=== PATIENT | male | born 1950 | race African-American/Black ===

== ENCOUNTER 2016-04-25 10:27 | Inpatient (IN) | payer MEDICARE, OTHER ==
[2016-04-25 10:46] VITALS: BMI 34.8
--- NOTE | 2016-04-25 11:46 | PDOC ---
History of Present Illness - General Chief Complaint: Wound Infection Stated Complaint: LT HAND LACERATION Time Seen by Provider: 04/25/16 11:45 Past History - Past Medical History Allergies/Adverse Reactions: Allergies Allergy/AdvReac Type Severity Reaction Status Date / Time No Known Allergies Allergy Verified 04/25/16 10:41 Home Medications: Ambulatory Orders Abacavir/Dolutegravir/Lamivudi [Triumeq Tablet] 1 each PO DAILY 04/25/16 Albuterol Sulfate Inhaler - [Ventolin HFA Inhaler -] 1 - 2 inh PO Q4H 04/25/16 Albuterol Sulfate Inhaler - [Ventolin HFA Inhaler -] 1 - 2 inh PO QID 04/25/16 Aspirin [ASA -] 81 mg PO DAILY 04/25/16 Atorvastatin Ca [Lipitor] 10 mg PO HS 04/25/16 Dabigatran Etexilate Mesylate [Pradaxa -] 150 mg PO BID 04/25/16 Folic Acid 1 mg PO DAILY 04/25/16 Gabapentin 400 mg PO DAILY 04/25/16 Hydralazine HCl [Apresoline -] 25 mg PO DAILY 04/25/16 Lisinopril [Prinivil] 20 mg PO DAILY 04/25/16 Magnesium Oxide [Magox 400] 400 mg PO BID 04/25/16 Metformin HCl [Metformin HCl ER] 500 mg PO BID 04/25/16 Metoprolol Tartrate [Lopressor -] 50 mg PO BID 04/25/16 Mometasone Furoate [Asmanex 110Mcg -] 1 inh IH DAILY 04/25/16 Multivitamin [Poly-Vitamin] 1 each PO DAILY 04/25/16 Niacin [Niacin ER] 1,000 mg PO DAILY 04/25/16 Sennosides [Senna -] 2 tab PO DAILY 04/25/16 Sitagliptin Phosphate [Januvia] 25 mg PO DAILY 04/25/16 Tamsulosin HCl [Flomax] 0.4 mg PO HS 04/25/16 Tiotropium [place] [Spiriva] 1 inh PO DAILY 04/25/16 Cephalexin [Keflex] 500 mg PO BID #14 capsule 04/27/16 Anemia: No Asthma: Yes Cancer: Yes (prostate ca) Cardiac Disorders: Yes CVA: Yes (Generalized weakness) COPD: Yes CHF: No Dementia: Yes Diabetes: Yes (TYPE II) Disorders: Yes HTN: Yes Hypercholesterolemia: Yes HIV: Yes Seizures: No - Immunization History Immunization Up to Date: Yes - Psycho/Social/Smoking Cessation Hx Anxiety: No Suicidal Ideation: No Smoking History: Former smoker Have you smoked in the past 12 months: No Number of Cigarettes Smoked Daily: 2 Cigars Per Day: 0 Information on smoking cessation initiated: No 'Breaking Loose' booklet given: 08/29/15 Hx Alcohol Use: No Drug/Substance Use Hx: No (PAST) Substance Use Type: None Hx Substance Use Treatment: No *Physical Exam - Vital Signs Last Vital Signs Temp Pulse Resp BP Pulse Ox 98.2 F 92 H 20 124/76 98 04/25/16 10:41 04/25/16 10:41 04/25/16 10:41 04/25/16 10:41 04/25/16 10:41 ED Treatment Course - LABORATORY CBC & Chemistry Diagram: 04/26/16 05:35 04/26/16 05:35 *DC/Admit/Observation/Transfer Diagnosis at time of Disposition: HIV-1 (human immunodeficiency virus I), Abscess of left hand, Failure of outpatient treatment - Discharge Dispostion Disposition: HOME - Prescriptions - Attestations Physician Attestion: 04/25/16 11:45 I, Dr. Ismael Josue, attest that this document has been prepared under my direction and personally reviewed by me in its entirety. I further attest, that it accurately reflects all work, treatment, procedures and medical decision -making performed by me.
[2016-04-25] MEDS ORDERED: VANCOMYCIN 1,000 MG in DEXTROSE 5%-WATER - 250 ML IVPB ONE (12:44)
[2016-04-25] MEDS ORDERED: PIPERACILLIN/TAZOB 3.375 GM 3.375 GM in DEXTROSE 5%-WATER - 50 ML IVPB SCH (12:45)
[2016-04-25] MEDS ORDERED: PIPERACILLIN/TAZOB 3.375 GM 50 ML IVPB ONE (12:53)
[2016-04-25] MEDS ORDERED: VANCOMYCIN 1 GRAM (PRE-DOCKED) 250 ML IVPB ONE (12:53)
[2016-04-25 13:13] LABS: VENOUS BLOOD GAS HCO3 24.2 meq/L (22-29); VENOUS PH 7.39 (7.31-7.41)
[2016-04-25 13:20] LABS: BASOPHIL 1.3 % (0-2.0); EOSINOPHIL 1.5 % (0-4.5); MCH 27.2 pg (25.7-33.7); MCHC 32.4 g/dl (32.0-35.9); MEAN CELL VOLUME 83.8 fl (80-96); MEAN PLT VOLUME 8.5 fl (7.5-11.1); NEUTROPHILS 61.7 % (42.8-82.8); PLATELET COUNT 225 K/MM3 (134-434); RDW 15.4 % (11.9-15.9)
[2016-04-25 13:33] LABS: INR 1.21 (0.82-1.09); PROTHROMBIN TIME (PATIENT) 13.4 SEC (9.98-11.88)
[2016-04-25 13:35] LABS: ACTIVATED PTT 34.9 SECONDS (26.9-34.4)
[2016-04-25 13:43] LABS: ALBUMIN 2.3 g/dl (3.4-5.0); ANION GAP 11 (8-16); CALCIUM 8.6 mg/dL (8.5-10.1); CO2 25 mmol/L (21-32)
--- NOTE | 2016-04-25 13:45 | PN ---
Progress Note, Physician Chief Complaint: ID Cull note dictated My clinic patient HIV positive for years doing well though many comorbidities including DM and CKD. Several days ago cut palm of his right hand on a knife cutting an orange at home. Saw him in clinic 2 days ago whith some slight induration and tendernes but no fluctuance. I advise warm soaks and Keflex which he did. Now area draining pus with some surrounding palm swelling. No fever or chills - Current Medication List Current Medications: Active Medications Piperacillin Sod/Tazobactam (Sod 3.375 gm/ Dextrose) 50 mls @ 100 mls/hr IVPB ONCE GELACIO Last Admin: 04/25/16 13:13 Dose: 100 mls/hr Vancomycin HCl 1,000 mg/ (Dextrose) 250 mls @ 250 mls/hr IVPB ONCE ONE Stop: 04/25/16 13:43 Last Admin: 04/25/16 13:31 Dose: 250 mls/hr - Objective Vital Signs: Vital Signs Temperature 98.2 F 04/25/16 10:41 Pulse Rate 92 H 04/25/16 10:41 Respiratory Rate 20 04/25/16 10:41 Blood Pressure 124/76 04/25/16 10:41 O2 Sat by Pulse Oximetry (%) 98 04/25/16 10:41 Constitutional: Yes: Obese, Poor Hygeine Neck: Yes: Supple Cardiovascular: Yes: S1, S2 Respiratory: Yes: WNL, Regular, CTA Bilaterally Gastrointestinal: Yes: Soft Extremities: Yes: Other (open are palm of right hand with pus tender some swelling) Labs: CBC, BMP 04/25/16 13:10 Problem List - Problems (1) Abscess of left hand Code(s): L02.512 - CUTANEOUS ABSCESS OF LEFT HAND (2) Diabetes mellitus type 2, uncontrolled Code(s): E11.65 - TYPE 2 DIABETES MELLITUS WITH HYPERGLYCEMIA (3) HIV (human immunodeficiency virus infection) Code(s): Z21 - ASYMPTOMATIC HUMAN IMMUNODEFICIENCY VIRUS INFECTION STATUS (4) Acute kidney injury superimposed on CKD Code(s): S37.009A - UNSPECIFIED INJURY OF UNSPECIFIED KIDNEY, INITIAL ENCOUNTER N18.9 - CHRONIC KIDNEY DISEASE, UNSPECIFIED Assessment/Plan Microbiology Laboratory Tests 04/25/16 13:10 Hgb 13.7 D Plt Count 225 D Assessment Abscess left hand draining SSTI with underlying DM Plan Vanco and zosyn pending culture Anticipate short stay Reasonable to have hand surgeon see him Cultures IRMA Hawkins MD
[2016-04-25] MEDS ORDERED: VANCOMYCIN 1,500 MG in DEXTROSE 5%-WATER - 250 ML IVPB ONE (13:46)
[2016-04-25 13:47] LABS: BILIRUBIN,TOTAL 0.2 mg/dL (0.2-1.0); CREATININE 1.8 mg/dL (0.7-1.3); SGOT/AST 16 U/L (15-37); SGPT/ALT 23 U/L (12-78); TOT PROT 6.1 g/dl (6.4-8.2)
--- NOTE | 2016-04-25 13:53 | PDOC ---
History of Present Illness - General Chief Complaint: Wound Infection Stated Complaint: LT HAND LACERATION Time Seen by Provider: 04/25/16 11:45 History Source: Patient Exam Limitations: No Limitations - History of Present Illness Initial Comments: 04/25/16 13:04 65-year-old male with history of HIVand diabetes presents with worsening left hand wound which occurred 3 days ago while cutting an orange with a knife. Patient was seen by his infectious disease physician Dr. Hawkins who prescribed him Keflex which patient has been taking as prescribed but states symptoms have worsened. Pt was sent here by Dr. Simon for admission secondary to failed outpatient therapy and worsening abscess. Patient states has had no fever or chills or decreased range of motion of the left hand but pain has been constant and more severe since this morning. Timing/Duration: getting worse Severity: moderate Associated Symptoms: denies: denies symptoms, fever/chills, weakness Past History - Past Medical History Allergies/Adverse Reactions: Allergies Allergy/AdvReac Type Severity Reaction Status Date / Time No Known Allergies Allergy Verified 04/25/16 10:41 Home Medications: Ambulatory Orders Abacavir/Dolutegravir/Lamivudi [Triumeq Tablet] 1 each PO DAILY 04/25/16 Albuterol Sulfate Inhaler - [Ventolin HFA Inhaler -] 1 - 2 inh PO Q4H 04/25/16 Albuterol Sulfate Inhaler - [Ventolin HFA Inhaler -] 1 - 2 inh PO QID 04/25/16 Aspirin [ASA -] 81 mg PO DAILY 04/25/16 Atorvastatin Ca [Lipitor] 10 mg PO HS 04/25/16 Dabigatran Etexilate Mesylate [Pradaxa -] 150 mg PO BID 04/25/16 Folic Acid 1 mg PO DAILY 04/25/16 Gabapentin 400 mg PO DAILY 04/25/16 Hydralazine HCl [Apresoline -] 25 mg PO DAILY 04/25/16 Lisinopril [Prinivil] 20 mg PO DAILY 04/25/16 Magnesium Oxide [Magox 400] 400 mg PO BID 04/25/16 Metformin HCl [Metformin HCl ER] 500 mg PO BID 04/25/16 Metoprolol Tartrate [Lopressor -] 50 mg PO BID 04/25/16 Mometasone Furoate [Asmanex 110Mcg -] 1 inh IH DAILY 04/25/16 Multivitamin [Poly-Vitamin] 1 each PO DAILY 04/25/16 Niacin [Niacin ER] 1,000 mg PO DAILY 04/25/16 Sennosides [Senna -] 2 tab PO DAILY 04/25/16 Sitagliptin Phosphate [Januvia] 25 mg PO DAILY 04/25/16 Tamsulosin HCl [Flomax] 0.4 mg PO HS 04/25/16 Tiotropium [place] [Spiriva] 1 inh PO DAILY 04/25/16 Cephalexin [Keflex] 500 mg PO BID #14 capsule 04/27/16 Anemia: No Asthma: Yes Cancer: Yes (prostate ca) Cardiac Disorders: Yes CVA: Yes (Generalized weakness) COPD: Yes CHF: No Dementia: Yes Diabetes: Yes (TYPE II) Disorders: Yes HTN: Yes Hypercholesterolemia: Yes HIV: Yes Seizures: No - Immunization History Immunization Up to Date: Yes - Psycho/Social/Smoking Cessation Hx Anxiety: No Suicidal Ideation: No Smoking History: Former smoker Have you smoked in the past 12 months: No Number of Cigarettes Smoked Daily: 2 Cigars Per Day: 0 Information on smoking cessation initiated: No 'Breaking Loose' booklet given: 08/29/15 Hx Alcohol Use: No Drug/Substance Use Hx: No (PAST) Substance Use Type: None Hx Substance Use Treatment: No Patient Lives Alone: Yes Lives with/in: lives alone Review of Systems - Review of Systems Able to Perform ROS?: Yes Constitutional: No: Symptoms Reported HEENTM: No: Symptoms Reported Respiratory: No: Symptoms reported Cardiac (ROS): No: Symptoms Reported ABD/GI: No: Symptoms Reported : No: Symptoms Reported Musculoskeletal: No: Symptoms Reported Integumentary: Yes: Erythema, Lumps (left hand) Neurological: No: Symptoms reported, Numbness, Tingling, Dizziness Hematologic/Lymphatic: No: Symptoms Reported *Physical Exam - Vital Signs Last Vital Signs Temp Pulse Resp BP Pulse Ox 98.2 F 92 H 20 124/76 98 04/25/16 10:41 04/25/16 10:41 04/25/16 10:41 04/25/16 10:41 04/25/16 10:41 - Physical Exam General Appearance: Yes: Nourished, Appropriately Dressed. No: Apparent Distress HEENT: positive: EOMI, ALMITA. negative: Pale Conjunctivae Neck: positive: Supple Respiratory/Chest: positive: Lungs Clear, Normal Breath Sounds. negative: Respiratory Distress, Accessory Muscle Use Cardiovascular: positive: Regular Rhythm, Regular Rate. negative: Murmur Gastrointestinal/Abdominal: positive: Soft. negative: Tenderness Musculoskeletal: negative: CVA Tenderness Extremity: positive: Normal Capillary Refill, Normal Range of Motion, Tender ( left palm over 5th metacarpal). negative: Pedal Edema Integumentary: positive: Swelling (with erythema and purulent drainage from center of wound to left outer palm. Edema measuring 3 x 1 cm with erthema to center. No increased warmth. surrounding skin intact) Neurologic: positive: Motor Strength 5/5 (left fingers) ED Treatment Course - LABORATORY CBC & Chemistry Diagram: 04/26/16 05:35 04/26/16 05:35 - ADDITIONAL ORDERS Additional order review: Laboratory Results 04/25/16 13:10 VBG pH 7.39 POC VBG pCO2 40.8 L POC VBG pO2 45.4 H 04/25/16 13:10 RBC 5.03 D MCV 83.8 MCHC 32.4 RDW 15.4 MPV 8.5 Neutrophils % 61.7 Lymphocytes % 27.6 Monocytes % 7.9 Eosinophils % 1.5 Basophils % 1.3 - RADIOLOGY Radiology Studies Ordered: Category Date Time Status UPPER EXTREMITY CT W/O CONTR [CT] Stat CT Scan 04/25/16 12:23 Ordered CHEST X-RAY PORTABLE* [RAD] Stat Radiology 04/25/16 12:19 Ordered - Medications Given in the ED: ED Medications Discontinued Medications Generic Name Dose Route Start Last Admin Trade Name Freq PRN Reason Stop Dose Admin Vancomycin HCl 1,000 mg/ 250 mls @ 250 mls/hr 04/25/16 12:44 04/25/16 13:31 Dextrose IVPB 04/25/16 13:43 250 mls/hr ONCE ONE Administration Medical Decision Making - Medical Decision Making 04/25/16 12:06 Patient with nonhealing left hand wound which occurred 2 days ago and did not respond to Keflex by mouth as prescribed by his infectious disease physician Dr. Hawkins. Patient on exam had an open draining wound to the left palm. Septic workup was initiated including wound culture collection and a dose of Vanco/ Zosyn was ordered. Ct ordered to r/o osteomylitis. 04/25/16 14:07 Laboratory Tests 04/25/16 04/25/16 04/25/16 13:10 13:10 13:10 WBC 11.0 H Hgb 13.7 D Hct 42.1 D Plt Count 225 D Neutrophils % 61.7 VBG pH 7.39 POC VBG pCO2 40.8 L POC VBG pO2 45.4 H Blood Type Pending Antibody Screen Pending Pt pending CT. Patient was seen by Dr. Hawkins down the ER. Case discussed with hospitalist Dr. Walsh and accepted to service. Patient will be admitted to [facility] inpatient. *DC/Admit/Observation/Transfer Diagnosis at time of Disposition: HIV-1 (human immunodeficiency virus I), Abscess of left hand, Failure of outpatient treatment - Discharge Dispostion Disposition: HOME Admit: Yes - Prescriptions - Referrals - Patient Instructions - Post Discharge Activity
[2016-04-25 13:54] LABS: ALK PHOS 160 U/L (45-117)
[2016-04-25 13:55] LABS: TROPONIN I < 0.02 ng/ml (0.00-0.05)
[2016-04-25 13:56] LABS: GLUCOSE,RANDOM 321 mg/dL (74-106)
--- NOTE | 2016-04-25 16:02 | CONS ---
DATE OF CONSULTATION: HISTORY: This is a 65-year-old male with known HIV infection admitted with chief complaint of infection in the palm of the left hand. The patient is well known to me as I have followed him for many years in the HIV clinic. He has been doing well in this regard with most recent T cell count of 445 and a viral load of 20 copies. He has been on Triumeq for HIV. Additional problems have included coronary artery disease with coronary stents for which he sees Dr. Marquez. He is also a known diabetic with poor adherence to diet and obesity. He is hypertensive and has a history of prostate cancer treated with radiation therapy at [facility] and invasive pulmonary Aspergillosis with cavitary disease treated at [facility] with voriconazole for several months. He has, otherwise, been doing well. I saw him in the clinic 2 days ago, and he showed me his left hand having cut it with a knife slicing an orange. The palm of the left hand was tender and indurated but not fluctuant nor red. He had no fever or other systemic complaints. I recommended that he soak the hand and gave him a prescription for Keflex. He apparently went back to the clinic noting that he saw drainage coming from the area and is admitted for skin and soft tissue infection. Again, he has no fever. PAST MEDICAL HISTORY: As noted above. CURRENT MEDICATIONS: Include aspirin, Apresoline, Asmanex, gabapentin, Januvia, Keflex, Lopressor, metformin, niacin, lisinopril, Spiriva, and Triumeq. ALLERGIES: None known. SOCIAL HISTORY: Former smoker. No history of substance abuse. Lives in a residential facility across from the [facility]. No travel. FAMILY HISTORY: All reviewed and noncontributory. REVIEW OF SYSTEMS: All reviewed and noncontributory. PHYSICAL EXAMINATION: General: He is a disheveled-appearing, pleasant man. Vital Signs: Temperature 98.2, pulse 92, blood pressure 124/76, respirations 20. General: Obese. Neck: Supple. Lungs: Clear to P and A. Heart: S1, S2. Regular rhythm. No murmur. Abdomen: Soft and nontender without hepatosplenomegaly. No palpable mass, guarding, or rebound. Extremities: No clubbing, cyanosis, or edema. Examination of the left hand revealed a purulent abscess draining pus on the palmar surface of the left hand with some surrounding erythema and some tenderness. The white count is 11, hemoglobin 13.7, platelets 225. Most recent chemistries: Creatinine 1.8. ASSESSMENT: A 65-year-old male diabetic, human immunodeficiency virus positive with multiple coronary comorbidities presents with infection of the palm of the left hand having cut his hand with a knife several days ago. After soaking the area and giving Keflex, the area became fluctuant and has started to drain purulent material. This was sent for culture, and blood cultures were obtained. He will be empirically treated with vancomycin based on body weight and creatinine and Zosyn. For completeness, a hand surgery consult is requested. Anticipate a short length of stay. Blood and wound cultures have been sent. MARY JANE PRATT M.D. [id number]
[2016-04-25] MEDS ORDERED: ACETAMINOPHEN 325 MG TABLET (FP) PO PRN (16:45)
--- NOTE | 2016-04-25 16:50 | HP ---
CHIEF COMPLAINT: " i have an infected cut on my hand" PCP: Dr Hawkins HISTORY OF PRESENT ILLNESS: This is a 65 yo M with PMH of HIV (controlled, virus undetectable), NIDDM and CKD, who present due to 1 cm abscess of Left medial palm. he states that he cut his hand with a kitchen knife 1 w ago. when the cut turned red and painful, he visited PCP, who prescribed oral Keflex. The cut continued to hurt more and became purulent, encapsulated, oozong purulent fluid. Patient was urged to go to hospital to r/o osteomyelitis. He reports moderate pain in hand, mild restriction in ROM. He denies f/c, h/a, chest pain, myalgia, joint pain. ER course was notable for: (1)labs (2)cxr, ct hand (3)zosyn Recent Travel: denies PAST MEDICAL HISTORY: as above PAST SURGICAL HISTORY: PCI and 2 cardiac stents 4 yrs ago Social History: lives at home Smoking: denies Alcohol: denies Drugs: denies Family History: HLD, dm Allergies No Known Allergies Allergy (Verified 04/25/16 10:41) HOME MEDICATIONS: Home Medications Medication Instructions Recorded Abacavir/Dolutegravir/Lamivudi 1 each PO DAILY 04/25/16 [Triumeq Tablet] Albuterol Sulfate Inhaler - 1 - 2 inh PO Q4H 04/25/16 [Ventolin Hfa Inhaler -] Albuterol Sulfate Inhaler - 1 - 2 inh PO QID 04/25/16 [Ventolin Hfa Inhaler -] Aspirin [ASA -] 81 mg PO DAILY 04/25/16 Atorvastatin Ca [Lipitor] 10 mg PO HS 04/25/16 Cephalexin [Keflex] 500 mg PO BID 04/25/16 Dabigatran Etexilate Mesylate 150 mg PO BID 04/25/16 [Pradaxa -] Folic Acid 1 mg PO DAILY 04/25/16 Gabapentin 400 mg PO DAILY 04/25/16 Hydralazine HCl [Apresoline -] 25 mg PO DAILY 04/25/16 Lisinopril [Prinivil] 20 mg PO DAILY 04/25/16 Magnesium Oxide [Magox 400] 400 mg PO BID 04/25/16 Metformin HCl [Metformin HCl ER] 500 mg PO BID 04/25/16 Metoprolol Tartrate [Lopressor -] 50 mg PO BID 04/25/16 Mometasone Furoate [Asmanex 110Mcg 1 inh IH DAILY 04/25/16 -] Multivitamin [Poly-Vitamin] 1 each PO DAILY 04/25/16 Niacin [Niacin ER] 1,000 mg PO DAILY 04/25/16 Sennosides [Senna] 2 tab PO DAILY 04/25/16 Sitagliptin Phosphate [Januvia] 25 mg PO DAILY 04/25/16 Tamsulosin HCl [Flomax] 0.4 mg PO HS 04/25/16 Tiotropium [place] [Spiriva] 1 inh PO DAILY 04/25/16 REVIEW OF SYSTEMS CONSTITUTIONAL: Absent: fever, chills, diaphoresis, generalized weakness, malaise HEENT: Absent: rhinorrhea, nasal congestion, throat pain CARDIOVASCULAR: Absent: chest pain, syncope, palpitations, irregular heart rate, lightheadedness RESPIRATORY: Absent: cough, shortness of breath, dyspnea with exertion, orthopnea GASTROINTESTINAL: Absent: abdominal pain, abdominal distension, nausea, vomiting, diarrhea, constipation GENITOURINARY: Absent: dysuria MUSCULOSKELETAL: Absent: myalgia, arthralgia SKIN: Absent: rash, itching, pallor HEMATOLOGIC/IMMUNOLOGIC: Absent: frequent infections ENDOCRINE: Absent: unexplained weight gain, unexplained weight loss NEUROLOGIC: Absent: headache, focal weakness or paresthesias PSYCHIATRIC: Absent: anxiety, depressions. PHYSICAL EXAMINATION Vital Signs - 24 hr 04/25/16 15:30 Temperature 98.0 F Pulse Rate 90 Respiratory 18 Rate Blood Pressure 130/73 O2 Sat by Pulse 98 Oximetry (%) GENERAL: Awake, alert, and fully oriented, in no acute distress. HEAD: Normal with no signs of trauma. EYES: Pupils equal, round and reactive to light, extraocular movements intact, sclera anicteric, b/l cataracts. EARS, NOSE, THROAT: Moist mucous membranes. NECK: supple LUNGS: Breath sounds equal, clear to auscultation bilaterally. HEART: Regular rate and rhythm, normal S1 and S2 ABDOMEN: Soft, nontender, not distended, normoactive bowel sounds MUSCULOSKELETAL: mildly decreased flexion of 4th and 5th L metacarpophalangial joints due to pain. UPPER EXTREMITIES: 2+ pulses, warm, well-perfused. L lateral palm 1 cm purulent draining abscess. mild surrounding cellulitis. LOWER EXTREMITIES: 2+ pulses, warm, well-perfused. No calf tenderness. No peripheral edema. NEUROLOGICAL: Cranial nerves II-XII grossly intact. Normal speech. PSYCHIATRIC: Cooperative. Good eye contact. . SKIN: Warm, dry. lesion as above ASSESSMENT/PLAN: This is a 65 yo M with PMH of HIV (controlled, virus undetectable), NIDDM and CKD, who present due to 1 cm abscess of Left medial palm. Failed PO abx L ventral lateral hand abscess in immuno-compromised patient -failed po keflex -concern for osteomyelitis -mild leukocytosis 11 -zosyn -ID/PCP consult apprecited -hand surgery consult -CT hand no osteo -MRI hand CKD -creat at baseline 1.8 NIDDM -BGM TID AC -sliding scale FEN No ivf lytes stable DVT GI PPX: SCD, diet Diabetic diet Dispo: admit to med pato Problem List - Problem (1) Abscess of left hand Code(s): L02.512 - CUTANEOUS ABSCESS OF LEFT HAND (2) HIV-1 (human immunodeficiency virus I) Code(s): Z21 - ASYMPTOMATIC HUMAN IMMUNODEFICIENCY VIRUS INFECTION STATUS (3) Infection of left hand Code(s): L08.9 - LOCAL INFECTION OF THE SKIN AND SUBCUTANEOUS TISSUE, UNSP (4) HIV (human immunodeficiency virus infection) Code(s): Z21 - ASYMPTOMATIC HUMAN IMMUNODEFICIENCY VIRUS INFECTION STATUS (5) Chronic kidney disease Code(s): N18.9 - CHRONIC KIDNEY DISEASE, UNSPECIFIED (6) DVT prophylaxis Code(s): [id number] - (7) History of coronary artery stent placement Code(s): Z95.5 - PRESENCE OF CORONARY ANGIOPLASTY IMPLANT AND GRAFT (8) Diabetes Code(s): E11.9 - TYPE 2 DIABETES MELLITUS WITHOUT COMPLICATIONS Visit type - Emergency Visit Emergency Visit: Yes ED Registration Date: 04/25/16 Care time: The patient presented to the Emergency Department on the above date and was hospitalized for further evaluation of their emergent condition. - New Patient This patient is new to me today: Yes Date on this admission: 04/25/16 - Critical Care Critical Care patient: No
--- NOTE | 2016-04-25 17:06 | PN ---
Teaching Attending Note Name of Resident: Radha Maddox ATTENDING PHYSICIAN STATEMENT I saw and evaluated the patient. I reviewed the resident's note and discussed the case with the resident. I agree with the resident's findings and plan as documented. SUBJECTIVE: This is a 65-year-old man with a history of HIV, COPD, HTN, hyperlipidemia, type 2 DM, BPH, atrial flutter, CVA, prostate cancer and dementia who as sent to the ER by Dr. Simon because of an infected wound of his left hand. He says that while cutting an orange with a knife last week, he accidentally cut his left hand. A few days later he developed pain. He saw Dr. Hawkins who prescribed Keflex. Initially there was improvement but then he noted increasing pain and swelling, and pus started to drain. He returned today for follow-up and was sent to the ER for IV antibiotics. OBJECTIVE: Vital Signs Period Temp Pulse Resp BP Sys/Gaspar Pulse Ox Last 24 Hr 98.0 F-98.2 F 90-92 18-20 124-130/73-76 98-98 HEART: S1 S2, RRR LUNGS: Clear ABDOMEN: Obese, soft, non-tender, non-distended, normal BS EXTREMITIES: Trace edema of both legs. Laceration of medial palmar surface of left hand draining pus and with surrounding erythema and tenderness. Diffuse swelling of left hand. ASSESSMENT AND PLAN: This is a 65-year-old man with a history of HIV, COPD, HTN, hyperlipidemia, type 2 DM, BPH, atrial flutter, CVA, prostate cancer and dementia who comes to the ER with increasing pain and swelling of his left hand with drainage of pus after cutting his hand with a knife, 1. Infected laceration and abscess of left hand - Failed outpatient treatment with Keflex - Zosyn, Vancomycin - CT of left hand pending - ID consult - Hand surgery consult 2. Type 2 diabetes mellitus - Continue Januvia - Hold Metformin - Fingersticks with Novolog sliding scale 3. Hypertension - Continue Lisinopril, Lopressor, Hydralazine 4. Hyperlipidemia - Continue Lipitor 5. BPH, prostate cancer - Continue Flomax 6. Dementia 7. COPD - Stable - Continue Asmanex, Spiriva, Albuterol nebs as needed 8. HIV - Continue Triumeq 9. Atrial flutter - Continue Lopressor, Pradaxa
--- NOTE | 2016-04-25 17:22 | EKG ---
Test Reason : Blood Pressure : / mmHG Vent. Rate : 086 BPM Atrial Rate : 086 BPM P-R Int : 148 ms QRS Dur : 088 ms QT Int : 378 ms P-R-T Axes : 077 -08 068 degrees QTc Int : 452 ms SINUS RHYTHM WITH OCCASIONAL PREMATURE VENTRICULAR COMPLEXES LOW VOLTAGE QRS INFERIOR INFARCT , AGE UNDETERMINED CANNOT RULE OUT ANTEROSEPTAL INFARCT (CITED ON OR BEFORE 17-NOV-2003) ABNORMAL ECG WHEN COMPARED WITH ECG OF 29-AUG-2015 11:19, INFERIOR INFARCT IS NOW PRESENT QUESTIONABLE CHANGE IN INITIAL FORCES OF SEPTAL LEADS NONSPECIFIC T WAVE ABNORMALITY NO LONGER EVIDENT IN INFERIOR LEADS T WAVE INVERSION NO LONGER EVIDENT IN LATERAL LEADS Confirmed by JUNIOR RUANO MD ([id number]) on 04/25/2016 5:22:11 PM Referred By: Confirmed By:JUNIOR RUANO MD
[2016-04-25] MEDS: INSULIN SLIDING SCALE (NOVOLOG) 1 VIAL SQ SCH (18:34)
[2016-04-25] MEDS: PIPERACILLIN/TAZOB 2.25 GM 50 ML IVPB SCH (20:41)
[2016-04-26] MEDS: PIPERACILLIN/TAZOB 2.25 GM 50 ML IVPB SCH ×4 (02:23→20:47)
[2016-04-26] MEDS: INSULIN SLIDING SCALE (NOVOLOG) 1 VIAL SQ SCH ×3 (06:06→17:42)
[2016-04-26 07:14] LABS: MCH 27.4 pg (25.7-33.7); MCHC 32.9 g/dl (32.0-35.9); MEAN CELL VOLUME 83.1 fl (80-96); MEAN PLT VOLUME 8.5 fl (7.5-11.1); PLATELET COUNT 198 K/MM3 (134-434); WHITE BLOOD COUNT 7.6 K/mm3 (4.0-10.0)
[2016-04-26 07:34] LABS: CREATININE 1.7 mg/dL (0.7-1.3)
--- NOTE | 2016-04-26 07:42 | PN ---
<Radha Maddox - Last Filed: 04/26/16 10:47> Physical Exam: SUBJECTIVE: Patient seen and examined Patient resting in bed NAD. No acute events overnight, afebrile and hemodynamically stable. reports unchanged pain in L hand. Deneis chesta pain, sob, h/a, f/c, n/v, diarrhea or dysuria. tolerating PO. To be seen by hand surgeon for i and D. CT osteo negative, MRI done, awaiting report. OBJECTIVE: Vital Signs Period Temp Pulse Resp BP Sys/Gaspar Pulse Ox Last 24 Hr 98.0 F-98.9 F 86-97 18-20 130-160/62-77 98-98 GENERAL: Awake, alert, and fully oriented, in no acute distress. HEAD: Normal with no signs of trauma. EYES: Pupils equal, round and reactive to light, extraocular movements intact, sclera anicteric, b/l cataracts. EARS, NOSE, THROAT: Moist mucous membranes. NECK: supple LUNGS: Breath sounds equal, clear to auscultation bilaterally. HEART: Regular rate and rhythm, normal S1 and S2 ABDOMEN: Soft, nontender, not distended, normoactive bowel sounds MUSCULOSKELETAL: mildly decreased flexion of 4th and 5th L metacarpophalangial joints due to pain. UPPER EXTREMITIES: 2+ pulses, warm, well-perfused. L lateral palm 1 cm purulent draining abscess. mild surrounding cellulitis. LOWER EXTREMITIES: 2+ pulses, warm, well-perfused. No calf tenderness. No peripheral edema. NEUROLOGICAL: Cranial nerves II-XII grossly intact. Normal speech. PSYCHIATRIC: Cooperative. Good eye contact. . SKIN: Warm, dry. lesion as above Laboratory Results - last 24 hr 04/25/16 04/25/16 04/26/16 18:33 21:57 05:35 WBC 7.6 D RBC 4.83 Hgb 13.2 Hct 40.2 MCV 83.1 MCHC 32.9 RDW 15.0 Plt Count 198 MPV 8.5 POC Glucometer 348 241 04/26/16 05:49 WBC RBC Hgb Hct MCV MCHC RDW Plt Count MPV POC Glucometer 206 Active Medications Generic Name Dose Route Start Last Admin Trade Name Freq PRN Reason Stop Dose Admin Acetaminophen 650 mg 04/25/16 16:45 Tylenol - PO Q4H PRN FEVER OR PAIN Piperacillin Sod/Tazobactam Sod 50 mls @ 100 mls/hr 04/25/16 21:00 04/26/16 02: 23 Zosyn 2.25gm Ivpb (Pre-Docked) IVPB 100 mls/hr Q6H-IV GELACIO Administration Insulin Aspart 1 vial 04/25/16 16:45 04/26/16 06:06 Novolog Vial Sliding Scale - SQ 2 units TIDAC GELACIO Administration Protocol ASSESSMENT/PLAN: This is a 65 yo M with PMH of HIV (controlled, virus undetectable), NIDDM and CKD, who present due to 1 cm abscess of Left medial palm. Failed PO abx L ventral lateral hand abscess in immuno-compromised patient -failed po keflex -concern for osteomyelitis -mild leukocytosis 11 -zosyn, vanco -blood culture pd -wound culture pd -wound gram stain negative for organisms -ID/PCP consult apprecited -hand surgery consult p/d -CT hand no osteo -MRI hand done, awaiting report CKD -creat at baseline 1.8 NIDDM -BGM TID AC -sliding scale FEN No ivf lytes stable DVT GI PPX: SCD, diet Diabetic diet Dispo: admit to med pato Problem List - Problems (1) Abscess of left hand Code(s): L02.512 - CUTANEOUS ABSCESS OF LEFT HAND (2) HIV-1 (human immunodeficiency virus I) Code(s): Z21 - ASYMPTOMATIC HUMAN IMMUNODEFICIENCY VIRUS INFECTION STATUS (3) Infection of left hand Code(s): L08.9 - LOCAL INFECTION OF THE SKIN AND SUBCUTANEOUS TISSUE, UNSP (4) HIV (human immunodeficiency virus infection) Code(s): Z21 - ASYMPTOMATIC HUMAN IMMUNODEFICIENCY VIRUS INFECTION STATUS (5) Chronic kidney disease Code(s): N18.9 - CHRONIC KIDNEY DISEASE, UNSPECIFIED (6) DVT prophylaxis Code(s): DOE2024 - (7) History of coronary artery stent placement Code(s): Z95.5 - PRESENCE OF CORONARY ANGIOPLASTY IMPLANT AND GRAFT (8) Diabetes Code(s): E11.9 - TYPE 2 DIABETES MELLITUS WITHOUT COMPLICATIONS Visit type - Emergency Visit Emergency Visit: Yes ED Registration Date: 04/25/16 Care time: The patient presented to the Emergency Department on the above date and was hospitalized for further evaluation of their emergent condition. - New Patient This patient is new to me today: No - Critical Care Critical Care patient: No - Discharge Referral Referred to [facility] Med P.C.: No <Elroy Morelos - Last Filed: 04/26/16 11:32> Physical Exam: ATTENDING PHYSICIAN STATEMENT I saw and evaluated the patient. I reviewed the resident's note and discussed the case with the resident. I agree with the resident's findings and plan as documented. SUBJECTIVE: seen and evaluated at the bedside OBJECTIVE: area of recent abscess now flat on palm of left hand ASSESSMENT AND PLAN: 65 yo M with PMH of HIV (controlled, virus undetectable), NIDDM and CKD, admitted for abscess of Left medial palm -abscess now gone, some skin with minimal drainage -follow up MRI -cont zosyn as per ID attending recs -follow up cultures
--- NOTE | 2016-04-26 09:52 | CONSULT ---
Consult - text type - Consultation Consultation Note: FULL CONSULT DICTATED IMP: PUNCTURE WOUND RIGHT HAND PLAN: IV ABX, WILL FOLLOW. NO SURGERY NEEDED
--- NOTE | 2016-04-26 10:20 | CONS ---
DATE OF CONSULTATION: 04/26/2016 HISTORY: The patient is a 65-year-old male admitted to the hospital with pain and swelling in his right hand after stabbing himself in the right hand while cutting an orange. The patient's past medical history is significant for HIV, bit-kpvgfnb-nqsbqtmcx diabetes. The patient states that the hand feels much better today than yesterday. PHYSICAL EXAMINATION: He has a small puncture hole on the palmar surface of his right hand in the mid aspect of his 5th metacarpal. There is what appears to be an abscess that has drained already with no drainage currently. His subcutaneous is a little macerated. No surrounding erythema. No lymphangitis. He does have full, active motion of his PIP, DIP, MCP of all of his fingers including the 4th and 5th rays with no deep space palpable infection or fluid collection. He did get an upper extremity CT, which did not show any evidence of a foreign body abscess or osteomyelitis in the palm of his hand. Laboratory values yesterday show a white count of 11 but down today to 7.6 on IV antibiotics. IMPRESSION: Right hand puncture wound over the palmar aspect of his 5th metacarpal. Seems to be resolving well with intravenous antibiotics. PLAN: Continue IV antibiotics as per ID. No need for incision and drainage or any other orthopaedic intervention at this time. We will follow. Thank you for the consultation. NGOZI FAUST M.D. [id number]
[2016-04-26 11:16] LABS: URINE APPEARANCE CLEAR; URINE BILIRUBIN NEGATIVE (NEGATIVE); URINE BLOOD NEGATIVE (NEGATIVE); URINE COLOR STRAW; URINE GLUCOSE (UA) 3+ (NEGATIVE); URINE KETONE NEGATIVE (NEGATIVE); URINE LEUK ESTERASE NEGATIVE (NEGATIVE); URINE NITRITE NEGATIVE (NEGATIVE); URINE UROBILINOGEN NEGATIVE E.U./dl (0.2-1.0)
[2016-04-26 11:25] LABS: URINE PROTEIN 3+ (NEGATIVE)
[2016-04-26 11:26] LABS: URINE HYALINE CAST 2 /lpf; URINE RBC 1 /hpf (0-3); URINE WBC 2 /hpf (3-5)
--- NOTE | 2016-04-26 11:30 | PN ---
Progress Note (short form) - Note Progress Note: less had pain Vital Signs Period Temp Pulse Resp BP Sys/Gaspar Pulse Ox Last 24 Hr 98.0 F-98.9 F 86-100 18-20 130-160/62-80 96-98 cor-rrr llungs clear abd soft,nt ext less hand swelling, less purulend drainage, still some erythema CBC, BMP 04/26/16 05:35 04/26/16 05:35 Microbiology 04/25/16 12:20 Hand - Left Gram Stain - Final Laboratory Tests 01/26/16 01/26/16 11:30 11:30 Absolute CD4 [place] 445 HIV-1 RNA (PCR) 20 MRI of hannd no osteomyelitis a/p hand abscess resolving hiv- stable dm with CKD CAD overall improving f/u cultures hopefully transition to po in next 24 to 48 hours based on clinical course check vanco trough to redose continue zosyn
[2016-04-26] MEDS: METOPROLOL TARTRATE 50 MG TABLET (FP) PO SCH ×2 (11:57→22:21)
[2016-04-26] MEDS: LISINOPRIL 20 MG TABLET (FP) PO SCH (11:57)
[2016-04-26] MEDS: MAGNESIUM OXIDE 400 MG TABLET (FP) PO SCH ×2 (11:57→22:21)
[2016-04-26] MEDS: ASPIRIN 81 MG CHEWABLE TABLETS PO SCH (11:57)
[2016-04-26] MEDS: FOLIC ACID 1 MG TABLET (FP) PO SCH (11:57)
[2016-04-26] MEDS: GABAPENTIN 400 MG CAPSULE (FP) PO SCH (11:57)
[2016-04-26] MEDS: hydrALAZINE HCL 25 MG TABLET (FP) PO SCH (11:57)
[2016-04-26] MEDS: MOMETASONE FUROATE 110 MCG/IH INHALER IH SCH (14:30)
[2016-04-26] MEDS: DABIGATRAN ETEXILATE MESYLATE 150 MG CAPSULE PO SCH ×2 (14:30→22:21)
[2016-04-26] MEDS ORDERED: PT OWN MED DRAWER 7, Y5N ONE (14:46)
[2016-04-26] MEDS ORDERED: ATORVASTATIN CA 10 MG TABLET (FP) PO SCH (22:00)
[2016-04-27] MEDS: PIPERACILLIN/TAZOB 2.25 GM 50 ML IVPB SCH ×2 (02:03→09:16)
[2016-04-27] MEDS: INSULIN SLIDING SCALE (NOVOLOG) 1 VIAL SQ SCH ×2 (06:09→12:08)
[2016-04-27] MEDS: MAGNESIUM OXIDE 400 MG TABLET (FP) PO SCH (09:25)
[2016-04-27] MEDS: FOLIC ACID 1 MG TABLET (FP) PO SCH (09:25)
[2016-04-27] MEDS: METOPROLOL TARTRATE 50 MG TABLET (FP) PO SCH (09:25)
[2016-04-27] MEDS: LISINOPRIL 20 MG TABLET (FP) PO SCH (09:25)
[2016-04-27] MEDS: hydrALAZINE HCL 25 MG TABLET (FP) PO SCH (09:25)
[2016-04-27] MEDS: ASPIRIN 81 MG CHEWABLE TABLETS PO SCH (09:25)
[2016-04-27] MEDS: GABAPENTIN 400 MG CAPSULE (FP) PO SCH (09:25)
[2016-04-27] MEDS: DABIGATRAN ETEXILATE MESYLATE 150 MG CAPSULE PO SCH (09:26)
[2016-04-27] MEDS: MOMETASONE FUROATE 110 MCG/IH INHALER IH SCH (09:26)
--- NOTE | 2016-04-27 09:52 | PN ---
Progress Note, Physician Chief Complaint: ID Zosyn day 2 therapy OFfers no complaints - Current Medication List Current Medications: Active Medications Acetaminophen (Tylenol -) 650 mg PO Q4H PRN PRN Reason: FEVER OR PAIN Aspirin (Asa -) 81 mg PO DAILY [facility] Last Admin: 04/27/16 09:25 Dose: 81 mg Atorvastatin Calcium (Lipitor -) 10 mg PO HS [facility] Last Admin: 04/26/16 22:21 Dose: 10 mg Dabigatran (Pradaxa -) 150 mg PO BID [facility] Last Admin: 04/27/16 09:26 Dose: 150 mg Folic Acid (Folic Acid -) 1 mg PO DAILY [facility] Last Admin: 04/27/16 09:25 Dose: 1 mg Gabapentin (Neurontin -) 400 mg PO DAILY [facility] Last Admin: 04/27/16 09:25 Dose: 400 mg Hydralazine HCl (Apresoline -) 25 mg PO DAILY [facility] Last Admin: 04/27/16 09:25 Dose: 25 mg Piperacillin Sod/Tazobactam Sod (Zosyn 2.25gm Ivpb (Pre-Docked)) 50 mls @ 100 mls/hr IVPB Q6H-IV [facility] Last Admin: 04/27/16 09:16 Dose: 100 mls/hr Insulin Aspart (Novolog Vial Sliding Scale -) 1 vial SQ TIDAC [facility] PRN Reason: Protocol Last Admin: 04/27/16 06:09 Dose: 2 units Lisinopril (Prinivil) 20 mg PO DAILY [facility] Last Admin: 04/27/16 09:25 Dose: 20 mg Magnesium Oxide (Mag-Ox -) 400 mg PO BID [facility] Last Admin: 04/27/16 09:25 Dose: 400 mg Metoprolol Tartrate (Lopressor -) 50 mg PO BID [facility] Last Admin: 04/27/16 09:25 Dose: 50 mg Mometasone Furoate (Asmanex 110mcg -) 1 puff IH DAILY [facility] Last Admin: 04/27/16 09:26 Dose: 1 puff Senna (Senna -) 2 tab PO DAILY [facility] Last Admin: 04/27/16 09:25 Dose: 2 tab - Objective Vital Signs: Vital Signs Temperature 97.5 F L 04/27/16 07:00 Pulse Rate 67 04/27/16 07:00 Respiratory Rate 20 04/27/16 07:00 Blood Pressure 129/65 0204/17 07:00 O2 Sat by Pulse Oximetry (%) 96 04/26/16 21:00 Extremities: Yes: Other (hand wselling and drainage palm area improved) Labs: CBC, BMP 04/26/16 05:35 04/26/16 05:35 INR, PTT INR 1.21 (0.82-1.09) H 04/25/16 13:10 Problem List - Problems (1) Abscess of left hand Code(s): L02.512 - CUTANEOUS ABSCESS OF LEFT HAND (2) Diabetes mellitus type 2, uncontrolled Code(s): E11.65 - TYPE 2 DIABETES MELLITUS WITH HYPERGLYCEMIA (3) HIV (human immunodeficiency virus infection) Code(s): Z21 - ASYMPTOMATIC HUMAN IMMUNODEFICIENCY VIRUS INFECTION STATUS (4) Acute kidney injury superimposed on CKD Code(s): S37.009A - UNSPECIFIED INJURY OF UNSPECIFIED KIDNEY, INITIAL ENCOUNTER N18.9 - CHRONIC KIDNEY DISEASE, UNSPECIFIED Assessment/Plan Laboratory Tests 04/26/16 04/26/16 05:35 05:35 WBC 7.6 D Hgb 13.2 Plt Count 198 BUN 21 H Creatinine 1.7 H Assessment Hand abscess improved mixed brigid Continue Keflex at home ( he may have Rx from last week friday) Plan Discharge planning today
[2016-04-27] MEDS ORDERED: SENNOSIDES 8.6MG TABLET (FP) PO SCH (10:00)
--- NOTE | 2016-04-27 10:08 | DS ---
Physical Examination Vital Signs: Vital Signs Temperature 97.5 F L 04/27/16 07:00 Pulse Rate 67 04/27/16 07:00 Respiratory Rate 20 04/27/16 07:00 Blood Pressure 129/65 04/27/16 07:00 O2 Sat by Pulse Oximetry (%) 96 04/26/16 21:00 Labs: CBC, BMP 04/26/16 05:35 04/26/16 05:35 Discharge Summary Reason For Visit: ABSCESS OF LEFT HAND Current Active Problems Abscess of left hand (Acute) Failure of outpatient treatment (Acute) HIV-1 (human immunodeficiency virus I) (Acute) Infection of left hand (Acute) Diabetes mellitus type 2, uncontrolled (Chronic) HIV (human immunodeficiency virus infection) (Chronic) Hospital Course: This is a 65 yo M with PMH of HIV (controlled, virus undetectable), NIDDM and CKD, who present due to 1 cm abscess of Left medial palm. he states that he cut his hand with a kitchen knife 1 w ago. when the cut turned red and painful, he visited PCP, who prescribed oral Keflex. The cut continued to hurt more and became purulent, encapsulated, oozong purulent fluid. Patient was urged to go to hospital to r/o osteomyelitis. He reports moderate pain in hand, mild restriction in ROM. He denies f/c, h/a, chest pain, myalgia, joint pain. Pt was admitted to medicine service for cellulitis. Pt was seen by his private ID attending and was started on vanc/zosyn. Blood cultures were negative as was MRI for osteo. Pt was seen by hand surgeon and required no surgical intervention. Wound culture grew MSSA and gram negative rods and ID attending recommended discharging patient and for him to continue the keflex that he had prescribed the patient just prior to admission. I spent greater than 49 minutes preparing this discharge - Instructions Referrals: Orlando Hawkins MD [Primary Care Provider] - 1 Week Disposition: HOME - Home Medications Comprehensive Discharge Medication List: Ambulatory Orders Abacavir/Dolutegravir/Lamivudi [Triumeq Tablet] 1 each PO DAILY 04/25/16 Albuterol Sulfate Inhaler - [Ventolin HFA Inhaler -] 1 - 2 inh PO Q4H 04/25/16 Albuterol Sulfate Inhaler - [Ventolin HFA Inhaler -] 1 - 2 inh PO QID 04/25/16 Aspirin [ASA -] 81 mg PO DAILY 04/25/16 Atorvastatin Ca [Lipitor] 10 mg PO HS 04/25/16 Cephalexin [Keflex] 500 mg PO BID 04/25/16 Dabigatran Etexilate Mesylate [Pradaxa -] 150 mg PO BID 04/25/16 Folic Acid 1 mg PO DAILY 04/25/16 Gabapentin 400 mg PO DAILY 04/25/16 Hydralazine HCl [Apresoline -] 25 mg PO DAILY 04/25/16 Lisinopril [Prinivil] 20 mg PO DAILY 04/25/16 Magnesium Oxide [Magox 400] 400 mg PO BID 04/25/16 Metformin HCl [Metformin HCl ER] 500 mg PO BID 04/25/16 Metoprolol Tartrate [Lopressor -] 50 mg PO BID 04/25/16 Mometasone Furoate [Asmanex 110Mcg -] 1 inh IH DAILY 04/25/16 Multivitamin [Poly-Vitamin] 1 each PO DAILY 04/25/16 Niacin [Niacin ER] 1,000 mg PO DAILY 04/25/16 Sennosides [Senna -] 2 tab PO DAILY 04/25/16 Sitagliptin Phosphate [Januvia] 25 mg PO DAILY 04/25/16 Tamsulosin HCl [Flomax] 0.4 mg PO HS 04/25/16 Tiotropium [place] [Spiriva] 1 inh PO DAILY 04/25/16 This patient is new to me today: No Emergency Visit: Yes ED Registration Date: 04/25/16 Care time: The patient presented to the Emergency Department on the above date and was hospitalized for further evaluation of their emergent condition. Critical Care patient: No - Discharge Referral Referred to [facility] Med P.C.: No
[2016-04-27 11:43] VITALS: BP 134/72; PULSE 76; TEMP 98.6
== END 2016-04-27 15:18 | disposition home or self-care (01) | DRG 603 ==
LOC: JER 10:27 → JERBED 14:16 → J5S 15:40
PROVIDERS: ADMIT Internal Medicine; ATTEND Internal Medicine
DX: L02.512 Cutaneous abscess of left hand (principal); I48.92 Unspecified atrial flutter; Z21 Asymptomatic human immunodeficiency virus [HIV] infection status; E11.65 Type 2 diabetes mellitus with hyperglycemia; I12.9 Hypertensive chronic kidney disease with stage 1 through stage 4 chronic kidney disease, or unspecified chronic kidney disease; N18.9 Chronic kidney disease, unspecified; E78.5 Hyperlipidemia, unspecified; N40.0 Benign prostatic hyperplasia without lower urinary tract symptoms; Z86.73 Personal history of transient ischemic attack (TIA), and cerebral infarction without residual deficits; J44.9 Chronic obstructive pulmonary disease, unspecified; F03.90 Unspecified dementia, unspecified severity, without behavioral disturbance, psychotic disturbance, mood disturbance, and anxiety; Z85.46 Personal history of malignant neoplasm of prostate; Z87.891 Personal history of nicotine dependence; E66.9 Obesity, unspecified; Z68.34 Body mass index [BMI] 34.0-34.9, adult
CPT/HCPCS: 36415; 71010-TC; 73200-TC-RT; 73218-TC; 80048; 80053; 81003; 81015; 82550; 82553; 82803; 83605; 84484; 85025; 85027; 85610; 85730; 86850; 86900; 86901; 87040; 87070; 87086; 87186; 87205; 93005; 93010; 99284-25; G0480

== ENCOUNTER 2016-12-16 11:36 | Inpatient (IN) | payer MEDICARE, OTHER ==
--- NOTE | 2016-12-16 13:10 | PDOC ---
History of Present Illness - General History Source: Patient Exam Limitations: No Limitations - History of Present Illness Initial Comments: 12/16/16 14:43 Patient is a 66 year old male with a significant past medical history of Diabetes, HIV (controlled, virus undetectable), NIDDM and CKD who presents to the ED with complaints of left leg pain that began 2 days ago. Patient reports pain began this weekend suddenly and was constant until this morning. He reports the left leg pain is a localized pain that is felt behind his knee. Patient reports left upper thigh pain secondary to left leg pain. Patient states he has type 2 diabetes and intermittently takes insulin. Denies chest pain, SOB. Denies fever, chills. Denies contact with sick individuals, out of state travel. Allergies: None Social history: No smoking. No alcohol. No illicit Drugs. Surgical history: No known surgeries PMD: Dr. Hawkins <Mateo Rosales - Last Filed: 12/16/16 15:36> <Ismael Josue - Last Filed: 12/16/16 16:58> - General Chief Complaint: SIRS, Suspected/Possible Stated Complaint: DIZZINESS Time Seen by Provider: 12/16/16 13:04 Past History <Mateo Rosales - Last Filed: 12/16/16 15:36> - Past Medical History Anemia: No Asthma: Yes Cancer: Yes (prostate ca) Cardiac Disorders: Yes CVA: Yes (Generalized weakness) COPD: Yes CHF: No Dementia: Yes Diabetes: Yes Disorders: Yes HTN: Yes Hypercholesterolemia: Yes Seizures: No - Immunization History Immunization Up to Date: Yes - Suicide/Smoking/Psychosocial Hx Smoking History: Unknown if ever smoked Have you smoked in the past 12 months: No Number of Cigarettes Smoked Daily: 2 Cigars Per Day: 0 Information on smoking cessation initiated: No 'Breaking Loose' booklet given: 08/29/15 Hx Alcohol Use: No Drug/Substance Use Hx: No Substance Use Type: None Hx Substance Use Treatment: No <Ismael Josue - Last Filed: 12/16/16 16:58> - Past Medical History Allergies/Adverse Reactions: Allergies Allergy/AdvReac Type Severity Reaction Status Date / Time No Known Allergies Allergy Verified 12/16/16 12:08 Home Medications: Ambulatory Orders Albuterol Sulfate Inhaler - [Ventolin HFA Inhaler -] 1 - 2 inh PO Q4H 04/25/16 Gabapentin 400 mg PO DAILY 04/25/16 Lisinopril [Prinivil] 20 mg PO DAILY 04/25/16 Magnesium Oxide [Magox 400] 400 mg PO BID 04/25/16 Mometasone Furoate [Asmanex 110Mcg -] 1 inh IH DAILY 04/25/16 Tamsulosin HCl [Flomax] 0.4 mg PO HS 04/25/16 Tiotropium [place] [Spiriva] 1 inh PO DAILY 04/25/16 Abacavir/Dolutegravir/Lamivudi [Triumeq Tablet] 1 each PO DAILY #30 tablet 07/26 Apixaban [Eliquis] 5 mg PO DAILY #30 tablet 07/26/16 Aspirin [ASA -] 81 mg PO DAILY #30 tab.chew 07/26/16 Folic Acid 1 mg PO DAILY #30 tablet 07/26/16 Docusate Sodium [Colace -] 100 mg PO TID PRN #90 capsule 08/07/16 [place]-3S/Dha/Epa/Fish Oil [[place]-3 Fish Oil 1,000 mg Sfgl] 2 each PO BID #120 capsule 09/04/16 Metoprolol Tartrate [Lopressor -] 50 mg PO BID #60 tablet 09/19/16 Calcium Carbonate/Vitamin D3 [Calcium 600 + Vit D Tablet] 1 each PO DAILY #30 tablet 09/27/16 Metformin HCl [Metformin HCl ER] 500 mg PO BID #60 tab.er.24 10/04/16 Fenofibrate 150 mg PO DAILY #30 capsule 11/08/16 Sitagliptin Phosphate [Januvia] 25 mg PO DAILY #30 tab 11/08/16 Hydralazine HCl [Apresoline -] 25 mg PO DAILY 12/16/16 Miconazole Nitrate [Miconazole Nitrate -] 1 applic TP BID #1 tube 12/16/16 Review of Systems - Review of Systems Able to Perform ROS?: Yes Comments:: 12/16/16 14:43 GENERAL/CONSTITUTIONAL: No fever or chills. No weakness. HEAD, EYES, EARS, NOSE AND THROAT: No change in vision. No ear pain or discharge. No sore throat. CARDIOVASCULAR: No chest pain or shortness of breath. RESPIRATORY: No cough, wheezing, or hemoptysis. GASTROINTESTINAL: No nausea, vomiting, diarrhea or constipation. GENITOURINARY: No dysuria, frequency, or change in urination. MUSCULOSKELETAL: +Left leg pain. +Left upper thigh pain. No joint or muscle swelling.. No neck or back pain. SKIN: No rash NEUROLOGIC: No headache, vertigo, loss of consciousness, or change in strength/ sensation. ENDOCRINE: No increased thirst. No abnormal weight change. HEMATOLOGIC/LYMPHATIC: No anemia, easy bleeding, or history of blood clots. ALLERGIC/IMMUNOLOGIC: No hives or skin allergy. <Mateo Rosales - Last Filed: 12/16/16 15:36> *Physical Exam - Vital Signs Last Vital Signs Temp Pulse Resp BP Pulse Ox 101.7 F H 109 H 18 189/105 100 12/16/16 11:36 12/16/16 11:36 12/16/16 11:36 12/16/16 11:36 12/16/16 11:36 - Physical Exam Comments: 12/16/16 14:43 GENERAL: Awake, alert, and fully oriented, in no acute distress HEAD: No signs of trauma EYES: PERRLA, EOMI, sclera anicteric, conjunctiva clear ENT: Auricles normal inspection, hearing grossly normal, nares patent, oropharynx clear without exudates. Moist mucosa NECK: Normal ROM, supple, no lymphadenopathy, JVD, or masses LUNGS: Breath sounds equal, clear to auscultation bilaterally. No wheezes, and no crackles HEART: Regular rate and rhythm, normal S1 and S2, no murmurs, rubs or gallops ABDOMEN: Soft, nontender, normoactive bowel sounds. No guarding, no rebound. No masses GROIN: +Drained abscess that is healing, upper thigh medially on left leg. EXTREMITIES: Normal range of motion, no edema. No clubbing or cyanosis. No cords, erythema, or tenderness NEUROLOGICAL: Cranial nerves II through XII grossly intact. Normal speech, normal gait SKIN: Warm, Dry, normal turgor, no rashes or lesions noted. <Mateo Rosales - Last Filed: 12/16/16 15:36> - Vital Signs Last Vital Signs Temp Pulse Resp BP Pulse Ox 101.7 F H 109 H 18 189/105 100 12/16/16 11:36 12/16/16 11:36 12/16/16 11:36 12/16/16 11:36 12/16/16 11:36 <SorinIsmael walker - Last Filed: 12/16/16 16:58> ED Treatment Course - LABORATORY CBC & Chemistry Diagram: 12/16/16 13:20 12/16/16 13:43 - ADDITIONAL ORDERS Additional order review: Laboratory Results 12/16/16 12/16/16 12/16/16 14:00 13:43 13:43 PT with INR INR PTT (Actin FS) VBG pH 7.38 POC VBG pCO2 49.2 D POC VBG pO2 18.2 L* Mixed VBG HCO3 28.3 H Sodium 136 Potassium 4.3 Chloride 100 Carbon Dioxide 29 D Anion Gap 7 L BUN 23 H Creatinine 2.6 H Creat Clearance w eGFR 24.67 Random Glucose 141 H Lactic Acid Calcium 9.2 Total Bilirubin 0.7 D AST 29 ALT 29 Alkaline Phosphatase 106 Creatine Kinase 391 H Troponin I < 0.02 Total Protein 7.2 Albumin 2.9 L Urine Color Ltyellow Urine Appearance Clear Urine pH 7.0 Urine Protein 3+ H Urine Glucose (UA) 3+ H Urine Ketones Negative Urine Blood Negative Urine Nitrite Negative Urine Bilirubin Negative Urine Urobilinogen Negative Urine RBC 1 Urine WBC 2 Ur Epithelial Cells Rare Urine Bacteria Rare Urine Mucus Rare 12/16/16 12/16/16 12/16/16 13:43 13:20 13:20 PT with INR 12.50 H INR 1.13 PTT (Actin FS) 33.6 VBG pH POC VBG pCO2 POC VBG pO2 Mixed VBG HCO3 Sodium 134 L Potassium 4.9 Chloride 100 Carbon Dioxide 21 D Anion Gap 13 BUN 23 H Creatinine 2.5 H Creat Clearance w eGFR 25.81 Random Glucose 158 H D Lactic Acid 1.3 Calcium 9.5 Total Bilirubin 0.9 D AST 31 D ALT 29 Alkaline Phosphatase 108 D Creatine Kinase Troponin I Total Protein 7.4 D Albumin 3.0 L D Urine Color Urine Appearance Urine pH Urine Protein Urine Glucose (UA) Urine Ketones Urine Blood Urine Nitrite Urine Bilirubin Urine Urobilinogen Urine RBC Urine WBC Ur Epithelial Cells Urine Bacteria Urine Mucus 12/16/16 13:20 RBC 5.13 MCV 88.0 MCHC 32.2 RDW 15.0 MPV 8.9 D Neutrophils % 76.5 D Lymphocytes % 14.2 D Monocytes % 8.2 Eosinophils % 0.3 D Basophils % 0.8 - Medications Given in the ED: ED Medications Discontinued Medications Generic Name Dose Route Start Last Admin Trade Name Kassandra PRN Reason Stop Dose Admin Piperacillin Sod/Tazobactam Sod 3.375 gm 12/16/16 13:45 12/16/16 14:43 Zosyn 3.375gm Ivpb (Pre-Docked) IV 12/16/16 13:46 3.375 gm ONCE ONE Administration Protocol Sodium Chloride 1,724 ml 12/16/16 13:39 12/16/16 14:08 Normal Saline - IV 12/16/16 13:40 1,724 ml ONCE STA Administration <Mateo Rosales - Last Filed: 12/16/16 15:36> - LABORATORY CBC & Chemistry Diagram: 12/16/16 13:20 12/16/16 13:43 <Ismael Josue - Last Filed: 12/16/16 16:58> Medical Decision Making - Medical Decision Making 12/16/16 15:[address] Hawkins @14:46pm. Awaiting call back. Called Dr. Ramires @15:33pm. Awaiting call back. <Mateo Rosales - Last Filed: 12/16/16 15:36> *DC/Admit/Observation/Transfer - Attestations Scribe Attestion: 12/16/16 14:44 Documentation prepared by Mateo Rosales, acting as medical researcher for Ismael Josue MD/. <Mateo Rosales - Last Filed: 12/16/16 15:36> - Discharge Dispostion Admit: Yes - Attestations Physician Attestion: 12/16/16 13:12 I, Dr. Ismael Josue, attest that this document has been prepared under my direction and personally reviewed by me in its entirety. I further attest, that it accurately reflects all work, treatment, procedures and medical decision -making performed by me. <Ismael Josue - Last Filed: 12/16/16 16:58> Diagnosis at time of Disposition: Cellulitis of left lower extremity without foot, Abscess of right thigh - Discharge Dispostion Condition at time of disposition: Improved - Referrals Referrals: Orlando Hawkins MD [Primary Care Provider] -
[2016-12-16 13:26] LABS: BASOPHIL 0.8 % (0-2.0); EOSINOPHIL 0.3 % (0-4.5); MCH 28.4 pg (25.7-33.7); MCHC 32.2 g/dl (32.0-35.9); MEAN PLT VOLUME 8.9 fl (7.5-11.1); NEUTROPHILS 76.5 % (42.8-82.8); PLATELET COUNT 234 K/MM3 (134-434); WHITE BLOOD COUNT 18.4 K/mm3 (4.0-10.0)
[2016-12-16] MEDS ORDERED: SODIUM CHLORIDE 0.9% 1000 ML INFUS.BAG IV STA (13:39)
[2016-12-16] MEDS ORDERED: VANCOMYCIN 1,000 MG in DEXTROSE 5%-WATER - 250 ML IVPB ONE (13:44)
[2016-12-16] MEDS ORDERED: PIPERACILLIN/TAZOB 3.375 GM/50 ML PRE-DOCKED IV ONE (13:45)
[2016-12-16 14:02] LABS: ANION GAP 13 (8-16); CALCIUM 9.5 mg/dL (8.5-10.1); CO2 21 mmol/L (21-32); CREATININE 2.5 mg/dL (0.7-1.3); GLUCOSE,RANDOM 158 mg/dL (74-106); SGPT/ALT 29 U/L (12-78)
[2016-12-16 14:03] LABS: ALK PHOS 108 U/L (45-117); BILIRUBIN,TOTAL 0.9 mg/dL (0.2-1.0); TOT PROT 7.4 g/dl (6.4-8.2)
[2016-12-16 14:04] LABS: SGOT/AST 31 U/L (15-37)
[2016-12-16 14:15] LABS: URINE APPEARANCE CLEAR; URINE BILIRUBIN NEGATIVE (NEGATIVE); URINE BLOOD NEGATIVE (NEGATIVE); URINE COLOR LTYELLOW; URINE GLUCOSE (UA) 3+ (NEGATIVE); URINE KETONE NEGATIVE (NEGATIVE); URINE LEUK ESTERASE NEGATIVE (NEGATIVE); URINE NITRITE NEGATIVE (NEGATIVE); URINE UROBILINOGEN NEGATIVE mg/dL (0.2-1.0)
[2016-12-16 14:25] LABS: INR 1.13 (0.82-1.09); PROTHROMBIN TIME (PATIENT) 12.5 SEC (9.98-11.88)
[2016-12-16 14:27] LABS: ACTIVATED PTT 33.6 SECONDS (26.9-34.4)
[2016-12-16 14:29] LABS: URINE PROTEIN 3+ (NEGATIVE)
[2016-12-16 14:31] LABS: URINE BACTERIA RARE /hpf (NONE SEEN); URINE MUCUS RARE; URINE RBC 1 /hpf (0-3); URINE WBC 2 /hpf (3-5)
[2016-12-16 14:33] LABS: ALBUMIN 2.9 g/dl (3.4-5.0); ANION GAP 7 (8-16); BILIRUBIN,TOTAL 0.7 mg/dL (0.2-1.0); CALCIUM 9.2 mg/dL (8.5-10.1); CO2 29 mmol/L (21-32); CREATININE 2.6 mg/dL (0.7-1.3); GLUCOSE,RANDOM 141 mg/dL (74-106); SGPT/ALT 29 U/L (12-78); TOT PROT 7.2 g/dl (6.4-8.2)
[2016-12-16] MEDS ORDERED: PIPERACILLIN/TAZOB 3.375 GM 50 ML IVPB ONE (14:33)
[2016-12-16] MEDS ORDERED: VANCOMYCIN 1 GRAM (PRE-DOCKED) 250 ML IVPB ONE (14:33)
[2016-12-16 14:36] LABS: ALK PHOS 106 U/L (45-117); TROPONIN I < 0.02 ng/ml (0.00-0.05)
[2016-12-16 14:37] LABS: CPK 391 IU/L (39-308); SGOT/AST 29 U/L (15-37)
[2016-12-16 14:39] LABS: VENOUS PH 7.38 (7.32-7.42)
[2016-12-16 14:42] LABS: VENOUS BLOOD GAS HCO3 28.3 meq/L (19-25)
[2016-12-16] MEDS ORDERED: ACETAMINOPHEN 325 MG TABLET (FP) ONE (16:43)
[2016-12-16] MEDS ORDERED: ACETAMINOPHEN 325 MG TABLET (FP) PO ONE (16:46)
[2016-12-16] MEDS ORDERED: IBUPROFEN 600 MG TABLET (FP) PO ONE ×2 (20:56→20:58)
[2016-12-16] MEDS ORDERED: DOCUSATE SODIUM 100 MG CAPSULE (FP) PO PRN (21:23)
--- NOTE | 2016-12-16 21:23 | HP ---
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 No: O2 Dependent Renal/: Yes: Renal Inusuff Infectious Disease: Yes: AIDS - Smoking History Smoking history: Unknown if ever smoked Have you smoked in the past 12 months: No Aproximately how many cigarettes per day: 2 - Alcohol/Substance Use Hx Alcohol Use: No Home Medications - Allergies Allergies/Adverse Reactions: Allergies Allergy/AdvReac Type Severity Reaction Status Date / Time No Known Allergies Allergy Verified 12/16/16 12:08 - Home Medications Home Medications: Ambulatory Orders Albuterol Sulfate Inhaler - [Ventolin HFA Inhaler -] 1 - 2 inh PO Q4H 04/25/16 Gabapentin 400 mg PO DAILY 04/25/16 Lisinopril [Prinivil] 20 mg PO DAILY 04/25/16 Magnesium Oxide [Magox 400] 400 mg PO BID 04/25/16 Mometasone Furoate [Asmanex 110Mcg -] 1 inh IH DAILY 04/25/16 Tamsulosin HCl [Flomax] 0.4 mg PO HS 04/25/16 Tiotropium [place] [Spiriva] 1 inh PO DAILY 04/25/16 Abacavir/Dolutegravir/Lamivudi [Triumeq Tablet] 1 each PO DAILY #30 tablet 07/26 Apixaban [Eliquis] 5 mg PO DAILY #30 tablet 07/26/16 Aspirin [ASA -] 81 mg PO DAILY #30 tab.chew 07/26/16 Folic Acid 1 mg PO DAILY #30 tablet 07/26/16 Docusate Sodium [Colace -] 100 mg PO TID PRN #90 capsule 08/07/16 [place]-3S/Dha/Epa/Fish Oil [[place]-3 Fish Oil 1,000 mg Sfgl] 2 each PO BID #120 capsule 09/04/16 Metoprolol Tartrate [Lopressor -] 50 mg PO BID #60 tablet 09/19/16 Calcium Carbonate/Vitamin D3 [Calcium 600 + Vit D Tablet] 1 each PO DAILY #30 tablet 09/27/16 Metformin HCl [Metformin HCl ER] 500 mg PO BID #60 tab.er.24 10/04/16 Fenofibrate 150 mg PO DAILY #30 capsule 11/08/16 Sitagliptin Phosphate [Januvia] 25 mg PO DAILY #30 tab 11/08/16 Hydralazine HCl [Apresoline -] 25 mg PO DAILY 12/16/16 Miconazole Nitrate [Miconazole Nitrate -] 1 applic TP BID #1 tube 12/16/16 Family Disease History - Family Disease History Family Disease History: Diabetes: Brother (3 brothers, 1 with dm), Respiratory: Brother, Other: Grandparent (unk), Father ( cause and age unk), Mother (feb age 60's, cause unk), Brother, Sister (1 a&w) Physical Examination Vital Signs: Vital Signs Temperature 101.4 F H 12/16/16 20:53 Pulse Rate 90 12/16/16 20:53 Respiratory Rate 18 12/16/16 20:53 Blood Pressure 148/88 12/16/16 20:53 O2 Sat by Pulse Oximetry (%) 98 12/16/16 20:53 Constitutional: Yes: No Distress HENT: Yes: Atraumatic Neck: Yes: Supple Cardiovascular: Yes: Regular Rate and Rhythm Respiratory: Yes: CTA Bilaterally Gastrointestinal: Yes: Normal Bowel Sounds Extremities: Yes: Other (llex cellulitis) Neurological: Yes: Alert, Oriented Problem List - Problems (1) Confusion Code(s): R41.0 - DISORIENTATION, UNSPECIFIED (2) COPD (chronic obstructive pulmonary disease) Assessment/Plan: stable Code(s): J44.9 - CHRONIC OBSTRUCTIVE PULMONARY DISEASE, UNSPECIFIED (3) Diabetes mellitus type 2, uncontrolled Assessment/Plan: on po meds bgms Code(s): E11.65 - TYPE 2 DIABETES MELLITUS WITH HYPERGLYCEMIA (4) HIV (human immunodeficiency virus infection) Assessment/Plan: stable Code(s): Z21 - ASYMPTOMATIC HUMAN IMMUNODEFICIENCY VIRUS INFECTION STATUS (5) Abscess of left thigh Assessment/Plan: iv abx Code(s): L02.416 - CUTANEOUS ABSCESS OF LEFT LOWER LIMB Assessment/Plan Laboratory Tests 12/16/16 12/16/16 12/16/16 13:20 13:20 13:20 WBC 18.4 H D RBC 5.13 Hgb 14.6 Hct 45.2 MCV 88.0 MCH 28.4 MCHC 32.2 RDW 15.0 Plt Count 234 D MPV 8.9 D Neutrophils % 76.5 D Lymphocytes % 14.2 D Monocytes % 8.2 Eosinophils % 0.3 D Basophils % 0.8 PT with INR INR PTT (Actin FS) VBG pH POC VBG pCO2 POC VBG pO2 Mixed VBG HCO3 Sodium 134 L Potassium 4.9 Chloride 100 Carbon Dioxide 21 D Anion Gap 13 BUN 23 H Creatinine 2.5 H Creat Clearance w eGFR 25.81 Random Glucose 158 H D Lactic Acid 1.3 Calcium 9.5 Total Bilirubin 0.9 D AST 31 D ALT 29 Alkaline Phosphatase 108 D Creatine Kinase Creatine Kinase Index CK-MB (CK-2) Troponin I Total Protein 7.4 D Albumin 3.0 L D Urine Color Urine Appearance Urine pH Ur Specific [place] Urine Protein Urine Glucose (UA) Urine Ketones Urine Blood Urine Nitrite Urine Bilirubin Urine Urobilinogen Urine RBC Urine WBC Ur Epithelial Cells Urine Bacteria Urine Mucus Blood Type Antibody Screen 12/16/16 12/16/16 12/16/16 13:43 13:43 13:43 WBC RBC Hgb Hct MCV MCH MCHC RDW Plt Count MPV Neutrophils % Lymphocytes % Monocytes % Eosinophils % Basophils % PT with INR 12.50 H INR 1.13 PTT (Actin FS) 33.6 VBG pH POC VBG pCO2 POC VBG pO2 Mixed VBG HCO3 Sodium 136 Potassium 4.3 Chloride 100 Carbon Dioxide 29 D Anion Gap 7 L BUN 23 H Creatinine 2.6 H Creat Clearance w eGFR 24.67 Random Glucose 141 H Lactic Acid Calcium 9.2 Total Bilirubin 0.7 D AST 29 ALT 29 Alkaline Phosphatase 106 Creatine Kinase 391 H Creatine Kinase Index 0.2 CK-MB (CK-2) 1.056 Troponin I < 0.02 Total Protein 7.2 Albumin 2.9 L Urine Color Lty[place] Urine Appearance Clear Urine pH 7.0 Ur Specific [place] 1.020 Urine Protein 3+ H Urine Glucose (UA) 3+ H Urine Ketones Negative Urine Blood Negative Urine Nitrite Negative Urine Bilirubin Negative Urine Urobilinogen Negative Urine RBC 1 Urine WBC 2 Ur Epithelial Cells Rare Urine Bacteria Rare Urine Mucus Rare Blood Type Antibody Screen 12/16/16 12/16/16 13:43 14:00 WBC RBC Hgb Hct MCV MCH MCHC RDW Plt Count MPV Neutrophils % Lymphocytes % Monocytes % Eosinophils % Basophils % PT with INR INR PTT (Actin FS) VBG pH 7.38 POC VBG pCO2 49.2 D POC VBG pO2 18.2 L* Mixed VBG HCO3 28.3 H Sodium Potassium Chloride Carbon Dioxide Anion Gap BUN Creatinine Creat Clearance w eGFR Random Glucose Lactic Acid Calcium Total Bilirubin AST ALT Alkaline Phosphatase Creatine Kinase Creatine Kinase Index CK-MB (CK-2) Troponin I Total Protein Albumin Urine Color Urine Appearance Urine pH Ur Specific [place] Urine Protein Urine Glucose (UA) Urine Ketones Urine Blood Urine Nitrite Urine Bilirubin Urine Urobilinogen Urine RBC Urine WBC Ur Epithelial Cells Urine Bacteria Urine Mucus Blood Type AB POSITIVE Antibody Screen Negative Active Medications Generic Name Dose Route Start Last Admin Trade Name Freq PRN Reason Stop Dose Admin Aclidinium [place] 1 puff 12/16/16 22:00 12/17/16 11:22 Tudorza - IH 1 puff BID GELACIO Administration Apixaban 5 mg 12/17/16 10:00 Eliquis - PO DAILY GELACIO Aspirin 81 mg 12/17/16 10:00 12/17/16 11:10 Asa - PO 81 mg DAILY GELACIO Administration Calcium Carbonate/Cholecalciferol 1 tab 12/17/16 10:00 12/17/16 11:09 Os-Rony 500+D - PO 1 tab DAILY GELACIO Administration Docusate Sodium 100 mg 12/16/16 21:23 Colace - PO TID PRN CONSTIPATION Fenofibric Acid 135 mg 12/17/16 10:00 12/17/16 11:09 Trilipix - PO 135 mg DAILY GELACIO Administration Gabapentin 400 mg 12/17/16 10:00 12/17/16 11:10 Neurontin - PO 400 mg DAILY GELACIO Administration Hydralazine HCl 25 mg 12/17/16 10:00 12/17/16 13:55 Apresoline - PO 25 mg DAILY GELACIO Administration Piperacillin Sod/Tazobactam 50 mls @ 100 mls/hr 12/17/16 10:30 12/17/16 13:39 Sod 2.25 gm/ Dextrose IVPB 100 mls/hr Q6H-IV GELACIO Administration Protocol Sodium Chloride 1,000 mls @ 83 mls/hr 12/17/16 11:30 12/17/16 13:38 Normal Saline - IV 83 mls/hr ASDIR GELACIO Administration Lisinopril 20 mg 12/17/16 10:00 12/17/16 13:55 Prinivil PO 20 mg DAILY GELACIO Administration Magnesium Oxide 400 mg 12/16/16 22:00 12/17/16 11:10 Mag-Ox - PO 400 mg BID GELACIO Administration Metoprolol Tartrate 50 mg 12/16/16 22:00 12/17/16 13:54 Lopressor - PO 50 mg BID GELACIO Administration Miconazole Nitrate 1 applic 12/16/16 22:00 12/17/16 11:22 Miconazole Nitrate TP 1 applic BID GELACIO Administration Mometasone Furoate 1 puff 12/17/16 10:00 12/17/16 14:50 Asmanex 110mcg - IH 1 puff DAILY GELACIO Administration Non-Formulary Medication 1 each 12/17/16 10:00 Abacavir/Dolutegravir/Lamivudi [Triumeq Tablet] PO DAILY GELACIO Nystatin 1 applic 12/17/16 10:45 12/17/16 14:51 Mycostatin Cream - TP 1 applic BID GELACIO Administration [id number] Ethyl Esters 2 gm 12/17/16 10:00 12/17/16 14:00 Lovaza - PO Not Given BID GELACIO Sitagliptin Phosphate 25 mg 12/17/16 07:00 12/17/16 06:56 Januvia - PO 25 mg DAILY@0700 GELACIO Administration Tamsulosin HCl 0.4 mg 12/16/16 22:00 12/16/16 22:30 Flomax - PO 0.4 mg HS GELACIO Administration
[2016-12-16] MEDS ORDERED: PATIENT'S OWN MEDICATION (NON-FORMULARY) (Metformin Hcl [Metformin Hcl Er] 500 MG) PO SCH (22:00)
[2016-12-16] MEDS: METOPROLOL TARTRATE 50 MG TABLET (FP) PO SCH (22:30)
[2016-12-16] MEDS: ACLIDINIUM BROMIDE 400 MCG/INH AERO.POWD IH SCH (22:30)
[2016-12-16] MEDS: MICONAZOLE NITRATE 28 GM TUBE TP SCH (22:30)
[2016-12-16] MEDS: MAGNESIUM OXIDE 400 MG TABLET (FP) PO SCH (22:30)
[2016-12-16] MEDS: TAMSULOSIN HCL 0.4 MG CAP.ER.24H (FP) PO SCH (22:30)
[2016-12-17 01:35] VITALS: BMI 34.8
[2016-12-17] MEDS: sitaGLIPtin PHOSPHATE 25 MG TABLET (FP) PO SCH (06:56)
[2016-12-17 08:00] LABS: BASOPHIL 0.4 % (0-2.0); EOSINOPHIL 0.7 % (0-4.5); MCH 28.4 pg (25.7-33.7); MCHC 32.5 g/dl (32.0-35.9); MEAN CELL VOLUME 87.4 fl (80-96); MEAN PLT VOLUME 9.9 fl (7.5-11.1); NEUTROPHILS 79.8 % (42.8-82.8)
[2016-12-17 08:13] LABS: ALBUMIN 2.4 g/dl (3.4-5.0); ANION GAP 6 (8-16); CALCIUM 8.6 mg/dL (8.5-10.1); CO2 27 mmol/L (21-32); GLUCOSE,RANDOM 194 mg/dL (74-106)
[2016-12-17 08:16] LABS: ALK PHOS 88 U/L (45-117); BILIRUBIN,TOTAL 0.6 mg/dL (0.2-1.0); CREATININE 2.6 mg/dL (0.7-1.3); SGOT/AST 20 U/L (15-37); SGPT/ALT 23 U/L (12-78)
[2016-12-17 09:03] LABS: PLATELET COMMENT2 FEW LARGE PLTS; PLATELET ESTIMATE ADEQUATE (NORMAL)
--- NOTE | 2016-12-17 10:10 | CON.ID ---
Consult Consult Specialty:: Infectious Disease Reason for Consultation:: Soft tissue infection - History of Present Illness History of Present Illness: 59 yo -German M with a significant history of HIV (last known CD4 count 445; VL 20 in 04/2016) and multiple previous cellulitis hospitalizations who presented to the ED last night with pain, swelling, and erythema of his left medial thigh that started Friday after using a jacuzzi. He states he doesn' t note any trauma, minor lacerations, or abrasions to the area. Pt does receive insulin in his arm occassionally, but does not inject in his abdomen or thighs. Pt states that originally on Friday he noted purulent drainage from a central opening. Pt also confirms associated fever and chills. Denies any diarrhea, abdominal pain, urinary complaints including (dysuria, frequency, retention, urgency.) Pt has had previous cultures of cellulitis resulting in MSSA and Klebsiella. Current blood cultures still pending with no wound culture noted. One dose of vancomycin and zosyn were given in the ED. Pt previously had aspergillosis which was treated in December 2015. Pt currently has no SOB, CP, or hemoptysis. CXR performed in the ER noted to have increased interstitial markings at the right base. 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 No: O2 Dependent Renal/: Yes: Renal Inusuff Infectious Disease: Yes: AIDS - Alcohol/Substance Use Hx Alcohol Use: No History of Substance Use: reports: None - Smoking History Smoking history: Former smoker Have you smoked in the past 12 months: No Aproximately how many cigarettes per day: 2 - Social History ADL: Independent History of Recent Travel: No Home Medications - Allergies Allergies/Adverse Reactions: Allergies Allergy/AdvReac Type Severity Reaction Status Date / Time No Known Allergies Allergy Verified 12/16/16 12:08 - Home Medications Home Medications: Ambulatory Orders Albuterol Sulfate Inhaler - [Ventolin HFA Inhaler -] 1 - 2 inh PO Q4H 04/25/16 Gabapentin 400 mg PO DAILY 04/25/16 Lisinopril [Prinivil] 20 mg PO DAILY 04/25/16 Magnesium Oxide [Magox 400] 400 mg PO BID 04/25/16 Mometasone Furoate [Asmanex 110Mcg -] 1 inh IH DAILY 04/25/16 Tamsulosin HCl [Flomax] 0.4 mg PO HS 04/25/16 Tiotropium [place] [Spiriva] 1 inh PO DAILY 04/25/16 Abacavir/Dolutegravir/Lamivudi [Triumeq Tablet] 1 each PO DAILY #30 tablet 07/26 Apixaban [Eliquis] 5 mg PO DAILY #30 tablet 07/26/16 Aspirin [ASA -] 81 mg PO DAILY #30 tab.chew 07/26/16 Folic Acid 1 mg PO DAILY #30 tablet 07/26/16 Docusate Sodium [Colace -] 100 mg PO TID PRN #90 capsule 08/07/16 [place]-3S/Dha/Epa/Fish Oil [[place]-3 Fish Oil 1,000 mg Sfgl] 2 each PO BID #120 capsule 09/04/16 Metoprolol Tartrate [Lopressor -] 50 mg PO BID #60 tablet 09/19/16 Calcium Carbonate/Vitamin D3 [Calcium 600 + Vit D Tablet] 1 each PO DAILY #30 tablet 09/27/16 Metformin HCl [Metformin HCl ER] 500 mg PO BID #60 tab.er.24 10/04/16 Fenofibrate 150 mg PO DAILY #30 capsule 11/08/16 Sitagliptin Phosphate [Januvia] 25 mg PO DAILY #30 tab 11/08/16 Hydralazine HCl [Apresoline -] 25 mg PO DAILY 12/16/16 Miconazole Nitrate [Miconazole Nitrate -] 1 applic TP BID #1 tube 12/16/16 Family Disease History - Family Disease History Family Disease History: Diabetes: Brother (3 brothers, 1 with dm), Respiratory: Brother, Other: Grandparent (unk), Father (d cause and age unk), Mother (feb 'd age 60's, cause unk), Brother, Sister (1 a&w) Physical Exam Vital Signs: Vital Signs Temperature 99.0 F 12/17/16 06:00 Pulse Rate 88 12/17/16 06:00 Respiratory Rate 18 12/17/16 06:00 Blood Pressure 108/63 12/17/16 06:00 O2 Sat by Pulse Oximetry (%) 99 12/16/16 21:00 Constitutional: Yes: No Distress, Calm Eyes: Yes: EOM Intact, PERRL Cardiovascular: Yes: Regular Rate and Rhythm. No: Murmur Respiratory: Yes: Regular, CTA Bilaterally, Other (Coarse breath sounds noted at right lung base). No: On Nasal O2, Rales, SOB, Wheezes Gastrointestinal: Yes: Normal Bowel Sounds, Soft. No: Splenomegaly, Tenderness Edema: No Peripheral Pulses WNL: Yes Integumentary: Yes: Other (Left medial thigh ulceration warm to touch with fluid collection underneath appreciated. No overt erythema.) Neurological: Yes: Alert, Oriented Psychiatric: Yes: Alert, Oriented Labs: CBC, BMP 12/17/16 07:00 12/17/16 07:00 Imaging - Results Chest X-ray: Report Reviewed, Image Reviewed Assessment/Plan Assessement Cellulitis with possible resulting abscess HIV+ without AIDS currently Plan: Will obtain random Vancomycin level --If <15 will continue Vancomycin 1gm qDaily Continue Zosyn renall adjusted to 2.25gm q6h Consult Surgery for possible lancing of abscess Chest CT w/o contrast for evaluation if cavitary lesion had resolved from previous. Tacos Rodrigues, PGY-1
[2016-12-17] MEDS: PIPERACILLIN/TAZOB 2.25 GM 2.25 GM in DEXTROSE 5%-WATER - 50 ML IVPB SCH ×4 (10:30→21:41)
--- NOTE | 2016-12-17 10:59 | CON.NEP ---
Consult Consult Specialty:: Nephrology Referred by:: Dr. Hawkins Reason for Consultation:: YIFAN on CKD - History of Present Illness Chief Complaint: Fall and Lesion on thigh History of Present Illness: This is a 66 year old gentleman with PMhx of CKD Stage 3 (baseline Cr 1.7), HIV on HARRT, DM Type 2 (Dx 12 years ago) w/o retinopathy, who presents with complaints painful and enlarging lesion on left thigh and found to have YIFAN. Mr. 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 Denies any hx of kidney stones, nsaid use, or IV contrast exposure. + Nocturia (2-3x nightly). Denies any hematuria, flank pain. Denies any hx of BPH. Denies any N/V/D. Pt was on ACEi at home. Not currently on tenofovir. 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 No: O2 Dependent Renal/: Yes: Renal Inusuff Infectious Disease: Yes: AIDS - Alcohol/Substance Use Hx Alcohol Use: No History of Substance Use: reports: None - Smoking History Smoking history: Former smoker Have you smoked in the past 12 months: No Aproximately how many cigarettes per day: 2 - Social History ADL: Independent History of Recent Travel: No Home Medications - Allergies Allergies/Adverse Reactions: Allergies Allergy/AdvReac Type Severity Reaction Status Date / Time No Known Allergies Allergy Verified 12/16/16 12:08 - Home Medications Home Medications: Ambulatory Orders Albuterol Sulfate Inhaler - [Ventolin HFA Inhaler -] 1 - 2 inh PO Q4H 04/25/16 Gabapentin 400 mg PO DAILY 04/25/16 Lisinopril [Prinivil] 20 mg PO DAILY 04/25/16 Magnesium Oxide [Magox 400] 400 mg PO BID 04/25/16 Mometasone Furoate [Asmanex 110Mcg -] 1 inh IH DAILY 04/25/16 Tamsulosin HCl [Flomax] 0.4 mg PO HS 04/25/16 Tiotropium [place] [Spiriva] 1 inh PO DAILY 04/25/16 Abacavir/Dolutegravir/Lamivudi [Triumeq Tablet] 1 each PO DAILY #30 tablet 07/26 Apixaban [Eliquis] 5 mg PO DAILY #30 tablet 07/26/16 Aspirin [ASA -] 81 mg PO DAILY #30 tab.chew 07/26/16 Folic Acid 1 mg PO DAILY #30 tablet 07/26/16 Docusate Sodium [Colace -] 100 mg PO TID PRN #90 capsule 08/07/16 [place]-3S/Dha/Epa/Fish Oil [[place]-3 Fish Oil 1,000 mg Sfgl] 2 each PO BID #120 capsule 09/04/16 Metoprolol Tartrate [Lopressor -] 50 mg PO BID #60 tablet 09/19/16 Calcium Carbonate/Vitamin D3 [Calcium 600 + Vit D Tablet] 1 each PO DAILY #30 tablet 09/27/16 Metformin HCl [Metformin HCl ER] 500 mg PO BID #60 tab.er.24 10/04/16 Fenofibrate 150 mg PO DAILY #30 capsule 11/08/16 Sitagliptin Phosphate [Januvia] 25 mg PO DAILY #30 tab 11/08/16 Hydralazine HCl [Apresoline -] 25 mg PO DAILY 12/16/16 Miconazole Nitrate [Miconazole Nitrate -] 1 applic TP BID #1 tube 12/16/16 Family Disease History - Family Disease History Family Disease History: Diabetes: Brother (3 brothers, 1 with dm), Respiratory: Brother, Other: Grandparent (unk), Father (dec'd cause and age unk), Mother (feb 'd age 60's, cause unk), Brother, Sister (1 a&w) Review of Systems - Review of Systems Constitutional: denies: Fever, Lethargy, Loss of Appetite, Malaise, Unintentional Wgt. Loss Eyes: reports: No Symptoms. denies: Blind Spots HENT: reports: No Symptoms Neck: reports: No Symptoms Cardiovascular: denies: Chest Pain, Edema, Palpitations, Shortness of Breath Respiratory: denies: Cough, Hemoptysis, Orthopnea, SOB, SOB on Exertion Gastrointestinal: denies: Abdominal Pain, Constipation, Diarrhea, Melena, Nausea Genitourinary: denies: Burning, Discharge, Dysuria, Flank Pain Integumentary: reports: Blister, Change in Color, Erythema, Lesions, Lump Neurological: reports: No Symptoms Nephrology Consult - [facility] Height: 5 ft 9 in - Weight Weight: 236 lb 2 oz - BMI Body Mass Index (BMI): 34.8 - Lab Results CBC,BMP: CBC, BMP 12/17/16 07:00 12/17/16 07:00 Anion Gap: Anion Gap Anion Gap 6 (8-16) L 12/17/16 07:00 - Imaging Chest X-ray: Report Reviewed - Physical Examination Vital Signs: Vital Signs Temperature 98.9 F 12/17/16 10:41 Pulse Rate 91 H 12/17/16 10:41 Respiratory Rate 20 12/17/16 10:41 Blood Pressure 103/76 12/17/16 10:41 O2 Sat by Pulse Oximetry (%) 99 12/16/16 21:00 Constitutional: Yes: Well Nourished, No Distress HENT: Yes: Atraumatic Neck: Yes: Supple Cardiovascular: Yes: Regular Rate and Rhythm. No: JVD, Murmur, Rub Respiratory: Yes: Regular, CTA Bilaterally Gastrointestinal: Yes: Normal Bowel Sounds, Soft Renal/: No: Anuria, Bladder Distention, CVA Tenderness - Left, CVA Tenderness - Right Edema: No Neurological: Yes: Alert, Oriented Problem List - Problems (1) Abscess of right thigh Code(s): L02.415 - CUTANEOUS ABSCESS OF RIGHT LOWER LIMB (2) HIV (human immunodeficiency virus infection) Code(s): Z21 - ASYMPTOMATIC HUMAN IMMUNODEFICIENCY VIRUS INFECTION STATUS (3) Acute kidney injury superimposed on CKD Code(s): S37.009A - UNSPECIFIED INJURY OF UNSPECIFIED KIDNEY, INITIAL ENCOUNTER N18.9 - CHRONIC KIDNEY DISEASE, UNSPECIFIED (4) Chronic kidney disease Code(s): N18.9 - CHRONIC KIDNEY DISEASE, UNSPECIFIED Assessment/Plan 66 year old gentleman with PMhx of CKD Stage 3 (baseline Cr 1.7), HIV on HARRT, DM Type 2 (Dx 12 years ago) w/o retinopathy, who presents with complaints painful and enlarging lesion on left thigh and found to have YIFAN. 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 HIV associated Neprhropathy (HIVAN) vs. 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
[2016-12-17] MEDS ORDERED: PT OWN MED DRAWER 7, Y5N ONE ×3 (11:04→14:00)
[2016-12-17] MEDS ORDERED: PIPERACILLIN/TAZOBACTAM 2.25 GM VIAL IVPB ONE ×2 (11:05→21:25)
[2016-12-17] MEDS ORDERED: DEXTROSE 5%-WATER - 50 ML IVPB ONE ×2 (11:06→21:25)
[2016-12-17 11:07] LABS: PLATELET COUNT 225 K/MM3 (134-434)
[2016-12-17] MEDS: FENOFIBRIC ACID 135 MG CAP PO SCH (11:09)
[2016-12-17] MEDS: CALCIUM 500MG/VIT-D 200 UNITS COMBO TABLET (FP) PO SCH (11:09)
[2016-12-17] MEDS: METOPROLOL TARTRATE 50 MG TABLET (FP) PO SCH ×3 (11:10→21:30)
[2016-12-17] MEDS: ASPIRIN 81 MG CHEWABLE TABLETS PO SCH (11:10)
[2016-12-17] MEDS: MAGNESIUM OXIDE 400 MG TABLET (FP) PO SCH ×2 (11:10→21:30)
[2016-12-17] MEDS: hydrALAZINE HCL 25 MG TABLET (FP) PO SCH ×2 (11:10→13:55)
[2016-12-17] MEDS: GABAPENTIN 400 MG CAPSULE (FP) PO SCH (11:10)
[2016-12-17] MEDS: LISINOPRIL 20 MG TABLET (FP) PO SCH ×2 (11:11→13:55)
--- NOTE | 2016-12-17 11:17 | PN ---
Teaching Attending Note Name of Resident: Margarito Rodrigues ATTENDING PHYSICIAN STATEMENT I saw and evaluated the patient. I reviewed the resident's note and discussed the case with the resident. I agree with the resident's findings and plan as documented. SUBJECTIVE: OBJECTIVE: ASSESSMENT AND PLAN: Large soft tissue abscess L thigh Diabetes mellitus HIV/AIDS VL <20, CD4 483 ( 09/07 ) CKD Surgical evaluation for I&D Empiric zosyn/ vancomycin, adjusted for renal failure ART
[2016-12-17] MEDS: ACLIDINIUM BROMIDE 400 MCG/INH AERO.POWD IH SCH ×2 (11:22→21:31)
[2016-12-17] MEDS: MICONAZOLE NITRATE 28 GM TUBE TP SCH ×2 (11:22→21:30)
--- NOTE | 2016-12-17 11:32 | CONSULT ---
- Consultation REQUESTING PROVIDER: Gaston Salgado - General Surgery CONSULT REQUEST: We have been asked to surgically evaluate this patient for left thigh abscess PCP: Rosita Ramires HPI: Called to kurt 59 yo male with PMHx noted below. Comes to [facility] ED for evaluation of swelling and pain to his inner left thigh. Patient states it started over the weekend after using a jacuzzi. He is a poorly controlled diabetic who seldomly checks his blood glucose levels. States he uses insulin occasionally (denies using leg for injections). Patient first began to notice some purulent drainage wound Friday evening. Informs that he had a (subjective) fever as he never took his temperature and chills. Given pt's h/o MSSA & Klebs, he was given a dose of Vanco & Zosyn in the ED. Denies n/v/d/f/c, CP, SOB. PMHx: Obseity, DM2, CVA, Dementia, HTN, Asthma, Bronchitis, COPD, Pneumonia. HIV, Renal insuff. Cellulitis PSHx: Home Meds: Albuterol Sulfate Inhaler - [Ventolin HFA Inhaler -] 1 - 2 inh PO Q4H 04/25/16 Gabapentin 400 mg PO DAILY 04/25/16 Lisinopril [Prinivil] 20 mg PO DAILY 04/25/16 Magnesium Oxide [Magox 400] 400 mg PO BID 04/25/16 Mometasone Furoate [Asmanex 110Mcg -] 1 inh IH DAILY 04/25/16 Tamsulosin HCl [Flomax] 0.4 mg PO HS 04/25/16 Tiotropium [place] [Spiriva] 1 inh PO DAILY 04/25/16 Abacavir/Dolutegravir/Lamivudi [Triumeq Tablet] 1 each PO DAILY #30 tablet 07/26 Apixaban [Eliquis] 5 mg PO DAILY #30 tablet 07/26/16 Aspirin [ASA -] 81 mg PO DAILY #30 tab.chew 07/26/16 Folic Acid 1 mg PO DAILY #30 tablet 07/26/16 Docusate Sodium [Colace -] 100 mg PO TID PRN #90 capsule 08/07/16 [place]-3S/Dha/Epa/Fish Oil [[place]-3 Fish Oil 1,000 mg Sfgl] 2 each PO BID #120 capsule 09/04/16 Metoprolol Tartrate [Lopressor -] 50 mg PO BID #60 tablet 09/19/16 Calcium Carbonate/Vitamin D3 [Calcium 600 + Vit D Tablet] 1 each PO DAILY #30 tablet 09/27/16 Metformin HCl [Metformin HCl ER] 500 mg PO BID #60 tab.er.24 10/04/16 Fenofibrate 150 mg PO DAILY #30 capsule 11/08/16 Sitagliptin Phosphate [Januvia] 25 mg PO DAILY #30 tab 11/08/16 Hydralazine HCl [Apresoline -] 25 mg PO DAILY 12/16/16 Miconazole Nitrate [Miconazole Nitrate -] 1 applic TP BID #1 tube 12/16/16 Allergies: NKDA ROS: All systems reviewed and considered negative except for what's contained in HPI. PE: GENERAL: alert. nad. HEAD: NC. AT. LUNGS: CTA bilat anteriorly HEART: RRR ABDOMEN: Obese. Soft, NT. ND. BSx4 MUSCULOSKELETAL: Normal ROM at all joints. No bony deformities or tenderness. No CVA tenderness. UE: 2+ pulses, warm, well-perfused. No cyanosis. Cap refill <2 seconds. No peripheral edema. LE: Proximal thigh (medial aspect) with abscess, central portion with eschar. Indurated. TTP. Slight surrounding erythema. Not actively draining. 2+ pulses, warm, well-perfused. No calf tenderness. No peripheral edema. PSYCH: Cooperative. Good eye contact. Appropriate mood and affect. Last Vital Signs Temp Pulse Resp BP Pulse Ox 98.9 F 91 H 20 103/76 99 12/17/16 10:41 12/17/16 10:41 12/17/16 10:41 12/17/16 10:41 12/16/16 21:00 CBC, BMP 12/17/16 07:00 12/17/16 07:00 INR, PTT INR 1.13 (0.82-1.09) 12/16/16 13:43 Blood Type Blood Type AB POSITIVE 12/16/16 13:43 A/P Poorly controlled diabetic with LLE (proximal, inner thigh) abscess. Patient will not agree to bedside I&D however, will do it in OR. 1. pre-op for I&D left thigh abscess 12/19 2. NPO after midnight except PO meds 3. Tight glycemic control 4. Cont IV abx 5. Medical optimization / clearance 6. DVT ppx Visit type - Case Type Case Type: ED Admission - Emergency Emergency Visit: Yes ED Registration Date: 12/16/16 Care time: The patient presented to the Emergency Department on the above date and was hospitalized for further evaluation of their emergent condition. - New patient This patient is new to me today: Yes Date on this admission: 12/17/16
[2016-12-17] MEDS: SODIUM CHLORIDE 1,000 ML IV SCH (13:38)
[2016-12-17] MEDS: OMEGA-3 ACID ETHYL ESTERS (FATTY-ACIDS) 1 GM CAPSULE (FP) PO SCH ×2 (14:00→21:40)
--- NOTE | 2016-12-17 14:18 | EKG ---
Test Reason : Blood Pressure : / mmHG Vent. Rate : 102 BPM Atrial Rate : 102 BPM P-R Int : 144 ms QRS Dur : 088 ms QT Int : 336 ms P-R-T Axes : 060 033 086 degrees QTc Int : 437 ms SINUS TACHYCARDIA INFERIOR INFARCT , AGE UNDETERMINED ANTEROSEPTAL INFARCT (CITED ON OR BEFORE 17-NOV-2003) ABNORMAL ECG WHEN COMPARED WITH ECG OF 31-MAY-2016 10:29, PREMATURE VENTRICULAR COMPLEXES ARE NO LONGER PRESENT SERIAL CHANGES OF ANTEROSEPTAL INFARCT PRESENT FOLLOW UP EKG IS RECOMMENDED Confirmed by GERTRUDE TALBERT MD ([id number]) on 12/17/2016 2:17:50 PM Referred By: Confirmed By:GERTRUDE TALBERT MD
[2016-12-17] MEDS: MOMETASONE FUROATE 110 MCG/IH INHALER IH SCH (14:50)
[2016-12-17] MEDS: NYSTATIN 100,000 UNIT/GM TOPICAL CREAM 15 GM TUBE TP SCH ×2 (14:51→21:30)
[2016-12-17] MEDS: VANCOMYCIN 1,000 MG in DEXTROSE 5%-WATER - 250 ML IVPB ONE ×2 (15:00→17:29)
--- NOTE | 2016-12-17 18:15 | PN ---
Progress Note, Physician - Current Medication List Current Medications: Active Medications Aclidinium [place] (Tudorza -) 1 puff IH BID [facility] Last Admin: 12/17/16 11:22 Dose: 1 puff Apixaban (Eliquis -) 5 mg PO DAILY [facility] Aspirin (Asa -) 81 mg PO DAILY [facility] Last Admin: 12/17/16 11:10 Dose: 81 mg Calcium Carbonate/Cholecalciferol (Os-Rony 500+D -) 1 tab PO DAILY [facility] Last Admin: 12/17/16 11:09 Dose: 1 tab Docusate Sodium (Colace -) 100 mg PO TID PRN PRN Reason: CONSTIPATION Fenofibric Acid (Trilipix -) 135 mg PO DAILY [facility] Last Admin: 12/17/16 11:09 Dose: 135 mg Gabapentin (Neurontin -) 400 mg PO DAILY [facility] Last Admin: 12/17/16 11:10 Dose: 400 mg Hydralazine HCl (Apresoline -) 25 mg PO DAILY [facility] Last Admin: 12/17/16 13:55 Dose: 25 mg Piperacillin Sod/Tazobactam (Sod 2.25 gm/ Dextrose) 50 mls @ 100 mls/hr IVPB Q6H-IV GELACIO PRN Reason: Protocol Last Admin: 12/17/16 13:39 Dose: 100 mls/hr Sodium Chloride (Normal Saline -) 1,000 mls @ 83 mls/hr IV ASDIR [facility] Last Admin: 12/17/16 13:38 Dose: 83 mls/hr Lisinopril (Prinivil) 20 mg PO DAILY [facility] Last Admin: 12/17/16 13:55 Dose: 20 mg Magnesium Oxide (Mag-Ox -) 400 mg PO BID [facility] Last Admin: 12/17/16 11:10 Dose: 400 mg Metoprolol Tartrate (Lopressor -) 50 mg PO BID [facility] Last Admin: 12/17/16 13:54 Dose: 50 mg Miconazole Nitrate (Miconazole Nitrate) 1 applic TP BID [facility] Last Admin: 12/17/16 11:22 Dose: 1 applic Mometasone Furoate (Asmanex 110mcg -) 1 puff IH DAILY [facility] Last Admin: 12/17/16 14:50 Dose: 1 puff Non-Formulary Medication (Abacavir/Dolutegravir/Lamivudi [Triumeq Tablet]) 1 each PO DAILY [facility] Nystatin (Mycostatin Cream -) 1 applic TP BID [facility] Last Admin: 12/17/16 14:51 Dose: 1 applic Kcoie-7-Gejo Ethyl Esters (Lovaza -) 2 gm PO BID [facility] Last Admin: 12/17/16 14:00 Dose: Not Given Sitagliptin Phosphate (Januvia -) 25 mg PO DAILY@0700 [facility] Last Admin: 12/17/16 06:56 Dose: 25 mg Tamsulosin HCl (Flomax -) 0.4 mg PO HS [facility] Last Admin: 12/16/16 22:30 Dose: 0.4 mg - Objective Vital Signs: Vital Signs Temperature 102.1 F H 12/17/16 14:55 Pulse Rate 75 12/17/16 14:55 Respiratory Rate 22 12/17/16 14:55 Blood Pressure 142/87 12/17/16 14:55 O2 Sat by Pulse Oximetry (%) 98 12/17/16 11:00 Constitutional: Yes: No Distress HENT: Yes: Atraumatic Neck: Yes: Supple Cardiovascular: Yes: Regular Rate and Rhythm Respiratory: Yes: CTA Bilaterally Gastrointestinal: Yes: Normal Bowel Sounds Extremities: Yes: Other (left thigh abcess) Neurological: Yes: Alert, Oriented Labs: CBC, BMP 12/17/16 07:00 12/17/16 07:00 INR, PTT INR 1.13 (0.82-1.09) 12/16/16 13:43 Problem List - Problems (1) COPD (chronic obstructive pulmonary disease) Assessment/Plan: stable Code(s): J44.9 - CHRONIC OBSTRUCTIVE PULMONARY DISEASE, UNSPECIFIED (2) Diabetes mellitus type 2, uncontrolled Assessment/Plan: on po meds bgms Code(s): E11.65 - TYPE 2 DIABETES MELLITUS WITH HYPERGLYCEMIA (3) HIV (human immunodeficiency virus infection) Assessment/Plan: stable Code(s): Z21 - ASYMPTOMATIC HUMAN IMMUNODEFICIENCY VIRUS INFECTION STATUS (4) Abscess of left thigh Assessment/Plan: iv abx for I and D tomorrow Code(s): L02.416 - CUTANEOUS ABSCESS OF LEFT LOWER LIMB
[2016-12-17] MEDS: TAMSULOSIN HCL 0.4 MG CAP.ER.24H (FP) PO SCH (21:30)
[2016-12-18] MEDS ORDERED: PIPERACILLIN/TAZOBACTAM 2.25 GM VIAL IVPB ONE ×4 (01:33→22:00)
[2016-12-18] MEDS ORDERED: DEXTROSE 5%-WATER - 50 ML IVPB ONE ×4 (01:33→22:00)
[2016-12-18] MEDS: PIPERACILLIN/TAZOB 2.25 GM 2.25 GM in DEXTROSE 5%-WATER - 50 ML IVPB SCH ×3 (02:18→18:21)
[2016-12-18] MEDS: sitaGLIPtin PHOSPHATE 25 MG TABLET (FP) PO SCH (06:21)
[2016-12-18 08:09] LABS: BASOPHIL 0.3 % (0-2.0); EOSINOPHIL 3.4 % (0-4.5); MCH 28.1 pg (25.7-33.7); MCHC 32.6 g/dl (32.0-35.9); MEAN CELL VOLUME 86.2 fl (80-96); MEAN PLT VOLUME 8.7 fl (7.5-11.1); NEUTROPHILS 72.9 % (42.8-82.8); PLATELET COUNT 214 K/MM3 (134-434); RDW 15.1 % (11.9-15.9); WHITE BLOOD COUNT 12.9 K/mm3 (4.0-10.0)
[2016-12-18 08:42] LABS: ALBUMIN 2.1 g/dl (3.4-5.0); ANION GAP 8 (8-16); CALCIUM 8.1 mg/dL (8.5-10.1); CO2 25 mmol/L (21-32); GLUCOSE,RANDOM 203 mg/dL (74-106)
[2016-12-18 08:45] LABS: ALK PHOS 75 U/L (45-117); BILIRUBIN,TOTAL 0.6 mg/dL (0.2-1.0); CREATININE 2.8 mg/dL (0.7-1.3); MAGNESIUM 2.6 mg/dL (1.8-2.4); PHOSPHOROUS 2.8 mg/dL (2.5-4.9); SGOT/AST 22 U/L (15-37); SGPT/ALT 20 U/L (12-78); TOT PROT 5.4 g/dl (6.4-8.2)
--- NOTE | 2016-12-18 09:44 | PN ---
Physical Exam: Consulting Specialty: Infectious Disease SUBJECTIVE: No acute events overnight. Pt feeling slightly better and WBC trending down with being afebrile for 24hrs. Due to pt preference, I&D of abscess per surgery today in OR planned. OBJECTIVE: Vital Signs Period Temp Pulse Resp BP Sys/Gaspar Pulse Ox Last 24 Hr 98.3 F-102.1 F 75-98 18-22 103-142/43-87 98-98 GENERAL: The patient is awake, alert, and fully oriented, in no acute distress. EYES: PERRL, extraocular movements intact HENT: Moist mucosa LUNGS: CTA bilaterally, no wheezes, no crackles, no accessory muscle use. HEART: RRR, S1, S2 without murmur, rub or gallop. ABDOMEN: Soft, nontender, nondistended, normoactive bowel sounds EXTREMITIES: No edema NEUROLOGICAL: Alert and orientedx3; nonfocal SKIN: Left medial thigh abscess unchanged from previous exam; no drainage noted currently; fluid collection appreciated beneath dermis Laboratory Results - last 24 hr 12/17/16 12/17/16 12/17/16 07:00 12:15 12:24 WBC 18.0 H RBC 4.57 Hgb 13.0 D Hct 40.0 MCV 87.4 MCH 28.4 MCHC 32.5 RDW 15.0 Plt Count 225 MPV 9.9 D Neutrophils % 79.8 Lymphocytes % 11.0 D Monocytes % 8.1 Eosinophils % 0.7 D Basophils % 0.4 Platelet Estimate Adequate Platelet Comment Few large plts Sodium Potassium Chloride Carbon Dioxide Anion Gap BUN Creatinine Creat Clearance w eGFR POC Glucometer 205 Random Glucose Hemoglobin A1c % Calcium Phosphorus Magnesium Total Bilirubin AST ALT Alkaline Phosphatase Total Protein Albumin U Random Total Protein Ur Random Sodium Ur Random Urea Nitrogn Urine Creatinine Random Vancomycin 7.082 12/17/16 12/17/16 12/17/16 15:30 15:30 17:39 WBC RBC Hgb Hct MCV MCH MCHC RDW Plt Count MPV Neutrophils % Lymphocytes % Monocytes % Eosinophils % Basophils % Platelet Estimate Platelet Comment Sodium Potassium Chloride Carbon Dioxide Anion Gap BUN Creatinine Creat Clearance w eGFR POC Glucometer 199 Random Glucose Hemoglobin A1c % Calcium Phosphorus Magnesium Total Bilirubin AST ALT Alkaline Phosphatase Total Protein Albumin U Random Total Protein 528 H Ur Random Sodium 47 Ur Random Urea Nitrogn 371 Urine Creatinine 73.0 Random Vancomycin 12/17/16 12/18/16 12/18/16 21:29 06:15 07:35 WBC 12.9 H RBC 4.04 Hgb 11.3 L D Hct 34.8 L MCV 86.2 MCH 28.1 MCHC 32.6 RDW 15.1 Plt Count 214 MPV 8.7 D Neutrophils % 72.9 Lymphocytes % 16.1 D Monocytes % 7.3 Eosinophils % 3.4 D Basophils % 0.3 Platelet Estimate Platelet Comment Sodium Potassium Chloride Carbon Dioxide Anion Gap BUN Creatinine Creat Clearance w eGFR POC Glucometer 258 202 Random Glucose Hemoglobin A1c % Calcium Phosphorus Magnesium Total Bilirubin AST ALT Alkaline Phosphatase Total Protein Albumin U Random Total Protein Ur Random Sodium Ur Random Urea Nitrogn Urine Creatinine Random Vancomycin 12/18/16 12/18/16 07:35 07:35 WBC RBC Hgb Hct MCV MCH MCHC RDW Plt Count MPV Neutrophils % Lymphocytes % Monocytes % Eosinophils % Basophils % Platelet Estimate Platelet Comment Sodium 135 L Potassium 3.9 Chloride 102 Carbon Dioxide 25 Anion Gap 8 BUN 26 H Creatinine 2.8 H Creat Clearance w eGFR 22.65 POC Glucometer Random Glucose 203 H Hemoglobin A1c % 9.5 H D Calcium 8.1 L Phosphorus 2.8 Magnesium 2.6 H D Total Bilirubin 0.6 AST 22 ALT 20 Alkaline Phosphatase 75 Total Protein 5.4 L Albumin 2.1 L U Random Total Protein Ur Random Sodium Ur Random Urea Nitrogn Urine Creatinine Random Vancomycin Active Medications Generic Name Dose Route Start Last Admin Trade Name Freq PRN Reason Stop Dose Admin Aclidinium [place] 1 puff 12/16/16 22:00 12/17/16 21:31 Tudorza - IH 1 puff BID GELACIO Administration Apixaban 5 mg 12/17/16 10:00 Eliquis - PO DAILY GELACIO Aspirin 81 mg 12/17/16 10:00 12/17/16 11:10 Asa - PO 81 mg DAILY GELACIO Administration Calcium Carbonate/Cholecalciferol 1 tab 12/17/16 10:00 12/17/16 11:09 Os-Rony 500+D - PO 1 tab DAILY GELACIO Administration Docusate Sodium 100 mg 12/16/16 21:23 Colace - PO TID PRN CONSTIPATION Fenofibric Acid 135 mg 12/17/16 10:00 12/17/16 11:09 Trilipix - PO 135 mg DAILY GELACIO Administration Gabapentin 400 mg 12/17/16 10:00 12/17/16 11:10 Neurontin - PO 400 mg DAILY GELACIO Administration Hydralazine HCl 25 mg 12/17/16 10:00 12/17/16 13:55 Apresoline - PO 25 mg DAILY GELACIO Administration Piperacillin Sod/Tazobactam 50 mls @ 100 mls/hr 12/17/16 10:30 12/18/16 02:18 Sod 2.25 gm/ Dextrose IVPB 100 mls/hr Q6H-IV GELACIO Administration Protocol Sodium Chloride 1,000 mls @ 83 mls/hr 12/17/16 11:30 12/17/16 13:38 Normal Saline - IV 83 mls/hr ASDIR GELACIO Administration Lisinopril 20 mg 12/17/16 10:00 12/17/16 13:55 Prinivil PO 20 mg DAILY GELACIO Administration Magnesium Oxide 400 mg 12/16/16 22:00 12/17/16 21:30 Mag-Ox - PO 400 mg BID GELACIO Administration Metoprolol Tartrate 50 mg 12/16/16 22:00 12/17/16 21:30 Lopressor - PO 50 mg BID GELACIO Administration Miconazole Nitrate 1 applic 12/16/16 22:00 12/17/16 21:30 Miconazole Nitrate TP 1 applic BID GELACIO Administration Mometasone Furoate 1 puff 12/17/16 10:00 12/17/16 14:50 Asmanex 110mcg - IH 1 puff DAILY GELACIO Administration Non-Formulary Medication 1 each 12/17/16 10:00 Abacavir/Dolutegravir/Lamivudi [Triumeq Tablet] PO DAILY [facility]IO Nystatin 1 applic 12/17/16 10:45 12/17/16 21:30 Mycostatin Cream - TP 1 applic BID GELACIO Administration Kjcil-2-Tjwl Ethyl Esters 2 gm 12/17/16 10:00 12/17/16 21:40 Lovaza - PO 2 gm BID GELACIO Administration Sitagliptin Phosphate 25 mg 12/17/16 07:00 12/18/16 06:21 Januvia - PO Not Given DAILY@0700 GELACIO Tamsulosin HCl 0.4 mg 12/16/16 22:00 12/17/16 21:30 Flomax - PO 0.4 mg HS GELACIO Administration ASSESSMENT Left medial thigh abscess HIV+ status; well-controlled PLAN: Continue current management of Vancomycin and Zosyn Awaiting vancomycin level; will f/u Plan to OR for abscess drainage today Chest CT noted: Resolved previously seen pulmonary aspergillosis infection Visit type - Emergency Visit Emergency Visit: No - New Patient This patient is new to me today: No - Critical Care Critical Care patient: No
[2016-12-18] MEDS ORDERED: PT OWN MED DRAWER 7, Y5N ONE ×2 (10:21→11:27)
[2016-12-18] MEDS: METOPROLOL TARTRATE 50 MG TABLET (FP) PO SCH ×2 (11:11→22:05)
[2016-12-18] MEDS: CALCIUM 500MG/VIT-D 200 UNITS COMBO TABLET (FP) PO SCH (11:11)
[2016-12-18] MEDS: hydrALAZINE HCL 25 MG TABLET (FP) PO SCH (11:11)
[2016-12-18] MEDS: FENOFIBRIC ACID 135 MG CAP PO SCH (11:11)
[2016-12-18] MEDS: GABAPENTIN 400 MG CAPSULE (FP) PO SCH (11:12)
[2016-12-18] MEDS: MAGNESIUM OXIDE 400 MG TABLET (FP) PO SCH ×2 (11:12→22:05)
[2016-12-18] MEDS: ASPIRIN 81 MG CHEWABLE TABLETS PO SCH (11:13)
[2016-12-18] MEDS: NYSTATIN 100,000 UNIT/GM TOPICAL CREAM 15 GM TUBE TP SCH ×2 (11:51→22:06)
[2016-12-18] MEDS: MOMETASONE FUROATE 110 MCG/IH INHALER IH SCH (11:52)
[2016-12-18] MEDS: OMEGA-3 ACID ETHYL ESTERS (FATTY-ACIDS) 1 GM CAPSULE (FP) PO SCH ×2 (11:52→22:05)
[2016-12-18] MEDS: MICONAZOLE NITRATE 28 GM TUBE TP SCH ×2 (11:56→22:05)
[2016-12-18] MEDS: SODIUM CHLORIDE 1,000 ML IV SCH ×2 (11:56→17:58)
--- NOTE | 2016-12-18 12:19 | PN ---
Progress Note (short form) - Note Progress Note: Renal follow up for YIFAN on CKD Pt seen and examined at the bedside awake and alert no acute complaints NPO for OR later today making urine on IVF no fever, chills, N/V/D Vital Signs Temperature 99.6 F 12/18/16 06:00 Pulse Rate 80 12/18/16 06:00 Respiratory Rate 18 12/18/16 06:00 Blood Pressure 128/54 12/18/16 06:00 O2 Sat by Pulse Oximetry (%) 98 12/17/16 22:00 Intake & Output 12/15/16 12/16/16 12/17/16 12/18/16 23:59 23:59 23:59 23:59 Intake Total 2081 664 Output Total 400 Balance 1681 664 Weight 236 lb 2 oz 236 lb 2 oz NAD RRR, No M/R CTA, no rales soft NT/ND, obese + warm, boil on thigh, + tenderness, no LE edema CBC, BMP 12/18/16 07:35 12/18/16 07:35 Current Medications Aclidinium [place] (Tudorza -) 1 puff IH BID [facility] Last Admin: 12/17/16 21:31 Dose: 1 puff Apixaban (Eliquis -) 5 mg PO DAILY [facility] Aspirin (Asa -) 81 mg PO DAILY [facility] Last Admin: 12/18/16 11:13 Dose: Not Given Calcium Carbonate/Cholecalciferol (Os-Rony 500+D -) 1 tab PO DAILY [facility] Last Admin: 12/18/16 11:11 Dose: 1 tab Docusate Sodium (Colace -) 100 mg PO TID PRN PRN Reason: CONSTIPATION Fenofibric Acid (Trilipix -) 135 mg PO DAILY [facility] Last Admin: 12/18/16 11:11 Dose: 135 mg Gabapentin (Neurontin -) 400 mg PO DAILY [facility] Last Admin: 12/18/16 11:12 Dose: 400 mg Hydralazine HCl (Apresoline -) 25 mg PO DAILY [facility] Last Admin: 12/18/16 11:11 Dose: 25 mg Piperacillin Sod/Tazobactam (Sod 2.25 gm/ Dextrose) 50 mls @ 100 mls/hr IVPB Q6H-IV GELACIO PRN Reason: Protocol Last Admin: 12/18/16 11:12 Dose: 100 mls/hr Sodium Chloride (Normal Saline -) 1,000 mls @ 83 mls/hr IV ASDIR [facility] Last Admin: 12/18/16 11:56 Dose: 83 mls/hr Magnesium Oxide (Mag-Ox -) 400 mg PO BID [facility] Last Admin: 12/18/16 11:12 Dose: 400 mg Metoprolol Tartrate (Lopressor -) 50 mg PO BID [facility] Last Admin: 12/18/16 11:11 Dose: 50 mg Miconazole Nitrate (Miconazole Nitrate) 1 applic TP BID [facility] Last Admin: 12/18/16 11:56 Dose: 1 applic Mometasone Furoate (Asmanex 110mcg -) 1 puff IH DAILY [facility] Last Admin: 12/18/16 11:52 Dose: 1 puff Non-Formulary Medication (Abacavir/Dolutegravir/Lamivudi [Triumeq Tablet]) 1 each PO DAILY [facility] Nystatin (Mycostatin Cream -) 1 applic TP BID [facility] Last Admin: 12/18/16 11:51 Dose: 1 applic Zyjdw-2-Hxun Ethyl Esters (Lovaza -) 2 gm PO BID [facility] Last Admin: 12/18/16 11:52 Dose: Not Given Sitagliptin Phosphate (Januvia -) 25 mg PO DAILY@0700 [facility] Last Admin: 12/18/16 06:21 Dose: Not Given Tamsulosin HCl (Flomax -) 0.4 mg PO HS [facility] Last Admin: 12/17/16 21:30 Dose: 0.4 mg A/P 66 year old gentleman with PMhx of CKD Stage 3 (baseline Cr 1.7), HIV on HARRT, DM Type 2 (Dx 12 years ago) w/o retinopathy, who presents with complaints painful and enlarging lesion on left thigh and found to have YIFAN. 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 Etiology of YIFAN likely volume depletion in setting of acute infection FeNa was 1.2% which is indeterminate UPCR was 7.2, Hgb A1C is 7.2% given nephrotic range proteinuria differential includes diabetic nephropathy vs FSGS will need to repeat urine studies once renal function is improved and in a steady state may warrent a biopsy if proteinuria remains very high would continue IVF at this time Check Renal US and renal vein doppler D/c ACEi because of YIFAN Trend BUN/Cr Dose all meds for CrCl less then 20 no acute indication for [employer] at this time #Abcess/Skin infection ID and Surgery following Abx as needed Dose Vanco by levels #HIV Continue HIV meds as per ID #DM Type 2 Hgb A1c is 9.2% Ehsan Lobo DO Problem List - Problems (1) Abscess of right thigh Code(s): L02.415 - CUTANEOUS ABSCESS OF RIGHT LOWER LIMB (2) HIV (human immunodeficiency virus infection) Code(s): Z21 - ASYMPTOMATIC HUMAN IMMUNODEFICIENCY VIRUS INFECTION STATUS (3) Acute kidney injury superimposed on CKD Code(s): S37.009A - UNSPECIFIED INJURY OF UNSPECIFIED KIDNEY, INITIAL ENCOUNTER N18.9 - CHRONIC KIDNEY DISEASE, UNSPECIFIED (4) Chronic kidney disease Code(s): N18.9 - CHRONIC KIDNEY DISEASE, UNSPECIFIED
[2016-12-18] MEDS ORDERED: PROPOFOL 20 ML ONE (14:56)
[2016-12-18] MEDS ORDERED: LIDOCAINE HCL 1%, 10 MG/ML (20ML VIAL) ONE (15:13)
[2016-12-18] MEDS ORDERED: BUPIVACAINE HCL/PF 0.5% (5MG/ML) 10 ML VIAL ONE (15:14)
[2016-12-18] MEDS ORDERED: VANCOMYCIN 500 MG in DEXTROSE 5%-WATER - 100 ML IVPB ONE ×2 (15:15→18:15)
[2016-12-18] MEDS ORDERED: ONDANSETRON 4 MG/2 ML VIAL IVPUSH PRN ×2 (15:47→16:00)
[2016-12-18] MEDS ORDERED: ACETAMINOPHEN 325 MG TABLET (FP) PO PRN ×2 (15:47→16:00)
[2016-12-18] MEDS ORDERED: ACETAMINOPHEN WITH CODEINE 300MG/30MG TABLET PO PRN (15:59)
[2016-12-18] MEDS ORDERED: DOCUSATE SODIUM 100 MG CAPSULE (FP) PO PRN (16:00)
--- NOTE | 2016-12-18 17:01 | OP ---
Operative Note - Note: Operative Date: 12/18/16 Pre-Operative Diagnosis: soft tissue infection left thigh Operation: I and D left thigh abscess and excision infected sebaceous cyst Surgeon: Gaston Salgado Anesthesiologist/[employer]URITY [employer]ROL OFFICER: Regina Godwin Anesthesia: Local, MAC (and local) Specimens Removed: skin and ulcer and cyst Estimated Blood Loss (mls): 5 Drains & Tubes with Location: packing
--- NOTE | 2016-12-18 17:21 | PN ---
Progress Note, Physician History of Present Illness: doing well - Current Medication List Current Medications: Active Medications Acetaminophen (Tylenol -) 650 mg PO Q4H PRN PRN Reason: PAIN Stop: 12/18/16 19:48 Acetaminophen/Codeine Phosphate (Tylenol # 3 -) 1 tab PO Q6H PRN PRN Reason: FEVER OR PAIN Aclidinium [place] (Tudorza -) 1 puff IH BID [facility] Apixaban (Eliquis -) 5 mg PO DAILY [facility] Aspirin (Asa -) 81 mg PO DAILY [facility] Calcium Carbonate/Cholecalciferol (Os-Rony 500+D -) 1 tab PO DAILY [facility] Docusate Sodium (Colace -) 100 mg PO TID PRN PRN Reason: CONSTIPATION Fenofibric Acid (Trilipix -) 135 mg PO DAILY [facility] Fentanyl (Sublimaze Injection -) 25 mcg IVPUSH [id number] PRN PRN Reason: PAIN Stop: 12/21/16 15:48 Gabapentin (Neurontin -) 400 mg PO DAILY [facility] Hydralazine HCl (Apresoline -) 25 mg PO DAILY [facility] Sodium Chloride (Normal Saline -) 1,000 mls @ 83 mls/hr IV ASDIR [facility] Magnesium Oxide (Mag-Ox -) 400 mg PO BID [facility] Metoprolol Tartrate (Lopressor -) 50 mg PO BID [facility] Miconazole Nitrate (Miconazole Nitrate) 1 applic TP BID [facility] Mometasone Furoate (Asmanex 110mcg -) 1 puff IH DAILY [facility] Non-Formulary Medication (Abacavir/Dolutegravir/Lamivudi [Triumeq Tablet]) 1 each PO DAILY [facility] Nystatin (Mycostatin Cream -) 1 applic TP BID [facility] Tbwby-1-Eswj Ethyl Esters (Lovaza -) 2 gm PO BID [facility] Ondansetron HCl (Zofran Injection) 4 mg IVPUSH Q6H PRN PRN Reason: NAUSEA AND/OR VOMITING Stop: 12/18/16 21:48 Sitagliptin Phosphate (Januvia -) 25 mg PO DAILY@0700 [facility] Tamsulosin HCl (Flomax -) 0.4 mg PO HS GELACIO - Objective Vital Signs: Vital Signs Temperature 99.7 F H 12/18/16 16:25 Pulse Rate 80 12/18/16 16:25 Respiratory Rate 16 12/18/16 16:25 Blood Pressure 136/70 12/18/16 16:25 O2 Sat by Pulse Oximetry (%) 100 12/18/16 16:10 Constitutional: Yes: No Distress HENT: Yes: Atraumatic Neck: Yes: Supple Cardiovascular: Yes: Regular Rate and Rhythm Respiratory: Yes: CTA Bilaterally Extremities: Yes: WNL, Other (llex abcess s/p I and D) Neurological: Yes: Alert, Oriented Labs: CBC, BMP 12/18/16 07:35 12/18/16 07:35 INR, PTT INR 1.13 (0.82-1.09) 12/16/16 13:43 Problem List - Problems (1) COPD (chronic obstructive pulmonary disease) Assessment/Plan: stable Code(s): J44.9 - CHRONIC OBSTRUCTIVE PULMONARY DISEASE, UNSPECIFIED (2) Diabetes mellitus type 2, uncontrolled Assessment/Plan: on po meds bgms Code(s): E11.65 - TYPE 2 DIABETES MELLITUS WITH HYPERGLYCEMIA (3) HIV (human immunodeficiency virus infection) Assessment/Plan: stable Code(s): Z21 - ASYMPTOMATIC HUMAN IMMUNODEFICIENCY VIRUS INFECTION STATUS (4) Abscess of left thigh Assessment/Plan: iv abx s/p I and D Code(s): L02.416 - CUTANEOUS ABSCESS OF LEFT LOWER LIMB
--- NOTE | 2016-12-18 17:25 | PN ---
Teaching Attending Note Name of Resident: Margarito Rodrigues ATTENDING PHYSICIAN STATEMENT I saw and evaluated the patient. I reviewed the resident's note and discussed the case with the resident. I agree with the resident's findings and plan as documented. SUBJECTIVE: OBJECTIVE: ASSESSMENT AND PLAN: L thigh soft tissue abscess DM HIV CKD For I&D in OR Continue vanco/zosyn
[2016-12-18] MEDS: APIXABAN 2.5 MG TABLET PO SCH (22:05)
[2016-12-18] MEDS: TAMSULOSIN HCL 0.4 MG CAP.ER.24H (FP) PO SCH (22:05)
[2016-12-18] MEDS: ACLIDINIUM BROMIDE 400 MCG/INH AERO.POWD IH SCH (22:06)
[2016-12-19] MEDS ORDERED: DEXTROSE 5%-WATER - 50 ML IVPB ONE ×4 (02:05→21:25)
[2016-12-19] MEDS ORDERED: PIPERACILLIN/TAZOBACTAM 2.25 GM VIAL IVPB ONE ×4 (02:05→21:25)
[2016-12-19] MEDS: PIPERACILLIN/TAZOB 2.25 GM 2.25 GM in DEXTROSE 5%-WATER - 50 ML IVPB SCH ×5 (02:30→22:15)
[2016-12-19] MEDS: SODIUM CHLORIDE 1,000 ML IV SCH ×2 (02:30→16:45)
[2016-12-19] MEDS: sitaGLIPtin PHOSPHATE 25 MG TABLET (FP) PO SCH (06:10)
--- NOTE | 2016-12-19 07:40 | PN ---
Physical Exam: SUBJECTIVE: Patient is doing well. OR I&D yesterday at 15:00. No purulence noted from wound; residual blood from wound with bandage showing some let- through. Patient has no new complaints. Pt wound cultures positive for polymicrobial including MRSA sensitive to Vancomycin. OBJECTIVE: Vital Signs Period Temp Pulse Resp BP Sys/Gaspar Pulse Ox Last 24 Hr 98.5 F-99.7 F 72-84 16-20 107-136/50-83 98-100 GENERAL: The patient is awake, alert, and fully oriented, in no acute distress. HEENT: Moist mucosa; no structural abnormalities. LUNGS: CTA bilaterally, no wheezes, no crackles, no accessory muscle use. HEART: RRR S1, S2 without murmur, rub or gallop. ABDOMEN: Soft, nontender, nondistended, normoactive bowel sounds EXTREMITIES: No edema. Distal LE pulses strong and symmetrical. Bandage applied to L medial thigh wound with blood let-through. No purulence or other discharge noted. Wound left open with packing. NEUROLOGICAL: Alert and oriented Laboratory Results - last 24 hr 12/18/16 12/18/16 12/18/16 07:35 07:35 07:35 WBC 12.9 H RBC 4.04 Hgb 11.3 L D Hct 34.8 L MCV 86.2 MCH 28.1 MCHC 32.6 RDW 15.1 Plt Count 214 MPV 8.7 D Neutrophils % 72.9 Lymphocytes % 16.1 D Monocytes % 7.3 Eosinophils % 3.4 D Basophils % 0.3 Sodium 135 L Potassium 3.9 Chloride 102 Carbon Dioxide 25 Anion Gap 8 BUN 26 H Creatinine 2.8 H Creat Clearance w eGFR 22.65 POC Glucometer Random Glucose 203 H Hemoglobin A1c % Calcium 8.1 L Phosphorus 2.8 Magnesium 2.6 H D Total Bilirubin 0.6 AST 22 ALT 20 Alkaline Phosphatase 75 Total Protein 5.4 L Albumin 2.1 L Random Vancomycin 14.095 Hepatitis A IgM Ab Hep Bs Antigen Hep B Core IgM Ab Hepatitis C Ab (EIA) 12/18/16 12/18/16 12/18/16 07:35 07:35 23:11 WBC RBC Hgb Hct MCV MCH MCHC RDW Plt Count MPV Neutrophils % Lymphocytes % Monocytes % Eosinophils % Basophils % Sodium Potassium Chloride Carbon Dioxide Anion Gap BUN Creatinine Creat Clearance w eGFR POC Glucometer 244 Random Glucose Hemoglobin A1c % 9.5 H D Calcium Phosphorus Magnesium Total Bilirubin AST ALT Alkaline Phosphatase Total Protein Albumin Random Vancomycin Hepatitis A IgM Ab Negative Hep Bs Antigen Negative Hep B Core IgM Ab Negative Hepatitis C Ab (EIA) <0.1 12/19/16 06:09 WBC RBC Hgb Hct MCV MCH MCHC RDW Plt Count MPV Neutrophils % Lymphocytes % Monocytes % Eosinophils % Basophils % Sodium Potassium Chloride Carbon Dioxide Anion Gap BUN Creatinine Creat Clearance w eGFR POC Glucometer 198 Random Glucose Hemoglobin A1c % Calcium Phosphorus Magnesium Total Bilirubin AST ALT Alkaline Phosphatase Total Protein Albumin Random Vancomycin Hepatitis A IgM Ab Hep Bs Antigen Hep B Core IgM Ab Hepatitis C Ab (EIA) Active Medications Generic Name Dose Route Start Last Admin Trade Name Freq PRN Reason Stop Dose Admin Acetaminophen/Codeine Phosphate 1 tab 12/18/16 15:59 12/19/16 06:12 Tylenol # 3 - PO 1 tab Q6H PRN Administration FEVER OR PAIN Aclidinium [place] 1 puff 12/18/16 22:00 12/18/16 22:06 Tudorza - IH 1 puff BID GELACIO Administration Apixaban 2.5 mg 12/18/16 22:00 12/18/16 22:05 Eliquis - PO 2.5 mg BID GELACIO Administration Aspirin 81 mg 12/19/16 10:00 Asa - PO DAILY [facility] Calcium Carbonate/Cholecalciferol 1 tab 12/19/16 10:00 Os-Rony 500+D - PO DAILY [facility] Docusate Sodium 100 mg 12/18/16 16:00 12/18/16 17:56 Colace - PO 100 mg TID PRN Administration CONSTIPATION Fenofibric Acid 135 mg 12/19/16 10:00 Trilipix - PO DAILY [facility] Fentanyl 25 mcg 12/18/16 16:00 Sublimaze Injection - IVPUSH 12/21/16 15:48 [id number] PRN PAIN Gabapentin 400 mg 12/19/16 10:00 Neurontin - PO DAILY [facility] Hydralazine HCl 25 mg 12/19/16 10:00 Apresoline - PO DAILY [facility] Sodium Chloride 1,000 mls @ 83 mls/hr 12/18/16 16:00 12/19/16 02:30 Normal Saline - IV 83 mls/hr ASDIR GELACIO Administration Piperacillin Sod/Tazobactam 50 mls @ 100 mls/hr 12/18/16 18:15 09/28/17 02:30 Sod 2.25 gm/ Dextrose IVPB 100 mls/hr Q6H-IV GELACIO Administration Magnesium Oxide 400 mg 12/18/16 22:00 12/18/16 22:05 Mag-Ox - PO 400 mg BID GELACIO Administration Metoprolol Tartrate 50 mg 12/18/16 22:00 12/18/16 22:05 Lopressor - PO 50 mg BID GELACIO Administration Miconazole Nitrate 1 applic 12/18/16 22:00 12/18/16 22:05 Miconazole Nitrate TP 1 applic BID GELACIO Administration Mometasone Furoate 1 puff 12/19/16 10:00 Asmanex 110mcg - IH DAILY GELACIO Non-Formulary Medication 1 each 12/19/16 10:00 Abacavir/Dolutegravir/Lamivudi [Triumeq Tablet] PO DAILY GELACIO Nystatin 1 applic 12/18/16 22:00 12/18/16 22:06 Mycostatin Cream - TP 1 applic BID GELACIO Administration Lfelx-1-Gqgj Ethyl Esters 2 gm 12/18/16 22:00 12/18/16 22:05 Lovaza - PO 2 gm BID GELACIO Administration Sitagliptin Phosphate 25 mg 12/19/16 07:00 12/19/16 06:10 Januvia - PO 25 mg DAILY@0700 GELACIO Administration Tamsulosin HCl 0.4 mg 12/18/16 22:00 12/18/16 22:05 Flomax - PO 0.4 mg HS GELACIO Administration ASSESSMENT: Left medial thigh abscess HIV+ (with history of AIDS) PLAN: CD4 counts 485 from 2 months ago; VL <20 S/p I&D in OR for L medial thigh abscess --Open incision with packing --Residual bloody drainage --Bandage and wound care per surgery Continue Vancomycin 1500 mg IV qDaily and Zosyn --Trend Cr due to impairment MRSA precautions/isolation recommended in light of final wound cultures Visit type - Emergency Visit Emergency Visit: No - New Patient This patient is new to me today: No - Critical Care Critical Care patient: No - Discharge Referral Referred to [facility] No
--- NOTE | 2016-12-19 09:04 | PN ---
Progress Note (short form) - Note Progress Note: ANESTHESIOLOGY POST-OP CHECK 70F s/p incision and drainage of left thigh under MAC/sedation anesthesia, POD # 1. No acute complaints. Pain 5/10 and tolerable. Denies N/V, tolerating PO liquids . Voiding, ambulating. Vital Signs Temperature 99.8 F H 12/19/16 06:00 Pulse Rate 91 H 12/19/16 06:00 Respiratory Rate 18 12/19/16 06:00 Blood Pressure 134/53 12/19/16 06:00 O2 Sat by Pulse Oximetry (%) 100 12/18/16 22:00 Active Medications Acetaminophen/Codeine Phosphate (Tylenol # 3 -) 1 tab PO Q6H PRN PRN Reason: FEVER OR PAIN Last Admin: 12/19/16 06:12 Dose: 1 tab Aclidinium [place] (Tudorza -) 1 puff IH BID [facility] Last Admin: 12/18/16 22:06 Dose: 1 puff Apixaban (Eliquis -) 2.5 mg PO BID [facility] Last Admin: 12/18/16 22:05 Dose: 2.5 mg Aspirin (Asa -) 81 mg PO DAILY [facility] Calcium Carbonate/Cholecalciferol (Os-Rony 500+D -) 1 tab PO DAILY [facility] Docusate Sodium (Colace -) 100 mg PO TID PRN PRN Reason: CONSTIPATION Last Admin: 12/18/16 17:56 Dose: 100 mg Fenofibric Acid (Trilipix -) 135 mg PO DAILY [facility] Fentanyl (Sublimaze Injection -) 25 mcg IVPUSH [id number] PRN PRN Reason: PAIN Stop: 12/21/16 15:48 Gabapentin (Neurontin -) 400 mg PO DAILY [facility] Hydralazine HCl (Apresoline -) 25 mg PO DAILY [facility] Sodium Chloride (Normal Saline -) 1,000 mls @ 83 mls/hr IV ASDIR [facility] Last Admin: 12/19/16 02:30 Dose: 83 mls/hr Piperacillin Sod/Tazobactam (Sod 2.25 gm/ Dextrose) 50 mls @ 100 mls/hr IVPB Q6H-IV [facility] Last Admin: 12/19/16 02:30 Dose: 100 mls/hr Magnesium Oxide (Mag-Ox -) 400 mg PO BID [facility] Last Admin: 12/18/16 22:05 Dose: 400 mg Metoprolol Tartrate (Lopressor -) 50 mg PO BID [facility] Last Admin: 12/18/16 22:05 Dose: 50 mg Miconazole Nitrate (Miconazole Nitrate) 1 applic TP BID [facility] Last Admin: 12/18/16 22:05 Dose: 1 applic Mometasone Furoate (Asmanex 110mcg -) 1 puff IH DAILY [facility] Non-Formulary Medication (Abacavir/Dolutegravir/Lamivudi [Triumeq Tablet]) 1 each PO DAILY [facility] Nystatin (Mycostatin Cream -) 1 applic TP BID [facility] Last Admin: 12/18/16 22:06 Dose: 1 applic [id number] Ethyl Esters (Lovaza -) 2 gm PO BID [facility] Last Admin: 12/18/16 22:05 Dose: 2 gm Sitagliptin Phosphate (Januvia -) 25 mg PO DAILY@0700 [facility] Last Admin: 12/19/16 06:10 Dose: 25 mg Tamsulosin HCl (Flomax -) 0.4 mg PO HS [facility] Last Admin: 12/18/16 22:05 Dose: 0.4 mg Gen: Awake, alert No apparent anesthesia complications, pain controlled. Continue management as per primary team.
[2016-12-19] MEDS ORDERED: APIXABAN 5 MG TABLET PO SCH (10:00)
--- NOTE | 2016-12-19 10:50 | PN ---
Progress Note (short form) - Note Progress Note: Attending Surgeon POD #1 No c/o VSS AF wound-open; no drainage; good bleeding IMP:doing well PLAN: LWC; ? need for further IVAB's and or continued inpatient stay; may f/u w/ me 7-10 days post d/c; recommend VNS upon d/c. Gaston Salgado MD FACS
[2016-12-19] MEDS ORDERED: PT OWN MED DRAWER 7, Y5N ONE ×2 (11:04→12:51)
[2016-12-19] MEDS: ACLIDINIUM BROMIDE 400 MCG/INH AERO.POWD IH SCH ×2 (11:09→22:10)
[2016-12-19] MEDS: METOPROLOL TARTRATE 50 MG TABLET (FP) PO SCH ×2 (11:09→21:27)
[2016-12-19] MEDS: GABAPENTIN 400 MG CAPSULE (FP) PO SCH (11:10)
[2016-12-19] MEDS: MAGNESIUM OXIDE 400 MG TABLET (FP) PO SCH ×2 (11:10→21:28)
[2016-12-19] MEDS: hydrALAZINE HCL 25 MG TABLET (FP) PO SCH (11:10)
[2016-12-19] MEDS: FENOFIBRIC ACID 135 MG CAP PO SCH (11:10)
[2016-12-19] MEDS: ASPIRIN 81 MG CHEWABLE TABLETS PO SCH (11:10)
[2016-12-19] MEDS: CALCIUM 500MG/VIT-D 200 UNITS COMBO TABLET (FP) PO SCH (11:10)
[2016-12-19] MEDS: OMEGA-3 ACID ETHYL ESTERS (FATTY-ACIDS) 1 GM CAPSULE (FP) PO SCH ×2 (11:11→22:11)
[2016-12-19] MEDS: APIXABAN 2.5 MG TABLET PO SCH ×2 (11:11→21:27)
--- NOTE | 2016-12-19 11:14 | OP ---
DATE OF OPERATION: 12/18/2016 PREOPERATIVE DIAGNOSIS: Soft tissue infection, left thigh. POSTOPERATIVE DIAGNOSIS: Soft tissue infection, left thigh due to infected sebaceous cyst. PROCEDURE: Incision and drainage of left thigh abscess and excision of infected sebaceous cyst. SURGEON: Gaston Salgado MD ANESTHESIA: Local with IV sedation. OPERATIVE FINDINGS: There was ulcerated skin of the left anteromedial thigh. There was an infected sebaceous cyst. The rest of the findings were unremarkable. DESCRIPTION OF PROCEDURE: The patient was placed on the operating table in supine position, and the area over the lesion in question was prepped with ChloraPrep and draped in sterile fashion. An elliptical incision was mapped out on the skin to encompass the ulcerated area, and a time-out was taken, and then, the area was infiltrated with 1% Xylocaine and 0.5% Marcaine in equal concentration. Scalpel was used to incise the skin and excise the underlying cyst and subcutaneous tissue. Cultures were sent of purulent drainage, and then, the wound was copiously irrigated with sterile saline and peroxide in a 50/50 concentration. Hemostasis was secured with electrocautery, and the wound packed with 2-inch vaginal packing. Dry sterile dressings were placed, the procedure terminated at this point, and the patient was transferred to the post-anesthesia care unit in stable condition, awake and alert. ESTIMATED BLOOD LOSS: 5 mL. REPLACEMENTS: Crystalloid. DRAINS: None. SPECIMENS: Skin and overlying ulcer and sebaceous cyst to Pathology. I, Gaston Salgado MD, was physically present in the operating room from the time the patient was placed on the operating table until he was transferred to the post-anesthesia care unit in my accompaniment. MD ANJANA Zendejas/[id number] MTDD
[2016-12-19 11:29] LABS: ANION GAP 5 (8-16); CALCIUM 8.3 mg/dL (8.5-10.1); CO2 27 mmol/L (21-32); CREATININE 2.8 mg/dL (0.7-1.3); GLUCOSE,RANDOM 250 mg/dL (74-106)
[2016-12-19] MEDS: MOMETASONE FUROATE 110 MCG/IH INHALER IH SCH (11:47)
--- NOTE | 2016-12-19 12:27 | PN ---
Progress Note (short form) - Note Progress Note: Renal follow up for YIFAN on CKD Pt seen and examined at the bedside awake and alert no acute complaints drowsy with pain meds s/p I and D yesterday in OR making urine Vital Signs Temperature 99.5 F 12/19/16 11:44 Pulse Rate 87 12/19/16 11:05 Respiratory Rate 20 12/19/16 11:05 Blood Pressure 140/60 12/19/16 11:05 O2 Sat by Pulse Oximetry (%) 100 12/18/16 22:00 Intake & Output 12/16/16 12/17/16 12/18/16 12/19/16 23:59 23:59 23:59 23:59 Intake Total 2081 3249 781 Output Total 400 2 Balance 1681 3247 781 Weight 236 lb 2 oz 236 lb 2 oz NAD RRR, No M/R CTA, no rales soft NT/ND, obese + warm, boil on thigh, + tenderness, no LE edema CBC, BMP 12/18/16 07:35 12/19/16 10:20 Current Medications Acetaminophen/Codeine Phosphate (Tylenol # 3 -) 1 tab PO Q6H PRN PRN Reason: FEVER OR PAIN Last Admin: 12/19/16 06:12 Dose: 1 tab Aclidinium [place] (Tudorza -) 1 puff IH BID [facility] Last Admin: 12/19/16 11:09 Dose: 1 puff Apixaban (Eliquis -) 2.5 mg PO BID [facility] Last Admin: 12/19/16 11:11 Dose: 2.5 mg Aspirin (Asa -) 81 mg PO DAILY [facility] Last Admin: 12/19/16 11:10 Dose: 81 mg Calcium Carbonate/Cholecalciferol (Os-Rony 500+D -) 1 tab PO DAILY [facility] Last Admin: 12/19/16 11:10 Dose: 1 tab Docusate Sodium (Colace -) 100 mg PO TID PRN PRN Reason: CONSTIPATION Last Admin: 12/18/16 17:56 Dose: 100 mg Fenofibric Acid (Trilipix -) 135 mg PO DAILY [facility] Last Admin: 12/19/16 11:10 Dose: 135 mg Fentanyl (Sublimaze Injection -) 25 mcg IVPUSH [id number] PRN PRN Reason: PAIN Stop: 12/21/16 15:48 Gabapentin (Neurontin -) 400 mg PO DAILY [facility] Last Admin: 12/19/16 11:10 Dose: 400 mg Hydralazine HCl (Apresoline -) 25 mg PO DAILY [facility] Last Admin: 12/19/16 11:10 Dose: 25 mg Sodium Chloride (Normal Saline -) 1,000 mls @ 83 mls/hr IV ASDIR [facility] Last Admin: 12/19/16 02:30 Dose: 83 mls/hr Piperacillin Sod/Tazobactam (Sod 2.25 gm/ Dextrose) 50 mls @ 100 mls/hr IVPB Q6H-IV [facility] Last Admin: 12/19/16 11:09 Dose: 100 mls/hr Magnesium Oxide (Mag-Ox -) 400 mg PO BID [facility] Last Admin: 12/19/16 11:10 Dose: 400 mg Metoprolol Tartrate (Lopressor -) 50 mg PO BID [facility] Last Admin: 12/19/16 11:09 Dose: 50 mg Miconazole Nitrate (Miconazole Nitrate) 1 applic TP BID [facility] Last Admin: 12/18/16 22:05 Dose: 1 applic Mometasone Furoate (Asmanex 110mcg -) 1 puff IH DAILY [facility] Last Admin: 12/19/16 11:47 Dose: 1 puff Non-Formulary Medication (Abacavir/Dolutegravir/Lamivudi [Triumeq Tablet]) 1 each PO DAILY [facility] Nystatin (Mycostatin Cream -) 1 applic TP BID [facility] Last Admin: 12/18/16 22:06 Dose: 1 applic Hgknl-0-Gapf Ethyl Esters (Lovaza -) 2 gm PO BID [facility] Last Admin: 12/19/16 11:11 Dose: 2 gm Sitagliptin Phosphate (Januvia -) 25 mg PO DAILY@0700 [facility] Last Admin: 12/19/16 06:10 Dose: 25 mg Tamsulosin HCl (Flomax -) 0.4 mg PO HS [facility] Last Admin: 12/18/16 22:05 Dose: 0.4 mg A/P 66 year old gentleman with PMhx of CKD Stage 3 (baseline Cr 1.7), HIV on HARRT, DM Type 2 (Dx 12 years ago) w/o retinopathy, who presents with complaints painful and enlarging lesion on left thigh and found to have YIFAN. 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 Etiology of YIFAN likely volume depletion in setting of acute infection Renal function w/o signifincat improvement to date with IVF continue fluids for additional 24 hours oral intake as tolerated BUN/Cr relitivery stable and w/o change Imaging of kidney including renal vein doppler is pending will repeat urine studies after improvement in renal function no acute indication for FORENSIC TOXICOLOGIST at this time #Abcess/Skin infection ID and Surgery following s/p I and D #HIV Continue HIV meds as per ID #DM Type 2 Hgb A1c is 9.2% Ehsan Lobo DO Problem List - Problems (1) Abscess of right thigh Code(s): L02.415 - CUTANEOUS ABSCESS OF RIGHT LOWER LIMB (2) HIV (human immunodeficiency virus infection) Code(s): Z21 - ASYMPTOMATIC HUMAN IMMUNODEFICIENCY VIRUS INFECTION STATUS (3) Acute kidney injury superimposed on CKD Code(s): S37.009A - UNSPECIFIED INJURY OF UNSPECIFIED KIDNEY, INITIAL ENCOUNTER N18.9 - CHRONIC KIDNEY DISEASE, UNSPECIFIED (4) Chronic kidney disease Code(s): N18.9 - CHRONIC KIDNEY DISEASE, UNSPECIFIED
[2016-12-19] MEDS ORDERED: ACETAMINOPHEN WITH CODEINE 300MG/30MG TABLET PO PRN (12:28)
[2016-12-19] MEDS: NYSTATIN 100,000 UNIT/GM TOPICAL CREAM 15 GM TUBE TP SCH ×2 (12:57→22:14)
[2016-12-19] MEDS: MICONAZOLE NITRATE 28 GM TUBE TP SCH ×2 (12:57→22:15)
--- NOTE | 2016-12-19 17:14 | PN ---
Progress Note, Physician History of Present Illness: doing well - Current Medication List Current Medications: Active Medications Acetaminophen/Codeine Phosphate (Tylenol # 3 -) 1 tab PO Q4H PRN PRN Reason: FEVER OR PAIN Last Admin: 12/19/16 12:56 Dose: 1 tab Aclidinium [place] (Tudorza -) 1 puff IH BID [facility] Last Admin: 12/19/16 11:09 Dose: 1 puff Apixaban (Eliquis -) 2.5 mg PO BID [facility] Last Admin: 12/19/16 11:11 Dose: 2.5 mg Aspirin (Asa -) 81 mg PO DAILY [facility] Last Admin: 12/19/16 11:10 Dose: 81 mg Calcium Carbonate/Cholecalciferol (Os-Rony 500+D -) 1 tab PO DAILY [facility] Last Admin: 12/19/16 11:10 Dose: 1 tab Docusate Sodium (Colace -) 100 mg PO TID PRN PRN Reason: CONSTIPATION Last Admin: 12/18/16 17:56 Dose: 100 mg Fenofibric Acid (Trilipix -) 135 mg PO DAILY [facility] Last Admin: 12/19/16 11:10 Dose: 135 mg Fentanyl (Sublimaze Injection -) 25 mcg IVPUSH [id number] PRN PRN Reason: PAIN Stop: 12/21/16 15:48 Gabapentin (Neurontin -) 400 mg PO DAILY [facility] Last Admin: 12/19/16 11:10 Dose: 400 mg Hydralazine HCl (Apresoline -) 25 mg PO DAILY [facility] Last Admin: 12/19/16 11:10 Dose: 25 mg Sodium Chloride (Normal Saline -) 1,000 mls @ 83 mls/hr IV ASDIR [facility] Last Admin: 12/19/16 02:30 Dose: 83 mls/hr Piperacillin Sod/Tazobactam (Sod 2.25 gm/ Dextrose) 50 mls @ 100 mls/hr IVPB Q6H-IV [facility] Last Admin: 12/19/16 16:36 Dose: 100 mls/hr Magnesium Oxide (Mag-Ox -) 400 mg PO BID [facility] Last Admin: 12/19/16 11:10 Dose: 400 mg Metoprolol Tartrate (Lopressor -) 50 mg PO BID [facility] Last Admin: 12/19/16 11:09 Dose: 50 mg Miconazole Nitrate (Miconazole Nitrate) 1 applic TP BID [facility] Last Admin: 12/19/16 12:57 Dose: 1 applic Mometasone Furoate (Asmanex 110mcg -) 1 puff IH DAILY [facility] Last Admin: 12/19/16 11:47 Dose: 1 puff Non-Formulary Medication (Abacavir/Dolutegravir/Lamivudi [Triumeq Tablet]) 1 each PO DAILY [facility] Nystatin (Mycostatin Cream -) 1 applic TP BID [facility] Last Admin: 12/19/16 12:57 Dose: 1 applic [id number]-6-[id number] Ethyl Esters (Lovaza -) 2 gm PO BID [facility] Last Admin: 12/19/16 11:11 Dose: 2 gm Sitagliptin Phosphate (Januvia -) 25 mg PO DAILY@0700 [facility] Last Admin: 12/19/16 06:10 Dose: 25 mg Tamsulosin HCl (Flomax -) 0.4 mg PO HS [facility] Last Admin: 12/18/16 22:05 Dose: 0.4 mg - Objective Vital Signs: Vital Signs Temperature 99.7 F H 12/19/16 16:00 Pulse Rate 79 12/19/16 16:00 Respiratory Rate 20 12/19/16 16:00 Blood Pressure 124/66 12/19/16 16:00 O2 Sat by Pulse Oximetry (%) 100 12/18/16 22:00 Constitutional: Yes: No Distress HENT: Yes: Atraumatic Neck: Yes: Supple Cardiovascular: Yes: Regular Rate and Rhythm Respiratory: Yes: CTA Bilaterally Gastrointestinal: Yes: Normal Bowel Sounds Extremities: Yes: WNL, Other (s/p I and left thigh abcess...healing well) Edema: No Neurological: Yes: Alert, Oriented Labs: CBC, BMP 12/18/16 07:35 12/19/16 10:20 INR, PTT INR 1.13 (0.82-1.09) 12/16/16 13:43 Problem List - Problems (1) COPD (chronic obstructive pulmonary disease) Assessment/Plan: stable Code(s): J44.9 - CHRONIC OBSTRUCTIVE PULMONARY DISEASE, UNSPECIFIED (2) Diabetes mellitus type 2, uncontrolled Assessment/Plan: on po meds bgms Code(s): E11.65 - TYPE 2 DIABETES MELLITUS WITH HYPERGLYCEMIA (3) HIV (human immunodeficiency virus infection) Assessment/Plan: stable on meds Code(s): Z21 - ASYMPTOMATIC HUMAN IMMUNODEFICIENCY VIRUS INFECTION STATUS (4) Abscess of left thigh Assessment/Plan: iv abx s/p I and D Code(s): L02.416 - CUTANEOUS ABSCESS OF LEFT LOWER LIMB
[2016-12-19] MEDS: TAMSULOSIN HCL 0.4 MG CAP.ER.24H (FP) PO SCH (21:27)
[2016-12-19] MEDS ORDERED: VANCOMYCIN 1,500 MG in DEXTROSE 5%-WATER - 500 ML IVPB ONE (23:45)
[2016-12-20] MEDS ORDERED: DEXTROSE 5%-WATER - 50 ML IVPB ONE ×2 (02:22→09:45)
[2016-12-20] MEDS ORDERED: PIPERACILLIN/TAZOBACTAM 2.25 GM VIAL IVPB ONE ×2 (02:22→09:44)
[2016-12-20] MEDS: PIPERACILLIN/TAZOB 2.25 GM 2.25 GM in DEXTROSE 5%-WATER - 50 ML IVPB SCH ×2 (04:05→09:54)
[2016-12-20] MEDS: sitaGLIPtin PHOSPHATE 25 MG TABLET (FP) PO SCH (06:56)
[2016-12-20] MEDS: SODIUM CHLORIDE 1,000 ML IV SCH (09:51)
[2016-12-20] MEDS: hydrALAZINE HCL 25 MG TABLET (FP) PO SCH (09:55)
[2016-12-20] MEDS: ASPIRIN 81 MG CHEWABLE TABLETS PO SCH (09:55)
[2016-12-20] MEDS: MOMETASONE FUROATE 110 MCG/IH INHALER IH SCH (09:55)
[2016-12-20] MEDS: APIXABAN 2.5 MG TABLET PO SCH ×2 (09:56→21:36)
[2016-12-20] MEDS: METOPROLOL TARTRATE 50 MG TABLET (FP) PO SCH ×2 (09:56→21:36)
[2016-12-20] MEDS: MAGNESIUM OXIDE 400 MG TABLET (FP) PO SCH ×2 (09:56→21:36)
[2016-12-20] MEDS: OMEGA-3 ACID ETHYL ESTERS (FATTY-ACIDS) 1 GM CAPSULE (FP) PO SCH ×2 (09:56→21:37)
[2016-12-20] MEDS: FENOFIBRIC ACID 135 MG CAP PO SCH (09:58)
[2016-12-20] MEDS: GABAPENTIN 400 MG CAPSULE (FP) PO SCH (09:58)
[2016-12-20] MEDS: CALCIUM 500MG/VIT-D 200 UNITS COMBO TABLET (FP) PO SCH (09:58)
[2016-12-20] MEDS: MICONAZOLE NITRATE 28 GM TUBE TP SCH ×2 (09:59→21:37)
[2016-12-20] MEDS: ACLIDINIUM BROMIDE 400 MCG/INH AERO.POWD IH SCH ×2 (09:59→21:35)
[2016-12-20] MEDS: NYSTATIN 100,000 UNIT/GM TOPICAL CREAM 15 GM TUBE TP SCH ×2 (09:59→21:37)
--- NOTE | 2016-12-20 11:09 | PN ---
Progress Note, Physician History of Present Illness: No c/o thigh pain No fever/ chills Wound c/s polymicrobial including MRSA Temps, WBC improved - Current Medication List Current Medications: Active Medications Acetaminophen/Codeine Phosphate (Tylenol # 3 -) 1 tab PO Q4H PRN PRN Reason: FEVER OR PAIN Last Admin: 12/19/16 12:56 Dose: 1 tab Aclidinium [place] (Tudorza -) 1 puff IH BID [facility] Last Admin: 12/20/16 09:59 Dose: 1 puff Apixaban (Eliquis -) 2.5 mg PO BID [facility] Last Admin: 12/20/16 09:56 Dose: 2.5 mg Aspirin (Asa -) 81 mg PO DAILY [facility] Last Admin: 12/20/16 09:55 Dose: 81 mg Calcium Carbonate/Cholecalciferol (Os-Rony 500+D -) 1 tab PO DAILY [facility] Last Admin: 12/20/16 09:58 Dose: 1 tab Docusate Sodium (Colace -) 100 mg PO TID PRN PRN Reason: CONSTIPATION Last Admin: 12/18/16 17:56 Dose: 100 mg Fenofibric Acid (Trilipix -) 135 mg PO DAILY [facility] Last Admin: 12/20/16 09:58 Dose: 135 mg Fentanyl (Sublimaze Injection -) 25 mcg IVPUSH [id number] PRN PRN Reason: PAIN Stop: 12/21/16 15:48 Gabapentin (Neurontin -) 400 mg PO DAILY [facility] Last Admin: 12/20/16 09:58 Dose: 400 mg Hydralazine HCl (Apresoline -) 25 mg PO DAILY [facility] Last Admin: 12/20/16 09:55 Dose: 25 mg Sodium Chloride (Normal Saline -) 1,000 mls @ 83 mls/hr IV ASDIR [facility] Last Admin: 12/20/16 09:51 Dose: 83 mls/hr Piperacillin Sod/Tazobactam (Sod 2.25 gm/ Dextrose) 50 mls @ 100 mls/hr IVPB Q6H-IV [facility] Last Admin: 12/20/16 09:54 Dose: 100 mls/hr Vancomycin HCl 1,500 mg/ (Dextrose) 500 mls @ 250 mls/hr IVPB Q24H GELACIO PRN Reason: Protocol Magnesium Oxide (Mag-Ox -) 400 mg PO BID [facility] Last Admin: 12/20/16 09:56 Dose: 400 mg Metoprolol Tartrate (Lopressor -) 50 mg PO BID [facility] Last Admin: 12/20/16 09:56 Dose: 50 mg Miconazole Nitrate (Miconazole Nitrate) 1 applic TP BID [facility] Last Admin: 12/20/16 09:59 Dose: 1 applic Mometasone Furoate (Asmanex 110mcg -) 1 puff IH DAILY [facility] Last Admin: 12/20/16 09:55 Dose: 1 puff Non-Formulary Medication (Abacavir/Dolutegravir/Lamivudi [Triumeq Tablet]) 1 each PO DAILY [facility] Nystatin (Mycostatin Cream -) 1 applic TP BID [facility] Last Admin: 12/20/16 09:59 Dose: 1 applic Ysslr-7-Sglx Ethyl Esters (Lovaza -) 2 gm PO BID [facility] Last Admin: 12/20/16 09:56 Dose: 2 gm Sitagliptin Phosphate (Januvia -) 25 mg PO DAILY@0700 [facility] Last Admin: 12/20/16 06:56 Dose: 25 mg Tamsulosin HCl (Flomax -) 0.4 mg PO HS [facility] Last Admin: 12/19/16 21:27 Dose: 0.4 mg - Objective Vital Signs: Vital Signs Temperature 97.9 F 12/20/16 08:23 Pulse Rate 82 12/20/16 08:23 Respiratory Rate 18 12/20/16 08:23 Blood Pressure 138/80 12/20/16 08:23 O2 Sat by Pulse Oximetry (%) 98 12/19/16 21:00 Cardiovascular: Yes: Regular Rate and Rhythm, S1, S2 Respiratory: Yes: CTA Bilaterally Gastrointestinal: Yes: Normal Bowel Sounds, Soft. No: Tenderness Extremities: Yes: Other (L thigh incisional wound with packing in place no erythema. decreased induration) Labs: CBC, BMP 12/18/16 07:35 12/19/16 10:20 INR, PTT INR 1.13 (0.82-1.09) 12/16/16 13:43 Assessment/Plan S/P I&D L thigh soft tissue abscess DM HIV/AIDS CKD D/C IV antibiotics Clindamycin 300mg po tid x 7d Probiotic Local wound care Outpatient surgical foolw up
[2016-12-20 12:11] LABS: BASOPHIL 0.7 % (0-2.0); EOSINOPHIL 4.6 % (0-4.5); MCH 28.5 pg (25.7-33.7); MCHC 32.9 g/dl (32.0-35.9); MEAN CELL VOLUME 86.7 fl (80-96); MEAN PLT VOLUME 8.7 fl (7.5-11.1); NEUTROPHILS 65.2 % (42.8-82.8); PLATELET COUNT 258 K/MM3 (134-434); RDW 15.1 % (11.9-15.9); WHITE BLOOD COUNT 9.6 K/mm3 (4.0-10.0)
[2016-12-20 12:46] LABS: ANION GAP 8 (8-16); CALCIUM 8.3 mg/dL (8.5-10.1); CO2 26 mmol/L (21-32); CREATININE 2.5 mg/dL (0.7-1.3); GLUCOSE,RANDOM 218 mg/dL (74-106); MAGNESIUM 2.7 mg/dL (1.8-2.4); PHOSPHOROUS 2.4 mg/dL (2.5-4.9)
[2016-12-20] MEDS: LACTOBACILLUS ACIDOPHILUS 1 EACH TAB (FP) PO SCH (12:48)
[2016-12-20] MEDS: CLINDAMYCIN HCL 150 MG CAPSULE (FP) PO SCH ×2 (13:15→21:36)
--- NOTE | 2016-12-20 13:16 | PN ---
Progress Note (short form) - Note Progress Note: Renal follow up for YIFAN on CKD Pt seen and examined at the bedside awake and alert no acute complaints denies any pain on sob on IVF pain in thigh is improved no fever or chills Vital Signs Temperature 97.9 F 12/20/16 08:23 Pulse Rate 82 12/20/16 08:23 Respiratory Rate 18 12/20/16 08:23 Blood Pressure 138/80 12/20/16 08:23 O2 Sat by Pulse Oximetry (%) 98 12/19/16 21:00 Intake & Output 12/17/16 12/18/16 12/19/16 12/20/16 23:59 23:59 23:59 23:59 Intake Total 2081 3249 2762 400 Output Total 400 2 400 Balance 1681 3247 2762 0 Weight 236 lb 2 oz NAD RRR, No M/R CTA, no rales soft NT/ND, obese + warm, boil on thigh, + tenderness, no LE edema CBC, BMP 12/20/16 11:52 12/20/16 11:52 Laboratory Tests 12/19/16 12/20/16 10:20 11:52 Calcium 8.3 L Phosphorus 2.4 L Magnesium 2.7 H Current Medications Acetaminophen/Codeine Phosphate (Tylenol # 3 -) 1 tab PO Q4H PRN PRN Reason: FEVER OR PAIN Last Admin: 12/19/16 12:56 Dose: 1 tab Aclidinium [place] (Tudorza -) 1 puff IH BID [facility] Last Admin: 12/20/16 09:59 Dose: 1 puff Apixaban (Eliquis -) 2.5 mg PO BID [facility] Last Admin: 12/20/16 09:56 Dose: 2.5 mg Aspirin (Asa -) 81 mg PO DAILY [facility] Last Admin: 12/20/16 09:55 Dose: 81 mg Calcium Carbonate/Cholecalciferol (Os-Rony 500+D -) 1 tab PO DAILY [facility] Last Admin: 12/20/16 09:58 Dose: 1 tab Clindamycin HCl (Cleocin -) 300 mg PO TID [facility] Docusate Sodium (Colace -) 100 mg PO TID PRN PRN Reason: CONSTIPATION Last Admin: 12/18/16 17:56 Dose: 100 mg Fenofibric Acid (Trilipix -) 135 mg PO DAILY [facility] Last Admin: 12/20/16 09:58 Dose: 135 mg Fentanyl (Sublimaze Injection -) 25 mcg IVPUSH [id number] PRN PRN Reason: PAIN Stop: 12/21/16 15:48 Gabapentin (Neurontin -) 400 mg PO DAILY [facility] Last Admin: 12/20/16 09:58 Dose: 400 mg Hydralazine HCl (Apresoline -) 25 mg PO DAILY [facility] Last Admin: 12/20/16 09:55 Dose: 25 mg Lactobacillus Acidophilus (Bacid -) 1 tab PO DAILY [facility] Last Admin: 12/20/16 12:48 Dose: 1 tab Magnesium Oxide (Mag-Ox -) 400 mg PO BID [facility] Last Admin: 12/20/16 09:56 Dose: 400 mg Metoprolol Tartrate (Lopressor -) 50 mg PO BID [facility] Last Admin: 12/20/16 09:56 Dose: 50 mg Miconazole Nitrate (Miconazole Nitrate) 1 applic TP BID [facility] Last Admin: 12/20/16 09:59 Dose: 1 applic Mometasone Furoate (Asmanex 110mcg -) 1 puff IH DAILY [facility] Last Admin: 12/20/16 09:55 Dose: 1 puff Non-Formulary Medication (Abacavir/Dolutegravir/Lamivudi [Triumeq Tablet]) 1 each PO DAILY [facility] Nystatin (Mycostatin Cream -) 1 applic TP BID [facility] Last Admin: 12/20/16 09:59 Dose: 1 applic [id number] Ethyl Esters (Lovaza -) 2 gm PO BID [facility] Last Admin: 12/20/16 09:56 Dose: 2 gm Potassium Phos/Sodium Phos (Phos-Nak Packet -) 1 packet PO TID [facility] Stop: 12/20/16 22:01 Sitagliptin Phosphate (Januvia -) 25 mg PO DAILY@0700 [facility] Last Admin: 12/20/16 06:56 Dose: 25 mg Tamsulosin HCl (Flomax -) 0.4 mg PO HS [facility] Last Admin: 12/19/16 21:27 Dose: 0.4 mg A/P 66 year old gentleman with PMhx of CKD Stage 3 (baseline Cr 1.7), HIV on HARRT, DM Type 2 (Dx 12 years ago) w/o retinopathy, who presents with complaints painful and enlarging lesion on left thigh and found to have YIFAN. 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 Renal function w/o significant improvement to date, remains stable can d/c IVF at this time Imaging of kidneys showed no obstruction or renal vein thrombosis Bladder showed large PVR but pt reports that he is voiding, will check bladder scan continue Flomax, increase to 0.8mg QHS Trend BUN/Cr will need close monitoring of renal function as a outpatient #Abcess/Skin infection ID and Surgery following s/p I and D #HIV Continue HIV meds as per ID #DM Type 2 Hgb A1c is 9.2% #Hypophosphatemia given Neutraphos x 3 Renal function is stable despite not improving and it would be ok to discharge pt and have him follow up in our office as a outpatient he should avoid nsaids for pain control Ehsan Lobo DO Problem List - Problems (1) Abscess of right thigh Code(s): L02.415 - CUTANEOUS ABSCESS OF RIGHT LOWER LIMB (2) HIV (human immunodeficiency virus infection) Code(s): Z21 - ASYMPTOMATIC HUMAN IMMUNODEFICIENCY VIRUS INFECTION STATUS (3) Acute kidney injury superimposed on CKD Code(s): S37.009A - UNSPECIFIED INJURY OF UNSPECIFIED KIDNEY, INITIAL ENCOUNTER N18.9 - CHRONIC KIDNEY DISEASE, UNSPECIFIED (4) Chronic kidney disease Code(s): N18.9 - CHRONIC KIDNEY DISEASE, UNSPECIFIED
--- NOTE | 2016-12-20 13:24 | PATH ---
Surgical Pathology Report Patient Name: QUANG COLE Med. Rec. #: [id number] /Age/Gender: 1950 (Age: 66) / M Account: [id number] Location: [facility] MED/SURG Taken: 12/18/2016 Received: 12/19/2016 Reported: 12/20/2016 Physicians: Gaston Salgado MD Specimen(s) Received SKIN AND SUBCUTANEOUS TISSUE, LEFT THIGH Clinical History Left thigh abscess Final Diagnosis SKIN AND UNDERLYING SOFT TISSUE, LEFT THIGH, INCISION AND DRAINAGE: SKIN AND UNDERLYING SOFT TISSUE WITH MARKED ACUTE NECROTIZING INFLAMMATION AND GANGRENOUS NECROSIS, CONSISTENT WITH ABSCESS. Electronically Signed Chris Maria M.D. Gross Description Received in formalin labelled "skin and subcutaneous tissue, left thigh" is a 4.4 x 1.7 cm length of skin cut depth of up to 1.6 cm. There is a centrally located 1.0 cm in greatest dimension area of apparent ulceration. Cut surface reveals a mottled york and hammer interior. A physician relations representative section is submitted one cassette. [facility]/12/19/2016 [facility]/12/19/2016
[2016-12-20] MEDS: NAPH,MB-DB/K PH,MBDB POWDER PACKET PO SCH ×3 (13:49→21:37)
[2016-12-20] MEDS ORDERED: VANCOMYCIN 1,500 MG in DEXTROSE 5%-WATER - 500 ML IVPB SCH (22:00)
--- NOTE | 2016-12-20 22:02 | PN ---
Progress Note, Physician - Current Medication List Current Medications: Active Medications Acetaminophen/Codeine Phosphate (Tylenol # 3 -) 1 tab PO Q4H PRN PRN Reason: FEVER OR PAIN Last Admin: 12/19/16 12:56 Dose: 1 tab Aclidinium [place] (Tudorza -) 1 puff IH BID [facility] Last Admin: 12/20/16 21:35 Dose: 1 puff Apixaban (Eliquis -) 2.5 mg PO BID [facility] Last Admin: 12/20/16 21:36 Dose: 2.5 mg Aspirin (Asa -) 81 mg PO DAILY [facility] Last Admin: 12/20/16 09:55 Dose: 81 mg Calcium Carbonate/Cholecalciferol (Os-Rony 500+D -) 1 tab PO DAILY [facility] Last Admin: 12/20/16 09:58 Dose: 1 tab Clindamycin HCl (Cleocin -) 300 mg PO TID [facility] Last Admin: 12/20/16 21:36 Dose: 300 mg Docusate Sodium (Colace -) 100 mg PO TID PRN PRN Reason: CONSTIPATION Last Admin: 12/18/16 17:56 Dose: 100 mg Fenofibric Acid (Trilipix -) 135 mg PO DAILY [facility] Last Admin: 12/20/16 09:58 Dose: 135 mg Fentanyl (Sublimaze Injection -) 25 mcg IVPUSH [id number] PRN PRN Reason: PAIN Stop: 12/21/16 15:48 Gabapentin (Neurontin -) 400 mg PO DAILY [facility] Last Admin: 12/20/16 09:58 Dose: 400 mg Hydralazine HCl (Apresoline -) 25 mg PO DAILY [facility] Last Admin: 12/20/16 09:55 Dose: 25 mg Lactobacillus Acidophilus (Bacid -) 1 tab PO DAILY [facility] Last Admin: 12/20/16 12:48 Dose: 1 tab Magnesium Oxide (Mag-Ox -) 400 mg PO BID [facility] Last Admin: 12/20/16 21:36 Dose: 400 mg Metoprolol Tartrate (Lopressor -) 50 mg PO BID [facility] Last Admin: 12/20/16 21:36 Dose: 50 mg Miconazole Nitrate (Miconazole Nitrate) 1 applic TP BID [facility] Last Admin: 12/20/16 21:37 Dose: 1 applic Mometasone Furoate (Asmanex 110mcg -) 1 puff IH DAILY [facility] Last Admin: 12/20/16 09:55 Dose: 1 puff Non-Formulary Medication (Abacavir/Dolutegravir/Lamivudi [Triumeq Tablet]) 1 each PO DAILY [facility] Nystatin (Mycostatin Cream -) 1 applic TP BID [facility] Last Admin: 12/20/16 21:37 Dose: 1 applic Aytto-1-Eite Ethyl Esters (Lovaza -) 2 gm PO BID [facility] Last Admin: 12/20/16 21:37 Dose: 2 gm Potassium Phos/Sodium Phos (Phos-Nak Packet -) 1 packet PO TID [facility] Stop: 12/21/16 08:00 Last Admin: 12/20/16 21:37 Dose: Not Given Sitagliptin Phosphate (Januvia -) 25 mg PO DAILY@0700 [facility] Last Admin: 12/20/16 06:56 Dose: 25 mg Tamsulosin HCl (Flomax -) 0.8 mg PO HS [facility] - Objective Vital Signs: Vital Signs Temperature 99.3 F 12/20/16 18:00 Pulse Rate 74 12/20/16 18:00 Respiratory Rate 20 12/20/16 18:00 Blood Pressure 138/82 12/20/16 18:00 O2 Sat by Pulse Oximetry (%) 98 12/20/16 09:00 Labs: CBC, BMP 12/20/16 11:52 12/20/16 11:52 INR, PTT INR 1.13 (0.82-1.09) 12/16/16 13:43
[2016-12-21] MEDS: sitaGLIPtin PHOSPHATE 25 MG TABLET (FP) PO SCH (06:14)
[2016-12-21] MEDS: NAPH,MB-DB/K PH,MBDB POWDER PACKET PO SCH (06:14)
[2016-12-21] MEDS: CLINDAMYCIN HCL 150 MG CAPSULE (FP) PO SCH ×2 (06:14→15:39)
--- NOTE | 2016-12-21 07:20 | PN ---
Progress Note (short form) - Note Progress Note: Renal follow up for YIFAN on CKD Pt seen and examined at the bedside no overnight events feels well making urine Vital Signs Temperature 97.9 F 12/21/16 06:00 Pulse Rate 78 12/21/16 06:00 Respiratory Rate 20 12/21/16 06:00 Blood Pressure 141/80 12/21/16 06:00 O2 Sat by Pulse Oximetry (%) 97 12/20/16 21:00 Intake & Output 12/18/16 12/19/16 12/20/16 12/21/16 23:59 23:59 23:59 23:59 Intake Total 3249 2762 1050 400 Output Total 2 1375 600 Balance 3247 2762 -325 -200 NAD RRR, No M/R CTA, no rales soft NT/ND, obese + warm, boil on thigh, + tenderness, no LE edema CBC, BMP 12/20/16 11:52 12/20/16 11:52 Current Medications Acetaminophen/Codeine Phosphate (Tylenol # 3 -) 1 tab PO Q4H PRN PRN Reason: FEVER OR PAIN Last Admin: 12/19/16 12:56 Dose: 1 tab Aclidinium [place] (Tudorza -) 1 puff IH BID [facility] Last Admin: 12/20/16 21:35 Dose: 1 puff Apixaban (Eliquis -) 2.5 mg PO BID [facility] Last Admin: 12/20/16 21:36 Dose: 2.5 mg Aspirin (Asa -) 81 mg PO DAILY [facility] Last Admin: 12/20/16 09:55 Dose: 81 mg Calcium Carbonate/Cholecalciferol (Os-Rony 500+D -) 1 tab PO DAILY [facility] Last Admin: 12/20/16 09:58 Dose: 1 tab Clindamycin HCl (Cleocin -) 300 mg PO TID [facility] Last Admin: 12/21/16 06:14 Dose: 300 mg Docusate Sodium (Colace -) 100 mg PO TID PRN PRN Reason: CONSTIPATION Last Admin: 12/18/16 17:56 Dose: 100 mg Fenofibric Acid (Trilipix -) 135 mg PO DAILY [facility] Last Admin: 12/20/16 09:58 Dose: 135 mg Fentanyl (Sublimaze Injection -) 25 mcg IVPUSH [id number] PRN PRN Reason: PAIN Stop: 12/21/16 15:48 Gabapentin (Neurontin -) 400 mg PO DAILY [facility] Last Admin: 12/20/16 09:58 Dose: 400 mg Hydralazine HCl (Apresoline -) 25 mg PO DAILY [facility] Last Admin: 12/20/16 09:55 Dose: 25 mg Lactobacillus Acidophilus (Bacid -) 1 tab PO DAILY [facility] Last Admin: 12/20/16 12:48 Dose: 1 tab Magnesium Oxide (Mag-Ox -) 400 mg PO BID [facility] Last Admin: 12/20/16 21:36 Dose: 400 mg Metoprolol Tartrate (Lopressor -) 50 mg PO BID [facility] Last Admin: 12/20/16 21:36 Dose: 50 mg Miconazole Nitrate (Miconazole Nitrate) 1 applic TP BID [facility] Last Admin: 12/20/16 21:37 Dose: 1 applic Mometasone Furoate (Asmanex 110mcg -) 1 puff IH DAILY [facility] Last Admin: 12/20/16 09:55 Dose: 1 puff Non-Formulary Medication (Abacavir/Dolutegravir/Lamivudi [Triumeq Tablet]) 1 each PO DAILY [facility] Nystatin (Mycostatin Cream -) 1 applic TP BID [facility] Last Admin: 12/20/16 21:37 Dose: 1 applic [id number] Ethyl Esters (Lovaza -) 2 gm PO BID [facility] Last Admin: 12/20/16 21:37 Dose: 2 gm Potassium Phos/Sodium Phos (Phos-Nak Packet -) 1 packet PO TID [facility] Stop: 12/21/16 08:00 Last Admin: 12/21/16 06:14 Dose: 1 packet Sitagliptin Phosphate (Januvia -) 25 mg PO DAILY@0700 [facility] Last Admin: 12/21/16 06:14 Dose: 25 mg Tamsulosin HCl (Flomax -) 0.8 mg PO HS [facility] A/P 66 year old gentleman with PMhx of CKD Stage 3 (baseline Cr 1.7), HIV on HARRT, DM Type 2 (Dx 12 years ago) w/o retinopathy, who presents with complaints painful and enlarging lesion on left thigh and found to have YIFAN. 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 Renal function with mild improvement todays labs pending off IVF BP stable no nephrotoic meds continue flomax at higher dose will follow up in the office for CKD management #Abcess/Skin infection ID and Surgery following s/p I and D Renal function is stable despite not improving and it would be ok to discharge pt and have him follow up in our office as a outpatient he should avoid nsaids for pain control Ehsan Lobo DO Problem List - Problems (1) Abscess of right thigh Code(s): L02.415 - CUTANEOUS ABSCESS OF RIGHT LOWER LIMB (2) HIV (human immunodeficiency virus infection) Code(s): Z21 - ASYMPTOMATIC HUMAN IMMUNODEFICIENCY VIRUS INFECTION STATUS (3) Acute kidney injury superimposed on CKD Code(s): S37.009A - UNSPECIFIED INJURY OF UNSPECIFIED KIDNEY, INITIAL ENCOUNTER N18.9 - CHRONIC KIDNEY DISEASE, UNSPECIFIED (4) Chronic kidney disease Code(s): N18.9 - CHRONIC KIDNEY DISEASE, UNSPECIFIED
[2016-12-21] MEDS: APIXABAN 5 MG TABLET PO SCH ×2 (07:24→07:25)
[2016-12-21] MEDS: ACLIDINIUM BROMIDE 400 MCG/INH AERO.POWD IH SCH ×2 (07:25→09:56)
[2016-12-21] MEDS: LISINOPRIL 20 MG TABLET (FP) PO SCH (07:25)
[2016-12-21] MEDS: PIPERACILLIN/TAZOB 2.25 GM 2.25 GM in DEXTROSE 5%-WATER - 50 ML IVPB SCH (07:26)
[2016-12-21 09:09] LABS: ANION GAP 7 (8-16); CALCIUM 9.3 mg/dL (8.5-10.1); CO2 28 mmol/L (21-32); CREATININE 2.4 mg/dL (0.7-1.3); GLUCOSE,RANDOM 196 mg/dL (74-106); MAGNESIUM 2.8 mg/dL (1.8-2.4); PHOSPHOROUS 2.9 mg/dL (2.5-4.9)
[2016-12-21] MEDS ORDERED: PT OWN MED DRAWER 7, Y5N ONE (09:53)
[2016-12-21] MEDS: LACTOBACILLUS ACIDOPHILUS 1 EACH TAB (FP) PO SCH (09:56)
[2016-12-21] MEDS: MOMETASONE FUROATE 110 MCG/IH INHALER IH SCH (09:56)
[2016-12-21] MEDS: METOPROLOL TARTRATE 50 MG TABLET (FP) PO SCH (09:56)
[2016-12-21] MEDS: ASPIRIN 81 MG CHEWABLE TABLETS PO SCH (09:56)
[2016-12-21] MEDS: CALCIUM 500MG/VIT-D 200 UNITS COMBO TABLET (FP) PO SCH (09:56)
[2016-12-21] MEDS: APIXABAN 2.5 MG TABLET PO SCH (09:56)
[2016-12-21] MEDS: hydrALAZINE HCL 25 MG TABLET (FP) PO SCH (09:56)
[2016-12-21] MEDS: GABAPENTIN 400 MG CAPSULE (FP) PO SCH (09:56)
[2016-12-21] MEDS: MAGNESIUM OXIDE 400 MG TABLET (FP) PO SCH (09:56)
[2016-12-21] MEDS: NYSTATIN 100,000 UNIT/GM TOPICAL CREAM 15 GM TUBE TP SCH ×2 (09:57→10:02)
[2016-12-21] MEDS: OMEGA-3 ACID ETHYL ESTERS (FATTY-ACIDS) 1 GM CAPSULE (FP) PO SCH (09:57)
[2016-12-21] MEDS: FENOFIBRIC ACID 135 MG CAP PO SCH (09:57)
[2016-12-21] MEDS: MICONAZOLE NITRATE 28 GM TUBE TP SCH ×2 (09:57→10:03)
--- NOTE | 2016-12-21 12:12 | DS ---
Physical Examination Vital Signs: Vital Signs Temperature 97.9 F 12/21/16 10:00 Pulse Rate 69 12/21/16 10:00 Respiratory Rate 20 12/21/16 10:00 Blood Pressure 147/84 12/21/16 10:00 O2 Sat by Pulse Oximetry (%) 98 12/21/16 09:00 Constitutional: Yes: No Distress HENT: Yes: Atraumatic Neck: Yes: Supple Cardiovascular: Yes: Regular Rate and Rhythm Respiratory: Yes: CTA Bilaterally Gastrointestinal: Yes: Normal Bowel Sounds Extremities: Yes: WNL, Other (left thigh wound healing well) Neurological: Yes: Alert, Oriented Labs: CBC, BMP 12/20/16 11:52 12/21/16 07:00 Discharge Summary Reason For Visit: CELLULITIS OF LEFT LOWER EXTREMITY WITHOUT FOOT Current Active Problems Abscess of left thigh (Acute) Condition: Improved - Instructions Diet, Activity, Other Instructions: see dr hussein 1 week Referrals: Orlando Hussein MD [Primary Care Provider] - - Home Medications Comprehensive Discharge Medication List: Ambulatory Orders Albuterol Sulfate Inhaler - [Ventolin HFA Inhaler -] 1 - 2 inh PO Q4H 04/25/16 Gabapentin 400 mg PO DAILY 04/25/16 Lisinopril [Prinivil] 20 mg PO DAILY 04/25/16 Magnesium Oxide [Magox 400] 400 mg PO BID 04/25/16 Mometasone Furoate [Asmanex 110Mcg -] 1 inh IH DAILY 04/25/16 Tamsulosin HCl [Flomax] 0.4 mg PO HS 04/25/16 Tiotropium [place] [Spiriva] 1 inh PO DAILY 04/25/16 Abacavir/Dolutegravir/Lamivudi [Triumeq Tablet] 1 each PO DAILY #30 tablet 07/26 Apixaban [Eliquis] 5 mg PO DAILY #30 tablet 07/26/16 Aspirin [ASA -] 81 mg PO DAILY #30 tab.chew 07/26/16 Folic Acid 1 mg PO DAILY #30 tablet 07/26/16 Docusate Sodium [Colace -] 100 mg PO TID PRN #90 capsule 08/07/16 [place]-3S/Dha/Epa/Fish Oil [[place]-3 Fish Oil 1,000 mg Sfgl] 2 each PO BID #120 capsule 09/04/16 Metoprolol Tartrate [Lopressor -] 50 mg PO BID #60 tablet 09/19/16 Calcium Carbonate/Vitamin D3 [Calcium 600 + Vit D Tablet] 1 each PO DAILY #30 tablet 09/27/16 Metformin HCl [Metformin HCl ER] 500 mg PO BID #60 tab.er.24 10/04/16 Fenofibrate 150 mg PO DAILY #30 capsule 11/08/16 Sitagliptin Phosphate [Januvia] 25 mg PO DAILY #30 tab 11/08/16 Hydralazine HCl [Apresoline -] 25 mg PO DAILY 12/16/16 Miconazole Nitrate [Miconazole Nitrate -] 1 applic TP BID #1 tube 12/16/16 Clindamycin [Cleocin -] 300 mg PO Q6HPO #21 capsule 12/21/[address] [facility] [address] hussein 1 week
[2016-12-21 15:27] VITALS: BP 141/57; PULSE 62; TEMP 98.3
[2016-12-21] MEDS ORDERED: TAMSULOSIN HCL 0.4 MG CAP.ER.24H (FP) PO SCH (22:00)
--- NOTE | 2016-12-24 11:43 | PN ---
Progress Note (short form) - Note Progress Note: ID Here for wound care left thigh abscess. Recently admitted for dressing change Selected Entries 12/21/16 12/21/16 10:00 15:23 Temperature 98.3 F Pulse Rate 62 Respiratory 20 Rate Blood Pressure 141/57 Left inner thigh incision clean open no pus no cellulitis Microbiology 12/18/16 16:00 Abscess Gram Stain - Final 12/18/16 16:00 Abscess Wound Culture - Final Mr S Aureus Assessment Inner left thigh open wound clean Plan Try to arrange VNS services for daily dressing change or wound care clinic evaluation Shruthi ANDERSON
--- NOTE | 2016-12-24 11:47 | PN ---
Problem List - Problems (1) Abscess of left thigh Code(s): L02.416 - CUTANEOUS ABSCESS OF LEFT LOWER LIMB
== END 2016-12-21 17:00 | disposition home health service (06) | DRG 573 ==
LOC: JER 11:36 → JERBED 16:58 → J5S 21:22 → J8W 12-19 20:32
PROVIDERS: ADMIT Internal Medicine; ATTEND Internal Medicine
PROC: 0J9M0ZX Drainage of Left Upper Leg Subcutaneous Tissue and Fascia, Open Approach, Diagnostic (ICD-10-PCS; 2016-12-18)
PROC: 0YBD0ZZ Excision of Left Upper Leg, Open Approach (ICD-10-PCS; principal; 2016-12-18 15:00)
DX: L02.416 Cutaneous abscess of left lower limb (principal); B20 Human immunodeficiency virus [HIV] disease; N17.9 Acute kidney failure, unspecified; L03.116 Cellulitis of left lower limb; L72.3 Sebaceous cyst; Z79.84 Long term (current) use of oral hypoglycemic drugs; E11.9 Type 2 diabetes mellitus without complications; J44.9 Chronic obstructive pulmonary disease, unspecified; E11.65 Type 2 diabetes mellitus with hyperglycemia; Z87.891 Personal history of nicotine dependence; N18.3 Chronic kidney disease, stage 3 (moderate); E86.9 Volume depletion, unspecified; E66.9 Obesity, unspecified; F03.90 Unspecified dementia, unspecified severity, without behavioral disturbance, psychotic disturbance, mood disturbance, and anxiety; Z86.73 Personal history of transient ischemic attack (TIA), and cerebral infarction without residual deficits; Z68.34 Body mass index [BMI] 34.0-34.9, adult
CPT/HCPCS: 36415; 71010-TC; 71250-TC; 76775-TC; 76856-TC; 80048; 80053; 80074; 81003; 81015; 82553; 82570; 82803; 83036; 83605; 83735; 84100; 84156; 84300; 84484; 84540; 85025; 85610; 85730; 86850; 86900; 86901; 87040; 87070; 87086; 87186; 87205; 88304-TC; 93005; 93010; 93975; 94760; 99283-25; G0480

== ENCOUNTER 2016-12-27 13:52 | Inpatient (IN) | payer MEDICARE, OTHER ==
--- NOTE | 2016-12-27 13:58 | PDOC ---
History of Present Illness - General Stated Complaint: BLOOD SUGAR Time Seen by Provider: 12/27/16 13:56 History Source: Patient - History of Present Illness Initial Comments: 12/27/16 14:35 CC: Low Blood Sugar Patient is a 66 y.o. male with a PMH of HIV, HTN, NIDDM, CAD, DLD who [place] [facility] [place] of 55. Patient states his last meal was last night, chicken and beans, and he has been taking his oral hypoglycemics as indicated. Patient states he did not eat breakfast this morning. Patient lives in a HIV fci and has access to food. Past History - Past Medical History Allergies/Adverse Reactions: Allergies Allergy/AdvReac Type Severity Reaction Status Date / Time No Known Allergies Allergy Verified 12/27/16 14:34 Home Medications: Ambulatory Orders Albuterol Sulfate Inhaler - [Ventolin HFA Inhaler -] 1 - 2 inh PO Q4H 04/25/16 Gabapentin 400 mg PO DAILY 04/25/16 Lisinopril [Prinivil] 20 mg PO DAILY 04/25/16 Magnesium Oxide [Magox 400] 400 mg PO BID 04/25/16 Mometasone Furoate [Asmanex 110Mcg -] 1 inh IH DAILY 04/25/16 Tamsulosin HCl [Flomax] 0.4 mg PO HS 04/25/16 Tiotropium [place] [Spiriva] 1 inh PO DAILY 04/25/16 Abacavir/Dolutegravir/Lamivudi [Triumeq Tablet] 1 each PO DAILY #30 tablet 07/26 Apixaban [Eliquis] 5 mg PO DAILY #30 tablet 07/26/16 Aspirin [ASA -] 81 mg PO DAILY #30 tab.chew 07/26/16 Folic Acid 1 mg PO DAILY #30 tablet 07/26/16 Docusate Sodium [Colace -] 100 mg PO TID PRN #90 capsule 08/07/16 [place]-3S/Dha/Epa/Fish Oil [[place]-3 Fish Oil 1,000 mg Sfgl] 2 each PO BID #120 capsule 09/04/16 Metoprolol Tartrate [Lopressor -] 50 mg PO BID #60 tablet 09/19/16 Calcium Carbonate/Vitamin D3 [Calcium 600 + Vit D Tablet] 1 each PO DAILY #30 tablet 07/07/17 Metformin HCl [Metformin HCl ER] 500 mg PO BID #60 tab.er.24 10/04/16 Fenofibrate 150 mg PO DAILY #30 capsule 11/08/16 Sitagliptin Phosphate [Januvia] 25 mg PO DAILY #30 tab 11/08/16 Hydralazine HCl [Apresoline -] 25 mg PO DAILY 12/16/16 Miconazole Nitrate [Miconazole Nitrate -] 1 applic TP BID #1 tube 12/16/16 Miscellaneous Medical Supply [Outpatient Order] 1 each ASDIR #1 misc Mupirocin Ointment [Bactroban 2% Ointment -] 1 applic TP BID #1 tube 12/27/16 Anemia: Yes Asthma: Yes Cancer: No Cardiac Disorders: Yes CVA: No COPD: No CHF: Yes Dementia: No Diabetes: No Disorders: Yes HTN: Yes Hypercholesterolemia: No Seizures: No Thyroid Disease: No - Immunization History Immunization Up to Date: Yes - Suicide/Smoking/Psychosocial Hx Smoking History: Unknown if ever smoked Have you smoked in the past 12 months: No Number of Cigarettes Smoked Daily: 2 Cigars Per Day: 0 'Breaking Loose' booklet given: 08/29/15 Hx Alcohol Use: No Drug/Substance Use Hx: No Substance Use Type: None Hx Substance Use Treatment: No Review of Systems - Review of Systems Constitutional: No: Chills, Fever HEENTM: Yes: Blurred Vision Respiratory: No: Shortness of Breath, Wheezing Cardiac (ROS): No: Chest Pain, Irregular Heart Rate, Lightheadedness, Palpitations ABD/GI: No: Constipated, Diarrhea, Nausea, Vomiting : No: Burning, Dysuria All Other Systems: Reviewed and Negative *Physical Exam - Physical Exam General Appearance: Yes: Nourished, Obese HEENT: positive: EOMI, ALMITA Neck: positive: Trachea midline, Supple Respiratory/Chest: positive: Lungs Clear, Normal Breath Sounds Cardiovascular: positive: Regular Rhythm, Regular Rate Gastrointestinal/Abdominal: positive: Increased Bowel Sounds, Protuberent Integumentary: positive: Normal Color, Dry, Warm, Other (L thigh Stage 3 abscess ) Neurologic: positive: Fully Oriented, Alert ED Treatment Course - LABORATORY CBC & Chemistry Diagram: 12/27/16 14:45 12/27/16 14:45 Medical Decision Making - Medical Decision Making 12/27/16 14:37 Patient is a 66 y.o. male who presents with BS of 55 [facility] [place]. On presentation to our facility BS 34, patient hemodynamically stable, A&O x4, c/o of headache but otherwise asymptomatic. PLAN: 1. CBC, CMP 2. Encourage PO intake 3. Reassess Following PO intake, patient's BS 91, however Dr. Lopez (Infectious Disease) in ED @ time of patient's presentation. Requests admission under Dr. Otoniel Tariq. Patient admitted to observation under Dr. Tariq. *DC/Admit/Observation/Transfer Diagnosis at time of Disposition: Hypoglycemia associated with type 2 diabetes mellitus - Discharge Dispostion Condition at time of disposition: Good Admit: Yes
--- NOTE | 2016-12-27 14:32 | PN ---
Progress Note (short form) - Note Progress Note: ID 66 year old male DM CAD HIV positive Atrial fibrillation on Eliquis presented to the HIV clinic today dizzy with hypoglycemia BL in 30s! Was getting wound cared for thigh abscess wound when he got shaking and confused. Not febrile and sent to ER where he is alert oriented but notes he did take his Januvia and Metformin this am but did not eat breakfast. Just treated for MRSA thigh abscess with I&D and oral Clindamycin with improvement. Getting dressing changes in wound care this week and wound looks good. Microbiology 12/18/16 16:00 Abscess Gram Stain - Final 12/18/16 16:00 Abscess Wound Culture - Final S Aureus 12/16/16 11:30 Thigh - Left Gram Stain - Final 12/16/16 11:30 Thigh - Left Wound Culture - Final S Aureus Beta Hem Streptococcus Group G Enterococcus Faecalis Staphylococcus Coagulase Neg Assessment Hypoglycemia secondary to not eating and taking his meds Recent thigh abscess drained and wound care doing well HIV stable Type 2 DM Obesity Generally poorly controlled DM CKD Hyperlipidemia HTPN Plan Admit for observation and IVF glucose Must isolate MRSA recently No antibiotics Superficial dressing change daily Nothing special needed now Discussed with Dr Chandni Hawkins MD Problem List - Problems (1) Hypoglycemia associated with diabetes Code(s): E11.649 - TYPE 2 DIABETES MELLITUS WITH HYPOGLYCEMIA WITHOUT COMA (2) HIV (human immunodeficiency virus infection) Code(s): Z21 - ASYMPTOMATIC HUMAN IMMUNODEFICIENCY VIRUS INFECTION STATUS (3) Diabetes mellitus type 2, uncontrolled Code(s): E11.65 - TYPE 2 DIABETES MELLITUS WITH HYPERGLYCEMIA (4) Atrial fibrillation and flutter Code(s): I48.91 - UNSPECIFIED ATRIAL FIBRILLATION I48.92 - UNSPECIFIED ATRIAL FLUTTER
[2016-12-27 14:59] LABS: MCH 27.6 pg (25.7-33.7); MCHC 31.6 g/dl (32.0-35.9); MEAN CELL VOLUME 87.4 fl (80-96); MEAN PLT VOLUME 8.7 fl (7.5-11.1); PLATELET COUNT 369 K/MM3 (134-434); RDW 15.3 % (11.9-15.9); WHITE BLOOD COUNT 11.3 K/mm3 (4.0-10.0)
--- NOTE | 2016-12-27 15:07 | CONS ---
DATE OF CONSULTATION: DATE OF DICTATION: 12/27/2016 HISTORY OF PRESENT ILLNESS: This is a 66-year-old male well known to me as I have followed him for HIV for many years. He is on Triumeq and his T-cells have been at 445 with an undetectable viral load most recently. I was notified earlier this afternoon that the patient was in the [facility] getting a left thigh dressing changed following a recent admission for a drainage of a thigh abscess which proved to be MRSA. He has been doing well and, in fact, I had seen him earlier in the week and changed the dressing and the wound appears to be healing well. He is a known diabetic, takes Januvia and metformin, and the nurse practitioner noted when he came to the clinic today that he was feeling dizzy, appeared confused, and his blood sugar was in the 30s. They treated him there and elected to send him to the emergency room for further evaluation and treatment. Currently, he is sitting on a stretcher, alert and oriented x3. He does, however, to complain of continuing to feel dizzy and on repeat blood sugar it was found to be once again in the 30s. He is admitted for observation, intravenous glucose, and further management of his diabetes. He has no fevers, chills, night sweats suggesting an active infection at the current time. PAST MEDICAL HISTORY: Includes asthma, chronic kidney disease, diabetes mellitus, hypertension, atrial fibrillation, coronary artery disease, prostate cancer, status post radiation therapy. MEDICATIONS: Albuterol, lisinopril, Asmanex, tamsulosin, Triumeq, Eliquis, aspirin, metoprolol, calcium, metformin, and fenofibrate. FAMILY HISTORY: Reviewed and noncontributory. REVIEW OF SYSTEMS: All systems reviewed and negative. SOCIAL HISTORY: Nonsmoker. No history of alcohol or substance abuse. Lives in a residential care facility for HIV-positive individuals. PHYSICAL EXAMINATION: General: He is an alert male in no acute distress. Vital Signs: Afebrile, pulse 77, blood pressure 140/80, respirations 18. Neck: Supple. Lungs: Clear to percussion and auscultation. Heart: S1, S2. Regular rhythm without audible murmur. Abdomen: Soft, nontender, without hepatosplenomegaly. Extremities: Reveal a soft tissue wound of the left thigh which was clean with no erythema, abscess, or drainage. LABORATORY DATA: Currently, labs from this admission are pending. ASSESSMENT: 1. Hypoglycemic episode, most likely secondary to not eating breakfast this morning along with taking his usual Januvia and metformin. 2. Recent methicillin-resistant Staphylococcus aureus thigh abscess. Wound appears to be healing well. 3. Human immunodeficiency virus positive, stable. 4. Diabetes mellitus. 5. Obesity. 6. Poorly controlled diabetes. 7. Chronic kidney disease. 8. Hyperlipidemia. 9. Hypertension. 10. Atrial fibrillation. PLAN: Admit for observation and intravenous glucose. Contact isolation for MRSA. No antibiotics necessary at the current time. Superficial leg thigh dressing with no other special instructions. Discussed with Dr. Tariq who will admit the patient from primary care. MARY JANE PRATT M.D. [id number]
[2016-12-27 15:27] LABS: ANION GAP 8 (8-16); BILIRUBIN,TOTAL 0.5 mg/dL (0.2-1.0); CALCIUM 10.4 mg/dL (8.5-10.1); CO2 27 mmol/L (21-32); CREATININE 3.4 mg/dL (0.7-1.3); GLUCOSE,RANDOM 53 mg/dL (74-106); SGPT/ALT 34 U/L (12-78); TOT PROT 7.7 g/dl (6.4-8.2)
[2016-12-27 15:28] LABS: ALK PHOS 98 U/L (45-117)
[2016-12-27 15:29] LABS: SGOT/AST 62 U/L (15-37)
--- NOTE | 2016-12-27 15:33 | PDOC ---
Attending Attestation - HPI HPI: 12/27/16 15:36 66 yr old male, with significant pmhx of DMII, stage 3 CKD, HIV on HARRT, COPD, CVA, dementia, who presents to the emergency department today from [address] [place] [address] with blood glucose in the 30s. The patient was getting a wound dressed and felt shaky. He had a glass of juice and a banana then was brought to the ED. He explains that he did not eat breakfast this morning when he took metformin. No other complaints at this time. Dr. Orlando Hawkins was in the ED at this time and performed a consult. Denies fever, chills, nausea, vomiting. Denies abdominal pain. PCP: Dr. Ramires - Physicial Exam PE: 12/27/16 15:36 Constitutional: Awake, alert, oriented. No acute distress. Head: Normocephalic. Atraumatic Eyes: PERRL. EOMI. Conjunctivae are not pale. ENT: Mucous membranes are moist and intact. Posterior pharynx without exudates or erythema. Uvula midline. Neck: Supple. Full ROM. No lymphadenopathy. Cardiovascular: Regular rate. Regular rhythm. S1, S2 regular. Distal pulses are 2+ and symmetric. Pulmonary/Chest: No evidence of respiratory distress. Clear to auscultation bilaterally No wheezing, rales or rhonchi. Abdominal: Soft and non-distended. There is no tenderness. No rebound, guarding or rigidity. No organomegaly. No palpable masses. Good bowel sounds. Back: No CVA tenderness. Musculoskeletal: No edema. No cyanosis. No clubbing. Full range of motion in all extremities. Nocalf tenderness. Radial/pedal pulses are intact and 2+ bilaterally Skin: +left medial thigh dressing without drainage. Skin is warm and dry. No petechiae. No purpura. Neurological: Alert and oriented to person, place, and time. Cranial nerves II -XII are grossly intact. Normal speech. Strength is grossly symmetric. No sensory deficits. Psychiatric: Good eye contact. Normal interaction, affect and behavior. <Henrietta Goff - Last Filed: 12/27/16 15:35> - Resident Resident Name: Tyra Saeed - ED Attending Attestation I have performed the following: I have examined & evaluated the patient, The case was reviewed & discussed with the resident, I agree w/resident's findings & plan, Exceptions are as noted - Medical Decision Making 12/27/16 15:32 66yo male with hypoglycemia at the wound care center -admit for glucose monitoring. Dr. Slater has seen the patient, will need wound care here. will be admitted to Dr. Tariq -frequent glucose checks -labs -pt has tolerated PO intake in the ED. 12/27/16 15:33 <Maura Zhong - Last Filed: 12/27/16 16:48>
[2016-12-27 17:12] LABS: PLATELET ESTIMATE ADEQUATE (NORMAL); TOTAL CELLS COUNTED 100
--- NOTE | 2016-12-27 18:08 | HP ---
Admitting History and Physical - Primary Care Physician PCP: Otoniel Tariq - Admission Chief Complaint: Low Glucose History of Present Illness: Pt with known DM, on oral medication, seen today in the [facility] and found to have BGM in 30's; pt was transferred to ER for evaluation. Pt with Hx/o left thigh abscess, s/p drainage and now going to [facility] for daily dressing. Pt now in ER, finished his dinner. 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 No: O2 Dependent Renal/: Yes: Renal Inusuff, Cancer (of prostate, s/p RT) Infectious Disease: Yes: HIV - Smoking History Smoking history: Unknown if ever smoked Have you smoked in the past 12 months: No Aproximately how many cigarettes per day: 2 - Alcohol/Substance Use Hx Alcohol Use: No History of Substance Use: reports: None - Social History ADL: Independent History of Recent Travel: No Home Medications - Allergies Allergies/Adverse Reactions: Allergies Allergy/AdvReac Type Severity Reaction Status Date / Time No Known Allergies Allergy Verified 12/27/16 14:34 - Home Medications Home Medications: Ambulatory Orders Albuterol Sulfate Inhaler - [Ventolin HFA Inhaler -] 1 - 2 inh PO Q4H 04/25/16 Gabapentin 400 mg PO DAILY 04/25/16 Lisinopril [Prinivil] 20 mg PO DAILY 04/25/16 Magnesium Oxide [Magox 400] 400 mg PO BID 04/25/16 Mometasone Furoate [Asmanex 110Mcg -] 1 inh IH DAILY 04/25/16 Tamsulosin HCl [Flomax] 0.4 mg PO HS 04/25/16 Tiotropium [place] [Spiriva] 1 inh PO DAILY 04/25/16 Abacavir/Dolutegravir/Lamivudi [Triumeq Tablet] 1 each PO DAILY #30 tablet 07/26 Apixaban [Eliquis] 5 mg PO DAILY #30 tablet 07/26/16 Aspirin [ASA -] 81 mg PO DAILY #30 tab.chew 07/26/16 Folic Acid 1 mg PO DAILY #30 tablet 07/26/16 Docusate Sodium [Colace -] 100 mg PO TID PRN #90 capsule 08/07/16 [place]-3S/Dha/Epa/Fish Oil [[place]-3 Fish Oil 1,000 mg Sfgl] 2 each PO BID #120 capsule 09/04/16 Metoprolol Tartrate [Lopressor -] 50 mg PO BID #60 tablet 09/19/16 Calcium Carbonate/Vitamin D3 [Calcium 600 + Vit D Tablet] 1 each PO DAILY #30 tablet 09/27/16 Metformin HCl [Metformin HCl ER] 500 mg PO BID #60 tab.er.24 10/04/16 Fenofibrate 150 mg PO DAILY #30 capsule 11/08/16 Sitagliptin Phosphate [Januvia] 25 mg PO DAILY #30 tab 11/08/16 Hydralazine HCl [Apresoline -] 25 mg PO DAILY 12/16/16 Miconazole Nitrate [Miconazole Nitrate -] 1 applic TP BID #1 tube 12/16/16 Miscellaneous Medical Supply [Outpatient Order] 1 each ASDIR #1 misc Mupirocin Ointment [Bactroban 2% Ointment -] 1 applic TP BID #1 tube 12/27/16 Family Disease History - Family Disease History Family Disease History: Diabetes: Brother (3 brothers, 1 with dm), Respiratory: Brother, Other: Grandparent (unk), Father (decd cause and age unk), Mother (feb 'd age 60's, cause unk), Brother, Sister (1 a&w) Review of Systems - Review of Systems Constitutional: denies: Chills, Fever Eyes: denies: Blurred Vision, Recent Change in Vision HENT: denies: Difficult Swallowing, Ear Discharge, Ear Pain, Epistaxis, Nasal Congestion, Throat Pain Neck: denies: Lumps, Stiffness, Swollen Glands Cardiovascular: denies: Chest Pain, Edema, Palpitations Respiratory: denies: Cough, SOB Gastrointestinal: denies: Abdominal Pain, Nausea, Vomiting Genitourinary: denies: Burning, Discharge, Dysuria Musculoskeletal: denies: Back Pain, Extremity Pain, Joint Swelling, Muscle Pain Integumentary: denies: Blister, Bruising Neurological: denies: Change in LOC, Change in Speech, Confusion, Incoordination , Syncope Endocrine: reports: Excessive Sweating. denies: Intolerance to Cold Hematology/Lymphatic: denies: Easily Bruised, Excessive Bleeding Physical Examination Vital Signs: Vital Signs Temperature 97.7 F 12/27/16 14:35 Pulse Rate 77 12/27/16 14:35 Respiratory Rate 18 12/27/16 14:35 Blood Pressure 139/80 12/27/16 14:35 O2 Sat by Pulse Oximetry (%) 100 12/27/16 14:35 Constitutional: Yes: No Distress, Calm Eyes: Yes: Conjunctiva Clear, EOM Intact, PERRL HENT: Yes: Normocephalic, Hoarseness. No: Epistaxis, Rhinnorhea, Thrush Neck: Yes: Supple, Trachea Midline, Other Cardiovascular: Yes: Regular Rate and Rhythm, S1, S2 Respiratory: Yes: CTA Bilaterally. No: Rales Gastrointestinal: Yes: Normal Bowel Sounds, Soft, Abdomen, Obese. No: Tenderness ...Rectal Exam: Yes: Deferred Musculoskeletal: No: Back Pain, Joint Swelling, Muscle Weakness Extremities: No: Calf Tenderness Edema: No Integumentary: No: Bruising, Rash Neurological: Yes: Alert, Oriented Labs: reviewed Problem List - Problems (1) Hypoglycemia associated with type 2 diabetes mellitus Code(s): E11.649 - TYPE 2 DIABETES MELLITUS WITH HYPOGLYCEMIA WITHOUT COMA (2) Acute kidney injury superimposed on CKD Code(s): S37.009A - UNSPECIFIED INJURY OF UNSPECIFIED KIDNEY, INITIAL ENCOUNTER N18.9 - CHRONIC KIDNEY DISEASE, UNSPECIFIED (3) Hyperkalemia Code(s): E87.5 - HYPERKALEMIA (4) HIV (human immunodeficiency virus infection) Code(s): Z21 - ASYMPTOMATIC HUMAN IMMUNODEFICIENCY VIRUS INFECTION STATUS (5) COPD (chronic obstructive pulmonary disease) Code(s): J44.9 - CHRONIC OBSTRUCTIVE PULMONARY DISEASE, UNSPECIFIED (6) Diabetes Code(s): E11.9 - TYPE 2 DIABETES MELLITUS WITHOUT COMPLICATIONS Assessment/Plan IVF Lisinopril on hold Monitor BGM; on hold anti DM PO meds ID and Renal consult AM labs
[2016-12-27] MEDS ORDERED: DOCUSATE SODIUM 100 MG CAPSULE (FP) PO PRN (21:56)
[2016-12-27] MEDS ORDERED: ALBUTEROL SO4 18 GM HFA INHALER IH PRN (21:56)
[2016-12-27] MEDS ORDERED: SODIUM CHLORIDE 1,000 ML IV SCH (22:15)
[2016-12-27] MEDS ORDERED: SIMETHICONE 80 MG TAB.CHEW (FP) PO PRN (22:31)
[2016-12-27] MEDS ORDERED: PT OWN MED DRAWER 7, Y5N ONE (22:40)
[2016-12-27] MEDS: MAGNESIUM OXIDE 400 MG TABLET (FP) PO SCH (22:58)
[2016-12-27] MEDS: TAMSULOSIN HCL 0.4 MG CAP.ER.24H (FP) PO SCH (22:59)
[2016-12-27] MEDS: METOPROLOL TARTRATE 50 MG TABLET (FP) PO SCH (22:59)
[2016-12-27] MEDS: MUPIROCIN 2% TOPICAL OINTMENT 22 GM TUBE TP SCH (23:00)
[2016-12-28] MEDS: MICONAZOLE NITRATE 28 GM TUBE TP SCH ×2 (00:24→15:00)
[2016-12-28 04:14] VITALS: BMI 35.4
[2016-12-28] MEDS ORDERED: INSULIN (NOVOLOG) ASPART 100 UNITS/ML 10ML VIAL SQ SCH (07:00)
[2016-12-28 07:13] LABS: MCH 28.1 pg (25.7-33.7); MCHC 32.6 g/dl (32.0-35.9); MEAN CELL VOLUME 86.4 fl (80-96); MEAN PLT VOLUME 9.1 fl (7.5-11.1); PLATELET COUNT 327 K/MM3 (134-434); WHITE BLOOD COUNT 9.2 K/mm3 (4.0-10.0)
[2016-12-28] MEDS: INSULIN SLIDING SCALE (NOVOLOG) 1 VIAL SQ SCH ×4 (07:22→22:18)
[2016-12-28 07:33] LABS: ALBUMIN 2.5 g/dl (3.4-5.0); ALK PHOS 84 U/L (45-117); ANION GAP 10 (8-16); BILIRUBIN,TOTAL 0.3 mg/dL (0.2-1.0); CALCIUM 9.3 mg/dL (8.5-10.1); CO2 25 mmol/L (21-32); CREATININE 3.2 mg/dL (0.7-1.3); GLUCOSE,RANDOM 156 mg/dL (74-106); SGOT/AST 33 U/L (15-37); SGPT/ALT 28 U/L (12-78); TOT PROT 6.4 g/dl (6.4-8.2)
[2016-12-28] MEDS ORDERED: PT OWN MED DRAWER 7, Y5N ONE ×2 (09:41→20:22)
[2016-12-28] MEDS: ASPIRIN 81 MG CHEWABLE TABLETS PO SCH (09:55)
[2016-12-28] MEDS: FOLIC ACID 1 MG TABLET (FP) PO SCH (09:55)
[2016-12-28] MEDS: MAGNESIUM OXIDE 400 MG TABLET (FP) PO SCH (09:55)
[2016-12-28] MEDS: METOPROLOL TARTRATE 50 MG TABLET (FP) PO SCH ×2 (09:55→22:12)
[2016-12-28] MEDS: FENOFIBRIC ACID 135 MG CAP PO SCH (09:55)
[2016-12-28] MEDS: APIXABAN 5 MG TABLET PO SCH (09:55)
[2016-12-28] MEDS: GABAPENTIN 400 MG CAPSULE (FP) PO SCH (09:55)
[2016-12-28] MEDS ORDERED: FLU VACCINE QUAD 60 MCG/0.5 ML (MDV 17-18) IM ONE (10:00)
[2016-12-28] MEDS ORDERED: FENOFIBRATE 150 MG PO SCH (10:00)
[2016-12-28] MEDS ORDERED: hydrALAZINE HCL 25 MG TABLET (FP) PO SCH (10:00)
--- NOTE | 2016-12-28 10:04 | PN ---
Progress Note, Physician Chief Complaint: in bed NAD afebrile no new c/o; BGM 100s chart meds events noted s/p recent I&D - Current Medication List Current Medications: Active Medications Albuterol Sulfate (Ventolin Hfa Inhaler -) 2 puff IH Q6H PRN PRN Reason: SHORTNESS OF BREATH Apixaban (Eliquis -) 5 mg PO DAILY [facility] Last Admin: 12/28/16 09:55 Dose: 5 mg Aspirin (Asa -) 81 mg PO DAILY [facility] Last Admin: 12/28/16 09:55 Dose: 81 mg Docusate Sodium (Colace -) 100 mg PO Q8H PRN PRN Reason: CONSTIPATION Last Admin: 12/27/16 22:59 Dose: 100 mg Fenofibric Acid (Trilipix -) 135 mg PO DAILY [facility] Last Admin: 12/28/16 09:55 Dose: 135 mg Folic Acid (Folic Acid -) 1 mg PO DAILY [facility] Last Admin: 12/28/16 09:55 Dose: 1 mg Gabapentin (Neurontin -) 400 mg PO DAILY [facility] Last Admin: 12/28/16 09:55 Dose: 400 mg Hydralazine HCl (Apresoline -) 25 mg PO DAILY [facility] Last Admin: 12/28/16 09:55 Dose: 25 mg Sodium Chloride (Normal Saline -) 1,000 mls @ 50 mls/hr IV ASDIR [facility] Last Admin: 12/27/16 23:00 Dose: 50 mls/hr Insulin Aspart (Novolog Vial Sliding Scale -) 1 vial SQ ACHS [facility] PRN Reason: Protocol Last Admin: 12/28/16 07:22 Dose: Not Given Magnesium Oxide (Mag-Ox -) 400 mg PO BID [facility] Last Admin: 12/28/16 09:55 Dose: 400 mg Metoprolol Tartrate (Lopressor -) 50 mg PO BID [facility] Last Admin: 12/28/16 09:55 Dose: 50 mg Miconazole Nitrate (Miconazole Nitrate) 1 applic TP BID [facility] Last Admin: 12/28/16 00:24 Dose: Not Given Mometasone Furoate (Asmanex 110mcg -) 1 puff IH DAILY [facility] Mupirocin (Bactroban 2% Ointment -) 1 applic TP BID [facility] Last Admin: 12/27/16 23:00 Dose: 1 applic Non-Formulary Medication (Abacavir/Dolutegravir/Lamivudi [Triumeq Tablet]) 1 each PO DAILY [facility] Simethicone (Mylicon -) 80 mg PO QID PRN PRN Reason: GAS Last Admin: 12/27/16 22:59 Dose: 80 mg Tamsulosin HCl (Flomax -) 0.4 mg PO HS [facility] Last Admin: 12/27/16 22:59 Dose: 0.4 mg Tiotropium [place] (Spiriva -) 1 puff IH DAILY [facility] - Objective Vital Signs: Vital Signs Temperature 98 F 12/28/16 10:01 Pulse Rate 98 H 12/28/16 10:01 Respiratory Rate 18 12/28/16 10:01 Blood Pressure 128/76 12/28/16 10:01 O2 Sat by Pulse Oximetry (%) 98 12/27/16 21:30 Constitutional: Yes: No Distress, Calm Eyes: Yes: Conjunctiva Clear HENT: Yes: Atraumatic Neck: Yes: Supple Cardiovascular: Yes: Regular Rate and Rhythm Respiratory: Yes: CTA Bilaterally Gastrointestinal: Yes: Soft. No: Distention, Tenderness Genitourinary: No: CVA Tenderness - Left, CVA Tenderness - Right Musculoskeletal: No: Joint Stiffness, Joint Swelling Extremities: No: Cold, Cool, Cyanosis Edema: No Integumentary: No: Rash, Venous Stasis Changes Neurological: Yes: WNL, Alert, Oriented ...Motor Strength: WNL Psychiatric: Yes: WNL, Alert, Oriented. No: Agitated, Suicidal Ideation Labs: CBC, BMP 12/28/16 06:00 12/28/16 06:00 - ....Imaging Other: Report Reviewed Assessment/Plan a/p hypoglycemia- adjust diabetes meds per endocrine dr Buckner sabrina/ckd- improving with IVF; d/w renal dr Lobo mrsa abscess- s/p incision and drainage- clean HIV- triumeq is nonformulary- further treatment per ID falls decubs DVT PFX d/w pt and staff;
--- NOTE | 2016-12-28 11:00 | PN ---
Progress Note (short form) - Note Progress Note: Nephrology Follow up for YIFAN on CKD Pt was seen by our service on the last admmission for YIFAN/CKD This is a 66 year old gentleman with PMhx of CKD Stage 3, HIV on HARRT, DM Type 2 (Dx 12 years ago) w/o retinopathy who was [facility] and found to have BUN/Cr of 32/3.4 (discharged with Cr of 2.4 last admission). Pt reports poor oral intake at times and also reports Using Excedrin for his pain control. Denies any change in urine output. NO hematuria. NO urinary retention. No N/V/D Home Medications Medication Instructions Recorded Albuterol Sulfate Inhaler - 1 - 2 inh PO Q4H 04/25/16 [Ventolin HFA Inhaler -] Gabapentin 400 mg PO DAILY 04/25/16 Lisinopril [Prinivil] 20 mg PO DAILY 04/25/16 Magnesium Oxide [Magox 400] 400 mg PO BID 04/25/16 Mometasone Furoate [Asmanex 110Mcg 1 inh IH DAILY 04/25/16 -] Tamsulosin HCl [Flomax] 0.4 mg PO HS 04/25/16 Tiotropium [place] [Spiriva] 1 inh PO DAILY 04/25/16 Abacavir/Dolutegravir/Lamivudi 1 each PO DAILY #30 tablet 07/26/16 [Triumeq Tablet] Apixaban [Eliquis] 5 mg PO DAILY #30 tablet 07/26/16 Aspirin [ASA -] 81 mg PO DAILY #30 tab.chew 07/26/16 Folic Acid 1 mg PO DAILY #30 tablet 07/26/16 Docusate Sodium [Colace -] 100 mg PO TID PRN #90 capsule 08/07/16 [place]-3S/Dha/Epa/Fish Oil [[place]-3 2 each PO BID #120 capsule 09/04/16 Fish Oil 1,000 mg Sfgl] Metoprolol Tartrate [Lopressor -] 50 mg PO BID #60 tablet 09/19/16 Calcium Carbonate/Vitamin D3 1 each PO DAILY #30 tablet 09/27/16 [Calcium 600 + Vit D Tablet] Metformin HCl [Metformin HCl ER] 500 mg PO BID #60 tab.er.24 10/04/16 Fenofibrate 150 mg PO DAILY #30 capsule 11/08/16 Sitagliptin Phosphate [Januvia] 25 mg PO DAILY #30 tab 11/08/16 Hydralazine HCl [Apresoline -] 25 mg PO DAILY 12/16/16 Miconazole Nitrate [Miconazole 1 applic TP BID #1 tube 12/16/16 Nitrate -] Miscellaneous Medical Supply 1 each ASDIR #1 misc 12/21/16 [Outpatient Order] Mupirocin Ointment [Bactroban 2% 1 applic TP BID #1 tube 12/27/16 Ointment -] Vital Signs Temperature 98 F 12/28/16 10:01 Pulse Rate 98 H 12/28/16 10:01 Respiratory Rate 18 12/28/16 10:01 Blood Pressure 128/76 12/28/16 10:01 O2 Sat by Pulse Oximetry (%) 98 12/27/16 21:30 Intake & Output 12/25/16 12/26/16 12/27/16 12/28/16 23:59 23:59 23:59 23:59 Intake Total 350 Output Total 600 Balance -250 Weight 240 lb 3.2 oz 237 lb 4 oz NAD, awake and alert MMM, No JVD RRR, No M/R CTA, no rales Obese Abd, soft NT/ND, no bladder distension No LE edema, has a dressing over his left thigh CBC, BMP 12/28/16 06:00 12/28/16 06:00 Laboratory Tests 12/28/16 06:00 Calcium 9.3 Albumin 2.5 L Current Medications Albuterol Sulfate (Ventolin Hfa Inhaler -) 2 puff IH Q6H PRN PRN Reason: SHORTNESS OF BREATH Apixaban (Eliquis -) 5 mg PO DAILY [facility] Last Admin: 12/28/16 09:55 Dose: 5 mg Aspirin (Asa -) 81 mg PO DAILY [facility] Last Admin: 12/28/16 09:55 Dose: 81 mg Docusate Sodium (Colace -) 100 mg PO Q8H PRN PRN Reason: CONSTIPATION Last Admin: 12/27/16 22:59 Dose: 100 mg Fenofibric Acid (Trilipix -) 135 mg PO DAILY [facility] Last Admin: 12/28/16 09:55 Dose: 135 mg Folic Acid (Folic Acid -) 1 mg PO DAILY [facility] Last Admin: 12/28/16 09:55 Dose: 1 mg Gabapentin (Neurontin -) 400 mg PO DAILY [facility] Last Admin: 12/28/16 09:55 Dose: 400 mg Hydralazine HCl (Apresoline -) 25 mg PO DAILY [facility] Last Admin: 12/28/16 09:55 Dose: 25 mg Sodium Chloride (Normal Saline -) 1,000 mls @ 50 mls/hr IV ASDIR [facility] Last Admin: 12/27/16 23:00 Dose: 50 mls/hr Insulin Aspart (Novolog Vial Sliding Scale -) 1 vial SQ ACHS [facility] PRN Reason: Protocol Last Admin: 12/28/16 07:22 Dose: Not Given Magnesium Oxide (Mag-Ox -) 400 mg PO BID [facility] Last Admin: 12/28/16 09:55 Dose: 400 mg Metoprolol Tartrate (Lopressor -) 50 mg PO BID [facility] Last Admin: 12/28/16 09:55 Dose: 50 mg Miconazole Nitrate (Miconazole Nitrate) 1 applic TP BID [facility] Last Admin: 12/28/16 00:24 Dose: Not Given Mometasone Furoate (Asmanex 110mcg -) 1 puff IH DAILY [facility] Mupirocin (Bactroban 2% Ointment -) 1 applic TP BID [facility] Last Admin: 12/27/16 23:00 Dose: 1 applic Non-Formulary Medication (Abacavir/Dolutegravir/Lamivudi [Triumeq Tablet]) 1 each PO DAILY [facility] Simethicone (Mylicon -) 80 mg PO QID PRN PRN Reason: GAS Last Admin: 12/27/16 22:59 Dose: 80 mg Tamsulosin HCl (Flomax -) 0.4 mg PO HS [facility] Last Admin: 12/27/16 22:59 Dose: 0.4 mg Tiotropium [place] (Spiriva -) 1 puff IH DAILY [facility] A/P 66 year old gentleman with PMhx of CKD Stage 3, HIV on HARRT, DM Type 2 (Dx 12 years ago) w/o retinopathy who was [facility] with hypoglycemia from [facility] jail and found to have BUN/Cr of 32/3.4 (discharged with Cr of 2.4 last admission). #YIFAN on CKD likely due to renal hypoprofusion in setting of NSAID use Check Urine studies for FeNa, UPCR avoid further NSAID use Trial of IVF: NS at 83cc per hour x 24 hours trend urine output Dose all meds for CrCl less then 20 Renal diet for now as K is high #Mild Hyperkalemia likely due to nsaids and YIFAN no need for kayexalate at this time trend K level with IVF Thank you Will follow Ehsan Lobo DO
--- NOTE | 2016-12-28 11:21 | PN ---
Progress Note (short form) - Note Progress Note: hypoglycemia receiving IVF Vital Signs Period Temp Pulse Resp BP Sys/Gaspar Pulse Ox Last 24 Hr 97.7 F-98.2 F 69-98 17-18 126-140/68-85 98-100 cor-rrr lungs clear abd soft,nt ext thigh abscess is clean, no erythema or erythema CBC, BMP 12/28/16 06:00 12/28/16 06:00 Current Medications Albuterol Sulfate (Ventolin Hfa Inhaler -) 2 puff IH Q6H PRN PRN Reason: SHORTNESS OF BREATH Apixaban (Eliquis -) 5 mg PO DAILY [facility] Last Admin: 12/28/16 09:55 Dose: 5 mg Aspirin (Asa -) 81 mg PO DAILY [facility] Last Admin: 12/28/16 09:55 Dose: 81 mg Docusate Sodium (Colace -) 100 mg PO Q8H PRN PRN Reason: CONSTIPATION Last Admin: 12/27/16 22:59 Dose: 100 mg Fenofibric Acid (Trilipix -) 135 mg PO DAILY [facility] Last Admin: 12/28/16 09:55 Dose: 135 mg Folic Acid (Folic Acid -) 1 mg PO DAILY [facility] Last Admin: 12/28/16 09:55 Dose: 1 mg Gabapentin (Neurontin -) 400 mg PO DAILY [facility] Last Admin: 12/28/16 09:55 Dose: 400 mg Hydralazine HCl (Apresoline -) 25 mg PO DAILY [facility] Last Admin: 12/28/16 09:55 Dose: 25 mg Sodium Chloride (Normal Saline -) 1,000 mls @ 83 mls/hr IV ASDIR [facility] Insulin Aspart (Novolog Vial Sliding Scale -) 1 vial SQ ACHS [facility] PRN Reason: Protocol Last Admin: 12/28/16 07:22 Dose: Not Given Magnesium Oxide (Mag-Ox -) 400 mg PO BID [facility] Last Admin: 12/28/16 09:55 Dose: 400 mg Metoprolol Tartrate (Lopressor -) 50 mg PO BID [facility] Last Admin: 12/28/16 09:55 Dose: 50 mg Miconazole Nitrate (Miconazole Nitrate) 1 applic TP BID [facility] Last Admin: 12/28/16 00:24 Dose: Not Given Mometasone Furoate (Asmanex 110mcg -) 1 puff IH DAILY [facility] Mupirocin (Bactroban 2% Ointment -) 1 applic TP BID [facility] Last Admin: 12/27/16 23:00 Dose: 1 applic Non-Formulary Medication (Abacavir/Dolutegravir/Lamivudi [Triumeq Tablet]) 1 each PO DAILY [facility] Simethicone (Mylicon -) 80 mg PO QID PRN PRN Reason: GAS Last Admin: 12/27/16 22:59 Dose: 80 mg Tamsulosin HCl (Flomax -) 0.4 mg PO HS [facility] Last Admin: 12/27/16 22:59 Dose: 0.4 mg Tiotropium [place] (Spiriva -) 1 puff IH DAILY [facility] a/p hypoglycemia- resolved sabrina/ckd- improving with IVF mrsa abscess- s/p incision and drainage- clean HIV- triumeq is nonformulary- he does not have anyone to bring him meds- substitute isentress/abacavir/epivir-adjust for CKD d/w renal will d/c magnesium
[2016-12-28] MEDS ORDERED: INSULIN (NOVOLOG) ASPART 100 UNITS/ML 10ML VIAL ONE ×2 (11:27→20:22)
[2016-12-28] MEDS: SODIUM CHLORIDE 1,000 ML IV SCH (12:00)
[2016-12-28] MEDS: TIOTROPIUM BROMIDE 18 MCG/INH (DEVICE W/ 5 CAPSULES) IH SCH (12:01)
[2016-12-28] MEDS: MOMETASONE FUROATE 110 MCG/IH INHALER IH SCH (12:05)
[2016-12-28] MEDS: MUPIROCIN 2% TOPICAL OINTMENT 22 GM TUBE TP SCH ×2 (14:00→15:00)
--- NOTE | 2016-12-28 18:14 | CONSULT ---
Consult Consult Specialty:: Endocrinology Referred by:: Dr Yasmine Tariq Reason for Consultation:: Hypoglycemia - History of Present Illness Chief Complaint: Hypoglycemia History of Present Illness: This is a 66 year old male T2DM since 2004, CAD, HIV positive, CKD, Atrial fibrillation on Eliquis who presented to the HIV clinic with dizziness and found to have FS of 34. Was getting wound cared for thigh abscess wound when he got shaky and confused. In the ER he was alert oriented but noted he did take his Januvia, Glipizide and Metformin in the morning but did not eat breakfast. Just treated for MRSA thigh abscess with I&D and oral Clindamycin with improvement. Pt referred for management of hypoglycemia. FS at [facility] in the morning usually 140 to 160 as per pt. Has polyuria and nocturia, + Blurred vision. 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 No: O2 Dependent Renal/: Yes: Renal Inusuff, Cancer (of prostate, s/p RT) Infectious Disease: Yes: HIV Endocrine: Yes: Diabetes Mellitus - Alcohol/Substance Use Hx Alcohol Use: No History of Substance Use: reports: None - Smoking History Smoking history: Unknown if ever smoked Have you smoked in the past 12 months: No Aproximately how many cigarettes per day: 2 If you are a former smoker, when did you quit?: "years ago" - Social History ADL: Independent History of Recent Travel: No Home Medications - Allergies Allergies/Adverse Reactions: Allergies Allergy/AdvReac Type Severity Reaction Status Date / Time No Known Allergies Allergy Verified 12/27/16 14:34 - Home Medications Home Medications: Ambulatory Orders Albuterol Sulfate Inhaler - [Ventolin HFA Inhaler -] 1 - 2 inh PO Q4H 04/25/16 Gabapentin 400 mg PO DAILY 04/25/16 Lisinopril [Prinivil] 20 mg PO DAILY 04/25/16 Magnesium Oxide [Magox 400] 400 mg PO BID 04/25/16 Mometasone Furoate [Asmanex 110Mcg -] 1 inh IH DAILY 04/25/16 Tamsulosin HCl [Flomax] 0.4 mg PO HS 04/25/16 Tiotropium [place] [Spiriva] 1 inh PO DAILY 04/25/16 Abacavir/Dolutegravir/Lamivudi [Triumeq Tablet] 1 each PO DAILY #30 tablet 07/26 Apixaban [Eliquis] 5 mg PO DAILY #30 tablet 07/26/16 Aspirin [ASA -] 81 mg PO DAILY #30 tab.chew 07/26/16 Folic Acid 1 mg PO DAILY #30 tablet 07/26/16 Docusate Sodium [Colace -] 100 mg PO TID PRN #90 capsule 08/07/16 Corona-3S/Dha/Epa/Fish Oil [Corona-3 Fish Oil 1,000 mg Sfgl] 2 each PO BID #120 capsule 09/04/16 Metoprolol Tartrate [Lopressor -] 50 mg PO BID #60 tablet 09/19/16 Calcium Carbonate/Vitamin D3 [Calcium 600 + Vit D Tablet] 1 each PO DAILY #30 tablet 09/27/16 Metformin HCl [Metformin HCl ER] 500 mg PO BID #60 tab.er.24 10/04/16 Fenofibrate 150 mg PO DAILY #30 capsule 11/08/16 Sitagliptin Phosphate [Januvia] 25 mg PO DAILY #30 tab 11/08/16 Hydralazine HCl [Apresoline -] 25 mg PO DAILY 12/16/16 Miconazole Nitrate [Miconazole Nitrate -] 1 applic TP BID #1 tube 12/16/16 Miscellaneous Medical Supply [Outpatient Order] 1 each ASDIR #1 misc Mupirocin Ointment [Bactroban 2% Ointment -] 1 applic TP BID #1 tube 12/27/16 Family Disease History - Family Disease History Family Disease History: Diabetes: Brother (3 brothers, 1 with dm), Respiratory: Brother, Other: Grandparent (unk), Father (d cause and age unk), Mother (febd age 60's, cause unk), Brother, Sister (1 a&w) Review of Systems - Review of Systems Constitutional: reports: No Symptoms Eyes: reports: Blurred Vision HENT: reports: No Symptoms Neck: reports: No Symptoms Cardiovascular: reports: No Symptoms Respiratory: reports: No Symptoms Gastrointestinal: reports: No Symptoms Genitourinary: reports: Other (Polyuria, nocturia) Musculoskeletal: reports: No Symptoms Integumentary: reports: No Symptoms Neurological: reports: No Symptoms Endocrine: reports: No Symptoms Physical Exam Vital Signs: Vital Signs Temperature 98.8 F 12/28/16 15:58 Pulse Rate 73 12/28/16 15:58 Respiratory Rate 18 12/28/16 15:58 Blood Pressure 137/66 12/28/16 15:58 O2 Sat by Pulse Oximetry (%) 98 12/28/16 09:00 Constitutional: Yes: No Distress, Calm Eyes: Yes: Conjunctiva Clear, EOM Intact HENT: Yes: Atraumatic, Normocephalic Neck: Yes: Supple, Trachea Midline Cardiovascular: Yes: Regular Rate and Rhythm Respiratory: Yes: CTA Bilaterally Gastrointestinal: Yes: Normal Bowel Sounds, Soft Breast(s): Yes: WNL Musculoskeletal: Yes: WNL Extremities: Yes: Other (Left thigh dressing) Edema: No Neurological: Yes: Alert, Oriented Labs: CBC, BMP 12/28/16 06:00 12/28/16 06:00 Problem List - Problems (1) Abscess of left thigh Code(s): L02.416 - CUTANEOUS ABSCESS OF LEFT LOWER LIMB (2) Hypoglycemia associated with type 2 diabetes mellitus Code(s): E11.649 - TYPE 2 DIABETES MELLITUS WITH HYPOGLYCEMIA WITHOUT COMA (3) HIV (human immunodeficiency virus infection) Code(s): Z21 - ASYMPTOMATIC HUMAN IMMUNODEFICIENCY VIRUS INFECTION STATUS Assessment/Plan AP: HYpoglycemia T2DM HIV Left Thigh Abscess CKD Pt's eGFR in the office in september was 33 and was on Metformin 500mg BID, Januvia 25 and Glipizide 5 TID Hypoglycemia probably occured secondary to pt not eating on time after taking Glipizide. Discussed with pt need to eat as soon as he takes Glipizide. Pt verbalizes understanding. Current eGFR is 19, so pt is not a candidate for Metformin May continue Januvia 25 mg Qd Risk of hypoglycemia is higher with Glipizide now that the renal function if deteriorating. Ideally he should be in Insulin with Januvia. However he says he can't take any injectables and there are no nurses to administer it at the place he lives. He doesn't do BGM at home himself. Monitor BGM Januvia 25mg QD If blood sugar rises, will add Repaglinide which is a shorter acting medication with possibly less potential for hypoglycemia than Glipizide. Will F/u
[2016-12-28 19:58] LABS: URINE APPEARANCE CLEAR; URINE BILIRUBIN NEGATIVE (NEGATIVE); URINE BLOOD 1+ (NEGATIVE); URINE COLOR STRAW; URINE GLUCOSE (UA) 3+ (NEGATIVE); URINE KETONE NEGATIVE (NEGATIVE); URINE NITRITE NEGATIVE (NEGATIVE); URINE UROBILINOGEN NEGATIVE mg/dL (0.2-1.0)
[2016-12-28 20:04] LABS: URINE PROTEIN 3+ (NEGATIVE)
[2016-12-28 20:05] LABS: URINE BACTERIA RARE /hpf (NONE SEEN); URINE HYALINE CAST 3 /lpf; URINE MUCUS RARE; URINE RBC 1 /hpf (0-3); URINE WBC 1 /hpf (3-5)
[2016-12-28] MEDS ORDERED: MICONAZOLE NITRATE 14 GM/TUBE TUBE TP SCH (22:00)
[2016-12-28 22:07] LABS: URINE LEUK ESTERASE Negative (NEGATIVE)
[2016-12-28] MEDS: lamiVUDine 150 MG TABLET PO SCH (22:11)
[2016-12-28] MEDS: TAMSULOSIN HCL 0.4 MG CAP.ER.24H (FP) PO SCH (22:12)
[2016-12-28] MEDS: RALTEGRAVIR POTASSIUM 400 MG TAB PO SCH (22:12)
[2016-12-28] MEDS: ABACAVIR SULFATE 300 MG TABLET PO SCH (22:18)
[2016-12-29] MEDS: sitaGLIPtin PHOSPHATE 25 MG TABLET (FP) PO SCH (06:08)
[2016-12-29] MEDS: INSULIN SLIDING SCALE (NOVOLOG) 1 VIAL SQ SCH ×4 (06:13→21:50)
[2016-12-29] MEDS ORDERED: PT OWN MED DRAWER 7, Y5N ONE ×2 (06:51→19:35)
[2016-12-29 07:04] LABS: ALBUMIN 2.4 g/dl (3.4-5.0); ANION GAP 10 (8-16); CALCIUM 8.6 mg/dL (8.5-10.1); CO2 24 mmol/L (21-32); GLUCOSE,RANDOM 186 mg/dL (74-106); MAGNESIUM 2.4 mg/dL (1.8-2.4)
[2016-12-29 07:08] LABS: ALK PHOS 81 U/L (45-117); BILIRUBIN,TOTAL 0.3 mg/dL (0.2-1.0); CREATININE 2.9 mg/dL (0.7-1.3); PHOSPHOROUS 2.9 mg/dL (2.5-4.9); SGOT/AST 26 U/L (15-37); SGPT/ALT 25 U/L (12-78)
[2016-12-29 07:15] LABS: BASOPHIL 1.3 % (0-2.0); EOSINOPHIL 2.4 % (0-4.5); MCH 28.1 pg (25.7-33.7); MCHC 32.5 g/dl (32.0-35.9); MEAN CELL VOLUME 86.5 fl (80-96); MEAN PLT VOLUME 8.9 fl (7.5-11.1); NEUTROPHILS 63.7 % (42.8-82.8); PLATELET COUNT 301 K/MM3 (134-434); RDW 14.9 % (11.9-15.9); WHITE BLOOD COUNT 9.4 K/mm3 (4.0-10.0)
--- NOTE | 2016-12-29 08:22 | PN ---
Progress Note (short form) - Note Progress Note: Nephrology Follow up for YIFAN on CKD Pt seen and examined at the bedside awake and alert no acute complaints making urine, on IVF denies any sob, chest pain, N/V/D Vital Signs Temperature 98 F 12/29/16 06:23 Pulse Rate 78 12/29/16 06:23 Respiratory Rate 18 12/29/16 06:23 Blood Pressure 141/85 12/29/16 06:23 O2 Sat by Pulse Oximetry (%) 98 12/28/16 21:00 Intake & Output 12/26/16 12/27/16 12/28/16 12/29/16 23:59 23:59 23:59 23:59 Intake Total 2620 1116 Output Total 1200 Balance 1420 1116 Weight 240 lb 3.2 oz 237 lb 4 oz 238 lb 7 oz NAD, awake and alert MMM, No JVD RRR, No M/R CTA, no rales Obese Abd, soft NT/ND, no bladder distension No LE edema, has a dressing over his left thigh CBC, BMP 12/29/16 06:00 Current Medications Abacavir Sulfate (Ziagen -) 300 mg PO BID [facility] Last Admin: 12/28/16 22:18 Dose: 300 mg Albuterol Sulfate (Ventolin Hfa Inhaler -) 2 puff IH Q6H PRN PRN Reason: SHORTNESS OF BREATH Apixaban (Eliquis -) 5 mg PO DAILY [facility] Last Admin: 12/28/16 09:55 Dose: 5 mg Aspirin (Asa -) 81 mg PO DAILY [facility] Last Admin: 12/28/16 09:55 Dose: 81 mg Docusate Sodium (Colace -) 100 mg PO Q8H PRN PRN Reason: CONSTIPATION Last Admin: 12/27/16 22:59 Dose: 100 mg Fenofibric Acid (Trilipix -) 135 mg PO DAILY [facility] Last Admin: 12/28/16 09:55 Dose: 135 mg Folic Acid (Folic Acid -) 1 mg PO DAILY [facility] Last Admin: 12/28/16 09:55 Dose: 1 mg Gabapentin (Neurontin -) 400 mg PO DAILY [facility] Last Admin: 12/28/16 09:55 Dose: 400 mg Sodium Chloride (Normal Saline -) 1,000 mls @ 83 mls/hr IV ASDIR [facility] Last Admin: 12/28/16 12:00 Dose: 83 mls/hr Insulin Aspart (Novolog Vial Sliding Scale -) 1 vial SQ ACHS [facility] PRN Reason: Protocol Last Admin: 12/29/16 06:13 Dose: 2 units Lamivudine (Epivir -) 150 mg PO DAILY [facility] Last Admin: 12/28/16 22:11 Dose: 150 mg Metoprolol Tartrate (Lopressor -) 50 mg PO BID [facility] Last Admin: 12/28/16 22:12 Dose: 50 mg Mometasone Furoate (Asmanex 110mcg -) 1 puff IH DAILY [facility] Last Admin: 12/28/16 12:05 Dose: 1 puff Mupirocin (Bactroban 2% Ointment -) 1 applic TP DAILY [facility] Last Admin: 12/28/16 14:00 Dose: 1 applic Raltegravir (Isentress -) 400 mg PO BID [facility] Last Admin: 12/28/16 22:12 Dose: 400 mg Simethicone (Mylicon -) 80 mg PO QID PRN PRN Reason: GAS Last Admin: 12/27/16 22:59 Dose: 80 mg Sitagliptin Phosphate (Januvia -) 25 mg PO DAILY@0700 [facility] Last Admin: 12/29/16 06:08 Dose: 25 mg Tamsulosin HCl (Flomax -) 0.4 mg PO HS [facility] Last Admin: 12/28/16 22:12 Dose: 0.4 mg Tiotropium [place] (Spiriva -) 1 puff IH DAILY [facility] Last Admin: 12/28/16 12:01 Dose: 1 puff A/P 66 year old gentleman with PMhx of CKD Stage 3, HIV on HARRT, DM Type 2 (Dx 12 years ago) w/o retinopathy who was admitted with hypoglycemia from his correction and found to have BUN/Cr of 32/3.4 (discharged with Cr of 2.4 last admission). #YIFAN on CKD Renal function with mild improvement on IVF pt is non-oliguric FeNa was 1.19% - indeterminate pt overall renal function trend shows worsening of renal function over the past year pt has nephrotic range proteinuria, will r/o secondary causes of nephrotic syndrome Pt with HIV but viral load is low, negative RPR (08/2016), negative hepatitis profile (last admission) on hydralazine for hypertension, known to cause drug induced lupus nephritis, will check DARIUSZ and ANCA levels and d/c med for now will check SPEP to r/o myoloma given proteinuria Renal Us showed smaller kidneys consistent with CKD (usually would see normal size kidneys in HIVAN, Amyloid, Diabetic Nephropathy) Trend BUN/Cr if any of the serologic work up becomes positive may require biopsy Dose all meds for Cr Cl less then 35 Ehsan Lobo DO
--- NOTE | 2016-12-29 10:32 | PN ---
Progress Note (short form) - Note Progress Note: renal workup in progress hypoglycemia resolved tolerating meds Vital Signs Period Temp Pulse Resp BP Sys/Gaspar Pulse Ox Last 24 Hr 98 F-100.1 F 73-88 18-20 116-151/64-85 98 CBC, BMP 12/29/16 06:00 12/29/16 06:00 a/p hypoglycemia- resolved sabrina/ckd- improving with IVF, renal w/u in progress mrsa abscess- s/p incision and drainage- clean HIV- triumeq is nonformulary- he does not have anyone to bring him meds- substitute isentress/abacavir/epivir-adjust for CKD he is tolerating his meds
[2016-12-29] MEDS ORDERED: INSULIN (NOVOLOG) ASPART 100 UNITS/ML 10ML VIAL ONE ×2 (11:29→19:34)
[2016-12-29] MEDS: FENOFIBRIC ACID 135 MG CAP PO SCH (12:20)
[2016-12-29] MEDS: ASPIRIN 81 MG CHEWABLE TABLETS PO SCH (12:20)
[2016-12-29] MEDS: FOLIC ACID 1 MG TABLET (FP) PO SCH (12:20)
[2016-12-29] MEDS: METOPROLOL TARTRATE 50 MG TABLET (FP) PO SCH ×2 (12:20→21:50)
[2016-12-29] MEDS: GABAPENTIN 400 MG CAPSULE (FP) PO SCH (12:20)
[2016-12-29] MEDS: MOMETASONE FUROATE 110 MCG/IH INHALER IH SCH (12:21)
[2016-12-29] MEDS: lamiVUDine 150 MG TABLET PO SCH (12:21)
[2016-12-29] MEDS: APIXABAN 5 MG TABLET PO SCH (12:21)
[2016-12-29] MEDS: RALTEGRAVIR POTASSIUM 400 MG TAB PO SCH ×2 (12:22→21:50)
[2016-12-29] MEDS: TIOTROPIUM BROMIDE 18 MCG/INH (DEVICE W/ 5 CAPSULES) IH SCH (12:22)
[2016-12-29] MEDS: SODIUM CHLORIDE 1,000 ML IV SCH (12:23)
[2016-12-29] MEDS: ABACAVIR SULFATE 300 MG TABLET PO SCH ×2 (12:23→21:51)
--- NOTE | 2016-12-29 12:47 | PN ---
Progress Note, Physician History of Present Illness: Pt w/o fever, cough, abd pain, N, V. Pt is tolerating PO intake well - Current Medication List Current Medications: Active Medications Abacavir Sulfate (Ziagen -) 300 mg PO BID [facility] Last Admin: 12/29/16 12:23 Dose: 300 mg Albuterol Sulfate (Ventolin Hfa Inhaler -) 2 puff IH Q6H PRN PRN Reason: SHORTNESS OF BREATH Apixaban (Eliquis -) 5 mg PO DAILY [facility] Last Admin: 12/29/16 12:21 Dose: 5 mg Aspirin (Asa -) 81 mg PO DAILY [facility] Last Admin: 12/29/16 12:20 Dose: 81 mg Docusate Sodium (Colace -) 100 mg PO Q8H PRN PRN Reason: CONSTIPATION Last Admin: 12/27/16 22:59 Dose: 100 mg Fenofibric Acid (Trilipix -) 135 mg PO DAILY [facility] Last Admin: 12/29/16 12:20 Dose: 135 mg Folic Acid (Folic Acid -) 1 mg PO DAILY [facility] Last Admin: 12/29/16 12:20 Dose: 1 mg Gabapentin (Neurontin -) 400 mg PO DAILY [facility] Last Admin: 12/29/16 12:20 Dose: 400 mg Sodium Chloride (Normal Saline -) 1,000 mls @ 83 mls/hr IV ASDIR [facility] Last Admin: 12/29/16 12:23 Dose: Not Given Insulin Aspart (Novolog Vial Sliding Scale -) 1 vial SQ ACHS [facility] PRN Reason: Protocol Last Admin: 12/29/16 11:31 Dose: 2 units Lamivudine (Epivir -) 150 mg PO DAILY [facility] Last Admin: 12/29/16 12:21 Dose: 150 mg Metoprolol Tartrate (Lopressor -) 50 mg PO BID [facility] Last Admin: 12/29/16 12:20 Dose: 50 mg Mometasone Furoate (Asmanex 110mcg -) 1 puff IH DAILY [facility] Last Admin: 12/29/16 12:21 Dose: 1 puff Mupirocin (Bactroban 2% Ointment -) 1 applic TP DAILY [facility] Last Admin: 12/28/16 14:00 Dose: 1 applic Raltegravir (Isentress -) 400 mg PO BID [facility] Last Admin: 12/29/16 12:22 Dose: 400 mg Simethicone (Mylicon -) 80 mg PO QID PRN PRN Reason: GAS Last Admin: 12/27/16 22:59 Dose: 80 mg Sitagliptin Phosphate (Januvia -) 25 mg PO DAILY@0700 [facility] Last Admin: 12/29/16 06:08 Dose: 25 mg Tamsulosin HCl (Flomax -) 0.4 mg PO HS [facility] Last Admin: 12/28/16 22:12 Dose: 0.4 mg Tiotropium [place] (Spiriva -) 1 puff IH DAILY [facility] Last Admin: 12/29/16 12:22 Dose: 1 puff - Objective Vital Signs: Vital Signs Temperature 98.6 F 12/29/16 10:06 Pulse Rate 84 12/29/16 10:06 Respiratory Rate 18 12/29/16 10:06 Blood Pressure 116/71 12/29/16 10:06 O2 Sat by Pulse Oximetry (%) 98 12/28/16 21:00 Constitutional: Yes: No Distress, Calm Cardiovascular: Yes: Regular Rate and Rhythm, S1, S2 Respiratory: Yes: Regular, CTA Bilaterally. No: Rales Gastrointestinal: Yes: Normal Bowel Sounds, Soft, Abdomen, Obese Edema: No Neurological: Yes: Alert, Oriented Labs: CBC, BMP 12/29/16 06:00 12/29/16 06:00 Problem List - Problems (1) Hypoglycemia associated with type 2 diabetes mellitus Code(s): E11.649 - TYPE 2 DIABETES MELLITUS WITH HYPOGLYCEMIA WITHOUT COMA (2) Acute kidney injury superimposed on CKD Code(s): S37.009A - UNSPECIFIED INJURY OF UNSPECIFIED KIDNEY, INITIAL ENCOUNTER N18.9 - CHRONIC KIDNEY DISEASE, UNSPECIFIED (3) Hyperkalemia Code(s): E87.5 - HYPERKALEMIA (4) HIV (human immunodeficiency virus infection) Code(s): Z21 - ASYMPTOMATIC HUMAN IMMUNODEFICIENCY VIRUS INFECTION STATUS (5) COPD (chronic obstructive pulmonary disease) Code(s): J44.9 - CHRONIC OBSTRUCTIVE PULMONARY DISEASE, UNSPECIFIED (6) Diabetes Code(s): E11.9 - TYPE 2 DIABETES MELLITUS WITHOUT COMPLICATIONS Assessment/Plan IVF Lisinopril on hold Monitor BGM; ID, Renal, Endo consults appreciated. Renal function improving, pt still on IVF and off Lisinopril/ Metformin/ Glipizide. AM labs
[2016-12-29] MEDS: MUPIROCIN 2% TOPICAL OINTMENT 22 GM TUBE TP SCH (13:14)
--- NOTE | 2016-12-29 17:18 | PN ---
Progress Note (short form) - Note Progress Note: Denies any complaints BGM 200s Vital Signs Period Temp Pulse Resp BP Sys/Gaspar Pulse Ox Last 24 Hr 98 F-100.1 F 74-88 18-20 116-151/64-85 98-98 PE: AOx3 Neck: Supple HEENT: EOMI Lungs: CTA CVS: S1S2 Abd: Benign EXt: No edema, Left thigh dressing Neuro: No focal deficit CMP Sodium 139 mmol/L (136-145) 12/29/16 06:00 Potassium 4.9 mmol/L (3.5-5.1) 12/29/16 06:00 Chloride 105 mmol/L (98-107) 12/29/16 06:00 Carbon Dioxide 24 mmol/L (21-32) 12/29/16 06:00 Anion Gap 10 (8-16) 12/29/16 06:00 BUN 26 mg/dL (7-18) H 12/29/16 06:00 Creatinine 2.9 mg/dL (0.7-1.3) H 12/29/16 06:00 Creat Clearance w eGFR 21.75 (>60) 12/29/16 06:00 POC Glucometer 220 UNITS (()) 12/29/16 16:07 Random Glucose 186 mg/dL (74-106) H 12/29/16 06:00 Hemoglobin A1c % 9.0 % (4.8-6.0) H D 12/29/16 06:00 Calcium 8.6 mg/dL (8.5-10.1) 12/29/16 06:00 Phosphorus 2.9 mg/dL (2.5-4.9) 12/29/16 06:00 Magnesium 2.4 mg/dL (1.8-2.4) 12/29/16 06:00 Total Bilirubin 0.3 mg/dL (0.2-1.0) 12/29/16 06:00 AST 26 U/L (15-37) D 12/29/16 06:00 ALT 25 U/L (12-78) 12/29/16 06:00 Alkaline Phosphatase 81 U/L (45-117) 12/29/16 06:00 Total Protein 6.0 g/dl (6.4-8.2) L 12/29/16 06:00 Albumin 2.4 g/dl (3.4-5.0) L 12/29/16 06:00 Current Medications Generic Name Dose Route Start Last Admin Trade Name Kassandra PRN Reason Stop Dose Admin Abacavir Sulfate 300 mg 12/28/16 22:00 12/29/16 12:23 Ziagen - PO 300 mg BID GELACIO Administration Albuterol Sulfate 2 puff 12/27/16 21:56 Ventolin Hfa Inhaler - IH Q6H PRN SHORTNESS OF BREATH Apixaban 5 mg 12/28/16 10:00 12/29/16 12:21 Eliquis - PO 5 mg DAILY GELACIO Administration Aspirin 81 mg 12/28/16 10:00 12/29/16 12:20 Asa - PO 81 mg DAILY GELACIO Administration Docusate Sodium 100 mg 12/27/16 21:56 12/27/16 22:59 Colace - PO 100 mg Q8H PRN Administration CONSTIPATION Fenofibric Acid 135 mg 12/28/16 10:00 12/29/16 12:20 Trilipix - PO 135 mg DAILY GELACIO Administration Folic Acid 1 mg 12/28/16 10:00 12/29/16 12:20 Folic Acid - PO 1 mg DAILY GELACIO Administration Gabapentin 400 mg 12/28/16 10:00 12/29/16 12:20 Neurontin - PO 400 mg DAILY GELACIO Administration Sodium Chloride 1,000 mls @ 83 mls/hr 12/28/16 11:01 12/29/16 12:23 Normal Saline - IV Not Given ASDIR GELACIO Insulin Aspart 1 vial 12/28/16 07:00 12/29/16 16:24 Novolog Vial Sliding Scale - SQ 2 units ACHS GELACIO Administration Protocol Lamivudine 150 mg 12/28/16 22:00 12/29/16 12:21 Epivir - PO 150 mg DAILY GELACIO Administration Metoprolol Tartrate 50 mg 12/27/16 22:00 12/29/16 12:20 Lopressor - PO 50 mg BID GELACIO Administration Mometasone Furoate 1 puff 12/28/16 10:00 12/29/16 12:21 Asmanex 110mcg - IH 1 puff DAILY GELACIO Administration Mupirocin 1 applic 12/29/16 10:00 12/29/16 13:14 Bactroban 2% Ointment - TP 1 applic DAILY GELACIO Administration Raltegravir 400 mg 12/28/16 22:00 12/29/16 12:22 Isentress - PO 400 mg BID GELACIO Administration Simethicone 80 mg 12/27/16 22:31 12/27/16 22:59 Mylicon - PO 80 mg QID PRN Administration GAS Sitagliptin Phosphate 25 mg 12/29/16 07:00 12/29/16 06:08 Januvia - PO 25 mg DAILY@0700 GELACIO Administration Tamsulosin HCl 0.4 mg 12/27/16 22:00 12/28/16 22:12 Flomax - PO 0.4 mg HS GELACIO Administration Tiotropium [place] 1 puff 12/28/16 10:00 12/29/16 12:22 Spiriva - IH 1 puff DAILY GELACIO Administration AP Hpoglycemia: resolved T2DM HIV Left Thigh Abscess CKD Pt's eGFR in the office in september was 33 and was on Metformin 500mg BID, Januvia 25 and Glipizide 5 TID Hypoglycemia probably occured secondary to pt not eating on time after taking Glipizide. Discussed with pt need to eat as soon as he takes Glipizide. Pt verbalizes understanding. Current eGFR is 21, so pt is not a candidate for Metformin Januvia 25 mg Qd Risk of hypoglycemia is higher with Glipizide now that the renal function if deteriorating. Ideally he should be in Insulin with Januvia. However he says he can't take any injectables and there are no nurses to administer it at the place he lives. He doesn't do BGM at home himself. Monitor BGM Add Repaglinide 1mg BID premeals Will F/u Problem List - Problems (1) Abscess of left thigh Code(s): L02.416 - CUTANEOUS ABSCESS OF LEFT LOWER LIMB (2) Hypoglycemia associated with type 2 diabetes mellitus Code(s): E11.649 - TYPE 2 DIABETES MELLITUS WITH HYPOGLYCEMIA WITHOUT COMA (3) HIV (human immunodeficiency virus infection) Code(s): Z21 - ASYMPTOMATIC HUMAN IMMUNODEFICIENCY VIRUS INFECTION STATUS
[2016-12-29] MEDS: TAMSULOSIN HCL 0.4 MG CAP.ER.24H (FP) PO SCH (21:49)
[2016-12-30] MEDS: sitaGLIPtin PHOSPHATE 25 MG TABLET (FP) PO SCH (06:09)
[2016-12-30] MEDS: REPAGLINIDE 1 MG TABLET PO SCH ×2 (06:09→17:15)
[2016-12-30] MEDS: INSULIN SLIDING SCALE (NOVOLOG) 1 VIAL SQ SCH ×4 (06:10→22:20)
[2016-12-30 08:06] LABS: BASOPHIL 0.9 % (0-2.0); EOSINOPHIL 4.9 % (0-4.5); MCH 27.6 pg (25.7-33.7); MCHC 31.7 g/dl (32.0-35.9); MEAN PLT VOLUME 8.9 fl (7.5-11.1); NEUTROPHILS 60.5 % (42.8-82.8); PLATELET COUNT 291 K/MM3 (134-434); RDW 15.2 % (11.9-15.9); WHITE BLOOD COUNT 9.5 K/mm3 (4.0-10.0)
[2016-12-30 08:56] LABS: ANION GAP 8 (8-16); CALCIUM 8.8 mg/dL (8.5-10.1); CO2 26 mmol/L (21-32); CREATININE 2.6 mg/dL (0.7-1.3); GLUCOSE,RANDOM 173 mg/dL (74-106); MAGNESIUM 2.6 mg/dL (1.8-2.4); PHOSPHOROUS 3.3 mg/dL (2.5-4.9)
[2016-12-30] MEDS ORDERED: PT OWN MED DRAWER 7, Y5N ONE ×3 (09:21→17:12)
[2016-12-30] MEDS: FENOFIBRIC ACID 135 MG CAP PO SCH (09:23)
[2016-12-30] MEDS: ASPIRIN 81 MG CHEWABLE TABLETS PO SCH (09:23)
[2016-12-30] MEDS: FOLIC ACID 1 MG TABLET (FP) PO SCH (09:23)
[2016-12-30] MEDS: GABAPENTIN 400 MG CAPSULE (FP) PO SCH (09:23)
[2016-12-30] MEDS: METOPROLOL TARTRATE 50 MG TABLET (FP) PO SCH ×2 (09:23→22:19)
[2016-12-30] MEDS: APIXABAN 5 MG TABLET PO SCH (09:24)
[2016-12-30] MEDS: RALTEGRAVIR POTASSIUM 400 MG TAB PO SCH ×2 (09:24→22:18)
[2016-12-30] MEDS: lamiVUDine 150 MG TABLET PO SCH (09:24)
[2016-12-30] MEDS: TIOTROPIUM BROMIDE 18 MCG/INH (DEVICE W/ 5 CAPSULES) IH SCH (09:25)
[2016-12-30] MEDS: MOMETASONE FUROATE 110 MCG/IH INHALER IH SCH (09:25)
[2016-12-30] MEDS: ABACAVIR SULFATE 300 MG TABLET PO SCH ×2 (09:25→22:19)
[2016-12-30] MEDS: SODIUM CHLORIDE 1,000 ML IV SCH ×2 (11:55→17:17)
[2016-12-30] MEDS: MUPIROCIN 2% TOPICAL OINTMENT 22 GM TUBE TP SCH (12:29)
--- NOTE | 2016-12-30 12:41 | PN ---
Progress Note, Physician History of Present Illness: Pt w/o fever, cough, SOB, CP, abd pain, N, V. Pt is tolerating PO intake well - Current Medication List Current Medications: Active Medications Abacavir Sulfate (Ziagen -) 300 mg PO BID [facility] Last Admin: 12/30/16 09:25 Dose: 300 mg Albuterol Sulfate (Ventolin Hfa Inhaler -) 2 puff IH Q6H PRN PRN Reason: SHORTNESS OF BREATH Apixaban (Eliquis -) 5 mg PO DAILY [facility] Last Admin: 12/30/16 09:24 Dose: 5 mg Aspirin (Asa -) 81 mg PO DAILY [facility] Last Admin: 12/30/16 09:23 Dose: 81 mg Docusate Sodium (Colace -) 100 mg PO Q8H PRN PRN Reason: CONSTIPATION Last Admin: 12/27/16 22:59 Dose: 100 mg Fenofibric Acid (Trilipix -) 135 mg PO DAILY [facility] Last Admin: 12/30/16 09:23 Dose: 135 mg Folic Acid (Folic Acid -) 1 mg PO DAILY [facility] Last Admin: 12/30/16 09:23 Dose: 1 mg Gabapentin (Neurontin -) 400 mg PO DAILY [facility] Last Admin: 12/30/16 09:23 Dose: 400 mg Sodium Chloride (Normal Saline -) 1,000 mls @ 83 mls/hr IV ASDIR [facility] Last Admin: 12/30/16 11:55 Dose: Not Given Insulin Aspart (Novolog Vial Sliding Scale -) 1 vial SQ ACHS [facility] PRN Reason: Protocol Last Admin: 12/30/16 12:27 Dose: 2 units Lamivudine (Epivir -) 150 mg PO DAILY [facility] Last Admin: 12/30/16 09:24 Dose: 150 mg Metoprolol Tartrate (Lopressor -) 50 mg PO BID [facility] Last Admin: 12/30/16 09:23 Dose: 50 mg Mometasone Furoate (Asmanex 110mcg -) 1 puff IH DAILY [facility] Last Admin: 12/30/16 09:25 Dose: 1 puff Mupirocin (Bactroban 2% Ointment -) 1 applic TP DAILY [facility] Last Admin: 12/30/16 12:29 Dose: 1 applic Raltegravir (Isentress -) 400 mg PO BID [facility] Last Admin: 12/30/16 09:24 Dose: 400 mg Repaglinide (Prandin -) 1 mg PO BID@0700,1700 [facility] Last Admin: 12/30/16 06:09 Dose: 1 mg Simethicone (Mylicon -) 80 mg PO QID PRN PRN Reason: GAS Last Admin: 12/27/16 22:59 Dose: 80 mg Sitagliptin Phosphate (Januvia -) 25 mg PO DAILY@0700 [facility] Last Admin: 12/30/16 06:09 Dose: 25 mg Tamsulosin HCl (Flomax -) 0.4 mg PO HS [facility] Last Admin: 12/29/16 21:49 Dose: 0.4 mg Tiotropium [place] (Spiriva -) 1 puff IH DAILY [facility] Last Admin: 12/30/16 09:25 Dose: 1 puff - Objective Vital Signs: Vital Signs Temperature 98.5 F 12/30/16 07:13 Pulse Rate 78 12/30/16 08:38 Respiratory Rate 18 12/30/16 08:38 Blood Pressure 172/74 12/30/16 08:38 O2 Sat by Pulse Oximetry (%) 98 12/29/16 20:38 Constitutional: Yes: No Distress, Calm Cardiovascular: Yes: Regular Rate and Rhythm, S1, S2 Respiratory: Yes: Regular, CTA Bilaterally. No: Rales Gastrointestinal: Yes: Normal Bowel Sounds, Soft, Abdomen, Obese. No: Tenderness Edema: No Neurological: Yes: Alert, Oriented Labs: CBC, BMP 12/30/16 06:50 12/30/16 06:50 Problem List - Problems (1) Hypoglycemia associated with type 2 diabetes mellitus Code(s): E11.649 - TYPE 2 DIABETES MELLITUS WITH HYPOGLYCEMIA WITHOUT COMA (2) Acute kidney injury superimposed on CKD Code(s): S37.009A - UNSPECIFIED INJURY OF UNSPECIFIED KIDNEY, INITIAL ENCOUNTER N18.9 - CHRONIC KIDNEY DISEASE, UNSPECIFIED (3) Hyperkalemia Code(s): E87.5 - HYPERKALEMIA (4) HIV (human immunodeficiency virus infection) Code(s): Z21 - ASYMPTOMATIC HUMAN IMMUNODEFICIENCY VIRUS INFECTION STATUS (5) COPD (chronic obstructive pulmonary disease) Code(s): J44.9 - CHRONIC OBSTRUCTIVE PULMONARY DISEASE, UNSPECIFIED (6) Diabetes Code(s): E11.9 - TYPE 2 DIABETES MELLITUS WITHOUT COMPLICATIONS (7) Hypertension Code(s): I10 - ESSENTIAL (PRIMARY) HYPERTENSION Assessment/Plan IVF Lisinopril on hold Add Norvasc for BP control Monitor BGM; ID, Endo, Renal consults appreciated. DC IVF. AM labs
[2016-12-30] MEDS: amLODIPine BESYLATE 2.5 MG TABLET (FP) PO SCH (14:19)
--- NOTE | 2016-12-30 14:51 | PN ---
Progress Note (short form) - Note Progress Note: Denies any complaints BGM 200s Vital Signs Period Temp Pulse Resp BP Sys/Gaspar Pulse Ox Last 24 Hr 98.5 F-99.6 F 70-78 18-20 137-173/58-80 98 PE: AOx3 Neck: Supple HEENT: EOMI Lungs: CTA CVS: S1S2 Abd: Benign EXt: No edema, Left thigh dressing Neuro: No focal deficit CMP Sodium 139 mmol/L (136-145) 12/30/16 06:50 Potassium 4.9 mmol/L (3.5-5.1) 12/30/16 06:50 Chloride 105 mmol/L (98-107) 12/30/16 06:50 Carbon Dioxide 26 mmol/L (21-32) 12/30/16 06:50 Anion Gap 8 (8-16) 12/30/16 06:50 BUN 25 mg/dL (7-18) H 12/30/16 06:50 Creatinine 2.6 mg/dL (0.7-1.3) H 12/30/16 06:50 Creat Clearance w eGFR 21.75 (>60) 12/29/16 06:00 POC Glucometer 214 UNITS (()) 12/30/16 11:52 Random Glucose 173 mg/dL (74-106) H 12/30/16 06:50 Hemoglobin A1c % 9.0 % (4.8-6.0) H D 12/29/16 06:00 Calcium 8.8 mg/dL (8.5-10.1) 12/30/16 06:50 Phosphorus 3.3 mg/dL (2.5-4.9) 12/30/16 06:50 Magnesium 2.6 mg/dL (1.8-2.4) H 12/30/16 06:50 Total Bilirubin 0.3 mg/dL (0.2-1.0) 12/29/16 06:00 AST 26 U/L (15-37) D 12/29/16 06:00 ALT 25 U/L (12-78) 12/29/16 06:00 Alkaline Phosphatase 81 U/L (45-117) 12/29/16 06:00 Total Protein 6.0 g/dl (6.4-8.2) L 12/29/16 06:00 Albumin 2.4 g/dl (3.4-5.0) L 12/29/16 06:00 Current Medications Generic Name Dose Route Start Last Admin Trade Name Kassandra PRN Reason Stop Dose Admin Abacavir Sulfate 300 mg 12/28/16 22:00 12/30/16 09:25 Ziagen - PO 300 mg BID GELACIO Administration Albuterol Sulfate 2 puff 12/27/16 21:56 Ventolin Hfa Inhaler - IH Q6H PRN SHORTNESS OF BREATH Amlodipine Besylate 2.5 mg 12/30/16 12:45 12/30/16 14:19 Norvasc - PO 2.5 mg DAILY GELACIO Administration Apixaban 5 mg 12/28/16 10:00 12/30/16 09:24 Eliquis - PO 5 mg DAILY GELACIO Administration Aspirin 81 mg 12/28/16 10:00 12/30/16 09:23 Asa - PO 81 mg DAILY GELACIO Administration Docusate Sodium 100 mg 12/27/16 21:56 12/27/16 22:59 Colace - PO 100 mg Q8H PRN Administration CONSTIPATION Fenofibric Acid 135 mg 12/28/16 10:00 12/30/16 09:23 Trilipix - PO 135 mg DAILY GELACIO Administration Folic Acid 1 mg 12/28/16 10:00 12/30/16 09:23 Folic Acid - PO 1 mg DAILY GELACIO Administration Gabapentin 400 mg 12/28/16 10:00 12/30/16 09:23 Neurontin - PO 400 mg DAILY GELACIO Administration Sodium Chloride 1,000 mls @ 42 mls/hr 12/30/16 12:43 Normal Saline - IV ASDIR GELACIO Insulin Aspart 1 vial 12/28/16 07:00 12/30/16 12:27 Novolog Vial Sliding Scale - SQ 2 units ACHS GELACIO Administration Protocol Lamivudine 150 mg 12/28/16 22:00 12/30/16 09:24 Epivir - PO 150 mg DAILY GELACIO Administration Metoprolol Tartrate 50 mg 12/27/16 22:00 12/30/16 09:23 Lopressor - PO 50 mg BID GELACIO Administration Mometasone Furoate 1 puff 12/28/16 10:00 12/30/16 09:25 Asmanex 110mcg - IH 1 puff DAILY GELACIO Administration Mupirocin 1 applic 12/29/16 10:00 12/30/16 12:29 Bactroban 2% Ointment - TP 1 applic DAILY GELACIO Administration Raltegravir 400 mg 12/28/16 22:00 12/30/16 09:24 Isentress - PO 400 mg BID GELACIO Administration Repaglinide 1 mg 12/30/16 07:00 12/30/16 06:09 Prandin - PO 1 mg BID@0700,1700 GELACIO Administration Simethicone 80 mg 12/27/16 22:31 12/27/16 22:59 Mylicon - PO 80 mg QID PRN Administration GAS Sitagliptin Phosphate 25 mg 12/29/16 07:00 12/30/16 06:09 Januvia - PO 25 mg DAILY@0700 GELACIO Administration Tamsulosin HCl 0.4 mg 12/27/16 22:00 12/29/16 21:49 Flomax - PO 0.4 mg HS GELACIO Administration Tiotropium [place] 1 puff 12/28/16 10:00 12/30/16 09:25 Spiriva - IH 1 puff DAILY GELACIO Administration AP Hpoglycemia: resolved T2DM HIV Left Thigh Abscess CKD Pt's eGFR in the office in september was 33 and was on Metformin 500mg BID, Januvia 25 and Glipizide 5 TID Hypoglycemia probably occured secondary to pt not eating on time after taking Glipizide. Discussed with pt need to eat as soon as he takes Glipizide. Pt verbalizes understanding. Current eGFR is 21, so pt is not a candidate for Metformin Januvia 25 mg Qd Risk of hypoglycemia is higher with Glipizide now that the renal function if deteriorating. Ideally he should be in Insulin with Januvia. However he says he can't take any injectables and there are no nurses to administer it at the place he lives. He doesn't do BGM at home himself. Monitor BGM Continue Repaglinide 1mg BID premeals. Will increase dose as necessary Will F/u Problem List - Problems (1) Abscess of left thigh Code(s): L02.416 - CUTANEOUS ABSCESS OF LEFT LOWER LIMB (2) Hypoglycemia associated with type 2 diabetes mellitus Code(s): E11.649 - TYPE 2 DIABETES MELLITUS WITH HYPOGLYCEMIA WITHOUT COMA (3) HIV (human immunodeficiency virus infection) Code(s): Z21 - ASYMPTOMATIC HUMAN IMMUNODEFICIENCY VIRUS INFECTION STATUS
--- NOTE | 2016-12-30 15:45 | PN ---
Progress Note, Physician History of Present Illness: Awake, alert No complaints Afebrile - Current Medication List Current Medications: Active Medications Abacavir Sulfate (Ziagen -) 300 mg PO BID [facility] Last Admin: 12/30/16 09:25 Dose: 300 mg Albuterol Sulfate (Ventolin Hfa Inhaler -) 2 puff IH Q6H PRN PRN Reason: SHORTNESS OF BREATH Amlodipine Besylate (Norvasc -) 2.5 mg PO DAILY [facility] Last Admin: 12/30/16 14:19 Dose: 2.5 mg Apixaban (Eliquis -) 5 mg PO DAILY [facility] Last Admin: 12/30/16 09:24 Dose: 5 mg Aspirin (Asa -) 81 mg PO DAILY [facility] Last Admin: 12/30/16 09:23 Dose: 81 mg Docusate Sodium (Colace -) 100 mg PO Q8H PRN PRN Reason: CONSTIPATION Last Admin: 12/27/16 22:59 Dose: 100 mg Fenofibric Acid (Trilipix -) 135 mg PO DAILY [facility] Last Admin: 12/30/16 09:23 Dose: 135 mg Folic Acid (Folic Acid -) 1 mg PO DAILY [facility] Last Admin: 12/30/16 09:23 Dose: 1 mg Gabapentin (Neurontin -) 400 mg PO DAILY [facility] Last Admin: 12/30/16 09:23 Dose: 400 mg Sodium Chloride (Normal Saline -) 1,000 mls @ 42 mls/hr IV ASDIR [facility] Insulin Aspart (Novolog Vial Sliding Scale -) 1 vial SQ ACHS [facility] PRN Reason: Protocol Last Admin: 12/30/16 12:27 Dose: 2 units Lamivudine (Epivir -) 150 mg PO DAILY [facility] Last Admin: 12/30/16 09:24 Dose: 150 mg Metoprolol Tartrate (Lopressor -) 50 mg PO BID [facility] Last Admin: 12/30/16 09:23 Dose: 50 mg Mometasone Furoate (Asmanex 110mcg -) 1 puff IH DAILY [facility] Last Admin: 12/30/16 09:25 Dose: 1 puff Mupirocin (Bactroban 2% Ointment -) 1 applic TP DAILY [facility] Last Admin: 12/30/16 12:29 Dose: 1 applic Raltegravir (Isentress -) 400 mg PO BID [facility] Last Admin: 12/30/16 09:24 Dose: 400 mg Repaglinide (Prandin -) 1 mg PO BID@0700,1700 [facility] Last Admin: 12/30/16 06:09 Dose: 1 mg Simethicone (Mylicon -) 80 mg PO QID PRN PRN Reason: GAS Last Admin: 12/27/16 22:59 Dose: 80 mg Sitagliptin Phosphate (Januvia -) 25 mg PO DAILY@0700 [facility] Last Admin: 12/30/16 06:09 Dose: 25 mg Tamsulosin HCl (Flomax -) 0.4 mg PO HS [facility] Last Admin: 12/29/16 21:49 Dose: 0.4 mg Tiotropium [place] (Spiriva -) 1 puff IH DAILY [facility] Last Admin: 12/30/16 09:25 Dose: 1 puff - Objective Vital Signs: Vital Signs Temperature 98.9 F 12/30/16 14:33 Pulse Rate 73 12/30/16 14:33 Respiratory Rate 20 12/30/16 14:33 Blood Pressure 137/58 12/30/16 14:33 O2 Sat by Pulse Oximetry (%) 98 12/29/16 20:38 Constitutional: Yes: No Distress Eyes: Yes: Conjunctiva Clear Cardiovascular: Yes: Regular Rate and Rhythm, S1, S2 Respiratory: Yes: CTA Bilaterally Gastrointestinal: Yes: Normal Bowel Sounds, Soft. No: Tenderness Extremities: Yes: Other (L thigh incisional wound no drainage/ erythema Minimal residual induration) Labs: CBC, BMP 12/30/16 06:50 12/30/16 06:50 Assessment/Plan S/P hypoglycemia S/P I&D soft tossue abscess MRSA HIV/ AIDS Continue local wound care
--- NOTE | 2016-12-30 16:13 | PN ---
Progress Note (short form) - Note Progress Note: Nephrology Follow up for YIFAN on CKD Pt seen and examined at the bedside no acute complaints Vital Signs Temperature 98.9 F 12/30/16 14:33 Pulse Rate 73 12/30/16 14:33 Respiratory Rate 20 12/30/16 14:33 Blood Pressure 137/58 12/30/16 14:33 O2 Sat by Pulse Oximetry (%) 98 12/29/16 20:38 Intake & Output 12/27/16 12/28/16 12/29/16 12/30/16 23:59 23:59 23:59 23:59 Intake Total 2620 3536 1796 Output Total 1200 600 Balance 1420 2936 1796 Weight 240 lb 3.2 oz 237 lb 4 oz 238 lb 7 oz NAD, awake and alert MMM, No JVD RRR, No M/R CTA, no rales Obese Abd, soft NT/ND, no bladder distension No LE edema, has a dressing over his left thigh CBC, BMP 12/30/16 06:50 12/30/16 06:50 Current Medications Abacavir Sulfate (Ziagen -) 300 mg PO BID [facility] Last Admin: 12/30/16 09:25 Dose: 300 mg Albuterol Sulfate (Ventolin Hfa Inhaler -) 2 puff IH Q6H PRN PRN Reason: SHORTNESS OF BREATH Amlodipine Besylate (Norvasc -) 2.5 mg PO DAILY [facility] Last Admin: 12/30/16 14:19 Dose: 2.5 mg Apixaban (Eliquis -) 5 mg PO DAILY [facility] Last Admin: 12/30/16 09:24 Dose: 5 mg Aspirin (Asa -) 81 mg PO DAILY [facility] Last Admin: 12/30/16 09:23 Dose: 81 mg Docusate Sodium (Colace -) 100 mg PO Q8H PRN PRN Reason: CONSTIPATION Last Admin: 12/27/16 22:59 Dose: 100 mg Fenofibric Acid (Trilipix -) 135 mg PO DAILY [facility] Last Admin: 12/30/16 09:23 Dose: 135 mg Folic Acid (Folic Acid -) 1 mg PO DAILY [facility] Last Admin: 12/30/16 09:23 Dose: 1 mg Gabapentin (Neurontin -) 400 mg PO DAILY [facility] Last Admin: 12/30/16 09:23 Dose: 400 mg Sodium Chloride (Normal Saline -) 1,000 mls @ 42 mls/hr IV ASDIR [facility] Insulin Aspart (Novolog Vial Sliding Scale -) 1 vial SQ ACHS GELACIO PRN Reason: Protocol Last Admin: 12/30/16 12:27 Dose: 2 units Lamivudine (Epivir -) 150 mg PO DAILY [facility] Last Admin: 12/30/16 09:24 Dose: 150 mg Metoprolol Tartrate (Lopressor -) 50 mg PO BID [facility] Last Admin: 12/30/16 09:23 Dose: 50 mg Mometasone Furoate (Asmanex 110mcg -) 1 puff IH DAILY [facility] Last Admin: 12/30/16 09:25 Dose: 1 puff Mupirocin (Bactroban 2% Ointment -) 1 applic TP DAILY [facility] Last Admin: 12/30/16 12:29 Dose: 1 applic Raltegravir (Isentress -) 400 mg PO BID [facility] Last Admin: 12/30/16 09:24 Dose: 400 mg Repaglinide (Prandin -) 1 mg PO BID@0700,1700 [facility] Last Admin: 12/30/16 06:09 Dose: 1 mg Simethicone (Mylicon -) 80 mg PO QID PRN PRN Reason: GAS Last Admin: 12/27/16 22:59 Dose: 80 mg Sitagliptin Phosphate (Januvia -) 25 mg PO DAILY@0700 [facility] Last Admin: 12/30/16 06:09 Dose: 25 mg Tamsulosin HCl (Flomax -) 0.4 mg PO HS [facility] Last Admin: 12/29/16 21:49 Dose: 0.4 mg Tiotropium [place] (Spiriva -) 1 puff IH DAILY [facility] Last Admin: 12/30/16 09:25 Dose: 1 puff A/P 66 year old gentleman with PMhx of CKD Stage 3, HIV on HARRT, DM Type 2 (Dx 12 years ago) w/o retinopathy who [facility] and found to have BUN/Cr of 32/3.4 (discharged with Cr of 2.4 last admission). #YIFAN on CKD Renal function improved to the levels of the last admission can d/c IVF serologic work up is pending if warranted biopsy can be done as a outpatient dose all med for Cr Cl less then 30 no acute indication for [employer] Ehsan Lobo DO
[2016-12-30] MEDS: TAMSULOSIN HCL 0.4 MG CAP.ER.24H (FP) PO SCH (22:19)
[2016-12-31] MEDS: REPAGLINIDE 1 MG TABLET PO SCH ×2 (06:27→17:40)
[2016-12-31] MEDS: sitaGLIPtin PHOSPHATE 25 MG TABLET (FP) PO SCH (06:29)
[2016-12-31] MEDS: SODIUM CHLORIDE 1,000 ML IV SCH (06:29)
[2016-12-31] MEDS: INSULIN SLIDING SCALE (NOVOLOG) 1 VIAL SQ SCH ×4 (06:29→22:49)
[2016-12-31 08:15] LABS: BASOPHIL 0.9 % (0-2.0); EOSINOPHIL 6.4 % (0-4.5); MCHC 32.5 g/dl (32.0-35.9); MEAN CELL VOLUME 86.3 fl (80-96); MEAN PLT VOLUME 8.8 fl (7.5-11.1); NEUTROPHILS 59.3 % (42.8-82.8); PLATELET COUNT 297 K/MM3 (134-434); RDW 15.3 % (11.9-15.9); WHITE BLOOD COUNT 9.2 K/mm3 (4.0-10.0)
[2016-12-31 08:35] LABS: ANION GAP 8 (8-16); CALCIUM 8.8 mg/dL (8.5-10.1); CO2 25 mmol/L (21-32); GLUCOSE,RANDOM 171 mg/dL (74-106); MAGNESIUM 2.4 mg/dL (1.8-2.4)
[2016-12-31 08:36] LABS: CREATININE 2.4 mg/dL (0.7-1.3)
--- NOTE | 2016-12-31 09:20 | PN ---
Progress Note (short form) - Note Progress Note: C/o dry cough BGM improving No hypos Vital Signs Period Temp Pulse Resp BP Sys/Gaspar Pulse Ox Last 24 Hr 98.2 F-99.9 F 73-91 18-20 131-158/57-76 97 PE: AOx3 Neck: Supple HEENT: EOMI Lungs: CTA CVS: S1S2 Abd: Benign EXt: No edema, Left thigh dressing Neuro: No focal deficit CMP Sodium 140 mmol/L (136-145) 12/31/16 07:00 Potassium 4.3 mmol/L (3.5-5.1) 12/31/16 07:00 Chloride 107 mmol/L (98-107) 12/31/16 07:00 Carbon Dioxide 25 mmol/L (21-32) 12/31/16 07:00 Anion Gap 8 (8-16) 12/31/16 07:00 BUN 21 mg/dL (7-18) H 12/31/16 07:00 Creatinine 2.4 mg/dL (0.7-1.3) H 12/31/16 07:00 Creat Clearance w eGFR 21.75 (>60) 12/29/16 06:00 POC Glucometer 168 UNITS (()) 12/31/16 05:25 Random Glucose 171 mg/dL (74-106) H 12/31/16 07:00 Hemoglobin A1c % 9.0 % (4.8-6.0) H D 12/29/16 06:00 Calcium 8.8 mg/dL (8.5-10.1) 12/31/16 07:00 Phosphorus 3.0 mg/dL (2.5-4.9) 12/31/16 07:00 Magnesium 2.4 mg/dL (1.8-2.4) 12/31/16 07:00 Total Bilirubin 0.3 mg/dL (0.2-1.0) 12/29/16 06:00 AST 26 U/L (15-37) D 12/29/16 06:00 ALT 25 U/L (12-78) 12/29/16 06:00 Alkaline Phosphatase 81 U/L (45-117) 12/29/16 06:00 Total Protein 6.0 g/dl (6.4-8.2) L 12/29/16 06:00 Albumin 2.4 g/dl (3.4-5.0) L 12/29/16 06:00 Current Medications Generic Name Dose Route Start Last Admin Trade Name Frejorge PRN Reason Stop Dose Admin Abacavir Sulfate 300 mg 12/28/16 22:00 12/30/16 22:19 Ziagen - PO 300 mg BID GELACIO Administration Albuterol Sulfate 2 puff 12/27/16 21:56 Ventolin Hfa Inhaler - IH Q6H PRN SHORTNESS OF BREATH Amlodipine Besylate 2.5 mg 12/30/16 12:45 12/30/16 14:19 Norvasc - PO 2.5 mg DAILY GELACIO Administration Apixaban 5 mg 12/28/16 10:00 12/30/16 09:24 Eliquis - PO 5 mg DAILY GELACIO Administration Aspirin 81 mg 12/28/16 10:00 12/30/16 09:23 Asa - PO 81 mg DAILY GELACIO Administration Docusate Sodium 100 mg 12/27/16 21:56 12/27/16 22:59 Colace - PO 100 mg Q8H PRN Administration CONSTIPATION Fenofibric Acid 135 mg 12/28/16 10:00 12/30/16 09:23 Trilipix - PO 135 mg DAILY GELACIO Administration Folic Acid 1 mg 12/28/16 10:00 12/30/16 09:23 Folic Acid - PO 1 mg DAILY GELACIO Administration Gabapentin 400 mg 12/28/16 10:00 12/30/16 09:23 Neurontin - PO 400 mg DAILY GELACIO Administration Sodium Chloride 1,000 mls @ 42 mls/hr 12/30/16 12:43 12/31/16 06:29 Normal Saline - IV 42 mls/hr ASDIR GELACIO Administration Insulin Aspart 1 vial 12/28/16 07:00 12/31/16 06:29 Novolog Vial Sliding Scale - SQ Not Given ACHS GELACIO Protocol Lamivudine 150 mg 12/28/16 22:00 12/30/16 09:24 Epivir - PO 150 mg DAILY GELACIO Administration Metoprolol Tartrate 50 mg 12/27/16 22:00 12/30/16 22:19 Lopressor - PO 50 mg BID GELACIO Administration Mometasone Furoate 1 puff 12/28/16 10:00 12/30/16 09:25 Asmanex 110mcg - IH 1 puff DAILY GELACIO Administration Mupirocin 1 applic 12/29/16 10:00 12/30/16 12:29 Bactroban 2% Ointment - TP 1 applic DAILY GELACIO Administration Raltegravir 400 mg 12/28/16 22:00 12/30/16 22:18 Isentress - PO 400 mg BID GELACIO Administration Repaglinide 1 mg 12/30/16 07:00 12/31/16 06:27 Prandin - PO 1 mg BID@0700,1700 GELACIO Administration Simethicone 80 mg 12/27/16 22:31 12/27/16 22:59 Mylicon - PO 80 mg QID PRN Administration GAS Sitagliptin Phosphate 25 mg 12/29/16 07:00 12/31/16 06:29 Januvia - PO 25 mg DAILY@0700 GELACIO Administration Tamsulosin HCl 0.4 mg 12/27/16 22:00 12/30/16 22:19 Flomax - PO 0.4 mg HS GELACIO Administration Tiotropium [place] 1 puff 12/28/16 10:00 12/30/16 09:25 Spiriva - IH 1 puff DAILY GELACIO Administration AP Hpoglycemia: resolved T2DM HIV Left Thigh Abscess CKD Pt's eGFR in the office in september was 33 and was on Metformin 500mg BID, Januvia 25 and Glipizide 5 TID Hypoglycemia probably occured secondary to pt not eating on time after taking Glipizide. Discussed with pt need to eat as soon as he takes Glipizide. Pt verbalizes understanding. Current eGFR is 21, so pt is not a candidate for Metformin Januvia 25 mg Qd Risk of hypoglycemia is higher with Glipizide now that the renal function if deteriorating. Ideally he should be in Insulin with Januvia. However he says he can't take any injectables and there are no nurses to administer it at the place he lives. He doesn't do BGM at home himself. Monitor BGM Continue Repaglinide 1mg BID premeals. Explained to pt not to take Metformin or Glipizide once he is discharged and to take only Januvia and Repaglinide. Will F/u Problem List - Problems (1) Abscess of left thigh Code(s): L02.416 - CUTANEOUS ABSCESS OF LEFT LOWER LIMB (2) Hypoglycemia associated with type 2 diabetes mellitus Code(s): E11.649 - TYPE 2 DIABETES MELLITUS WITH HYPOGLYCEMIA WITHOUT COMA (3) HIV (human immunodeficiency virus infection) Code(s): Z21 - ASYMPTOMATIC HUMAN IMMUNODEFICIENCY VIRUS INFECTION STATUS
[2016-12-31] MEDS ORDERED: PT OWN MED DRAWER 7, Y5N ONE ×3 (09:49→22:11)
[2016-12-31] MEDS: APIXABAN 5 MG TABLET PO SCH (09:52)
[2016-12-31] MEDS: MOMETASONE FUROATE 110 MCG/IH INHALER IH SCH (09:52)
[2016-12-31] MEDS: ASPIRIN 81 MG CHEWABLE TABLETS PO SCH (09:52)
[2016-12-31] MEDS: FOLIC ACID 1 MG TABLET (FP) PO SCH (09:53)
[2016-12-31] MEDS: amLODIPine BESYLATE 2.5 MG TABLET (FP) PO SCH (09:53)
[2016-12-31] MEDS: METOPROLOL TARTRATE 50 MG TABLET (FP) PO SCH ×2 (09:53→22:48)
[2016-12-31] MEDS: FENOFIBRIC ACID 135 MG CAP PO SCH (09:53)
[2016-12-31] MEDS: RALTEGRAVIR POTASSIUM 400 MG TAB PO SCH ×2 (09:53→22:48)
[2016-12-31] MEDS: GABAPENTIN 400 MG CAPSULE (FP) PO SCH (09:53)
[2016-12-31] MEDS: ABACAVIR SULFATE 300 MG TABLET PO SCH ×2 (09:54→22:48)
[2016-12-31] MEDS: lamiVUDine 150 MG TABLET PO SCH (09:55)
[2016-12-31] MEDS: TIOTROPIUM BROMIDE 18 MCG/INH (DEVICE W/ 5 CAPSULES) IH SCH (09:57)
[2016-12-31] MEDS: MUPIROCIN 2% TOPICAL OINTMENT 22 GM TUBE TP SCH (09:59)
--- NOTE | 2016-12-31 16:53 | PN ---
Progress Note (short form) - Note Progress Note: Nephrology Follow up for YIFAN on CKD Pt seen and examined at the bedside no complaints Vital Signs Temperature 98.7 F 12/31/16 14:47 Pulse Rate 73 12/31/16 14:47 Respiratory Rate 18 12/31/16 14:47 Blood Pressure 153/87 12/31/16 14:47 O2 Sat by Pulse Oximetry (%) 98 12/31/16 09:00 Intake & Output 12/28/16 12/29/16 12/30/16 12/31/16 23:59 23:59 23:59 23:59 Intake Total 2620 3536 2251 1512 Output Total 1200 600 Balance 1420 2936 2251 1512 Weight 237 lb 4 oz 238 lb 7 oz 235 lb 7 oz NAD, awake and alert MMM, No JVD RRR, No M/R CTA, no rales Obese Abd, soft NT/ND, no bladder distension No LE edema, has a dressing over his left thigh CBC, BMP 12/31/16 07:00 12/31/16 07:00 Current Medications Abacavir Sulfate (Ziagen -) 300 mg PO BID [facility] Last Admin: 12/31/16 09:54 Dose: 300 mg Albuterol Sulfate (Ventolin Hfa Inhaler -) 2 puff IH Q6H PRN PRN Reason: SHORTNESS OF BREATH Amlodipine Besylate (Norvasc -) 2.5 mg PO DAILY [facility] Last Admin: 12/31/16 09:53 Dose: 2.5 mg Apixaban (Eliquis -) 5 mg PO DAILY [facility] Last Admin: 12/31/16 09:52 Dose: 5 mg Aspirin (Asa -) 81 mg PO DAILY [facility] Last Admin: 12/31/16 09:52 Dose: 81 mg Docusate Sodium (Colace -) 100 mg PO Q8H PRN PRN Reason: CONSTIPATION Last Admin: 12/27/16 22:59 Dose: 100 mg Fenofibric Acid (Trilipix -) 135 mg PO DAILY [facility] Last Admin: 12/31/16 09:53 Dose: 135 mg Folic Acid (Folic Acid -) 1 mg PO DAILY [facility] Last Admin: 12/31/16 09:53 Dose: 1 mg Gabapentin (Neurontin -) 400 mg PO DAILY [facility] Last Admin: 12/31/16 09:53 Dose: 400 mg Insulin Aspart (Novolog Vial Sliding Scale -) 1 vial SQ ACHS [facility] PRN Reason: Protocol Last Admin: 12/31/16 16:35 Dose: Not Given Lamivudine (Epivir -) 150 mg PO DAILY [facility] Last Admin: 12/31/16 09:55 Dose: 150 mg Metoprolol Tartrate (Lopressor -) 50 mg PO BID [facility] Last Admin: 12/31/16 09:53 Dose: 50 mg Mometasone Furoate (Asmanex 110mcg -) 1 puff IH DAILY [facility] Last Admin: 12/31/16 09:52 Dose: 1 puff Mupirocin (Bactroban 2% Ointment -) 1 applic TP DAILY [facility] Last Admin: 12/31/16 09:59 Dose: 1 applic Raltegravir (Isentress -) 400 mg PO BID [facility] Last Admin: 12/31/16 09:53 Dose: 400 mg Repaglinide (Prandin -) 1 mg PO BID@0700,1700 [facility] Last Admin: 12/31/16 06:27 Dose: 1 mg Simethicone (Mylicon -) 80 mg PO QID PRN PRN Reason: GAS Last Admin: 12/27/16 22:59 Dose: 80 mg Sitagliptin Phosphate (Januvia -) 25 mg PO DAILY@0700 [facility] Last Admin: 12/31/16 06:29 Dose: 25 mg Tamsulosin HCl (Flomax -) 0.4 mg PO HS [facility] Last Admin: 12/30/16 22:19 Dose: 0.4 mg Tiotropium [place] (Spiriva -) 1 puff IH DAILY [facility] Last Admin: 12/31/16 09:57 Dose: 1 puff A/P 66 year old gentleman with PMhx of CKD Stage 3, HIV on HARRT, DM Type 2 (Dx 12 years ago) w/o retinopathy who was admitted with hypoglycemia from his shelter and found to have BUN/Cr of 32/3.4 (discharged with Cr of 2.4 last admission). #YIFAN on CKD Renal function improved and stable at this time pt appears evolemic DARIUSZ is negative, less likely SLE/Lupus Nephritis ANCAs are pending Trend BUN/Cr for now Ehsan Lobo DO
--- NOTE | 2016-12-31 22:46 | PN ---
Progress Note, Physician History of Present Illness: Pt w/o fever, cough, SOB, CP, abd pain, N, V. Pt is tolerating PO intake normal. - Current Medication List Current Medications: Active Medications Abacavir Sulfate (Ziagen -) 300 mg PO BID [facility] Last Admin: 12/31/16 09:54 Dose: 300 mg Albuterol Sulfate (Ventolin Hfa Inhaler -) 2 puff IH Q6H PRN PRN Reason: SHORTNESS OF BREATH Amlodipine Besylate (Norvasc -) 2.5 mg PO DAILY [facility] Last Admin: 12/31/16 09:53 Dose: 2.5 mg Apixaban (Eliquis -) 5 mg PO DAILY [facility] Last Admin: 12/31/16 09:52 Dose: 5 mg Aspirin (Asa -) 81 mg PO DAILY [facility] Last Admin: 12/31/16 09:52 Dose: 81 mg Docusate Sodium (Colace -) 100 mg PO Q8H PRN PRN Reason: CONSTIPATION Last Admin: 12/27/16 22:59 Dose: 100 mg Fenofibric Acid (Trilipix -) 135 mg PO DAILY [facility] Last Admin: 12/31/16 09:53 Dose: 135 mg Folic Acid (Folic Acid -) 1 mg PO DAILY [facility] Last Admin: 12/31/16 09:53 Dose: 1 mg Gabapentin (Neurontin -) 400 mg PO DAILY [facility] Last Admin: 12/31/16 09:53 Dose: 400 mg Insulin Aspart (Novolog Vial Sliding Scale -) 1 vial SQ ACHS [facility] PRN Reason: Protocol Last Admin: 12/31/16 16:35 Dose: Not Given Lamivudine (Epivir -) 150 mg PO DAILY [facility] Last Admin: 12/31/16 09:55 Dose: 150 mg Metoprolol Tartrate (Lopressor -) 50 mg PO BID [facility] Last Admin: 12/31/16 09:53 Dose: 50 mg Mometasone Furoate (Asmanex 110mcg -) 1 puff IH DAILY [facility] Last Admin: 12/31/16 09:52 Dose: 1 puff Mupirocin (Bactroban 2% Ointment -) 1 applic TP DAILY [facility] Last Admin: 12/31/16 09:59 Dose: 1 applic Raltegravir (Isentress -) 400 mg PO BID [facility] Last Admin: 12/31/16 09:53 Dose: 400 mg Repaglinide (Prandin -) 1 mg PO BID@0700,1700 [facility] Last Admin: 12/31/16 17:40 Dose: 1 mg Simethicone (Mylicon -) 80 mg PO QID PRN PRN Reason: GAS Last Admin: 12/27/16 22:59 Dose: 80 mg Sitagliptin Phosphate (Januvia -) 25 mg PO DAILY@0700 [facility] Last Admin: 12/31/16 06:29 Dose: 25 mg Tamsulosin HCl (Flomax -) 0.4 mg PO HS [facility] Last Admin: 12/30/16 22:19 Dose: 0.4 mg Tiotropium [place] (Spiriva -) 1 puff IH DAILY [facility] Last Admin: 12/31/16 09:57 Dose: 1 puff - Objective Vital Signs: Vital Signs Temperature 99.0 F 12/31/16 18:00 Pulse Rate 70 12/31/16 18:00 Respiratory Rate 20 12/31/16 18:00 Blood Pressure 157/76 12/31/16 18:00 O2 Sat by Pulse Oximetry (%) 98 12/31/16 09:00 Constitutional: Yes: No Distress, Calm Cardiovascular: Yes: Regular Rate and Rhythm, S1, S2 Respiratory: Yes: Regular, CTA Bilaterally. No: Rales Gastrointestinal: Yes: Normal Bowel Sounds, Soft, Abdomen, Obese. No: Tenderness Edema: No Neurological: Yes: Alert, Oriented Labs: CBC, BMP 12/31/16 07:00 12/31/16 07:00 Problem List - Problems (1) Hypoglycemia associated with type 2 diabetes mellitus Code(s): E11.649 - TYPE 2 DIABETES MELLITUS WITH HYPOGLYCEMIA WITHOUT COMA (2) Acute kidney injury superimposed on CKD Code(s): S37.009A - UNSPECIFIED INJURY OF UNSPECIFIED KIDNEY, INITIAL ENCOUNTER N18.9 - CHRONIC KIDNEY DISEASE, UNSPECIFIED (3) Hyperkalemia Code(s): E87.5 - HYPERKALEMIA (4) HIV (human immunodeficiency virus infection) Code(s): Z21 - ASYMPTOMATIC HUMAN IMMUNODEFICIENCY VIRUS INFECTION STATUS (5) COPD (chronic obstructive pulmonary disease) Code(s): J44.9 - CHRONIC OBSTRUCTIVE PULMONARY DISEASE, UNSPECIFIED (6) Diabetes Code(s): E11.9 - TYPE 2 DIABETES MELLITUS WITHOUT COMPLICATIONS (7) Hypertension Code(s): I10 - ESSENTIAL (PRIMARY) HYPERTENSION Assessment/Plan IVF Lisinopril on hold Add Norvasc for BP control Monitor BGM; ID, Endo, Renal consults appreciated. DC IVF, monitor creatinine. Pt on Januvia and Repaglinide, tolerating well AM labs. DC planing
[2016-12-31] MEDS: TAMSULOSIN HCL 0.4 MG CAP.ER.24H (FP) PO SCH (22:48)
[2017-01-01 00:06] LABS: C-ANCA <1:20 titer (Neg:<1:20); MYELOPEROXIDASE ANTIBODY <9.0 U/mL (0.0-9.0); P-ANCA <1:20 titer (Neg:<1:20); PROTEINASE-3 ANTIBODY <3.5 U/mL (0.0-3.5)
[2017-01-01 00:06] LABS: A/G RATIO 0.9 (0.7-1.7); ALBUMIN 2.7 g/dL (2.9-4.4); GLOBULIN, TOTAL 3.1 g/dL (2.2-3.9); M-SPIKE Not Observed g/dL (Not Observed); TOTAL PROTEIN 5.8 g/dL (6.0-8.5)
[2017-01-01] MEDS ORDERED: PT OWN MED DRAWER 7, Y5N ONE ×2 (06:22→10:26)
[2017-01-01] MEDS: REPAGLINIDE 1 MG TABLET PO SCH (06:39)
[2017-01-01] MEDS: sitaGLIPtin PHOSPHATE 25 MG TABLET (FP) PO SCH (06:39)
[2017-01-01] MEDS: INSULIN SLIDING SCALE (NOVOLOG) 1 VIAL SQ SCH ×2 (06:40→11:41)
[2017-01-01 08:33] LABS: ANION GAP 9 (8-16); CALCIUM 8.8 mg/dL (8.5-10.1); CO2 26 mmol/L (21-32); CREATININE 2.3 mg/dL (0.7-1.3); GLUCOSE,RANDOM 185 mg/dL (74-106)
--- NOTE | 2017-01-01 10:59 | DS ---
Physical Examination Vital Signs: Vital Signs Temperature 97.1 F L 01/01/17 06:00 Pulse Rate 74 01/01/17 06:00 Respiratory Rate 18 01/01/17 06:00 Blood Pressure 135/54 01/01/17 06:00 O2 Sat by Pulse Oximetry (%) 98 12/31/16 21:00 Findings/Remarks: Pt w/o F, C, cough, CP, palp, abd pain. Pt is tolerating PO well. I had a long discussion with patient about his Renal disease and importance of follow up with a kidney specialist (in 1-2 weeks) to maintain renal function from further getting worse; all questions were answered. I had a long discussion with patient about his Diabetes Mellitus, change in medications, importance of compliance with diabetic diet and not skipping meals , follow-up with a specialist ( within one week) so further avoid complications ; all questions were answered. Time spent in managing patient care: over 50 minutes. Constitutional: Yes: No Distress, Calm Cardiovascular: Yes: Regular Rate and Rhythm, S1, S2 Respiratory: Yes: Regular, CTA Bilaterally. No: Rales Gastrointestinal: Yes: Normal Bowel Sounds, Soft, Abdomen, Obese. No: Tenderness Edema: No Neurological: Yes: Alert, Oriented Labs: CBC, BMP 12/31/16 07:00 01/01/17 06:58 Discharge Summary Reason For Visit: HYPOGLYCEMIA Current Active Problems Atrial fibrillation and flutter (Acute) Hyperkalemia (Acute) Hypertension (Acute) Hypoglycemia associated with diabetes (Acute) Hypoglycemia associated with type 2 diabetes mellitus (Acute) Hospital Course: Pt was referred to our ER after was found hypoglicemic at regular visit. In ER pt was also found IN ARF; pt was admitted for further managemnet. Pt's Lisinopril, Metformin, Januvia, Glipizide was held; pt was started on IVF, Insulin coverage; pt in consult by Renal (Dr. Lobo), Endo (DR. Salas), ID ( Dr. Hawkins). Pt improved, was started on Januvia, Repaglinide for glucose control; pt also was started on Norvasc for BP control. Pt to be DC'ed home today with [facility] f/u and Renal and Endo f/u; Pt is off Metformin, Glipizide, Lisinopril Condition: Improved - Instructions Diet, Activity, Other Instructions: Diet: ADA, Low salt, Low Cholesterol. BMP this week. Follow up with Dr. Salas (Endo), Dr. Lobo (Renal) within one week. Referrals: Karla Buckner MD [Staff Physician] - (within one week) Ehsan Lobo MD [Staff Physician] - (in 1-2 weeks) Disposition: HOME - Home Medications Comprehensive Discharge Medication List: Ambulatory Orders this list might NOT be accurate Albuterol Sulfate Inhaler - [Ventolin HFA Inhaler -] 1 - 2 inh PO Q4H 04/25/16 Gabapentin 400 mg PO DAILY 04/25/16 Lisinopril [Prinivil] 20 mg PO DAILY 04/25/16 Magnesium Oxide [Magox 400] 400 mg PO BID 04/25/16 Mometasone Furoate [Asmanex 110Mcg -] 1 inh IH DAILY 04/25/16 Tamsulosin HCl [Flomax] 0.4 mg PO HS 04/25/16 Tiotropium [place] [Spiriva] 1 inh PO DAILY 04/25/16 Abacavir/Dolutegravir/Lamivudi [Triumeq Tablet] 1 each PO DAILY #30 tablet 07/26 Apixaban [Eliquis] 5 mg PO DAILY #30 tablet 07/26/16 Aspirin [ASA -] 81 mg PO DAILY #30 tab.chew 07/26/16 Folic Acid 1 mg PO DAILY #30 tablet 07/26/16 Docusate Sodium [Colace -] 100 mg PO TID PRN #90 capsule 08/07/16 [place]-3S/Dha/Epa/Fish Oil [[place]-3 Fish Oil 1,000 mg Sfgl] 2 each PO BID #120 capsule 09/04/16 Metoprolol Tartrate [Lopressor -] 50 mg PO BID #60 tablet 09/19/16 Calcium Carbonate/Vitamin D3 [Calcium 600 + Vit D Tablet] 1 each PO DAILY #30 tablet 09/27/16 Metformin HCl [Metformin HCl ER] 500 mg PO BID #60 tab.er.24 10/04/16 Fenofibrate 150 mg PO DAILY #30 capsule 11/08/16 Sitagliptin Phosphate [Januvia] 25 mg PO DAILY #30 tab 11/08/16 Hydralazine HCl [Apresoline -] 25 mg PO DAILY 12/16/16 Miconazole Nitrate [Miconazole Nitrate -] 1 applic TP BID #1 tube 12/16/16 Miscellaneous Medical Supply [Outpatient Order] 1 each ASDIR #1 misc Mupirocin Ointment [Bactroban 2% Ointment -] 1 applic TP BID #1 tube 12/27/16
[2017-01-01] MEDS: RALTEGRAVIR POTASSIUM 400 MG TAB PO SCH (11:16)
[2017-01-01] MEDS: MOMETASONE FUROATE 110 MCG/IH INHALER IH SCH (11:16)
[2017-01-01] MEDS: amLODIPine BESYLATE 2.5 MG TABLET (FP) PO SCH (11:17)
[2017-01-01] MEDS: FOLIC ACID 1 MG TABLET (FP) PO SCH (11:17)
[2017-01-01] MEDS: GABAPENTIN 400 MG CAPSULE (FP) PO SCH (11:17)
[2017-01-01] MEDS: ASPIRIN 81 MG CHEWABLE TABLETS PO SCH (11:17)
[2017-01-01] MEDS: lamiVUDine 150 MG TABLET PO SCH (11:17)
[2017-01-01] MEDS: APIXABAN 5 MG TABLET PO SCH (11:17)
[2017-01-01] MEDS: FENOFIBRIC ACID 135 MG CAP PO SCH (11:18)
[2017-01-01] MEDS: METOPROLOL TARTRATE 50 MG TABLET (FP) PO SCH (11:18)
[2017-01-01] MEDS: ABACAVIR SULFATE 300 MG TABLET PO SCH (11:18)
[2017-01-01] MEDS: MUPIROCIN 2% TOPICAL OINTMENT 22 GM TUBE TP SCH (11:41)
[2017-01-01] MEDS: TIOTROPIUM BROMIDE 18 MCG/INH (DEVICE W/ 5 CAPSULES) IH SCH (11:42)
--- NOTE | 2017-01-01 12:39 | PN ---
Progress Note (short form) - Note Progress Note: Nephrology Follow up for YIFAN on CKD Pt seen and examined at the bedside no complaints Vital Signs Temperature 97.1 F L 01/01/17 06:00 Pulse Rate 74 01/01/17 06:00 Respiratory Rate 18 01/01/17 09:00 Blood Pressure 135/54 01/01/17 06:00 O2 Sat by Pulse Oximetry (%) 97 01/01/17 09:00 Intake & Output 12/29/16 12/30/16 12/31/16 01/01/17 23:59 23:59 23:59 23:59 Intake Total 3536 2251 2192 680 Output Total 600 Balance 2936 2251 2192 680 Weight 238 lb 7 oz 235 lb 7 oz 234 lb 4 oz NAD, awake and alert MMM, No JVD RRR, No M/R CTA, no rales Obese Abd, soft NT/ND, no bladder distension No LE edema, has a dressing over his left thigh CBC, BMP 12/31/16 07:00 01/01/17 06:58 Current Medications Abacavir Sulfate (Ziagen -) 300 mg PO BID [facility] Last Admin: 01/01/17 11:18 Dose: 300 mg Albuterol Sulfate (Ventolin Hfa Inhaler -) 2 puff IH Q6H PRN PRN Reason: SHORTNESS OF BREATH Amlodipine Besylate (Norvasc -) 2.5 mg PO DAILY [facility] Last Admin: 01/01/17 11:17 Dose: 2.5 mg Apixaban (Eliquis -) 5 mg PO DAILY [facility] Last Admin: 01/01/17 11:17 Dose: 5 mg Aspirin (Asa -) 81 mg PO DAILY [facility] Last Admin: 01/01/17 11:17 Dose: 81 mg Docusate Sodium (Colace -) 100 mg PO Q8H PRN PRN Reason: CONSTIPATION Last Admin: 12/27/16 22:59 Dose: 100 mg Fenofibric Acid (Trilipix -) 135 mg PO DAILY [facility] Last Admin: 01/01/17 11:18 Dose: 135 mg Folic Acid (Folic Acid -) 1 mg PO DAILY [facility] Last Admin: 01/01/17 11:17 Dose: 1 mg Gabapentin (Neurontin -) 400 mg PO DAILY [facility] Last Admin: 01/01/17 11:17 Dose: 400 mg Insulin Aspart (Novolog Vial Sliding Scale -) 1 vial SQ ACHS [facility] PRN Reason: Protocol Last Admin: 01/01/17 11:41 Dose: 2 units Lamivudine (Epivir -) 150 mg PO DAILY [facility] Last Admin: 01/01/17 11:17 Dose: 150 mg Metoprolol Tartrate (Lopressor -) 50 mg PO BID [facility] Last Admin: 01/01/17 11:18 Dose: 50 mg Mometasone Furoate (Asmanex 110mcg -) 1 puff IH DAILY [facility] Last Admin: 01/01/17 11:16 Dose: 1 puff Mupirocin (Bactroban 2% Ointment -) 1 applic TP DAILY [facility] Last Admin: 01/01/17 11:41 Dose: 1 applic Raltegravir (Isentress -) 400 mg PO BID [facility] Last Admin: 01/01/17 11:16 Dose: 400 mg Repaglinide (Prandin -) 1 mg PO BID@0700,1700 [facility] Last Admin: 01/01/17 06:39 Dose: 1 mg Simethicone (Mylicon -) 80 mg PO QID PRN PRN Reason: GAS Last Admin: 12/27/16 22:59 Dose: 80 mg Sitagliptin Phosphate (Januvia -) 25 mg PO DAILY@0700 [facility] Last Admin: 01/01/17 06:39 Dose: 25 mg Tamsulosin HCl (Flomax -) 0.4 mg PO HS [facility] Last Admin: 12/31/16 22:48 Dose: 0.4 mg Tiotropium [place] (Spiriva -) 1 puff IH DAILY [facility] Last Admin: 01/01/17 11:42 Dose: 1 puff A/P 66 year old gentleman with PMhx of CKD Stage 3, HIV on HARRT, DM Type 2 (Dx 12 years ago) w/o retinopathy who was admitted with hypoglycemia from his custodial and found to have BUN/Cr of 32/3.4 (discharged with Cr of 2.4 last admission). #YIFAN on CKD Renal function improved to presumed baseline DARIUSZ, ANCA, SPEP negative pt niecy with CKD and nephrotic range proteinuria from diabetic nephropathy would benifit from VIVIENNE/ARB but will start as a outpatient advised pt to avoid NSAIDs, Travis to follow up in our office in 2-4 weeks Ehsan Lobo DO
[2017-01-01 16:38] VITALS: BP 145/78; PULSE 96; TEMP 98.3
--- NOTE | 2017-01-03 09:22 | EKG ---
Test Reason : Blood Pressure : / mmHG Vent. Rate : 088 BPM Atrial Rate : 088 BPM P-R Int : 166 ms QRS Dur : 094 ms QT Int : 366 ms P-R-T Axes : 069 037 096 degrees QTc Int : 442 ms SINUS RHYTHM WITH FREQUENT PREMATURE VENTRICULAR COMPLEXES ANTEROSEPTAL INFARCT (CITED ON OR BEFORE 17-NOV-2003) ABNORMAL ECG WHEN COMPARED WITH ECG OF 16-DEC-2016 12:02, PREMATURE VENTRICULAR COMPLEXES ARE NOW PRESENT Confirmed by COURTNEY REYNOLDS MD ([id number]) on 01/03/2017 9:22:17 AM Referred By: Confirmed By:COURTNEY REYNOLDS MD
== END 2017-01-01 13:43 | disposition home or self-care (01) | DRG 638 ==
LOC: JER 13:52 → JERBED 15:06 → J5S 21:25 → OBSVTOIN 21:53
PROVIDERS: ADMIT Specialist; ATTEND Specialist
DX: E11.649 Type 2 diabetes mellitus with hypoglycemia without coma (principal); I48.92 Unspecified atrial flutter; L02.416 Cutaneous abscess of left lower limb; I25.10 Atherosclerotic heart disease of native coronary artery without angina pectoris; Z21 Asymptomatic human immunodeficiency virus [HIV] infection status; I48.91 Unspecified atrial fibrillation; Z79.01 Long term (current) use of anticoagulants; E66.9 Obesity, unspecified; N18.9 Chronic kidney disease, unspecified; E11.22 Type 2 diabetes mellitus with diabetic chronic kidney disease; I12.9 Hypertensive chronic kidney disease with stage 1 through stage 4 chronic kidney disease, or unspecified chronic kidney disease; E78.5 Hyperlipidemia, unspecified; N18.3 Chronic kidney disease, stage 3 (moderate); J44.9 Chronic obstructive pulmonary disease, unspecified; Z86.73 Personal history of transient ischemic attack (TIA), and cerebral infarction without residual deficits; F03.90 Unspecified dementia, unspecified severity, without behavioral disturbance, psychotic disturbance, mood disturbance, and anxiety; Z79.84 Long term (current) use of oral hypoglycemic drugs; N17.9 Acute kidney failure, unspecified; E87.5 Hyperkalemia; Z68.34 Body mass index [BMI] 34.0-34.9, adult; E11.21 Type 2 diabetes mellitus with diabetic nephropathy
CPT/HCPCS: 36415; 80048; 80053; 81003; 81015; 82570; 83036; 83520; 83735; 84100; 84155; 84156; 84165; 84300; 85025; 85027; 86038; 86256; 90688; 93005; 93010; 99284-25; G0008; G0378

== ENCOUNTER 2017-12-26 12:55 | Inpatient (IN) | payer MEDICARE, OTHER ==
--- NOTE | 2017-12-26 13:16 | PDOC ---
History of Present Illness - General Chief Complaint: Lightheaded Stated Complaint: DIZZINESS Time Seen by Provider: 12/26/17 13:15 History Source: Patient Exam Limitations: No Limitations - History of Present Illness Initial Comments: 12/26/17 13:30 67-year-old male with history of HIV (CD4 502), atrial fibrillation on Eliquis, hypertension, diabetes presents to ED for productive (white) cough x2 days. He admits to pain with inspiration, sneezing, rhinorrhea, sore throat. He denies chest pain, shortness of breath, dizziness, lightheadedness, fever, chills, body aches, nausea, vomiting. He admits to diarrhea, he states That yesterday he took a laxative for constipation. Allergies - NKDA Past History - Past Medical History Allergies/Adverse Reactions: Allergies Allergy/AdvReac Type Severity Reaction Status Date / Time No Known Allergies Allergy Verified 12/27/16 14:34 Home Medications: Ambulatory Orders Tiotropium [place] [Spiriva] 1 inh PO DAILY 04/25/16 Sitagliptin Phosphate [Januvia] 25 mg PO DAILY #30 tab 05/02/17 Abacavir/Dolutegravir/Lamivudi [Triumeq Tablet] 1 each PO DAILY #30 tablet 07/18 Multivitamin [Daily Multiple Vitamin] 1 each PO DAILY #30 tablet 08/29/17 B Complex 1 tab PO HS 09/15/17 Vitamin E 1,000 mg PO DAILY 09/15/17 Apixaban [Eliquis -] 5 mg PO BID 11/21/17 Repaglinide [Prandin -] 2 mg PO TID 11/21/17 Amlodipine Besylate 5 mg PO DAILY 11/25/17 Aspirin [Aspirin EC] 81 mg PO DAILY #30 tablet. 11/28/17 Calcium Carbonate/Vitamin D3 [Calcium 600 + Vit D Tablet] 1 each PO DAILY #30 tablet 11/28/17 Folic Acid 1 mg PO DAILY #30 tablet 11/28/17 Metoprolol Tartrate [Lopressor -] 50 mg PO BID #60 tablet 11/28/17 Tamsulosin HCl [Flomax] 0.4 mg PO HS #30 cap 11/28/17 Atorvastatin [place] [Lipitor] 80 mg PO HS 12/05/17 Albuterol Sulfate Inhaler - [Ventolin HFA Inhaler -] 1 - 2 inh PO Q4H PRN #1 inhaler 12/26/17 Docusate Sodium [Colace -] 100 mg PO TID PRN #90 capsule 12/26/17 Fluticasone Prop 0.05% Nasal [Flonase -] 1 - 2 spray NS DAILY #1 spray.pump 08/08 Fluticasone Propionate [Flovent Diskus] 100 mcg IH BID #1 blst.w.dev 12/26/17 Gabapentin 400 mg PO BID 12/26/17 Guaifenesin/D-Methorphan Hb [Diabetic Tussin Dm Liquid] 10 ml PO Q4H PRN #240 ml 12/26/17 Loratadine [Claritin -] 10 mg PO Q2D PRN #15 tablet 12/26/17 Mometasone Furoate [Asmanex 110Mcg -] 1 inh IH DAILY #1 inhaler 12/26/17 Anemia: Yes Asthma: Yes Cancer: No Cardiac Disorders: Yes CVA: No COPD: No CHF: Yes Dementia: No Diabetes: No Disorders: Yes HTN: Yes Hypercholesterolemia: No Seizures: No Thyroid Disease: No - Immunization History Immunization Up to Date: Yes - Suicide/Smoking/Psychosocial Hx Smoking History: Current every day smoker Have you smoked in the past 12 months: No Number of Cigarettes Smoked Daily: 2 If you are a former smoker, when did you quit?: "years ago" Cigars Per Day: 0 'Breaking Loose' booklet given: 08/29/15 Hx Alcohol Use: No Drug/Substance Use Hx: No Substance Use Type: None Hx Substance Use Treatment: No Review of Systems - Review of Systems Able to Perform ROS?: Yes Comments:: 12/26/17 13:53 General: denies fever, chills, night sweats, generalized weakness. HEENT: admits to sore throat, rhinorrhea, sneezing. denies ear pain. Heart: denies chest pain, palpitations, syncope, lower extremity swelling, diaphoresis. Respiratory: admits to pleurisy, cough, sputum production. denies shortness of breath, hemoptysis. Abdomen: denies abdominal pain, nausea, vomiting, diarrhea, constipation, blood in stool. : denies dysuria, increased urinary frequency, hematuria, urinary incontinence , flank pain. Back: denies back pain. Musculoskeletal: denies joint pain, muscle pain, joint swelling. Neurological: denies headache, dizziness, numbness, tingling, weakness. Skin: denies rash, laceration, abrasion. *Physical Exam - Physical Exam Comments: 12/26/17 13:56 Constitutional: Well-nourished, Well-developed, appearing stated age. morbidly obese. HEENT: head is normocephalic, atraumatic. EOMI. PERRLA. Neck: supple. Full ROM. Heart: regular rhythm. no murmurs, rubs or gallops. Lungs: wheezing bilaterally. crackles to left posterior lung field. rhonchi to left posterior lung field. Abdomen: soft, nontender. normal bowel sounds. no rebound, guarding, masses. Extremities: Peripheral pulses intact and equal. bilateral 1+ pitting edema. Neurological: CN 2-12 grossly intact. Moves all four extremities. Psych: awake, alert, oriented x3. Follows commands. Answers questions appropriately. ED Treatment Course - LABORATORY CBC & Chemistry Diagram: 12/27/17 06:40 12/27/17 06:40 Medical Decision Making - Medical Decision Making 12/26/17 13:50 67 year old male with PMH HIV (CD4 520), atrial fibrillation on eliquis, HTN presented to ED for cough x2 days. Initial Vital Signs Temp Pulse Resp BP Pulse Ox 99.5 F 80 24 H 144/82 97 12/26/17 12:55 12/26/17 12:55 12/26/17 12:55 12/26/17 12:55 12/26/17 12:55 Febrile. - Tylenol ordered - NS 1L bolus ordered Tachypnea. - Duonebs ordered No tachycardia, rate controlled with beta brooklynn. No hypotension. No hypoxia on room air. EKG performed at 1329 - rate 72, regular rhythm, normal axis, normal intervals, no specific ST changes. Concern for pneumonia - Pending CXR, CBC, lactate Concern for sepsis - Pending BC, UA/UC, CMP, coags 12/26/17 14:45 Pt reassessed, states he is feeling slightly better. Wheezing still present, but improved. -Will reassess. RN reports inability to establish IV line. Phlebotomy called by RN. 12/26/17 16:52 Phebotomy was called again by RN, stated they were very busy. They have not drawn the blood yet. CXR report - new infiltrate at the left base with congestive changes. 12/26/17 17:25 Ceftriaxone and Azithromycin ordered for CAP. 12/26/17 18:41 Pt reassessed, states he is feeling better. Wheezing improved but still auscultated on exam. Rapid flu swab ordered. Blood work drawn using US guided technique. 12/26/17 19:[address] Jones, resident for admitting team, about the patient. Pt will be admitted to Dr. Mercedes's service. No blood work resulted at this time. Pt will be admitted. *DC/Admit/Observation/Transfer Diagnosis at time of Disposition: HIV (human immunodeficiency virus infection), CAP (community acquired pneumonia ), Congestive heart failure - Discharge Dispostion Condition at time of disposition: Stable Decision to Admit order: Yes - Referrals - Patient Instructions - Post Discharge Activity
[2017-12-26 13:30] VITALS: BMI 35.4
[2017-12-26] MEDS ORDERED: SODIUM CHLORIDE 1,000 ML IV STA (13:31)
[2017-12-26] MEDS ORDERED: ALBUTEROL SO4 2.5/IPRATROPIUM 0.5 INH SOL 3 ML VIAL.NEB. NEB ONE ×2 (13:31→13:38)
[2017-12-26] MEDS ORDERED: ACETAMINOPHEN 1000 MG/100 ML VIAL (NON FORMULARY) IVPB ONE (13:32)
[2017-12-26] MEDS ORDERED: ACETAMINOPHEN INJECTION 100 ML IVPB ONE (13:38)
[2017-12-26] MEDS ORDERED: CEFTRIAXONE 2 GM in DEXTROSE 5%-WATER 100 ML IVPB ONE (18:15)
[2017-12-26 18:47] LABS: ARTERIAL BLD GAS O2 SATURATION 95.3 % (90-98.9); ARTERIAL BLOOD GAS PCO2 37.6 mmHg (35-45)
[2017-12-26 18:50] LABS: BASO % 0.9 % (0-2.0); EOS % 4.6 % (0-4.5); HEMATOCRIT 44.8 % (35.4-49); HEMOGLOBIN 14.4 GM/dL (11.7-16.9); LYMPH % 29.1 % (8-40); MCH 27.5 pg (25.7-33.7); MCHC 32.1 g/dl (32.0-35.9); MEAN CELL VOLUME 85.8 fl (80-96); MEAN PLT VOLUME 9.5 fl (7.5-11.1); MONO % 9.9 % (3.8-10.2); NEUT % 55.5 % (42.8-82.8); RBC 5.22 M/mm3 (4.00-5.60); RDW 16.1 % (11.9-15.9)
--- NOTE | 2017-12-26 18:52 | PDOC ---
Attending Attestation - HPI HPI: 12/26/17 19:03 The patient is a 67-year-old male with past medical history significant for HIV (CD 502), AFib on Eliquis, HTN, and DM presents to the emergency department with a cough for 2 days. The patient presents with a cough for the past 2 days, with clear phlegm production. The patient reports associated concern of rhinorrhea, pleuritic pain, and bilateral leg swelling. Denies hx of asthma. Denies abdominal pain. Allergies: NKA Social history: Current everyday smoker. No alcohol or recreational drug use reported. Surgical history: None reported PCP: Dr. Sanchez - Medical Decision Making 12/26/17 19:04 Documentation prepared by Angela Schaeffer, acting as medical claims assistant for Olinda Perdomo MD. <Angela Schaeffer - Last Filed: 12/26/17 19:03> - Resident Resident Name: Batsheva Lord - ED Attending Attestation I have performed the following: I have examined & evaluated the patient, The case was reviewed & discussed with the resident, I agree w/resident's findings & plan, Exceptions are as noted - Physicial Exam PE: 12/26/17 18:47 awake alert . lungs with bilateral wheezing, right greater than left. heart rrr no mrg. abd soft nt nd. obese. ext wwp. bilat nonpitting edema. 2 + symmetric pulses. - Medical Decision Making 12/26/17 18:48 differential diagnosis, chf, pneumonia, cardiac acs. effusion, pericardial effusion. and fever. wheezing on exam. plan cxr , bedside tte r/o pericardial effusion, ekg trop . focused ED TTE, mild decreased contractility. no pericardial effusion. no rv dilation or strain. impression: mild decr contractility, no pericardial effusion. cxr with left basilar infiltrate, mild congestive changes. give abx, will admit. <Olinda Perdomo - Last Filed: 12/26/17 19:45> Heart Score/ECG Review #1 General ECG Interpretation: Sinus Rhythm, Normal Rate (72), Normal Intervals, No acute ischemic changes Compared to previous ECG there are: Other (TWI I, AVL, V1 - V2.) <Olinda Perdomo - Last Filed: 12/26/17 19:45>
[2017-12-26] MEDS ORDERED: CEFTRIAXONE 2 GM/100 ML BAG IVPB ONE (19:01)
[2017-12-26] MEDS ORDERED: AZITHROMYCIN IVPB 500 MG/250 ML BAG IVPB ONE (19:01)
[2017-12-26 19:04] LABS: INR 1.18 (0.83-1.09)
[2017-12-26 19:07] LABS: ACTIVATED PTT 34.5 SECONDS (25.2-36.5)
[2017-12-26] MEDS: AZITHROMYCIN IVPB 500 MG in DEXTROSE 5%-WATER - 250 ML IVPB ONE (19:15)
[2017-12-26 19:20] LABS: ALBUMIN 1.6 g/dl (3.4-5.0); ALK PHOS 151 U/L (45-117); ANION GAP 2 MMOL/L (8-16); BILIRUBIN,TOTAL 0.4 mg/dL (0.2-1); BLOOD UREA NITROGEN 31 mg/dL (7-18); CALCIUM 8.2 mg/dL (8.5-10.1); CHLORIDE 106 mmol/L (98-107); CO2 29 mmol/L (21-32); CREATININE 3.9 mg/dL (0.55-1.3); GLUCOSE,RANDOM 75 mg/dL (74-106); POTASSIUM 4.5 mmol/L (3.5-5.1); SGOT/AST 53 U/L (15-37); SGPT/ALT 23 U/L (13-61); SODIUM 137 mmol/L (136-145); TOT PROT 5.6 g/dl (6.4-8.2)
--- NOTE | 2017-12-26 19:50 | PN ---
Teaching Attending Note Name of Resident: Fay Kurtz ATTENDING PHYSICIAN STATEMENT I saw and evaluated the patient. I reviewed the resident's note and discussed the case with the resident. I agree with the resident's findings and plan as documented. SUBJECTIVE: Patient is a 67 year old man with PMH of HIV disease (CD 502), AFib on Eliquis, HTN, MRSA infection, COPD, Major depression, Ca Prostate, Tobacco use and NIDDM who presents to the ER with a cough for 2 days. The patient presents with a cough for the past 2 days, with clear sputum production. He has associated rhinorrhea, pleuritic pain, and bilateral leg swelling. Denies abdominal pain. OBJECTIVE: Alert Vital Signs Period Temp Pulse Resp BP Sys/Gaspar Pulse Ox Last 24 Hr 98.0 F-99.5 F 71-80 13-24 144-151/77-82 96-98 HEENT: No Jaundice, eye redness or discharge, PERRLA, EOMI. Missing a lot of teeth; Normocephalic, atraumatic. External ears are normal and hearing is grossly intact. No nasal discharge. Neck: Supple, nontender. No palpable adenopathy or thyromegaly. No JVD Chest: Good effort. Clear to auscultation and percussion. Heart: Regular. No S3, rub or murmur Abdomen: Not distended, soft, nontender and no HSM. No rebound or guarding. Normoactive bowel sounds. Ext: Peripheral pulses intact. Pedal edema, dystrophic toe nails. Skin: Warm and dry. No petechiae, rash or ecchymosis. Neuro: Alert. Oriented x3. CN 2-12 grossly intact. Sensation grossly intact in all four extremities and DTR are symmetric. Home Medications Medication Instructions Recorded Tiotropium [place] [Spiriva] 1 inh PO DAILY 04/25/16 Sitagliptin Phosphate [Januvia] 25 mg PO DAILY #30 tab 05/02/17 Abacavir/Dolutegravir/Lamivudi 1 each PO DAILY #30 tablet 07/18/17 [Triumeq Tablet] Multivitamin [Daily Multiple 1 each PO DAILY #30 tablet 08/29/17 Vitamin] B Complex 1 tab PO HS 09/15/17 Vitamin E 1,000 mg PO DAILY 09/15/17 Apixaban [Eliquis -] 5 mg PO BID 11/21/17 Repaglinide [Prandin -] 2 mg PO TID 11/21/17 Amlodipine Besylate 5 mg PO DAILY 11/25/17 Aspirin [Aspirin EC] 81 mg PO DAILY #30 tablet. 11/28/17 Calcium Carbonate/Vitamin D3 1 each PO DAILY #30 tablet 11/28/17 [Calcium 600 + Vit D Tablet] Folic Acid 1 mg PO DAILY #30 tablet 11/28/17 Metoprolol Tartrate [Lopressor -] 50 mg PO BID #60 tablet 11/28/17 Tamsulosin HCl [Flomax] 0.4 mg PO HS #30 cap 11/28/17 Atorvastatin [place] [Lipitor] 80 mg PO HS 12/05/17 Albuterol Sulfate Inhaler - 1 - 2 inh PO Q4H PRN #1 inhaler 12/26/17 [Ventolin HFA Inhaler -] Docusate Sodium [Colace -] 100 mg PO TID PRN #90 capsule 12/26/17 Fluticasone Prop 0.05% Nasal 1 - 2 spray NS DAILY #1 spray.pump 12/26/17 [Flonase -] Fluticasone Propionate [Flovent 100 mcg IH BID #1 blst.w.dev 12/26/17 Diskus] Gabapentin 400 mg PO DAILY #30 capsule 12/26/17 Guaifenesin/D-Methorphan Hb 10 ml PO Q4H PRN #240 ml 12/26/17 [Diabetic Tussin Dm Liquid] Loratadine [Claritin -] 10 mg PO Q2D PRN #15 tablet 12/26/17 Mometasone Furoate [Asmanex 110Mcg 1 inh IH DAILY #1 inhaler 12/26/17 -] Abnormal Lab Results 12/26/17 12/26/17 12/26/17 18:20 18:20 18:30 WBC 16.0 H RDW 16.1 H Absolute Neuts (auto) 8.9 H Eosinophils % 4.6 H PT with INR 14.00 H INR 1.18 H ABG pO2 at Pt Temp Anion Gap 2 L BUN 31 H Creatinine 3.9 H Calcium 8.2 L AST 53 H Alkaline Phosphatase 151 H Total Protein 5.6 L Albumin 1.6 L 12/26/17 18:36 WBC RDW Absolute Neuts (auto) Eosinophils % PT with INR INR ABG pO2 at Pt Temp 77.0 L Anion Gap BUN Creatinine Calcium AST Alkaline Phosphatase Total Protein Albumin ASSESSMENT AND PLAN: 1. Pneumonia - CXR shows cardiomegaly, congestive changes with obscured left CP angle. Will get chest CT to confirm pneumonia. Continue IV rocephin and azithromycin and get urine legionella antigen. ECHO from 07/21/15 showed reduced LV function. Got 1 liter bolus IV NS in the ER, but will withhold aggressive IV fluids for now pending ECHO - he may have CHF and/or nephrotic syndrome. Get UA stat. Isolate for MRSA, consult ID and continue HAART. Will decide on diuresis once UA and ECHO reports are available. 2. Severe Hypoalbuminemia - Possibly due to combined effects of malnutrition and inflammation associated with comorbid chronic conditions. Will ensure adequate dietary protein intake and also consult call center agent. Get UA to rule out proteinuria. 3. DM - For now, we will hold the home diabetes drugs and implement sliding scale insulin regimen. Provide comprehensive diabetes care with patient teaching and counseling about the importance of euglycemia, eye care and foot care. 4. Tobacco Use We will provide patient all the necessary assistance to facilitate smoking cessation and prescribe Nicotine patch. 5. CKD - Has multiple risk factors for CKD. Unclear if he has had nephrologic work up. Will consult nephrology and avoid nephrotoxic agents such as NSAIDS, aminoglycosides, contrast dyes and certain Alternative medicine products. 6. Obesity - Will provide patient all the necessary assistance, counseling and positive reinforcement to facilitate weight loss. Consult call center agent. 7. DVT prophylaxis - Heparin 5000u sq tid. 8. Advance directives - Full code
[2017-12-26] MEDS ORDERED: CEFTRIAXONE 1,000 MG in DEXTROSE 5%-WATER - 50 ML IVPB ONE (20:44)
[2017-12-26 21:03] LABS: PLATELET ESTIMATE ADEQUATE
--- NOTE | 2017-12-26 23:41 | HP ---
CHIEF COMPLAINT:productive cough PCP: HISTORY OF PRESENT ILLNESS: Patient is a 67 year old male with past medical history of HIV (on HAART), Atrial fibrillation (on eliquis), Hypertension, DM, COPD, CKD, Anemia, CHF and BPH, presented with productive cough and rhinorrhea since 2 days ago. Patient reported that for the past 2 days, he has been having productive cough with whitish sputum, accompanied by rhinorrhea and sneezing. Patient denies chest pain, shortness of breath, dizziness, headache, fever, chills, malaise, nausea or vomiting. He denies abdominal pain, diarrhea, or urinary symptoms. ER course was notable for: (1)WBC 16 with left shift (2)Azithromycin and Ceftriaxone given (3)IV Ns bolus (4)Duonebs (5)CXR - some new congestive changes with questionable infiltrate at L base Recent Travel:denies any recent travel PAST MEDICAL HISTORY: -HIV (on HAART) -Atrial fibrillation (on eliquis) -Hypertension -DM -COPD -CKD -Anemia -CHF -BPH PAST SURGICAL HISTORY: noncontributory Social History: Smoking:previous smoker, used to smoke 5 sticks per day since he was 14 y/o. stopped 2-3 years ago. Alcohol:occasional EtOH drinker Drugs: denies illicit drug use Sexual Hx: pt is homosexual and is sexually active lives in the care home since 2004 He is seen at the [facility] for HAART treatment Family History:noncontributory Allergies No Known Allergies Allergy (Verified 12/27/16 14:34) HOME MEDICATIONS: Home Medications Medication Instructions Recorded Tiotropium [place] [Spiriva] 1 inh PO DAILY 04/25/16 Sitagliptin Phosphate [Januvia] 25 mg PO DAILY #30 tab 05/02/17 Abacavir/Dolutegravir/Lamivudi 1 each PO DAILY #30 tablet 07/18/17 [Triumeq Tablet] Multivitamin [Daily Multiple 1 each PO DAILY #30 tablet 08/29/17 Vitamin] B Complex 1 tab PO HS 09/15/17 Vitamin E 1,000 mg PO DAILY 09/15/17 Apixaban [Eliquis -] 5 mg PO BID 11/21/17 Repaglinide [Prandin -] 2 mg PO TID 11/21/17 Amlodipine Besylate 5 mg PO DAILY 11/25/17 Aspirin [Aspirin EC] 81 mg PO DAILY #30 tablet. 11/28/17 Calcium Carbonate/Vitamin D3 1 each PO DAILY #30 tablet 11/28/17 [Calcium 600 + Vit D Tablet] Folic Acid 1 mg PO DAILY #30 tablet 11/28/17 Metoprolol Tartrate [Lopressor -] 50 mg PO BID #60 tablet 11/28/17 Tamsulosin HCl [Flomax] 0.4 mg PO HS #30 cap 11/28/17 Atorvastatin Ca [Lipitor] 80 mg PO HS 12/05/17 Albuterol Sulfate Inhaler - 1 - 2 inh PO Q4H PRN #1 inhaler 12/26/17 [Ventolin HFA Inhaler -] Docusate Sodium [Colace -] 100 mg PO TID PRN #90 capsule 12/26/17 Fluticasone Prop 0.05% Nasal 1 - 2 spray NS DAILY #1 spray.pump 12/26/17 [Flonase -] Fluticasone Propionate [Flovent 100 mcg IH BID #1 blst.w.dev 12/26/17 Diskus] Gabapentin 400 mg PO DAILY #30 capsule 12/26/17 Guaifenesin/D-Methorphan Hb 10 ml PO Q4H PRN #240 ml 12/26/17 [Diabetic Tussin Dm Liquid] Loratadine [Claritin -] 10 mg PO Q2D PRN #15 tablet 12/26/17 Mometasone Furoate [Asmanex 110Mcg 1 inh IH DAILY #1 inhaler 12/26/17 -] REVIEW OF SYSTEMS CONSTITUTIONAL: Absent: fever, chills, diaphoresis, generalized weakness, malaise, loss of appetite, weight change HEENT: rhinorrhea Absent: nasal congestion, throat pain, throat swelling, difficulty swallowing, mouth swelling, ear pain, eye pain, visual changes CARDIOVASCULAR: Absent: chest pain, syncope, palpitations, irregular heart rate, lightheadedness , peripheral edema RESPIRATORY: cough Absent: shortness of breath, dyspnea with exertion, orthopnea, wheezing, stridor , hemoptysis GASTROINTESTINAL: Absent: abdominal pain, abdominal distension, nausea, vomiting, diarrhea, constipation, melena, hematochezia GENITOURINARY: Absent: dysuria, frequency, urgency, hesitancy, hematuria, flank pain, genital pain MUSCULOSKELETAL: Absent: myalgia, arthralgia, joint swelling, back pain, neck pain SKIN: Absent: rash, itching, pallor HEMATOLOGIC/IMMUNOLOGIC: Absent: easy bleeding, easy bruising, lymphadenopathy, frequent infections ENDOCRINE: Absent: unexplained weight gain, unexplained weight loss, heat intolerance, cold intolerance NEUROLOGIC: Absent: headache, focal weakness or paresthesias, dizziness, unsteady gait, seizure, mental status changes, bladder or bowel incontinence PSYCHIATRIC: Absent: anxiety, depression, suicidal or homicidal ideation, hallucinations. PHYSICAL EXAMINATION Vital Signs - 24 hr 12/26/17 12/26/17 12/26/17 12:55 14:40 16:45 Temperature 99.5 F 98.0 F Pulse Rate 80 Pulse Rate [ Right Radial] Respiratory 24 H Rate Blood Pressure 144/82 Blood Pressure [Right Arm] O2 Sat by Pulse 97 96 Oximetry (%) 12/26/17 12/26/17 12/26/17 17:36 21:59 23:08 Temperature 98 F Pulse Rate 83 Pulse Rate [ 71 81 Right Radial] Respiratory 13 20 19 Rate Blood Pressure 152/95 Blood Pressure 151/77 157/101 H [Right Arm] O2 Sat by Pulse 98 97 Oximetry (%) GENERAL: Awake, alert, and fully oriented, in no acute distress. HEAD: Normal with no signs of trauma. EYES: PERRLA, EOMI, sclera anicteric, conjunctiva clear. EARS, NOSE, THROAT: Ears normal, nares patent, +clear nasal discharge, has few teeth, no dentures. Moist mucous membranes. NECK: Normal range of motion, supple without lymphadenopathy, JVD, or masses. LUNGS: +expiratory wheezing bilaterally HEART: Regular rate and rhythm, normal S1 and S2 without murmur, rub or gallop. ABDOMEN: Soft, nontender, not distended, normoactive bowel sounds. MUSCULOSKELETAL: Normal range of motion at all joints. No bony deformities or tenderness. No CVA tenderness. UPPER EXTREMITIES: 2+ pulses, warm, well-perfused. No cyanosis. No clubbing. No peripheral edema. LOWER EXTREMITIES: 2+ pulses, warm, well-perfused. +1 bilateral pedal edema NEUROLOGICAL: Cranial nerves II-XII intact. Normal speech. Normal gait. sensation intact, motor 5/5 in all extremities. PSYCHIATRIC: Cooperative. Good eye contact. Appropriate mood and affect. SKIN: Warm, dry, normal turgor, no rashes or lesions noted, normal capillary refill. Laboratory Results - last 24 hr 12/26/17 12/26/17 12/26/17 18:20 18:20 18:24 WBC 16.0 H RBC 5.22 Hgb 14.4 Hct 44.8 MCV 85.8 MCH 27.5 MCHC 32.1 RDW 16.1 H Plt Count No Result Required. MPV 9.5 Absolute Neuts (auto) 8.9 H Neutrophils % 55.5 Lymphocytes % 29.1 Monocytes % 9.9 Eosinophils % 4.6 H Basophils % 0.9 Nucleated RBC % 0 Platelet Estimate Adequate Platelet Comment Slt plt clumping PT with INR INR PTT (Actin FS) Anticoagulation Therapy Puncture Site ABG pH ABG pCO2 at Pt Temp ABG pO2 at Pt Temp ABG HCO3 ABG O2 Sat (Measured) ABG O2 Content ABG Base Excess Abiodun Test O2 Delivery Device Oxygen Flow Rate Vent Mode Vent Rate Mechanical Rate Pressure Support Vent Sodium 137 Potassium 4.5 Chloride 106 Carbon Dioxide 29 Anion Gap 2 L BUN 31 H Creatinine 3.9 H Creat Clearance w eGFR 15.41 Random Glucose 75 Lactic Acid Calcium 8.2 L Total Bilirubin 0.4 AST 53 H ALT 23 Alkaline Phosphatase 151 H Troponin I < 0.02 Total Protein 5.6 L Albumin 1.6 L 12/26/17 12/26/17 12/26/17 18:30 18:30 18:36 WBC RBC Hgb Hct MCV MCH MCHC RDW Plt Count MPV Absolute Neuts (auto) Neutrophils % Lymphocytes % Monocytes % Eosinophils % Basophils % Nucleated RBC % Platelet Estimate Platelet Comment PT with INR 14.00 H INR 1.18 H PTT (Actin FS) 34.5 Anticoagulation Therapy No Result Required. Puncture Site No Result Required. ABG pH 7.40 ABG pCO2 at Pt Temp 37.6 ABG pO2 at Pt Temp 77.0 L ABG HCO3 22.9 ABG O2 Sat (Measured) 95.3 ABG O2 Content 19.3 ABG Base Excess -1.0 Abiodun Test No Result Required. O2 Delivery Device No Result Required. Oxygen Flow Rate No Result Required. Vent Mode No Result Required. Vent Rate No Result Required. Mechanical Rate No Result Required. Pressure Support Vent No Result Required. Sodium Potassium Chloride Carbon Dioxide Anion Gap BUN Creatinine Creat Clearance w eGFR Random Glucose Lactic Acid 0.5 Calcium Total Bilirubin AST ALT Alkaline Phosphatase Troponin I Total Protein Albumin ASSESSMENT/PLAN: Patient is a 67 year old male with past medical history of HIV (on HAART), Atrial fibrillation (on eliquis), Hypertension, DM, COPD, CKD, Anemia, CHF and BPH, presented with productive cough and rhinorrhea since 2 days ago. #Community acquired pneumonia -Leukocytosis of 16 with left shift -UA pending, need to rule out UTI -CXR showed questionable infiltrate at the left base -Chest CT scan ordered. -IV Ceftriaxone and Azithromycin started at the ED. Will continue for now. -ID consulted. -Blood cultures done. -Flu vaccine and pneumococcal vaccine given. #Systolic CHF -CXR showed some new congestive changes -Previous echo (2015) LV systolic function mildly reduced -Will repeat Echo -IV NS bolus given at the ED -Will hold further IV fluids for now #YIFAN on CKD -BUN 31, Cr 3.9 -Nephrology consulted. -Renal US (11/2016) - mildly atrophic and echogenic kidney chronic medical renal disease. Large postvoid residual. -Avoid nephrotoxic agents such as NSAIDs, aminoglycosides and contrast dyes. #HIV: -continue HAART -ID consulted. -Patient is seen at [facility]. #Atrial fibrillation -Metoprolol 50mg BID -continue Eliquis 5mg BID #COPD -continue home medications #DM -hold DM medications for now -BGM ACHS -Insulin sliding scale ACHS #Hyperlipidemia -Continue Atrovastatin 80 mg HS #Hypertension -Continue [id number] and Metoprolol 50mg BID #BPH -continue Tamsulosin 0.4mg #FEN -Not on any standing fluids -Electrolytes wnl, routine bmp monitoring -diabetic/sodium diet #Prophylaxis -On Eliquis 5mg BID #Disposition -admit to med surg -MRSA isolation -full code Visit type - Emergency Visit Emergency Visit: Yes ED Registration Date: 12/26/17 Care time: The patient presented to the Emergency Department on the above date and was hospitalized for further evaluation of their emergent condition. - New Patient This patient is new to me today: Yes Date on this admission: 12/27/17 - Critical Care Critical Care patient: No
[2017-12-27 02:35] LABS: URINE APPEARANCE CLEAR; URINE BILIRUBIN NEGATIVE (<2.0 mg/dL); URINE COLOR LTYELLOW; URINE GLUCOSE (UA) 3+ (NEGATIVE); URINE KETONE NEGATIVE (NEGATIVE); URINE LEUK ESTERASE NEGATIVE (NEGATIVE); URINE NITRITE NEGATIVE (NEGATIVE); URINE PROTEIN 3+ (NEGATIVE); URINE UROBILINOGEN NEGATIVE mg/dL (0.2-1.0)
[2017-12-27 03:00] LABS: EPI CELLS RARE /HPF (FEW)
[2017-12-27] MEDS ORDERED: PT OWN MED DRAWER 7, Y5N ONE ×3 (04:51→22:25)
[2017-12-27] MEDS: INSULIN SLIDING SCALE (NOVOLOG) 1 VIAL SQ SCH ×4 (06:13→22:29)
[2017-12-27 08:00] LABS: BASO % 0.5 % (0-2.0); EOS % 4.2 % (0-4.5); HEMATOCRIT 43.6 % (35.4-49); MCH 27.6 pg (25.7-33.7); MEAN CELL VOLUME 86.2 fl (80-96); MONO % 11.1 % (3.8-10.2); NEUT % 56.2 % (42.8-82.8); PLATELET COUNT 208 K/MM3 (134-434); RBC 5.06 M/mm3 (4.00-5.60); RDW 15.4 % (11.9-15.9); WHITE BLOOD COUNT 8.6 K/mm3 (4.0-10.0)
[2017-12-27 08:31] LABS: ALBUMIN 1.5 g/dl (3.4-5.0); ALK PHOS 144 U/L (45-117); ANION GAP 7 MMOL/L (8-16); BILIRUBIN,TOTAL 0.2 mg/dL (0.2-1); BLOOD UREA NITROGEN 29 mg/dL (7-18); CALCIUM 8.3 mg/dL (8.5-10.1); CHLORIDE 106 mmol/L (98-107); CO2 27 mmol/L (21-32); CREATININE 3.7 mg/dL (0.55-1.3); GLUCOSE,RANDOM 141 mg/dL (74-106); MAGNESIUM 2.8 mg/dL (1.8-2.4); PHOSPHOROUS 4.7 mg/dL (2.5-4.9); POTASSIUM 4.1 mmol/L (3.5-5.1); SGOT/AST 45 U/L (15-37); SGPT/ALT 22 U/L (13-61); SODIUM 139 mmol/L (136-145); TOT PROT 5.1 g/dl (6.4-8.2)
[2017-12-27] MEDS: CEFTRIAXONE 1 GM in DEXTROSE 5%-WATER - 50 ML IVPB SCH (09:03)
--- NOTE | 2017-12-27 09:53 | PN ---
Progress Note (short form) - Note Progress Note: c/o productive cough of white sputum. continue to have generalized weakness. denies Cp, SOB, fever, chills, N/V/c/D states he was having subjective fevers and chills at home for the past 2 days and that the [employer] at the [facility] encouraged him to come to the Er for evaluation. was taking Nyquil at home for symptoms. does not know if his medications have been changed. pt is a poor historian and does not know his doctors names (other than [facility] and Dr Marquez from Cardiology) Current Medications Generic Name Dose Route Start Last Admin Trade Name Freq PRN Reason Stop Dose Admin Apixaban 5 mg 12/27/17 10:00 Eliquis - PO BID [facility] Aspirin 81 mg 12/27/17 10:00 Ecotrin - PO DAILY GELACIO Atorvastatin Calcium 80 mg 12/27/17 22:00 Lipitor - PO HS GELACIO Folic Acid 1 mg 12/27/17 10:00 Folic Acid - PO DAILY GELACIO Gabapentin 400 mg 12/27/17 10:00 Neurontin - PO BID GELACIO Azithromycin 500 mg in 250 mls @ 250 mls/hr 12/27/17 10:00 Zithromax 500mg Ivpb (Pre-Docked) IVPB DAILY [facility] Ceftriaxone Sodium 1 gm/ 50 mls @ 100 mls/hr 12/27/17 10:00 Dextrose IVPB DAILY [facility] Influenza Virus Vaccine Quadrival 60 mcg 12/27/17 10:00 Flulaval Quad 7120-1280 IM 12/27/17 10:01 .ONCE ONE Insulin Aspart 1 vial 12/27/17 07:00 12/27/17 06:13 Novolog Vial Sliding Scale - SQ Not Given ACHS [facility] Protocol Metoprolol Tartrate 50 mg 12/27/17 10:00 Lopressor - PO BID [facility] Mometasone Furoate 1 puff 12/27/17 10:00 Asmanex 110mcg - IH DAILY GELACIO Multivitamins/Minerals/Vitamin C 1 tab 12/27/17 10:00 Tab-A-Vit - PO DAILY GELACIO Non-Formulary Medication 1 each 12/27/17 10:00 Abacavir/Dolutegravir/Lamivudi [Triumeq Tablet] PO DAILY GELACIO Non-Formulary Medication 100 mcg 12/27/17 10:00 Fluticasone Propionate [Flovent Diskus] IH BID GELACIO Non-Formulary Medication 1 inh 12/27/17 10:00 Tiotropium [place] [Spiriva] PO DAILY GELACIO Pneumococcal 13-Valent Conj Vacc 0.5 ml 12/27/17 10:23 Prevnar 13 Syringe - IM 12/27/17 10:24 .ONCE ONE Tamsulosin HCl 0.4 mg 12/27/17 22:00 Flomax - PO HS GELACIO Last Vital Signs Temp Pulse Resp BP Pulse Ox 98.5 F 96 H 20 133/85 98 12/27/17 06:33 12/27/17 06:33 12/27/17 06:33 12/27/17 06:33 12/26/17 22:55 General NAD, slow to respond HEENT no sinus pressure. no pain on ear manipulation, no drainage from the ears CV S1 S2 RRR Lungs CTA B/L poor inspiratory effort Abdomen soft NT/nD Extremities trace pitting edema CBCD WBC 8.6 K/mm3 (4.0-10.0) 12/27/17 06:40 RBC 5.06 M/mm3 (4.00-5.60) 12/27/17 06:40 Hgb 14.0 GM/dL (11.7-16.9) 12/27/17 06:40 Hct 43.6 % (35.4-49) 12/27/17 06:40 MCV 86.2 fl (80-96) 12/27/17 06:40 MCHC 32.0 g/dl (32.0-35.9) 12/27/17 06:40 RDW 15.4 % (11.9-15.9) 12/27/17 06:40 Plt Count 208 K/MM3 (134-434) 12/27/17 06:40 MPV 9.0 fl (7.5-11.1) 12/27/17 06:40 CMP Sodium 139 mmol/L (136-145) 12/27/17 06:40 Potassium 4.1 mmol/L (3.5-5.1) 12/27/17 06:40 Chloride 106 mmol/L (98-107) 12/27/17 06:40 Carbon Dioxide 27 mmol/L (21-32) 12/27/17 06:40 Anion Gap 7 MMOL/L (8-16) L 12/27/17 06:40 BUN 29 mg/dL (7-18) H 12/27/17 06:40 Creatinine 3.7 mg/dL (0.55-1.3) H 12/27/17 06:40 Creat Clearance w eGFR 16.37 (>60) 12/27/17 06:40 Calcium 8.3 mg/dL (8.5-10.1) L 12/27/17 06:40 Total Bilirubin 0.2 mg/dL (0.2-1) 12/27/17 06:40 AST 45 U/L (15-37) H 12/27/17 06:40 ALT 22 U/L (13-61) 12/27/17 06:40 Alkaline Phosphatase 144 U/L (45-117) H 12/27/17 06:40 Total Protein 5.1 g/dl (6.4-8.2) L 12/27/17 06:40 Albumin 1.5 g/dl (3.4-5.0) L 12/27/17 06:40 Microbiology 12/26/17 19:21 Influenza Types A,B Antigen - Final Nasopharyngeal Swab - Final A/P 67yo M with PMH HIV on HARRT, afib on eliquis, systolic CHF, HTN, COPD, CKD , DM and prostate ca presented to the Er with generalized fatigue and productive cough 1. CAP- CT chest showing R base infiltrate with productive cough and leukocytosis. clinically improved but still feels lethargic. started on ceftriaxone/azithro day day 2. will obtain Urinelegionella/strep. ID consulted. f/u Cx . flu negative 2. Acute on CKD- states he followed up with healthcare project manager after his last hospital stay but does not recall whom and does not recall what was done. only knows that his numbers fluctuate. slowly improving. received 1L NS in the ER. would hold further IVF at this time. encourage po water intake. making good urine. denies NSAID use. avoid nephrotoxic agents. 3. HIV on HARRT- resume home medications. ID consulted. will see if they can obtain recent VL and CD4 numbers. pt does not recall but states were recently done 4. Afib on eliquis- resume home medications 5. systolic CHF- does not appear volume overloaded. trace pitting edema could be from norvasc as well. will hold and see if it improves. is not on diuretic at home. 6. HTn- controlled. monitor closely as norvasc is held. may need to adjust medicaitons 7. COPD- no signs of exacerbation. cont home medications 8. DM- hold oral agents. will need to monitor renal function. may need to hold metformin on discharge consider worsening renal function. iss and BGM 9. prostate ca- outpatient f/u 10. DVT ppx- eliquis Visit type - Emergency Visit Emergency Visit: Yes ED Registration Date: 12/26/17 Care time: The patient presented to the Emergency Department on the above date and was hospitalized for further evaluation of their emergent condition. - New Patient This patient is new to me today: Yes Date on this admission: 12/27/17 - Critical Care Critical Care patient: No - Discharge Referral Referred to [facility] No
[2017-12-27] MEDS ORDERED: PATIENT'S OWN MEDICATION (NON-FORMULARY) (Tiotropium Bromide [Spiriva] 1 INH) PO SCH (10:00)
[2017-12-27] MEDS ORDERED: CEFTRIAXONE 1,000 MG in DEXTROSE 5%-WATER - 50 ML IVPB ONE (10:00)
[2017-12-27] MEDS ORDERED: PATIENT'S OWN MEDICATION (NON-FORMULARY) (Fluticasone Propionate [Flovent Diskus] 100 MCG) IH SCH (10:00)
[2017-12-27] MEDS ORDERED: MOMETASONE FUROATE 110 MCG/IH INHALER IH SCH (10:00)
[2017-12-27] MEDS ORDERED: FLU VACCINE QUAD 60 MCG/0.5 ML (MDV 18-19) IM ONE (10:00)
[2017-12-27] MEDS: AZITHROMYCIN IVPB 500 MG in DEXTROSE 5%-WATER - 250 ML IVPB ONE (10:04)
[2017-12-27] MEDS ORDERED: PNEUMOC 13-VAL CONJ-DIP CRM/PF 0.5 ML DISP.SYRIN IM ONE (10:23)
[2017-12-27] MEDS ORDERED: cefTRIAXone SODIUM 1 GM VIAL ONE (10:54)
[2017-12-27] MEDS ORDERED: DEXTROSE 5%-WATER - 50 ML IVPB ONE (10:55)
[2017-12-27] MEDS: GABAPENTIN 400 MG CAPSULE (FP) PO SCH ×2 (11:04→22:27)
[2017-12-27] MEDS: ASPIRIN COATED 81 MG TABLET.EC PO SCH (11:04)
[2017-12-27] MEDS: METOPROLOL TARTRATE 50 MG TABLET (FP) PO SCH ×2 (11:04→22:27)
[2017-12-27] MEDS: FOLIC ACID 1 MG TABLET (FP) PO SCH (11:05)
[2017-12-27] MEDS: APIXABAN 5 MG TABLET PO SCH ×2 (11:05→22:27)
[2017-12-27] MEDS: MULTIVITAMINS (DAILY MVI) TABLET (FP) PO SCH (11:05)
[2017-12-27] MEDS: DOLUTEGRAVIR SODIUM 50 MG TABLET (NON-FORMULARY) PO SCH (11:06)
[2017-12-27] MEDS: TIOTROPIUM BROMIDE 2.5 MCG (SPIRIVA) RESPIMAT INHALER IH SCH (11:06)
[2017-12-27] MEDS: AZITHROMYCIN IVPB 500 MG/250 ML BAG IVPB SCH (11:06)
[2017-12-27] MEDS: ABACAVIR SULFATE 300 MG TABLET PO SCH (11:06)
--- NOTE | 2017-12-27 13:01 | CON.ID ---
Consult Consult Specialty:: infectious disease Referred by:: [facility] Reason for Consultation:: pneumonia. hiv - History of Present Illness Chief Complaint: fever/chills. cough. 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 No: O2 Dependent Renal/: Yes: Renal Inusuff, Cancer (of prostate, s/p RT) Infectious Disease: Yes: HIV Endocrine: Yes: Diabetes Mellitus - Alcohol/Substance Use Hx Alcohol Use: No History of Substance Use: reports: None - Smoking History Smoking history: Current every day smoker Have you smoked in the past 12 months: No Aproximately how many cigarettes per day: 2 If you are a former smoker, when did you quit?: "years ago" - Social History Usual Living Arrangement: Alone ADL: Independent History of Recent Travel: No Home Medications - Allergies Allergies/Adverse Reactions: Allergies Allergy/AdvReac Type Severity Reaction Status Date / Time No Known Allergies Allergy Verified 12/27/16 14:34 - Home Medications Home Medications: Ambulatory Orders Tiotropium Somers [Spiriva] 1 inh PO DAILY 04/25/16 Sitagliptin Phosphate [Januvia] 25 mg PO DAILY #30 tab 05/02/17 Abacavir/Dolutegravir/Lamivudi [Triumeq Tablet] 1 each PO DAILY #30 tablet 07/18 Multivitamin [Daily Multiple Vitamin] 1 each PO DAILY #30 tablet 08/29/17 B Complex 1 tab PO HS 09/15/17 Vitamin E 1,000 mg PO DAILY 09/15/17 Apixaban [Eliquis -] 5 mg PO BID 11/21/17 Repaglinide [Prandin -] 2 mg PO TID 11/21/17 Amlodipine Besylate 5 mg PO DAILY 11/25/17 Aspirin [Aspirin EC] 81 mg PO DAILY #30 tablet. 11/28/17 Calcium Carbonate/Vitamin D3 [Calcium 600 + Vit D Tablet] 1 each PO DAILY #30 tablet 11/28/17 Folic Acid 1 mg PO DAILY #30 tablet 11/28/17 Metoprolol Tartrate [Lopressor -] 50 mg PO BID #60 tablet 11/28/17 Tamsulosin HCl [Flomax] 0.4 mg PO HS #30 cap 11/28/17 Atorvastatin Ca [Lipitor] 80 mg PO HS 12/05/17 Albuterol Sulfate Inhaler - [Ventolin HFA Inhaler -] 1 - 2 inh PO Q4H PRN #1 inhaler 12/26/17 Docusate Sodium [Colace -] 100 mg PO TID PRN #90 capsule 12/26/17 Fluticasone Prop 0.05% Nasal [Flonase -] 1 - 2 spray NS DAILY #1 spray.pump 08/08 Fluticasone Propionate [Flovent Diskus] 100 mcg IH BID #1 blst.w.dev 12/26/17 Gabapentin 400 mg PO BID 12/26/17 Guaifenesin/D-Methorphan Hb [Diabetic Tussin Dm Liquid] 10 ml PO Q4H PRN #240 ml 12/26/17 Loratadine [Claritin -] 10 mg PO Q2D PRN #15 tablet 12/26/17 Mometasone Furoate [Asmanex 110Mcg -] 1 inh IH DAILY #1 inhaler 12/26/17 Family Disease History - Family Disease History Family Disease History: Diabetes: Brother (3 brothers, 1 with dm), Respiratory: Brother, Other: Grandparent (unk), Father (dec'd cause and age unk), Mother (dec 'd age 60's, cause unk), Brother, Sister (1 a&w) Review of Systems - Review of Systems Constitutional: reports: Chills, Fever Cardiovascular: denies: Chest Pain Respiratory: reports: Cough Physical Exam Vital Signs: Vital Signs Temperature 98.5 F 12/27/17 06:33 Pulse Rate 96 H 12/27/17 06:33 Respiratory Rate 20 12/27/17 09:00 Blood Pressure 133/85 12/27/17 06:33 O2 Sat by Pulse Oximetry (%) 98 12/26/17 22:55 Constitutional: Yes: Well Nourished, No Distress, Calm Eyes: Yes: Conjunctiva Clear HENT: Yes: Atraumatic, Normocephalic, Other (rhinorrhea) Neck: Yes: Supple Cardiovascular: Yes: Regular Rate and Rhythm Respiratory: Yes: Wheezes Gastrointestinal: Yes: Normal Bowel Sounds, Soft Edema: LLE: Trace, RLE: Trace Psychiatric: Yes: Alert, Oriented Labs: CBC, BMP 12/27/17 06:40 12/27/17 06:40 Imaging - Results Chest X-ray: Report Reviewed, Image Reviewed Cat Scan: Report Reviewed, Image Reviewed Ultrasound: Report Reviewed (no duplex) Problem List - Problems (1) HIV (human immunodeficiency virus infection) Code(s): Z21 - ASYMPTOMATIC HUMAN IMMUNODEFICIENCY VIRUS INFECTION STATUS (2) Pneumonia Code(s): J18.9 - PNEUMONIA, UNSPECIFIED ORGANISM (3) Diabetes Code(s): E11.9 - TYPE 2 DIABETES MELLITUS WITHOUT COMPLICATIONS (4) Chronic kidney disease Code(s): N18.9 - CHRONIC KIDNEY DISEASE, UNSPECIFIED Assessment/Plan agree with treatment of CAP with rocephin/zithromax f/u cultures legionella urinary antigen continue art meds d/w with patient will need to switch off triumeq due to ckd will adjust meds in clinic and help him with pill box diabetes-saw cooker process cheese last visit in clinic
--- NOTE | 2017-12-27 17:13 | EKG ---
Test Reason : Blood Pressure : / mmHG Vent. Rate : 072 BPM Atrial Rate : 072 BPM P-R Int : 182 ms QRS Dur : 094 ms QT Int : 402 ms P-R-T Axes : 047 023 106 degrees QTc Int : 440 ms NORMAL SINUS RHYTHM INFERIOR INFARCT , AGE UNDETERMINED ANTEROSEPTAL INFARCT (CITED ON OR BEFORE 17-NOV-2003) ABNORMAL ECG WHEN COMPARED WITH ECG OF 09-DEC-2017 10:58, PREMATURE VENTRICULAR COMPLEXES ARE NO LONGER PRESENT INFERIOR INFARCT IS NOW PRESENT NONSPECIFIC T WAVE ABNORMALITY, WORSE IN LATERAL LEADS CLINICAL CORRELATION IS RECOMMENDED Confirmed by DURGA UGARTE MD ([id number]) on 12/27/2017 5:13:18 PM Referred By: Confirmed By:DURGA UGARTE MD
[2017-12-27] MEDS: ATORVASTATIN CA 80 MG TABLET (FP) PO SCH (22:27)
[2017-12-27] MEDS: TAMSULOSIN HCL 0.4 MG CAP PO SCH (22:27)
[2017-12-27] MEDS: MOMETASONE FUROATE 220 MCG/IH INHALER IH SCH (23:26)
[2017-12-28] MEDS ORDERED: INSULIN (NOVOLOG) ASPART 100 UNITS/ML 10ML VIAL ONE ×3 (05:36→22:25)
[2017-12-28] MEDS: INSULIN SLIDING SCALE (NOVOLOG) 1 VIAL SQ SCH ×4 (06:08→22:38)
--- NOTE | 2017-12-28 08:13 | PN ---
Physical Exam: SUBJECTIVE: Patient seen and examined this AM. He states that he still has the productive cough, but that he is improving from yesterday. OBJECTIVE: Vital Signs Period Temp Pulse Resp BP Sys/Gaspar Pulse Ox Last 24 Hr 98.1 F-98.6 F 77-89 18-22 135-161/80-90 GENERAL: A&O, no acute distress HEAD: Normocephalic, atraumatic. EYES: PERRL, no scleral icterus EARS, NOSE, THROAT: oropharynx clear without exudates. Moist mucous membranes. NECK: supple without lymphadenopathy LUNGS: Diffuse course breath sounds, worse on the left, mild expiratory wheezes diffusely HEART: Regular rate and rhythm, normal S1 and S2 without murmur ABDOMEN: Soft, nontender to palpation, normoactive bowel sounds EXTREMITIES: 2+ pulses, warm, well-perfused. No peripheral edema. NEUROLOGICAL: Cranial nerves II-XII grossly intact. Normal speech. PSYCHIATRIC: Cooperative. Good eye contact. Appropriate mood and affect. Laboratory Results - last 24 hr 12/27/17 12/27/17 12/27/17 06:40 17:13 22:28 Sodium 139 Potassium 4.1 Chloride 106 Carbon Dioxide 27 Anion Gap 7 L BUN 29 H Creatinine 3.7 H Creat Clearance w eGFR 16.37 POC Glucometer 95 118 Random Glucose 141 H Calcium 8.3 L Phosphorus 4.7 Magnesium 2.8 H Total Bilirubin 0.2 AST 45 H ALT 22 Alkaline Phosphatase 144 H Total Protein 5.1 L Albumin 1.5 L 12/28/17 05:39 Sodium Potassium Chloride Carbon Dioxide Anion Gap BUN Creatinine Creat Clearance w eGFR POC Glucometer 114 Random Glucose Calcium Phosphorus Magnesium Total Bilirubin AST ALT Alkaline Phosphatase Total Protein Albumin Active Medications Generic Name Dose Route Start Last Admin Trade Name Freq PRN Reason Stop Dose Admin Abacavir Sulfate 600 mg 12/27/17 10:00 12/27/17 11:06 Ziagen - PO Not Given DAILY GELACIO Apixaban 5 mg 12/27/17 10:00 12/27/17 22:27 Eliquis - PO 5 mg BID GELACIO Administration Aspirin 81 mg 12/27/17 10:00 12/27/17 11:04 Ecotrin - PO 81 mg DAILY GELACIO Administration Atorvastatin Calcium 80 mg 12/27/17 22:00 12/27/17 22:27 Lipitor - PO 80 mg HS GELACIO Administration Folic Acid 1 mg 12/27/17 10:00 12/27/17 11:05 Folic Acid - PO 1 mg DAILY GELACIO Administration Gabapentin 400 mg 12/27/17 10:00 12/27/17 22:27 Neurontin - PO 400 mg BID GELACIO Administration Azithromycin 500 mg in 250 mls @ 250 mls/hr 12/27/17 10:00 12/27/17 11:06 Zithromax 500mg Ivpb (Pre-Docked) IVPB Not Given DAILY GELACIO Ceftriaxone Sodium 1 gm/ 50 mls @ 100 mls/hr 12/27/17 10:00 12/27/17 09:03 Dextrose IVPB 100 mls/hr DAILY GELACIO Administration Insulin Aspart 1 vial 12/27/17 07:00 12/28/17 06:08 Novolog Vial Sliding Scale - SQ Not Given ACHS [facility] Protocol Lamivudine 150 mg 12/28/17 10:00 Epivir - PO DAILY GELACIO Metoprolol Tartrate 50 mg 12/27/17 10:00 12/27/17 22:27 Lopressor - PO 50 mg BID GELACIO Administration Mometasone Furoate 1 puff 12/27/17 22:00 12/27/17 23:26 Asmanex 220mcg - IH 1 puff HS GELACIO Administration Multivitamins/Minerals/Vitamin C 1 tab 12/27/17 10:00 12/27/17 11:05 Tab-A-Vit - PO 1 tab DAILY GELACIO Administration Tamsulosin HCl 0.4 mg 12/27/17 22:00 12/27/17 22:27 Flomax - PO 0.4 mg HS GELACIO Administration Tiotropium [place] 2 puff 12/27/17 10:00 12/27/17 11:06 Spiriva Respimat IH Not Given DAILY [facility] ASSESSMENT/PLAN: 67 year old male with past medical history of HIV (on HAART), Atrial fibrillation (on eliquis), Hypertension, DM, COPD, CKD, Anemia, CHF and BPH admitted for Community Acquired Pneumonia CAP -ID consult appreciated -Ceftriaxone 1 gm IV Daily, Azithromycin 500 mg IV Daily -Legionella Ag negative -Flu negative -Blood and urine cultures negative to date HIV -On Triumeq at home, will continue home meds -Last CD4 502 as per ID with viral load suppressed COPD -Not an acute exacerbation, resume home meds -Asmanex, Ventolin, Spiriva, Flovent A-Fib -Rate well controlled with Lopressor 50 mg PO BID -On Eliquis 5 mg PO BID HTN -Lopressor as above HLD -Lipitor 80 mg PO HS -ASA 81 mg PO Daily DM -Hold home Januvia -BGMs ACHS -Insulin sliding scale for glycemic control CKD -Pt at baseline -Avoid nephrotoxic drugs -Pt follows with Dr. Lobo outpatient Systolic CHF -No signs of volume overload -not on diuretic at home BPH -Not acutely retaining urine -Flomax 0.4 mg PO Daily DVT Prophylaxis -Eliquis 5 mg PO BID FEN -Fluids: -Electrolytes: No electrolyte abnormalities, BMP in AM -Nutrition: Diabetic Sodium controlled diet Disposition Med/Surg Visit type - Emergency Visit Emergency Visit: Yes ED Registration Date: 12/26/17 Care time: The patient presented to the Emergency Department on the above date and was hospitalized for further evaluation of their emergent condition. - New Patient This patient is new to me today: Yes Date on this admission: 12/28/17 - Critical Care Critical Care patient: No
[2017-12-28 08:26] LABS: ANION GAP 6 MMOL/L (8-16); BLOOD UREA NITROGEN 31 mg/dL (7-18); CALCIUM 7.9 mg/dL (8.5-10.1); CHLORIDE 108 mmol/L (98-107); CO2 25 mmol/L (21-32); CREATININE 3.5 mg/dL (0.55-1.3); GLUCOSE,RANDOM 118 mg/dL (74-106); POTASSIUM 4.2 mmol/L (3.5-5.1); SODIUM 139 mmol/L (136-145)
[2017-12-28] MEDS: CEFTRIAXONE 1 GM in DEXTROSE 5%-WATER - 50 ML IVPB SCH (09:56)
[2017-12-28] MEDS ORDERED: cefTRIAXone SODIUM 1 GM VIAL ONE (10:45)
[2017-12-28] MEDS ORDERED: DEXTROSE 5%-WATER - 50 ML IVPB ONE (10:45)
[2017-12-28] MEDS: MULTIVITAMINS (DAILY MVI) TABLET (FP) PO SCH (10:57)
[2017-12-28] MEDS: guaiFENesin 600 MG TABLET.ER (FP) PO SCH ×2 (10:57→22:35)
[2017-12-28] MEDS: FOLIC ACID 1 MG TABLET (FP) PO SCH (10:57)
[2017-12-28] MEDS: ASPIRIN COATED 81 MG TABLET.EC PO SCH (10:57)
[2017-12-28] MEDS: GABAPENTIN 400 MG CAPSULE (FP) PO SCH ×2 (10:57→22:35)
[2017-12-28] MEDS: METOPROLOL TARTRATE 50 MG TABLET (FP) PO SCH ×2 (10:57→22:35)
[2017-12-28] MEDS: APIXABAN 5 MG TABLET PO SCH ×2 (10:57→22:34)
[2017-12-28] MEDS: ABACAVIR SULFATE 300 MG TABLET PO SCH (10:58)
[2017-12-28] MEDS: lamiVUDine 150 MG TABLET PO SCH (10:58)
[2017-12-28] MEDS: DOLUTEGRAVIR SODIUM 50 MG TABLET (NON-FORMULARY) PO SCH (11:01)
[2017-12-28] MEDS: AZITHROMYCIN IVPB 500 MG/250 ML BAG IVPB SCH (11:03)
[2017-12-28] MEDS: TIOTROPIUM BROMIDE 2.5 MCG (SPIRIVA) RESPIMAT INHALER IH SCH (11:04)
--- NOTE | 2017-12-28 12:55 | PN ---
Teaching Attending Note Name of Resident: Braydon Escobedo ATTENDING PHYSICIAN STATEMENT I saw and evaluated the patient. I reviewed the resident's note and discussed the case with the resident. I agree with the resident's findings and plan as documented. SUBJECTIVE:still feels overall weak and has persistent non productive cough. deneis CP, fever, chills, N/V/c/D OBJECTIVE: Last Vital Signs Temp Pulse Resp BP Pulse Ox 98.4 F 83 18 128/87 96 12/28/17 09:09 12/28/17 09:09 12/28/17 09:09 12/28/17 09:09 12/28/17 08:23 General NAD Lungs scattered wheezing. poor inspiratory effort ASSESSMENT AND PLAN: 67yo M with PMH HIV on HARRT, afib on eliquis, systolic CHF, HTN, COPD, CKD, DM and prostate ca presented to the Er with generalized fatigue and productive cough 1. CAP-clinically improved however has persistent cough causing pt to loose his breath. cont ceftriaxone/azithro day day 2 ( he did not receive on 12/26 as initially thought) spoke with ID f/u cx. legionella negative 2. Acute on CKD- clinically improving. now at baseline. as per ID he follows up wtih Dr Lobo. informed pt need to f/u wtih him to monitor kidney status. avoid nephrotoxic agents. 3. HIV on HARRT- resume home medications. ID consulted. states last labs were stable 4. Afib on eliquis- resume home medications 5. systolic CHF- does not appear volume overloaded. trace pitting edema could be from norvasc as well. will hold and see if it improves. is not on diuretic at home. 6. HTn- controlled. monitor closely as norvasc is held. may need to adjust medicaitons 7. COPD- no signs of exacerbation. cont home medications 8. DM- hold oral agents. will need to monitor renal function. may need to hold metformin on discharge consider worsening renal function. iss and BGM, not requiring any coverage. check A1c 9. prostate ca- outpatient f/u 10. DVT ppx- eliquis 11. anticipate discharge in next 24-48H
--- NOTE | 2017-12-28 14:10 | PN ---
Progress Note (short form) - Note Progress Note: day #3 antibiotics still wheezing and coughing Vital Signs Period Temp Pulse Resp BP Sys/Gaspar Pulse Ox Last 24 Hr 98.1 F-98.6 F 77-84 18-22 128-161/80-90 96 cor-rrr lungs bilateral wheezes abd soft,nt ext trace edema CBC, BMP 12/27/17 06:40 12/28/17 07:00 Microbiology 12/27/17 02:22 Urine - Urine Clean Catch Urine Culture - Final NO GROWTH OBTAINED 12/27/17 12:50 Urine - Urine Clean Catch Legionella Antigen - Final 12/27/17 12:50 Urine - Urine Clean Catch Streptococcus pneumoniae Antigen ( M - Final 12/26/17 14:26 Blood - Peripheral Venous Blood Culture - Preliminary NO GROWTH OBTAINED AFTER 24 HOURS, INCUBATION TO CONTINUE FOR 4 DAYS. 12/26/17 14:26 Blood - Peripheral Venous Blood Culture - Preliminary NO GROWTH OBTAINED AFTER 24 HOURS, INCUBATION TO CONTINUE FOR 4 DAYS. 12/26/17 19:21 Nasopharyngeal Swab Influenza Types A,B Antigen - Final 12/26/17 19:21 Nasopharyngeal Swab - Final a/p pneumonia- cap legionella negative day #3 rocephin/zithromax add nebs he is wheezing hiv- stable on art ckd improved dm Problem List - Problems (1) HIV (human immunodeficiency virus infection) Code(s): Z21 - ASYMPTOMATIC HUMAN IMMUNODEFICIENCY VIRUS INFECTION STATUS (2) Pneumonia Code(s): J18.9 - PNEUMONIA, UNSPECIFIED ORGANISM (3) Diabetes Code(s): E11.9 - TYPE 2 DIABETES MELLITUS WITHOUT COMPLICATIONS (4) Chronic kidney disease Code(s): N18.9 - CHRONIC KIDNEY DISEASE, UNSPECIFIED
[2017-12-28] MEDS: ALBUTEROL SO4 0.083% IH SOL 2.5 MG/3 ML VIAL.NEB. NEB PRN ×2 (15:07→23:20)
[2017-12-28] MEDS ORDERED: INSULIN (LEVEMIR) 100 UNITS/ML UNITS SQ ONE (22:25)
[2017-12-28] MEDS ORDERED: PT OWN MED DRAWER 7, Y5N ONE (22:26)
[2017-12-28] MEDS: MOMETASONE FUROATE 220 MCG/IH INHALER IH SCH (22:34)
[2017-12-28] MEDS: TAMSULOSIN HCL 0.4 MG CAP PO SCH (22:35)
[2017-12-28] MEDS: ATORVASTATIN CA 80 MG TABLET (FP) PO SCH (22:35)
[2017-12-29] MEDS: INSULIN SLIDING SCALE (NOVOLOG) 1 VIAL SQ SCH ×3 (06:14→16:47)
[2017-12-29 08:44] LABS: ANION GAP 7 MMOL/L (8-16); BLOOD UREA NITROGEN 35 mg/dL (7-18); CALCIUM 7.6 mg/dL (8.5-10.1); CHLORIDE 106 mmol/L (98-107); CO2 26 mmol/L (21-32); CREATININE 3.9 mg/dL (0.55-1.3); GLUCOSE,RANDOM 167 mg/dL (74-106); SODIUM 138 mmol/L (136-145)
[2017-12-29] MEDS ORDERED: cefTRIAXone SODIUM 1 GM VIAL ONE (09:38)
[2017-12-29] MEDS ORDERED: PT OWN MED DRAWER 7, Y5N ONE (09:38)
[2017-12-29] MEDS ORDERED: DEXTROSE 5%-WATER - 50 ML IVPB ONE (09:39)
[2017-12-29] MEDS: ASPIRIN COATED 81 MG TABLET.EC PO SCH (09:43)
[2017-12-29] MEDS: APIXABAN 5 MG TABLET PO SCH (09:43)
[2017-12-29] MEDS: FOLIC ACID 1 MG TABLET (FP) PO SCH (09:44)
[2017-12-29] MEDS: lamiVUDine 150 MG TABLET PO SCH (09:44)
[2017-12-29] MEDS: METOPROLOL TARTRATE 50 MG TABLET (FP) PO SCH (09:44)
[2017-12-29] MEDS: GABAPENTIN 400 MG CAPSULE (FP) PO SCH (09:45)
[2017-12-29] MEDS: DOLUTEGRAVIR SODIUM 50 MG TABLET (NON-FORMULARY) PO SCH (09:45)
[2017-12-29] MEDS: guaiFENesin 600 MG TABLET.ER (FP) PO SCH (09:45)
[2017-12-29] MEDS: MULTIVITAMINS (DAILY MVI) TABLET (FP) PO SCH (09:45)
[2017-12-29] MEDS: CEFTRIAXONE 1 GM in DEXTROSE 5%-WATER - 50 ML IVPB SCH (09:46)
[2017-12-29] MEDS: ABACAVIR SULFATE 300 MG TABLET PO SCH (09:46)
[2017-12-29] MEDS: TIOTROPIUM BROMIDE 2.5 MCG (SPIRIVA) RESPIMAT INHALER IH SCH (09:47)
[2017-12-29] MEDS: AZITHROMYCIN IVPB 500 MG/250 ML BAG IVPB SCH (10:28)
[2017-12-29] MEDS ORDERED: INSULIN (NOVOLOG) ASPART 100 UNITS/ML 10ML VIAL ONE (11:46)
--- NOTE | 2017-12-29 13:22 | PN ---
Progress Note (short form) - Note Progress Note: day #4 antibiotics much less wheezing today less cough as well Vital Signs Period Temp Pulse Resp BP Sys/Gaspar Pulse Ox Last 24 Hr 98.2 F-98.3 F 80-84 18-20 118-153/62-80 95-98 cor-rrr lungs -scattered wheeze abd-soft, nt ext- trace edema CBC, BMP 12/27/17 06:40 12/29/17 07:30 Microbiology 12/26/17 14:26 Blood - Peripheral Venous Blood Culture - Preliminary NO GROWTH OBTAINED AFTER 48 HOURS, INCUBATION TO CONTINUE FOR 3 DAYS. 12/26/17 14:26 Blood - Peripheral Venous Blood Culture - Preliminary NO GROWTH OBTAINED AFTER 48 HOURS, INCUBATION TO CONTINUE FOR 3 DAYS. 12/27/17 02:22 Urine - Urine Clean Catch Urine Culture - Final NO GROWTH OBTAINED 12/27/17 12:50 Urine - Urine Clean Catch Legionella Antigen - Final 12/27/17 12:50 Urine - Urine Clean Catch Streptococcus pneumoniae Antigen ( M - Final 12/26/17 19:21 Nasopharyngeal Swab Influenza Types A,B Antigen - Final 12/26/17 19:21 Nasopharyngeal Swab - Final a/p pneumonia- cap legionella negative day #4 rocephin/zithromax can switch to po ceftin to complete 7 days hiv- stable on art ckd improved needs dm f/u can f/u at the [facility] Problem List - Problems (1) HIV (human immunodeficiency virus infection) Code(s): Z21 - ASYMPTOMATIC HUMAN IMMUNODEFICIENCY VIRUS INFECTION STATUS (2) Pneumonia Code(s): J18.9 - PNEUMONIA, UNSPECIFIED ORGANISM (3) Diabetes Code(s): E11.9 - TYPE 2 DIABETES MELLITUS WITHOUT COMPLICATIONS (4) Chronic kidney disease Code(s): N18.9 - CHRONIC KIDNEY DISEASE, UNSPECIFIED
--- NOTE | 2017-12-29 14:01 | PN ---
Teaching Attending Note Name of Resident: Braydon Escobedo ATTENDING PHYSICIAN STATEMENT I saw and evaluated the patient. I reviewed the resident's note and discussed the case with the resident. I agree with the resident's findings and plan as documented. SUBJECTIVE:continues to have productive cough of whitish sputum but overall improved. pt states he feels much better today. denies CP, SOB, fever, chills, N /V/C/D OBJECTIVE: Last Vital Signs Temp Pulse Resp BP Pulse Ox 98.2 F 80 20 118/63 95 12/29/17 08:35 12/29/17 08:35 12/29/17 08:35 12/29/17 08:35 12/29/17 09:00 General NAD Lungs scattered wheezing. poor inspiratory effort ASSESSMENT AND PLAN: 67yo M with PMH HIV on HARRT, afib on eliquis, systolic CHF, HTN, COPD, CKD, DM and prostate ca presented to the Er with generalized fatigue and productive cough 1. CAP-overall improved. on ceftriaxone/azithro day day 3 can switch to ceftin to complete 7 day course. f/u in [facility] as outpatient. will give inhaler to use on discharge prn wheezing 2. Acute on CKD- clinically improving. now at baseline. as per ID he follows up wtih Dr Lobo. informed pt need to f/u wtih him to monitor kidney status. avoid nephrotoxic agents. 3. HIV on HARRT- resume home medications. ID consulted. states last labs were stable 4. Afib on eliquis- resume home medications 5. systolic CHF- does not appear volume overloaded. trace pitting edema could be from norvasc as well. will hold and see if it improves. is not on diuretic at home. 6. HTn- should have tight BP control given renal disease. will re-start norvasc on discharge 7. COPD- no signs of exacerbation. cont home medications 8. DM- A1c 8.2. verified meds and no longer taking metformin. januvia renally dosed. cont prandin with close monitoring for hypoglycemia. diabetic diet 9. prostate ca- outpatient f/u 10. DVT ppx- eliquis 11. d/c home
[2017-12-29 17:14] VITALS: BP 145/74; PULSE 62; TEMP 98.2
--- NOTE | 2017-12-29 18:23 | DS ---
Physical Exam: SUBJECTIVE: Patient seen and examined this AM. He says that his breathing is better and that his cough is still present but improving. No overnight events noted. OBJECTIVE: Vital Signs Period Temp Pulse Resp BP Sys/Gaspar Pulse Ox Last 24 Hr 98 F-98.3 F 62-80 17-20 118-153/63-80 95-98 PHYSICAL EXAM GENERAL: A&O, no acute distress HEAD: Normocephalic, atraumatic. EYES: PERRL, no scleral icterus EARS, NOSE, THROAT: oropharynx clear without exudates. Moist mucous membranes. NECK: supple without lymphadenopathy LUNGS: Course breath sounds improving, mild expiratory wheezes diffusely HEART: Regular rate and rhythm, normal S1 and S2 without murmur ABDOMEN: Soft, nontender to palpation, normoactive bowel sounds EXTREMITIES: 2+ pulses, warm, well-perfused. No peripheral edema. NEUROLOGICAL: Cranial nerves II-XII grossly intact. Normal speech. PSYCHIATRIC: Cooperative. Good eye contact. Appropriate mood and affect. LABS Laboratory Results - last 24 hr 12/27/17 12/28/17 12/28/17 02:22 18:02 22:37 Sodium Potassium Chloride Carbon Dioxide Anion Gap BUN Creatinine Creat Clearance w eGFR POC Glucometer 215 128 Random Glucose Hemoglobin A1c % Calcium Urine RBC (Auto) 4 12/29/17 12/29/17 12/29/17 06:13 07:30 07:30 Sodium 138 Potassium 4.0 Chloride 106 Carbon Dioxide 26 Anion Gap 7 L BUN 35 H Creatinine 3.9 H Creat Clearance w eGFR 15.41 POC Glucometer 154 Random Glucose 167 H Hemoglobin A1c % 8.2 H Calcium 7.6 L Urine RBC (Auto) 12/29/17 12/29/17 11:41 16:46 Sodium Potassium Chloride Carbon Dioxide Anion Gap BUN Creatinine Creat Clearance w eGFR POC Glucometer 237 127 Random Glucose Hemoglobin A1c % Calcium Urine RBC (Auto) IMAGING: CXR: New congestive changes with questionable infiltrate of left base since 12/16 CT Chest: Small posterior bibasilar infiltrate, small b/l pleural effusions, mild b/l lower lobe atelectasis, extensive atherosclerotic coronary calcifications. HOSPITAL COURSE: Date of Admission:12/26/17 Date of Discharge: 12/29/17 67 year old male with past medical history of HIV (on HAART), Atrial fibrillation (on eliquis), Hypertension, DM, COPD, CKD, Anemia, CHF and BPH admitted for Community Acquired Pneumonia. He was seen by ID who recommended Ceftriaxone and Azithromycin. Urine Legionella was negative in addition to Flu swab. He was given Duonebs for his wheezing. He clinically improved and was deemed medically safe for discharge. He was discharged with Ceftin 500 mg PO BID for 4 more days, Total 7 days Abx. Of note he was instructed to follow up with his counseling services manager for his CKD. Minutes to complete discharge: 37 Discharge Summary Reason For Visit: CONGESTIVE HEART FAILURE; HIV; PNEUMONIA Condition: Stable - Instructions Diet, Activity, Other Instructions: You were admitted to the hospital with a pneumonia and sepsis. You were seen by an infectious disease doctor who made recommendations for your treatment. You were given antibiotics (Ceftriaxone and Azithromycin) through an IV which greatly improved your infection. At this time you are medically stable to go home on oral antibiotics. You should follow up with your primary care physician within 1 week of discharge from the hospital. It is important that you check your sugars regularly until you can follow up with your primary doctor. Your 2 diabetes medications (Januvia and Prandin) were held during your hospitalization and you only required a very small amount of insulin (4 units over 3 days). Your doctor may wish to adjust your diabetes medications in the office as an outpatient. You should also follow up with a counseling services manager within 1 week of discharge from the hospital. you need to have your kidney function closely monitored. You should take Ceftin 500 mg twice daily for 4 more days starting tomorrow for continued resolution of your pneumonia You should otherwise resume all of your home medications as they are prescribed prior to this hospitalization. If you have any severe shortness of breath, high fevers return, coughing up large amounts of blood, you should call your doctor or return to the emergency department immediately. Referrals: Flower Toussaint NP [Primary Care Provider] - Ehsan Lobo MD [Staff Physician] - 1 Week Disposition: HOME - Home Medications Comprehensive Discharge Medication List: Ambulatory Orders Tiotropium [place] [Spiriva] 1 inh PO DAILY 04/25/16 Sitagliptin Phosphate [Januvia] 25 mg PO DAILY #30 tab 05/02/17 Abacavir/Dolutegravir/Lamivudi [Triumeq Tablet] 1 each PO DAILY #30 tablet 07/18 Multivitamin [Daily Multiple Vitamin] 1 each PO DAILY #30 tablet 08/29/17 B Complex 1 tab PO HS 09/15/17 Vitamin E 1,000 mg PO DAILY 09/15/17 Apixaban [Eliquis -] 5 mg PO BID 11/21/17 Repaglinide [Prandin -] 2 mg PO TID 11/21/17 Amlodipine Besylate 5 mg PO DAILY 11/25/17 Aspirin [Aspirin EC] 81 mg PO DAILY #30 tablet. 11/28/17 Calcium Carbonate/Vitamin D3 [Calcium 600 + Vit D Tablet] 1 each PO DAILY #30 tablet 11/28/17 Folic Acid 1 mg PO DAILY #30 tablet 11/28/17 Metoprolol Tartrate [Lopressor -] 50 mg PO BID #60 tablet 11/28/17 Tamsulosin HCl [Flomax] 0.4 mg PO HS #30 cap 11/28/17 Atorvastatin Ca [Lipitor] 80 mg PO HS 12/05/17 Albuterol Sulfate Inhaler - [Ventolin HFA Inhaler -] 1 - 2 inh PO Q4H PRN #1 inhaler 12/26/17 Docusate Sodium [Colace -] 100 mg PO TID PRN #90 capsule 12/26/17 Fluticasone Prop 0.05% Nasal [Flonase -] 1 - 2 spray NS DAILY #1 spray.pump 08/08 Fluticasone Propionate [Flovent Diskus] 100 mcg IH BID #1 blst.w.dev 12/26/17 Gabapentin 400 mg PO BID 12/26/17 Guaifenesin/D-Methorphan Hb [Diabetic Tussin Dm -] 10 ml PO Q4H PRN #240 ml 08/08 Loratadine [Claritin -] 10 mg PO Q2D PRN #15 tablet 12/26/17 Mometasone Furoate [Asmanex 110Mcg -] 1 inh IH DAILY #1 inhaler 12/26/17 Cefuroxime Axetil [Ceftin -] 500 mg PO Q12H #8 tablet 12/29/17 This patient is new to me today: No Emergency Visit: Yes ED Registration Date: 12/26/17 Care time: The patient presented to the Emergency Department on the above date and was hospitalized for further evaluation of their emergent condition. Critical Care patient: No - Discharge Referral Referred to [facility] Med [facility].C[facility] No
== END 2017-12-29 18:56 | disposition home or self-care (01) | DRG 194 ==
LOC: JER 12:55 → JERBED 19:16 → J8W 23:03
PROVIDERS: ADMIT Internal Medicine; ATTEND Internal Medicine
DX: J18.9 Pneumonia, unspecified organism (principal); I13.0 Hypertensive heart and chronic kidney disease with heart failure and stage 1 through stage 4 chronic kidney disease, or unspecified chronic kidney disease; I50.22 Chronic systolic (congestive) heart failure; N17.9 Acute kidney failure, unspecified; I48.91 Unspecified atrial fibrillation; Z79.01 Long term (current) use of anticoagulants; Z79.84 Long term (current) use of oral hypoglycemic drugs; F17.210 Nicotine dependence, cigarettes, uncomplicated; Z21 Asymptomatic human immunodeficiency virus [HIV] infection status; J44.9 Chronic obstructive pulmonary disease, unspecified; F32.9 Major depressive disorder, single episode, unspecified; E88.09 Other disorders of plasma-protein metabolism, not elsewhere classified; E66.9 Obesity, unspecified; I12.9 Hypertensive chronic kidney disease with stage 1 through stage 4 chronic kidney disease, or unspecified chronic kidney disease; N18.9 Chronic kidney disease, unspecified; D64.9 Anemia, unspecified; N40.0 Benign prostatic hyperplasia without lower urinary tract symptoms; E11.22 Type 2 diabetes mellitus with diabetic chronic kidney disease; C61 Malignant neoplasm of prostate; Z68.36 Body mass index [BMI] 36.0-36.9, adult
CPT/HCPCS: 36415; 36600; 71045-TC-FY; 71250-TC; 80048; 80053; 81003; 81015; 82803; 82962; 83036; 83605; 83735; 84100; 84484; 85025; 85610; 85730; 87040; 87086; 87804; 87899; 90670; 90688; 93005; 93010; 93970-TC; 94640; 97116-GP; 97161-GP; 99283-25; G0008; G0009; J0131; J7030

== ENCOUNTER 2018-02-18 14:57 | Inpatient (IN) | payer MEDICARE, OTHER ==
--- NOTE | 2018-02-18 16:38 | PDOC ---
History of Present Illness - General Chief Complaint: Lightheaded Stated Complaint: Lightheaded Time Seen by Provider: 02/18/18 15:41 History Source: Patient Exam Limitations: No Limitations - History of Present Illness Initial Comments: 02/18/18 16:27 67 yo male pmh HIV (according to MANAGER FORMS note from today, viral load controlled) CKD , HTN, DM, COPD, CAD, CVA and prostate cancer BIBA from PCP office for abnormal labs. Creatinine 5.1 baseline between 3-4 Dr. Lobo (Nephro) is aware and asked for the patient to come to the ED. Pt has complaint of blurry vision, dizziness and feeling intoxicated but denies alcohol use. Pt denies hitting head, confusion, ANDINO, N/V, one sided weakness. Pt denies recent changes in bowel or bladder function, F/C, abdominal pain, CP, SOB or back pain. Of note, Pt was recently admitted for pneumonia, treated with antibiotics and states his breathing improved, no SOB today. Past History - Past Medical History Allergies/Adverse Reactions: Allergies Allergy/AdvReac Type Severity Reaction Status Date / Time No Known Allergies Allergy Verified 02/18/18 19:52 Home Medications: Ambulatory Orders Tiotropium [place] [Spiriva] 1 inh PO DAILY 04/25/16 B Complex 1 tab PO HS 09/15/17 Vitamin E 1,000 mg PO DAILY 09/15/17 Folic Acid 1 mg PO DAILY #30 tablet 11/28/17 Fluticasone Prop 0.05% Nasal [Flonase -] 1 - 2 spray NS DAILY #1 spray.pump 08/08 Fluticasone Propionate [Flovent Diskus] 100 mcg IH BID #1 blst.w.dev 12/26/17 Guaifenesin/D-Methorphan Hb [Diabetic Tussin Dm -] 10 ml PO Q4H PRN #240 ml 08/08 Cefuroxime Axetil [Ceftin -] 500 mg PO Q12H #8 tablet 12/29/17 Nebulizer [Aeroeclipse II] 1 each MC DAILY #1 each 01/01/18 Abacavir/Dolutegravir/Lamivudi [Triumeq 600-50-300 mg Tablet] 1 each PO DAILY # 30 tablet 01/16/18 Albuterol 0.083% Nebulizer Lyla [Ventolin 0.083% Nebulizer Soln -] 1 neb NEB Q6H PRN #90 vial 01/16/18 Albuterol Sulfate Inhaler - [Ventolin HFA Inhaler -] 1 - 2 inh PO Q4H PRN #1 inhaler MDD 6 01/16/18 Amlodipine Besylate 5 mg PO DAILY #30 tablet 01/16/18 Apixaban [Eliquis -] 5 mg PO BID #60 tablet 01/16/18 Aspirin [Aspirin EC] 81 mg PO DAILY #30 tablet. 01/16/18 Atorvastatin Ca [Lipitor] 80 mg PO HS #30 tablet 01/16/18 Calcium Carbonate/Vitamin D3 [Calcium 600 + Vit D Tablet] 1 each PO DAILY #30 tablet 01/16/18 Docusate Sodium [Colace -] 100 mg PO TID PRN #90 capsule 01/16/18 Gabapentin 400 mg PO BID #60 capsule 01/16/18 Loratadine [Claritin -] 10 mg PO Q2D PRN #30 tablet 01/16/18 Metoprolol Tartrate [Lopressor -] 50 mg PO BID #60 tablet 01/16/18 Mometasone Furoate [Asmanex 110Mcg -] 1 inh IH DAILY #1 inhaler 01/16/18 Multivitamin [Daily Multiple Vitamin] 1 each PO DAILY #30 tablet 01/16/18 Repaglinide [Prandin -] 2 mg PO TID #90 tablet 01/16/18 Sitagliptin Phosphate [Januvia] 25 mg PO DAILY #30 tab 01/16/18 Tamsulosin HCl [Flomax] 0.4 mg PO HS #30 cap 01/16/18 Anemia: Yes Asthma: Yes Cancer: No Cardiac Disorders: Yes CVA: No COPD: No CHF: Yes Dementia: No Diabetes: No Disorders: Yes HTN: Yes Hypercholesterolemia: No Seizures: No Thyroid Disease: No - Surgical History Cardiac Surgery: Yes (stent placement) - Immunization History Immunization Up to Date: Yes - Suicide/Smoking/Psychosocial Hx Smoking History: Unknown if ever smoked Have you smoked in the past 12 months: No Number of Cigarettes Smoked Daily: 2 If you are a former smoker, when did you quit?: "years ago" Cigars Per Day: 0 'Breaking Loose' booklet given: 08/29/15 Hx Alcohol Use: No Drug/Substance Use Hx: No Substance Use Type: None Hx Substance Use Treatment: No Review of Systems - Review of Systems Constitutional: No: Chills, Fever ED Treatment Course - LABORATORY CBC & Chemistry Diagram: 02/18/18 17:28 02/18/18 17:28 Medical Decision Making - Medical Decision Making 02/18/18 18:52 67 yo male with significant pmh including CKD presents from PCP office with elevated creatinine increase of [address] Lobo in Nephro aware and sends the pt. Pt also has complaint of blurry vision and dizziness. Denies any other concerning neuro findings and pt neuro exam normal, see PE Creatinine found to be 5.3 in the ED. Ca low and no other electrolyte abnormalities noted Head CT to rule out bleed due to pmh and new blurry vision Spoke with Dr. Lobo who agrees to start 1L normal saline and get the pt admitted for YIFAN. Head CT shows non hemorrhagic occipital stroke acute/sub acute Neuro consulted. Dr. Ascencio would like 1 Aggrenox tonight and 2 daily starting tmr including high dose Lipitor. Also, carotid doppler, echo and Non conbrain MRI Admitted pt to stroke unit under hospitalist team *DC/Admit/Observation/Transfer Diagnosis at time of Disposition: YIFAN (acute kidney injury), Non-hemorrhagic cerebrovascular accident - Discharge Dispostion Condition at time of disposition: Stable Decision to Admit order: Yes - Referrals Referrals: Flower Toussaint, MANAGER FORMS [Primary Care Provider] - - Patient Instructions - Post Discharge Activity Addendum entered and electronically signed by Martin Khan 02/18/18 20:21: NIH Stroke Scale - Last Known Well Date/Time & Onset Date Last Known Well: 02/16/18 - Initial Evaluation Level of consciousness: Alert Ask patient the month and their age: Answers both correctly Ask patient to open & close eyes; make fist and let go: Obeys both correctly Best gaze (horizontal eye movement): Normal Visual field testing: No visual field loss Facial paresis (Show teeth/raise eyebrows/close eyes tight): Normal symmetrical movement Motor Function: Left Arm: Normal Motor Function: Right Arm: Normal (extends arm 90 (or 45) degrees for 10 seconds without drift Motor Function: Left Leg: Normal (extends leg 30 degrees for 5 seconds without drift) Motor Function: Right Leg: Normal (extends leg 30 degrees for 5 seconds without drift) Limb Ataxia: No ataxia Sensory(Use pinprick test arms,legs,trunk,face/side to side): Normal Best language (Describe picture, name items, read sentences): No Aphasia Dysarthria (read several words): Normal articulation Extinction and Inattention: No abnormality - Total Score NIH Stroke Scale Score: 0 Physical Exam Vital Sings: Vital Signs Temperature 98.5 F 02/18/18 16:50 Pulse Rate 71 02/18/18 16:50 Respiratory Rate 18 02/18/18 16:50 Blood Pressure 136/75 02/18/18 16:50 O2 Sat by Pulse Oximetry (%) 100 02/18/18 16:50 Constitutional: Yes: Well Nourished, No Distress, Calm Eyes: Yes: WNL, EOM Intact Cardiovascular: Yes: WNL, Regular Rate and Rhythm, S1, S2. No: Murmur Respiratory: Yes: Regular. No: Cough, Rhonchi, Wheezes ...Breath Sounds: LALI Clear, LLL Clear, RUL Clear, RML Clear, RLL Clear Gastrointestinal: Yes: Normal Bowel Sounds, Soft. No: Distention, Pulsatile Mass, Tenderness, Vomiting Musculoskeletal: No: Back Pain Edema: No Peripheral Pulses WNL: Yes Integumentary: Yes: WNL Neurological: Yes: Alert, Oriented, Confusion, Cran Nerves II-XII Intact. No: Aphasia, Facial Droop, Numbness, Paresthesia, Tingling, Weakness ...Motor Strength: WNL Psychiatric: Yes: WNL Labs: CBC, BMP 02/18/18 17:28 02/18/18 17:28
[2018-02-18 17:36] LABS: EOS % 2.8 % (0-4.5); HEMATOCRIT 40.5 % (35.4-49); HEMOGLOBIN 13.9 GM/dL (11.7-16.9); LYMPH % 35.8 % (8-40); MCH 28.9 pg (25.7-33.7); MCHC 34.2 g/dl (32.0-35.9); MEAN CELL VOLUME 84.6 fl (80-96); MONO % 9.3 % (3.8-10.2); NEUT % 51.1 % (42.8-82.8); PLATELET COUNT 265 K/MM3 (134-434); RBC 4.79 M/mm3 (4.00-5.60); RDW 15.8 % (11.9-15.9); WHITE BLOOD COUNT 8.7 K/mm3 (4.0-10.0)
[2018-02-18 18:10] LABS: ALBUMIN 1.7 g/dl (3.4-5.0); ALK PHOS 138 U/L (45-117); ANION GAP 7 MMOL/L (8-16); BILIRUBIN,TOTAL 0.4 mg/dL (0.2-1); BLOOD UREA NITROGEN 35 mg/dL (7-18); CALCIUM 8.1 mg/dL (8.5-10.1); CHLORIDE 109 mmol/L (98-107); CO2 25 mmol/L (21-32); CREATININE 5.2 mg/dL (0.55-1.3); GLUCOSE,RANDOM 82 mg/dL (74-106); POTASSIUM 4.7 mmol/L (3.5-5.1); SGOT/AST 30 U/L (15-37); SGPT/ALT 21 U/L (13-61); SODIUM 141 mmol/L (136-145); TOT PROT 5.3 g/dl (6.4-8.2)
[2018-02-18] MEDS ORDERED: SODIUM CHLORIDE 1,000 ML IV STA (18:39)
--- NOTE | 2018-02-18 19:07 | PDOC ---
Attending Attestation - Resident Resident Name: Martin Khan - ED Attending Attestation I have performed the following: I have examined & evaluated the patient, The case was reviewed & discussed with the resident, I agree w/resident's findings & plan - HPI HPI: 02/18/18 19:42 67YOM, with a significant past medical history of HIV (on HAART), Atrial fibrillation (on eliquis), CVA, Hypertension, DM, COPD, CKD, Anemia, CHF and BPH , who presents to the emergency department with, abnormal lab work. On labs done today his creatine was 5.1 when his baseline is normal in the 3s. intermittent periods of confusion and feeling "off." He denies any recent fevers, chills, or headache. He denies any recent nausea, vomit, diarrhea or constipation. He denies any recent chest pain or shortness of breath. He denies any recent dysuria, frequency, urgency or hematuria. Allergies: NKDA Past surgical history: None reported. BOILER INSTALLER: Janeth Lorenzana NP. Hyperbaric Welder Diver: Dr. Ehsan Lobo 02/18/18 19:42 - Physicial Exam PE: 02/18/18 19:42 NAD, well appearing, PERRL, EOMI, MMM, nl conjunctiva, anicteric; neck supple. lungs clear, RRR, abdomen soft nontender, obese. CHOWDARY x4, no focal neuro deficits. No peripheral edema. normal color for ethnicity, WWP. - Medical Decision Making 02/18/18 19:42 67 year old male with past medical history of HIV (on HAART), Atrial fibrillation (on eliquis), CVA, Hypertension, DM, COPD, CKD, Anemia, CHF and BPH presenting with acute on chronic renal failure. DDx. electrolyte/metabolic derangements, Delirium, AMS, CVA, arrhythmia, ACS, medication effect, acute on chronic kidney failure. Vital signs reviewed, wnl. Prior notes reviewed, including admissions, discharges and consultations. laboratory results and imaging reviewed, basic labs and lytes wnl, elevated Cr ~ 5.1 confirmed. CXR_no acute thoracic pathology Cardiac panel_trop neg EKG normal sinus rhythm, no interval abnormalities, narrow QRS, ST and T wave segments and morphology normal. Nonspecific T wave abnormalities ED course: nepo Dr Lares, agree, IVF for gentle hydration ct head with new subacute vs acute left occipital/temporal cortical infarction/ - Neuro cs with Dr. Ascencio, will see as inpatient for CVA management. will need MRI/MRA and stroke eval/workup Dispo: Admit for CVA, acute on chronic kidney failure and close monitoring. Discussed results and management plan with pt and family member at bedside, agree with impression and plan 02/18/18 20:09
[2018-02-18] MEDS ORDERED: ATORVASTATIN CA 80 MG TABLET (FP) PO ONE (19:19)
--- NOTE | 2018-02-18 19:32 | CONSULT ---
Consult - text type - Consultation Consultation Note: Renal Consult for YIFAN on CKD This is a 67 year old AA gentleman with hx of CKD stage 4 (baseline Cr 3.5-3.9) , HIV, HTN, DM, COPD, CVA who was asked to come into the ER because of worsening renal function. Pt says that his appetite has been poor lately but denies any N/V/D. Denies any flank pain, hematuria or dysuria. Reports some urinary heistency but has been urinarting. Denies any NSAID use. No recent contrast exposure. Does report being on antiboiotics recently for PNA. Denies any skin rash. PMhx: as above Allergies: NKDA Family hx: NC Social Hx: no T/A/D ROS: as per HPI Home Medications Medication Instructions Recorded Tiotropium [place] [Spiriva] 1 inh PO DAILY 04/25/16 B Complex 1 tab PO HS 09/15/17 Vitamin E 1,000 mg PO DAILY 09/15/17 Folic Acid 1 mg PO DAILY #30 tablet 11/28/17 Fluticasone Prop 0.05% Nasal 1 - 2 spray NS DAILY #1 spray.pump 12/26/17 [Flonase -] Fluticasone Propionate [Flovent 100 mcg IH BID #1 blst.w.dev 12/26/17 Diskus] Guaifenesin/D-Methorphan Hb 10 ml PO Q4H PRN #240 ml 12/26/17 [Diabetic Tussin Dm -] Cefuroxime Axetil [Ceftin -] 500 mg PO Q12H #8 tablet 12/29/17 Nebulizer [Aeroeclipse II] 1 each MC DAILY #1 each 01/01/18 Abacavir/Dolutegravir/Lamivudi 1 each PO DAILY #30 tablet 01/16/18 [Triumeq 600-50-300 mg Tablet] Albuterol 0.083% Nebulizer Lyla 1 neb NEB Q6H PRN #90 vial 01/16/18 [Ventolin 0.083% Nebulizer Soln -] Albuterol Sulfate Inhaler - 1 - 2 inh PO Q4H PRN #1 inhaler 01/16/18 [Ventolin HFA Inhaler -] MDD 6 Amlodipine Besylate 5 mg PO DAILY #30 tablet 01/16/18 Apixaban [Eliquis -] 5 mg PO BID #60 tablet 01/16/18 Aspirin [Aspirin EC] 81 mg PO DAILY #30 tablet. 01/16/18 Atorvastatin Ca [Lipitor] 80 mg PO HS #30 tablet 01/16/18 Calcium Carbonate/Vitamin D3 1 each PO DAILY #30 tablet 01/16/18 [Calcium 600 + Vit D Tablet] Docusate Sodium [Colace -] 100 mg PO TID PRN #90 capsule 01/16/18 Gabapentin 400 mg PO BID #60 capsule 01/16/18 Loratadine [Claritin -] 10 mg PO Q2D PRN #30 tablet 01/16/18 Metoprolol Tartrate [Lopressor -] 50 mg PO BID #60 tablet 01/16/18 Mometasone Furoate [Asmanex 110Mcg 1 inh IH DAILY #1 inhaler 01/16/18 -] Multivitamin [Daily Multiple 1 each PO DAILY #30 tablet 01/16/18 Vitamin] Repaglinide [Prandin -] 2 mg PO TID #90 tablet 01/16/18 Sitagliptin Phosphate [Januvia] 25 mg PO DAILY #30 tab 01/16/18 Tamsulosin HCl [Flomax] 0.4 mg PO HS #30 cap 01/16/18 Vital Signs Temperature 98.5 F 02/18/18 16:50 Pulse Rate 71 02/18/18 16:50 Respiratory Rate 18 02/18/18 16:50 Blood Pressure 136/75 02/18/18 16:50 O2 Sat by Pulse Oximetry (%) 100 02/18/18 16:50 NAD awake and alert neck supple, no JVD RRR, no M/R CTA, no rales Obese, NT/ND no bladder distension + edema in LE 02/18/18 17:28 02/18/18 17:28 Laboratory Tests 12/31/16 02/18/18 02/18/18 07:00 17:28 17:28 Calcium 8.8 8.1 L Phosphorus 3.0 Magnesium 2.4 Troponin I < 0.02 Albumin 1.7 L TSH 2.01 D 67 year old AA gentleman with hx of CKD stage 4 (baseline Cr 3.5-3.9), HIV, HTN , DM, COPD, CVA who was asked to come into the ER because of worsening renal function. #Acute on Chronic Renal insufficiency r/o obstruction vs AIN vs. intrinsic renal injury #HIV #Hypertension #DM Check Urine studies and imaging of the kidney and bladder Trial of IVF overnight Trend renal function and electrolytes avoid IV contrast and nephrotoxins Regular low salt diet continue HIV meds as per ID continue oral antihypertensives but avoid VIVIENNE/ARB for now given low eGFR No acute indication for AGRICULTURAL EQUIPMENT DESIGN ENGINEER at the present time Thank you Will follow Ehsan Lobo DO
[2018-02-18] MEDS ORDERED: ASPIRIN/DIPYRIDAMOLE 25 MG/200 MG CAPSULE (FP) PO ONE (19:48)
[2018-02-18] MEDS ORDERED: ASPIRIN/DIPYRIDAMOLE 25 MG/200 MG CAPSULE (FP) ONE (19:56)
[2018-02-18] MEDS ORDERED: LORATADINE 10 MG TABLET PO PRN (21:46)
[2018-02-18] MEDS ORDERED: ALBUTEROL SO4 8 GM HFA INHALER IH PRN (21:46)
[2018-02-18] MEDS ORDERED: DOCUSATE SODIUM 100 MG CAPSULE (FP) PO PRN (21:46)
[2018-02-18] MEDS ORDERED: ALBUTEROL SO4 0.083% IH SOL 2.5 MG/3 ML VIAL.NEB. NEB PRN (21:46)
[2018-02-18] MEDS ORDERED: TAMSULOSIN HCL 0.4 MG CAP PO SCH (22:00)
--- NOTE | 2018-02-18 22:57 | PN ---
Teaching Attending Note Name of Resident: Ty Ledezma ATTENDING PHYSICIAN STATEMENT I saw and evaluated the patient. I reviewed the resident's note and discussed the case with the resident. I agree with the resident's findings and plan as documented. SUBJECTIVE: Seen and examined; please refer to resident note for further historical information. This is a 67 y/o AAM with CKD-IV (b/l Cr 3.5-3.9) who presents to the ER due to being asked to for worsening of his Cr which is now in the five range. The patient incidentally reveals that sometime >1 week but <1 month he noticed worsening of his vision. He is a poor historian but he tells me that he had a stroke in the past that affected his vision. Has been making somewhat less urine than he has in the past but it is clear and yellow. His eye exam is poor, but he informs me that he cannot see out of the rightward portion of both globes to the best of our assessment. No other visual issues aside from it being more blurred in a nonspecific way. As stated this is >1 week but <1 month so he is well out of the tPA window; he has no other neurological complaints. No acute change in his vision today. I should mention he does see optho regularly. CT head reveals an acute vs. subacute CVA. He will be admitted to the hospital under the medicine service; ER placed consults for nephrology and neurology and we appreciate their presence. 10 sys ROS done and negative aside from HPI PMH and PSH reviewed; CKD, HIV on HAART, HTN, DM, COPD, Prior CVA Socially denies etoh or drug abuse. No recent travel FH asked and nonocontributory Meds reviewed OBJECTIVE: VSS, labs and imaging reviewed NAD, AAO, resting in bed RRR s1/2 no mgr NT ND +BS CN normal except for CN2 which patient is endorsing hononomous neglect on the b/ l right sides, 5/5 strength all 4 limbs. NIH not documented on arrival due to this not being why he presented. Pleasant mood, normal behavior Labs show BUN/Cr 35/5.2, CBC unremarkable, no acidosis, Albumin 1.7, protein 5.3 , TSH wnl, troponin negative. His baseline alk phos is slightly elevated and it continues to trend that way at 138 which is unremarkable for this patient. CT head shows likely acute v subacute infarct in the left occipital/temporal region. MRI brain pending Preliminary carotid duplex shows moderate b/l stenosis; final report pending Echo pending Tele monitoring ASSESSMENT AND PLAN: Mr. De La Torre presents for YIFAN on CKD incidentally found to have a subacute vs acute infarct that is well out of the tPA window 1) YIFAN on CKD -Nephrology is consulted; management per them. Appreciate the consultation and their help in the management of this patient. -Gentle hydration overnight given his very low EF -Following up urine lytes, etc. -Trend Cr, monitor UOP. Followup CATINA. -Ddx is broad and could implicate relation to his underlying chronic illness, medications, etc. 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 Assuming compliance with his eliquis, use of NOAC however would argue against a non-hemorrhagic event. Still, on the read it did appear as a newer event. -Followup brain MRI, final carotid duplex report, echo. Check Lipids, A1c. TSH wnl. -Physical therapy, bedside swallow assessment -Continue home ASA for secondary prevention -Neuro consulted by ER; followup with their assessment. Appreciate their input in the ongoing management of this patient. 3) Visual Field Defects -Instructed documentation of a visual acuity examination; followup with optho once discharged. No indication for urgent consult at this juncture. 4) HIV -Continue HAART; last CD4 502; OP followup at [facility] 5) HTN -Given that the sx are not super-acute I feel that it would be safe to continue home meds as he would likely be out of the beneficial window for permissive HTN. 6) CAD -Continue ASA, Atorva 80, Metoprolol 7) Afib on NOAC, was in NSR on readings so assumed paroxysmal -Continue home medications 8) Diabetes -SSI while inpatient; hold PO antihyperglycemics 9) History of Systolic CHF -Appears close to euvolemic with no respiratory complaints but he is difficult to assess. Very, very gentle hydration overnight and have a low threshold to stop (or even diurese). 2016 studies reviewed. He will be getting a new echo anyways for issue #2 so we will followup. Not on any home diuresis. Is on amlodipine which could cause LE edema so would depend on other exam findings to elucidate volume -Convert metoprolol tartrate to succinate on DC if possible in accordance with GDMT -BNP to monitor would be grossly unreliable given his renal function. 10) COPD -No exacerbation by GOLD criteria; continue on home meds and monitor for respiratory status. 11) BPH -Continue home tamsulosin, monitor for any obstruction 12) History of Prostate CA -OP followup 13) Hypoalbuminemia -Indicates poor prognosis overall; monitor and consider nutritional consult FENA -Very gentle IV hydration per nephrology @50cc/hr NS -PRN replete -Bedside swallow -OOBTC Full Code
--- NOTE | 2018-02-18 23:01 | HP ---
CHIEF COMPLAINT: Sent by PCP for Elevated Creatinine PCP: Janeth Chau N.P at [facility] Dr. 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 His baseline is usually about 3-4 and was noted to be above that and referred to the ED for evaluation and further management. Pt states that he has felt fine and has no complaints at this time. On review of systems, pt endorses blurry vision which has been occuring for over a year. He follows regularly with an Opthalmologist, who he has seen as recently as one month ago. He denies any acute vision changes within the last few weeks. 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, CKD, Systolic CHF, BPH, CAD s/p cardiac stent PAST SURGICAL HISTORY: Cardiac Stent Social History: Smoking: Denies, though endorse former history of a few cigarettes per day Alcohol: Denies Drugs: Denies Family History: Allergies No Known Allergies Allergy (Verified 02/18/18 19:52) HOME MEDICATIONS: Home Medications Medication Instructions Recorded Tiotropium [place] [Spiriva] 1 inh PO DAILY 04/25/16 B Complex 1 tab PO HS 09/15/17 Vitamin E 1,000 mg PO DAILY 09/15/17 Folic Acid 1 mg PO DAILY #30 tablet 11/28/17 Fluticasone Prop 0.05% Nasal 1 - 2 spray NS DAILY #1 spray.pump 12/26/17 [Flonase -] Fluticasone Propionate [Flovent 100 mcg IH BID #1 blst.w.dev 12/26/17 Diskus] Guaifenesin/D-Methorphan Hb 10 ml PO Q4H PRN #240 ml 12/26/17 [Diabetic Tussin Dm -] Cefuroxime Axetil [Ceftin -] 500 mg PO Q12H #8 tablet 12/29/17 Nebulizer [Aeroeclipse II] 1 each MC DAILY #1 each 01/01/18 Abacavir/Dolutegravir/Lamivudi 1 each PO DAILY #30 tablet 01/16/18 [Triumeq 600-50-300 mg Tablet] Albuterol 0.083% Nebulizer Lyla 1 neb NEB Q6H PRN #90 vial 01/16/18 [Ventolin 0.083% Nebulizer Soln -] Albuterol Sulfate Inhaler - 1 - 2 inh PO Q4H PRN #1 inhaler 01/16/18 [Ventolin HFA Inhaler -] MDD 6 Amlodipine Besylate 5 mg PO DAILY #30 tablet 01/16/18 Apixaban [Eliquis -] 5 mg PO BID #60 tablet 01/16/18 Aspirin [Aspirin EC] 81 mg PO DAILY #30 tablet. 01/16/18 Atorvastatin Ca [Lipitor] 80 mg PO HS #30 tablet 01/16/18 Calcium Carbonate/Vitamin D3 1 each PO DAILY #30 tablet 01/16/18 [Calcium 600 + Vit D Tablet] Docusate Sodium [Colace -] 100 mg PO TID PRN #90 capsule 01/16/18 Gabapentin 400 mg PO BID #60 capsule 01/16/18 Loratadine [Claritin -] 10 mg PO Q2D PRN #30 tablet 01/16/18 Metoprolol Tartrate [Lopressor -] 50 mg PO BID #60 tablet 01/16/18 Mometasone Furoate [Asmanex 110Mcg 1 inh IH DAILY #1 inhaler 01/16/18 -] Multivitamin [Daily Multiple 1 each PO DAILY #30 tablet 01/16/18 Vitamin] Repaglinide [Prandin -] 2 mg PO TID #90 tablet 01/16/18 Sitagliptin Phosphate [Januvia] 25 mg PO DAILY #30 tab 01/16/18 Tamsulosin HCl [Flomax] 0.4 mg PO HS #30 cap 01/16/18 REVIEW OF SYSTEMS CONSTITUTIONAL: Absent: fever, chills, diaphoresis, generalized weakness, malaise, loss of appetite, weight change HEENT: Absent: rhinorrhea, nasal congestion, throat pain, throat swelling, difficulty swallowing, mouth swelling, ear pain, eye pain, visual changes CARDIOVASCULAR: Absent: chest pain, syncope, palpitations, irregular heart rate, lightheadedness , peripheral edema RESPIRATORY: Absent: cough, shortness of breath, dyspnea with exertion, orthopnea, wheezing, stridor, hemoptysis GASTROINTESTINAL: Absent: abdominal pain, abdominal distension, nausea, vomiting, diarrhea, constipation, melena, hematochezia GENITOURINARY: Absent: dysuria, frequency, urgency, hesitancy, hematuria, flank pain, genital pain MUSCULOSKELETAL: Absent: myalgia, arthralgia, joint swelling, back pain, neck pain SKIN: Absent: rash, itching, pallor HEMATOLOGIC/IMMUNOLOGIC: Absent: easy bleeding, easy bruising, lymphadenopathy, frequent infections ENDOCRINE: Absent: unexplained weight gain, unexplained weight loss, heat intolerance, cold intolerance NEUROLOGIC: Absent: headache, focal weakness or paresthesias, dizziness, unsteady gait, seizure, mental status changes, bladder or bowel incontinence PSYCHIATRIC: Absent: anxiety, depression, suicidal or homicidal ideation, hallucinations. PHYSICAL EXAMINATION Vital Signs - 24 hr 02/18/18 02/18/18 02/18/18 15:15 16:49 16:50 Temperature 98.2 F 98.5 F 98.5 F Pulse Rate 64 Pulse Rate [ 71 Left Radial] Pulse Rate [ 71 Right Radial] Respiratory 19 18 Rate Blood Pressure 137/82 Blood Pressure 136/75 [Left Arm] Blood Pressure 136/75 [Right Arm] O2 Sat by Pulse 99 100 100 Oximetry (%) GENERAL: A&O, no acute distress HEAD: Normocephalic, atraumatic. EYES: PERRL, no scleral icterus EARS, NOSE, THROAT: oropharynx clear without exudates. Moist mucous membranes. LUNGS: CTA b/l HEART: Regular rate and rhythm, normal S1 and S2 without murmur ABDOMEN: Soft, nontender to palpation, normoactive bowel sounds MUSCULOSKELETAL: No bony deformities or tenderness. EXTREMITIES: 2+ pulses, warm, well-perfused. No peripheral edema. NEUROLOGICAL: Cranial nerves II-XII intact. 5/5 strength and sensation throughout with the exception of mild decrease in sensation in b/l feet which pt states is chronic. Slow speech, unchanged from previous admission. Altered balance vs dizziness, unable to obtain gait testing PSYCHIATRIC: Cooperative. Good eye contact. Appropriate mood and affect. SKIN: Warm, dry, no rashes or lesions noted Laboratory Results - last 24 hr 02/18/18 02/18/18 02/18/18 17:28 17:28 17:28 WBC 8.7 RBC 4.79 Hgb 13.9 Hct 40.5 MCV 84.6 MCH 28.9 MCHC 34.2 RDW 15.8 Plt Count 265 MPV 9.0 Absolute Neuts (auto) 4.4 Neutrophils % 51.1 Lymphocytes % 35.8 D Monocytes % 9.3 Eosinophils % 2.8 Basophils % 1.0 Nucleated RBC % 0 Sodium 141 Potassium 4.7 Chloride 109 H Carbon Dioxide 25 Anion Gap 7 L BUN 35 H Creatinine 5.2 H Creat Clearance w eGFR 11.05 Random Glucose 82 Calcium 8.1 L Total Bilirubin 0.4 AST 30 ALT 21 Alkaline Phosphatase 138 H Troponin I < 0.02 Total Protein 5.3 L Albumin 1.7 L TSH 2.01 D ASSESSMENT/PLAN: 67 yo Male with PMH HIV (on Haart), A-fib (on Eliquis), HTN, 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 -Pt with minimal findings on neuro exam, though Dizziness noted upon standing, will check orthostatics and initiate fall precautions -CT noted -Neurology consult appreciated, case discussed with ED provider -Agrenox BID -Lipid panel -Aspiration precautions, elevate head of bed, NPO until bedside swallow eval -Carotid Doppler -Echo -Continue home Lipitor 80 mg PO HS -PT eval YIFAN - > 0.3 increase from expected baseline -BUN/Cr 35/5.2 -Nephrology Consult appreciated -Urine studies pending, calculate FENa -Kidney and Bladder US ordered -NS @ 83 cc/hr HIV -Stable on Haart therapy -Follows at [facility] -Recent viral load < 20 in November -CD4 502 at that time -Abacavir/Dolutegravir/Lamivudine 600/50/300 Daily -Pt did not bring his home meds with him, will check with pharmacy if we have and if not have pt have his own brought in A-fib -Currently in sinus rythm -Rate controlled -Eliquis 5 mg PO BID -Lopressor 50 mg PO BID HTN -Amlodipine 5 mg PO Daily -Lopressor as above NIDDM -BGMs ACHS -Insulin sliding scale for glycemic control COPD -Mometasone -Ventolin Inhaler and Nebs PRN -Spiriva nonformulary, will convert -Currently stable with no signs of exacerbation Systolic CHF -ECHO from 2016 noted with EF 21%, Mildly reduced systolic function -Stable, no signs of acute fluid overload at this time BPH -Flomax 0.4 mg PO Daily DVT Prophylaxis -Continue home Eliquis FEN -Fluids: as per nephrology, NS @ 83 cc/hr -Electrolytes: No electrolyte abnormalities, BMP in AM -Nutrition: NPO until bed side swallow eval, then advance to Diabetic/Na controlled diet Disposition Stroke unit Telemetry Visit type - Emergency Visit Emergency Visit: Yes ED Registration Date: 02/18/18 Care time: The patient presented to the Emergency Department on the above date and was hospitalized for further evaluation of their emergent condition. - New Patient This patient is new to me today: Yes Date on this admission: 02/18/18 - Critical Care Critical Care patient: No
[2018-02-18] MEDS: ASPIRIN/DIPYRIDAMOLE 25 MG/200 MG CAPSULE (FP) PO SCH (23:15)
[2018-02-18] MEDS: METOPROLOL TARTRATE 50 MG TABLET (FP) PO SCH (23:16)
[2018-02-18] MEDS: APIXABAN 5 MG TABLET PO SCH (23:16)
[2018-02-18] MEDS: ATORVASTATIN CA 80 MG TABLET (FP) PO SCH (23:16)
[2018-02-18] MEDS: GABAPENTIN 400 MG CAPSULE (FP) PO SCH (23:16)
[2018-02-18] MEDS: SODIUM CHLORIDE 1,000 ML IV SCH (23:54)
[2018-02-19] MEDS ORDERED: HEPARIN NA (PORCINE) 5,000 UNITS/ML 1ML VIAL SQ SCH (02:00)
[2018-02-19 03:22] LABS: URINE APPEARANCE CLEAR; URINE BILIRUBIN NEGATIVE (<2.0 mg/dL); URINE COLOR YELLOW; URINE GLUCOSE (UA) 3+ (NEGATIVE); URINE KETONE NEGATIVE (NEGATIVE); URINE LEUK ESTERASE NEGATIVE (NEGATIVE); URINE NITRITE NEGATIVE (NEGATIVE); URINE PROTEIN 3+ (NEGATIVE); URINE UROBILINOGEN NEGATIVE mg/dL (0.2-1.0)
[2018-02-19 03:26] LABS: EPI CELLS RARE /HPF (FEW); URINE MUCUS RARE
[2018-02-19 05:51] LABS: PREALBUMIN 29.6 mg/dl (20-40)
[2018-02-19] MEDS ORDERED: ALBUTEROL SO4 8 GM HFA INHALER IH PRN (06:55)
[2018-02-19 08:26] LABS: CHOLESTEROL 281 mg/dL (50-200); HDL CHOLESTEROL 33 mg/dL (40-60); TRIGLYCERIDES 334 mg/dL (0-150)
[2018-02-19 08:38] LABS: BASO % 0.9 % (0-2.0); EOS % 2.3 % (0-4.5); HEMATOCRIT 39.4 % (35.4-49); HEMOGLOBIN 12.6 GM/dL (11.7-16.9); LYMPH % 25.2 % (8-40); MCH 27.2 pg (25.7-33.7); MCHC 31.9 g/dl (32.0-35.9); MEAN CELL VOLUME 85.5 fl (80-96); MEAN PLT VOLUME 9.5 fl (7.5-11.1); MONO % 5.3 % (3.8-10.2); NEUT % 66.3 % (42.8-82.8); PLATELET COUNT 203 K/MM3 (134-434); RBC 4.61 M/mm3 (4.00-5.60); RDW 15.7 % (11.9-15.9); WHITE BLOOD COUNT 9.8 K/mm3 (4.0-10.0)
[2018-02-19 08:52] LABS: ALBUMIN 1.6 g/dl (3.4-5.0); ALK PHOS 128 U/L (45-117); ANION GAP 9 MMOL/L (8-16); BILIRUBIN,TOTAL 0.2 mg/dL (0.2-1); BLOOD UREA NITROGEN 41 mg/dL (7-18); CALCIUM 7.7 mg/dL (8.5-10.1); CHLORIDE 108 mmol/L (98-107); CO2 23 mmol/L (21-32); CREATININE 5.2 mg/dL (0.55-1.3); GLUCOSE,RANDOM 135 mg/dL (74-106); MAGNESIUM 2.6 mg/dL (1.8-2.4); PHOSPHOROUS 4.7 mg/dL (2.5-4.9); POTASSIUM 4.3 mmol/L (3.5-5.1); SGOT/AST 15 U/L (15-37); SGPT/ALT 15 U/L (13-61); SODIUM 140 mmol/L (136-145); TOT PROT 4.7 g/dl (6.4-8.2)
[2018-02-19] MEDS ORDERED: PT OWN MED DRAWER 7, Y5N ONE ×4 (09:21→17:54)
--- NOTE | 2018-02-19 09:34 | CONSULT ---
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 His baseline is usually about 3-4 and was noted to be above that and referred to the ED for evaluation and further management. On admission , patient endorsed blurry vision which has been occuring for over a year. He follows regularly with an Opthalmologist, who he has seen as recently as one month ago. He denied any acute vision changes within the last few weeks. CT head completed and consistent with L occipital infarct. Explained this to him in detail at bedside this AM. Was asking about any way to fix it, answered all questions. Carotid doppler 60-79% stenosis b/l. 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, BPH, CAD s/p cardiac stent PAST SURGICAL HISTORY: Cardiac Stent Social History: Smoking: Denies, though endorse former history of a few cigarettes per day Alcohol: Denies Drugs: Denies Family History: Allergies No Known Allergies Allergy (Verified 02/18/18 19:52) HOME MEDICATIONS: Home Medications Medication Instructions Recorded Tiotropium [place] [Spiriva] 1 inh PO DAILY 04/25/16 B Complex 1 tab PO HS 09/15/17 Vitamin E 1,000 mg PO DAILY 09/15/17 Folic Acid 1 mg PO DAILY #30 tablet 11/28/17 Fluticasone Prop 0.05% Nasal 1 - 2 spray NS DAILY #1 spray.pump 12/26/17 [Flonase -] Fluticasone Propionate [Flovent 100 mcg IH BID #1 blst.w.dev 12/26/17 Diskus] Guaifenesin/D-Methorphan Hb 10 ml PO Q4H PRN #240 ml 12/26/17 [Diabetic Tussin Dm -] Cefuroxime Axetil [Ceftin -] 500 mg PO Q12H #8 tablet 12/29/17 Nebulizer [Aeroeclipse II] 1 each MC DAILY #1 each 01/01/18 Abacavir/Dolutegravir/Lamivudi 1 each PO DAILY #30 tablet 01/16/18 [Triumeq 600-50-300 mg Tablet] Albuterol 0.083% Nebulizer Lyla 1 neb NEB Q6H PRN #90 vial 01/16/18 [Ventolin 0.083% Nebulizer Soln -] Albuterol Sulfate Inhaler - 1 - 2 inh PO Q4H PRN #1 inhaler 01/16/18 [Ventolin HFA Inhaler -] MDD 6 Amlodipine Besylate 5 mg PO DAILY #30 tablet 01/16/18 Apixaban [Eliquis -] 5 mg PO BID #60 tablet 01/16/18 Aspirin [Aspirin EC] 81 mg PO DAILY #30 tablet. 01/16/18 Atorvastatin Ca [Lipitor] 80 mg PO HS #30 tablet 01/16/18 Calcium Carbonate/Vitamin D3 1 each PO DAILY #30 tablet 01/16/18 [Calcium 600 + Vit D Tablet] Docusate Sodium [Colace -] 100 mg PO TID PRN #90 capsule 01/16/18 Gabapentin 400 mg PO BID #60 capsule 01/16/18 Loratadine [Claritin -] 10 mg PO Q2D PRN #30 tablet 01/16/18 Metoprolol Tartrate [Lopressor -] 50 mg PO BID #60 tablet 01/16/18 Mometasone Furoate [Asmanex 110Mcg 1 inh IH DAILY #1 inhaler 01/16/18 -] Multivitamin [Daily Multiple 1 each PO DAILY #30 tablet 01/16/18 Vitamin] Repaglinide [Prandin -] 2 mg PO TID #90 tablet 01/16/18 Sitagliptin Phosphate [Januvia] 25 mg PO DAILY #30 tab 01/16/18 Tamsulosin HCl [Flomax] 0.4 mg PO HS #30 cap 01/16/18 REVIEW OF SYSTEMS CONSTITUTIONAL: Absent: fever, chills, diaphoresis, generalized weakness, malaise, loss of appetite, weight change HEENT: Absent: rhinorrhea, nasal congestion, throat pain, throat swelling, difficulty swallowing, mouth swelling, ear pain, eye pain, visual changes CARDIOVASCULAR: Absent: chest pain, syncope, palpitations, irregular heart rate, lightheadedness , peripheral edema RESPIRATORY: Absent: cough, shortness of breath, dyspnea with exertion, orthopnea, wheezing, stridor, hemoptysis GASTROINTESTINAL: Absent: abdominal pain, abdominal distension, nausea, vomiting, diarrhea, constipation, melena, hematochezia GENITOURINARY: Absent: dysuria, frequency, urgency, hesitancy, hematuria, flank pain, genital pain MUSCULOSKELETAL: Absent: myalgia, arthralgia, joint swelling, back pain, neck pain SKIN: Absent: rash, itching, pallor HEMATOLOGIC/IMMUNOLOGIC: Absent: easy bleeding, easy bruising, lymphadenopathy, frequent infections ENDOCRINE: Absent: unexplained weight gain, unexplained weight loss, heat intolerance, cold intolerance NEUROLOGIC: Absent: headache, focal weakness or paresthesias, dizziness, unsteady gait, seizure, mental status changes, bladder or bowel incontinence PSYCHIATRIC: Absent: anxiety, depression, suicidal or homicidal ideation, hallucinations. PHYSICAL EXAMINATION Vital Signs Period Temp Pulse Resp BP Sys/Gaspar Pulse Ox Last 24 Hr 98.1 F-98.5 F 61-71 18-20 136-173/65-82 96-100 GENERAL: A&O, no acute distress HEAD: Normocephalic, atraumatic. EYES: PERRL, no scleral icterus EARS, NOSE, THROAT: oropharynx clear without exudates. Moist mucous membranes. LUNGS: CTA b/l HEART: Regular rate and rhythm, normal S1 and S2 without murmur ABDOMEN: Soft, nontender to palpation, normoactive bowel sounds MUSCULOSKELETAL: No bony deformities or tenderness. EXTREMITIES: 2+ pulses, warm, well-perfused. No peripheral edema. NEUROLOGICAL: Cranial nerves II-XII intact, dimnished visual field on R, 5/5 strength, decreased PP in distal lower ext PSYCHIATRIC: Cooperative. Good eye contact. Appropriate mood and affect. SKIN: Warm, dry, no rashes or lesions noted CBCD WBC 9.8 K/mm3 (4.0-10.0) 02/19/18 05:30 RBC 4.61 M/mm3 (4.00-5.60) 02/19/18 05:30 Hgb 12.6 GM/dL (11.7-16.9) 02/19/18 05:30 Hct 39.4 % (35.4-49) 02/19/18 05:30 MCV 85.5 fl (80-96) 02/19/18 05:30 MCHC 31.9 g/dl (32.0-35.9) L 02/19/18 05:30 RDW 15.7 % (11.9-15.9) 02/19/18 05:30 Plt Count 203 K/MM3 (134-434) D 02/19/18 05:30 MPV 9.5 fl (7.5-11.1) 02/19/18 05:30 CMP Sodium 140 mmol/L (136-145) 02/19/18 05:30 Potassium 4.3 mmol/L (3.5-5.1) 02/19/18 05:30 Chloride 108 mmol/L (98-107) H 02/19/18 05:30 Carbon Dioxide 23 mmol/L (21-32) 02/19/18 05:30 Anion Gap 9 MMOL/L (8-16) 02/19/18 05:30 BUN 41 mg/dL (7-18) H 02/19/18 05:30 Creatinine 5.2 mg/dL (0.55-1.3) H 02/19/18 05:30 Creat Clearance w eGFR 11.05 (>60) 02/19/18 05:30 Random Glucose 135 mg/dL (74-106) H 02/19/18 05:30 Calcium 7.7 mg/dL (8.5-10.1) L 02/19/18 05:30 Total Bilirubin 0.2 mg/dL (0.2-1) 02/19/18 05:30 AST 15 U/L (15-37) 02/19/18 05:30 ALT 15 U/L (13-61) 02/19/18 05:30 Alkaline Phosphatase 128 U/L (45-117) H 02/19/18 05:30 Total Protein 4.7 g/dl (6.4-8.2) L 02/19/18 05:30 Albumin 1.6 g/dl (3.4-5.0) L 02/19/18 05:30 CARDIAC ENZYMES Troponin I < 0.02 ng/ml (0.00-0.05) 02/18/18 17:28 ASSESSMENT/PLAN: 67 yo Male with PMH HIV (on Haart), A-fib (on Eliquis), 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 His baseline is usually about 3-4 and was noted to be above that and referred to the ED for evaluation and further management. On admission , patient endorsed blurry vision which has been occuring for over a year. He follows regularly with an Opthalmologist, who he has seen as recently as one month ago. He denied any acute vision changes within the last few weeks. CT head completed and consistent with L occipital infarct. Explained this to him in detail at bedside this AM. Was asking about any way to fix it, answered all questions. Patient already on Eliquis, started on Aggrenox in ER, will reduce to ASA 81mg to reduce risk for bleed. CVA more subacute, therefore will not need to hold medication at this time. LDL highly elevated 183, max statin ordered. Consider vascular consult for b/l carotid stenosis. Tele monitoring, cardiology follow up regarding AFib. Follow up echo, highly reduced EF from 2016. Monitor bp, maintian less than 160/90 for now. Monitor glucose maintain, euglycemic range. DVT ppx
[2018-02-19] MEDS: amLODIPine BESYLATE 5 MG TABLET (FP) PO SCH (09:39)
[2018-02-19] MEDS: ASPIRIN/DIPYRIDAMOLE 25 MG/200 MG CAPSULE (FP) PO SCH (09:39)
[2018-02-19] MEDS: FOLIC ACID 1 MG TABLET (FP) PO SCH (09:39)
[2018-02-19] MEDS: CALCIUM 500MG/VIT-D 200 UNITS COMBO TABLET (FP) PO SCH (09:39)
[2018-02-19] MEDS: APIXABAN 5 MG TABLET PO SCH ×2 (09:39→21:49)
[2018-02-19] MEDS: MULTIVITAMINS (DAILY MVI) TABLET (FP) PO SCH (09:39)
[2018-02-19] MEDS: METOPROLOL TARTRATE 50 MG TABLET (FP) PO SCH ×2 (09:39→21:49)
[2018-02-19] MEDS: GABAPENTIN 400 MG CAPSULE (FP) PO SCH ×2 (09:39→21:49)
[2018-02-19] MEDS: lamiVUDine 150 MG TABLET PO SCH (09:40)
[2018-02-19] MEDS: ABACAVIR SULFATE 300 MG TABLET PO SCH (09:40)
[2018-02-19] MEDS: DOLUTEGRAVIR SODIUM 50 MG TABLET (NON-FORMULARY) PO SCH (09:43)
[2018-02-19] MEDS: ASPIRIN COATED 81 MG TABLET.EC PO SCH (09:48)
[2018-02-19] MEDS ORDERED: PATIENT'S OWN MEDICATION (NON-FORMULARY) (Abacavir/Dolutegravir/Lamivudi [Triumeq 600-50-3 PO SCH (10:00)
--- NOTE | 2018-02-19 11:07 | PN ---
Progress Note (short form) - Note Progress Note: Renal follow up for YIFAN on CKD Pt seen and examined at the bedside no acute complaints no sob, cp, abd pain, N/V/D Vital Signs Temperature 98.1 F 02/19/18 06:31 Pulse Rate 61 02/19/18 06:31 Respiratory Rate 18 02/19/18 06:31 Blood Pressure 151/65 02/19/18 06:31 O2 Sat by Pulse Oximetry (%) 98 02/19/18 06:31 Intake & Output 02/16/18 02/17/18 02/18/18 02/19/18 23:59 23:59 23:59 23:59 Intake Total 0 Output Total 180 Balance -180 Weight 130.635 kg 73.17 kg NAD RRR CTA + LE edema CBC, BMP 02/19/18 05:30 02/19/18 05:30 Current Medications Abacavir Sulfate (Ziagen -) 600 mg PO DAILY [facility] Last Admin: 02/19/18 09:40 Dose: 600 mg Albuterol Sulfate (Ventolin 0.083% Nebulizer Soln -) 1 amp NEB Q6H PRN PRN Reason: ASTHMA Albuterol Sulfate (Ventolin Hfa Inhaler -) 1 puff IH Q4H PRN PRN Reason: WHEEZING Albuterol Sulfate (Ventolin Hfa Inhaler -) 2 puff IH Q4H PRN PRN Reason: WHEEZING Amlodipine Besylate (Norvasc -) 5 mg PO DAILY [facility] Last Admin: 02/19/18 09:39 Dose: 5 mg Apixaban (Eliquis -) 5 mg PO BID [facility] Last Admin: 02/19/18 09:39 Dose: 5 mg Aspirin (Ecotrin -) 81 mg PO DAILY [facility] Last Admin: 02/19/18 09:48 Dose: 81 mg Atorvastatin Calcium (Lipitor -) 80 mg PO HS [facility] Last Admin: 02/18/18 23:16 Dose: 80 mg Calcium Carbonate/Cholecalciferol (Os-Rony 500+D -) 1 tab PO DAILY [facility] Last Admin: 02/19/18 09:39 Dose: 1 tab Dipyridamole/Aspirin (Aggrenox -) 1 combo PO BID [facility] Last Admin: 02/19/18 09:39 Dose: 1 combo Docusate Sodium (Colace -) 100 mg PO TID PRN PRN Reason: CONSTIPATION Fluticasone Propionate (Flonase -) 1 - 2 spray NS DAILY PRN PRN Reason: NASAL CONGESTION Folic Acid (Folic Acid -) 1 mg PO DAILY [facility] Last Admin: 02/19/18 09:39 Dose: 1 mg Gabapentin (Neurontin -) 400 mg PO BID [facility] Last Admin: 02/19/18 09:39 Dose: 400 mg Sodium Chloride (Normal Saline -) 1,000 mls @ 83 mls/hr IV ASDIR [facility] Last Admin: 02/18/18 23:54 Dose: 83 mls/hr Lamivudine (Epivir -) 300 mg PO DAILY [facility] Last Admin: 02/19/18 09:40 Dose: 300 mg Loratadine (Claritin -) 10 mg PO Q2D PRN PRN Reason: sneezing Metoprolol Tartrate (Lopressor -) 50 mg PO BID [facility] Last Admin: 02/19/18 09:39 Dose: 50 mg Mometasone Furoate (Asmanex 110mcg -) 1 puff IH DAILY [facility] Multivitamins/Minerals/Vitamin C (Tab-A-Vit -) 1 tab PO DAILY [facility] Last Admin: 02/19/18 09:39 Dose: 1 tab Tamsulosin HCl (Flomax -) 0.8 mg PO HS [facility] Tiotropium [place] (Spiriva Respimat) 2 puff IH DAILY [facility] 67 year old AA gentleman with hx of CKD stage 4 (baseline Cr 3.5-3.9), HIV, HTN , DM, COPD, CVA who was asked to come into the ER because of worsening renal function. 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
[2018-02-19] MEDS: MOMETASONE FUROATE 110 MCG/IH INHALER IH SCH (11:16)
[2018-02-19] MEDS: TIOTROPIUM BROMIDE 2.5 MCG (SPIRIVA) RESPIMAT INHALER IH SCH (11:16)
--- NOTE | 2018-02-19 11:58 | EKG ---
Test Reason : Blood Pressure : / mmHG Vent. Rate : 075 BPM Atrial Rate : 075 BPM P-R Int : 198 ms QRS Dur : 092 ms QT Int : 408 ms P-R-T Axes : 055 037 091 degrees QTc Int : 455 ms NORMAL SINUS RHYTHM POSSIBLE INFERIOR INFARCT (CITED ON OR BEFORE 21-JUL-2015) ANTEROSEPTAL INFARCT (CITED ON OR BEFORE 17-NOV-2003) ABNORMAL ECG WHEN COMPARED WITH ECG OF 26-DEC-2017 13:29, NO SIGNIFICANT CHANGE WAS FOUND Confirmed by JUNIOR RUANO MD ([id number]) on 02/19/2018 11:58:16 AM Referred By: Confirmed By:JUNIOR RUANO MD
--- NOTE | 2018-02-19 12:03 | PN ---
Physical Exam: SUBJECTIVE: Patient seen and examined at bedside. no acute events overnight; patient states he is feeling ok but its taking some time for him to "get it together" . he is no longer having any dizziness nor does he complain of any vision changes; he denies any CP/SOB/N/V fevers or chills OBJECTIVE: Vital Signs Period Temp Pulse Resp BP Sys/Gaspar Pulse Ox Last 24 Hr 98.1 F-98.5 F 61-90 18-20 104-173/65-82 96-100 GENERAL: The patient is awake, alert, and fully oriented, in no acute distress. EYES: PERRL, extraocular movements intact, no scleral icterus NECK: no JVD, no lymphadneopathy LUNGS: CTA B/L; no rales, rhonchi or wheezing HEART: Regular rate and rhythm, S1, S2 without murmur, rub or gallop. ABDOMEN:soft; non-tender, non-distended +BS in all 4 quadrants EXTREMITIES: 2+ pulses, warm, well-perfused, trace edema B/L. NEUROLOGICAL: Cranial nerves II through XII grossly intact. slowed speech, strengnth 5/5 B/L; sensation slightly diminished on right lower extremity, gait not observed. SKIN: Warm, dry, normal turgor, no rashes or lesions noted Laboratory Results - last 24 hr 02/18/18 02/18/18 02/18/18 17:28 17:28 17:28 WBC 8.7 RBC 4.79 Hgb 13.9 Hct 40.5 MCV 84.6 MCH 28.9 MCHC 34.2 RDW 15.8 Plt Count 265 MPV 9.0 Absolute Neuts (auto) 4.4 Neutrophils % 51.1 Lymphocytes % 35.8 D Monocytes % 9.3 Eosinophils % 2.8 Basophils % 1.0 Nucleated RBC % 0 ESR Sodium 141 Potassium 4.7 Chloride 109 H Carbon Dioxide 25 Anion Gap 7 L BUN 35 H Creatinine 5.2 H Creat Clearance w eGFR 11.05 POC Glucometer Random Glucose 82 Calcium 8.1 L Phosphorus Magnesium Total Bilirubin 0.4 AST 30 ALT 21 Alkaline Phosphatase 138 H Troponin I < 0.02 Total Protein 5.3 L Albumin 1.7 L Prealbumin 29.6 Triglycerides Cholesterol Total LDL Cholesterol HDL Cholesterol Vitamin B12 779 TSH 2.01 D Urine Color Urine Appearance Urine pH Ur Specific [place] Urine Protein Urine Glucose (UA) Urine Ketones Urine Blood Urine Nitrite Urine Bilirubin Urine Urobilinogen Ur Leukocyte Esterase Urine WBC (Auto) Urine RBC (Auto) Ur Epithelial Cells Urine Crystals Calcium Oxalate Crystal Uric Acid Crystals Triple Phos Crystals Amorphous Phosphates Amorphous Urates Amorphous Sediment Urine Bacteria Urine Casts Hyaline Casts Granular Casts Waxy Casts RBC Casts WBC Casts Urine Mucus Urine Other Urine Trichomonas Urine Yeast U Random Total Protein Ur Random Urea Nitrogn Urine Creatinine 02/19/18 02/19/18 02/19/18 03:00 03:00 03:00 WBC RBC Hgb Hct MCV MCH MCHC RDW Plt Count MPV Absolute Neuts (auto) Neutrophils % Lymphocytes % Monocytes % Eosinophils % Basophils % Nucleated RBC % ESR Sodium Potassium Chloride Carbon Dioxide Anion Gap BUN Creatinine Creat Clearance w eGFR POC Glucometer Random Glucose Calcium Phosphorus Magnesium Total Bilirubin AST ALT Alkaline Phosphatase Troponin I Total Protein Albumin Prealbumin Triglycerides Cholesterol Total LDL Cholesterol HDL Cholesterol Vitamin B12 TSH Urine Color Yellow Cancelled Urine Appearance Clear Cancelled Urine pH 6.0 Cancelled Ur Specific [place] 1.015 Cancelled Urine Protein 3+ H Cancelled Urine Glucose (UA) 3+ H Cancelled Urine Ketones Negative Cancelled Urine Blood Negative Cancelled Urine Nitrite Negative Cancelled Urine Bilirubin Negative Cancelled Urine Urobilinogen Negative Cancelled Ur Leukocyte Esterase Negative Cancelled Urine WBC (Auto) 2 Cancelled Urine RBC (Auto) 5 Cancelled Ur Epithelial Cells Rare Cancelled Urine Crystals Cancelled Calcium Oxalate Crystal Cancelled Uric Acid Crystals Cancelled Triple Phos Crystals Cancelled Amorphous Phosphates Cancelled Amorphous Urates Cancelled Amorphous Sediment Cancelled Urine Bacteria Cancelled Urine Casts Cancelled Hyaline Casts Cancelled Granular Casts Cancelled Waxy Casts Cancelled RBC Casts Cancelled WBC Casts Cancelled Urine Mucus Rare Cancelled Urine Other Cancelled Urine Trichomonas Cancelled Urine Yeast Cancelled U Random Total Protein 1175 H Ur Random Urea Nitrogn 403 Urine Creatinine 109.0 H 02/19/18 02/19/18 02/19/18 05:30 05:30 05:30 WBC 9.8 RBC 4.61 Hgb 12.6 Hct 39.4 MCV 85.5 MCH 27.2 MCHC 31.9 L RDW 15.7 Plt Count 203 D MPV 9.5 Absolute Neuts (auto) 6.5 Neutrophils % 66.3 D Lymphocytes % 25.2 D Monocytes % 5.3 Eosinophils % 2.3 Basophils % 0.9 Nucleated RBC % 0 ESR Sodium 140 Potassium 4.3 Chloride 108 H Carbon Dioxide 23 Anion Gap 9 BUN 41 H Creatinine 5.2 H Creat Clearance w eGFR 11.05 POC Glucometer Random Glucose 135 H Calcium 7.7 L Phosphorus 4.7 Magnesium 2.6 H Total Bilirubin 0.2 AST 15 ALT 15 Alkaline Phosphatase 128 H Troponin I Total Protein 4.7 L Albumin 1.6 L Prealbumin Triglycerides 334 H Cholesterol 281 H Total LDL Cholesterol 187 H HDL Cholesterol 33 L Vitamin B12 TSH Urine Color Urine Appearance Urine pH Ur Specific [place] Urine Protein Urine Glucose (UA) Urine Ketones Urine Blood Urine Nitrite Urine Bilirubin Urine Urobilinogen Ur Leukocyte Esterase Urine WBC (Auto) Urine RBC (Auto) Ur Epithelial Cells Urine Crystals Calcium Oxalate Crystal Uric Acid Crystals Triple Phos Crystals Amorphous Phosphates Amorphous Urates Amorphous Sediment Urine Bacteria Urine Casts Hyaline Casts Granular Casts Waxy Casts RBC Casts WBC Casts Urine Mucus Urine Other Urine Trichomonas Urine Yeast U Random Total Protein Ur Random Urea Nitrogn Urine Creatinine 02/19/18 02/19/18 02/19/18 05:30 06:07 11:07 WBC RBC Hgb Hct MCV MCH MCHC RDW Plt Count MPV Absolute Neuts (auto) Neutrophils % Lymphocytes % Monocytes % Eosinophils % Basophils % Nucleated RBC % ESR 67 H Sodium Potassium Chloride Carbon Dioxide Anion Gap BUN Creatinine Creat Clearance w eGFR POC Glucometer 145 140 Random Glucose Calcium Phosphorus Magnesium Total Bilirubin AST ALT Alkaline Phosphatase Troponin I Total Protein Albumin Prealbumin Triglycerides Cholesterol Total LDL Cholesterol HDL Cholesterol Vitamin B12 TSH Urine Color Urine Appearance Urine pH Ur Specific [place] Urine Protein Urine Glucose (UA) Urine Ketones Urine Blood Urine Nitrite Urine Bilirubin Urine Urobilinogen Ur Leukocyte Esterase Urine WBC (Auto) Urine RBC (Auto) Ur Epithelial Cells Urine Crystals Calcium Oxalate Crystal Uric Acid Crystals Triple Phos Crystals Amorphous Phosphates Amorphous Urates Amorphous Sediment Urine Bacteria Urine Casts Hyaline Casts Granular Casts Waxy Casts RBC Casts WBC Casts Urine Mucus Urine Other Urine Trichomonas Urine Yeast U Random Total Protein Ur Random Urea Nitrogn Urine Creatinine Active Medications Generic Name Dose Route Start Last Admin Trade Name Freq PRN Reason Stop Dose Admin Abacavir Sulfate 600 mg 02/19/18 10:00 02/19/18 09:40 Ziagen - PO 600 mg DAILY GELACIO Administration Albuterol Sulfate 1 amp 02/18/18 21:46 Ventolin 0.083% Nebulizer Soln - NEB Q6H PRN ASTHMA Albuterol Sulfate 1 puff 02/18/18 21:46 Ventolin Hfa Inhaler - IH Q4H PRN WHEEZING Albuterol Sulfate 2 puff 02/19/18 06:55 Ventolin Hfa Inhaler - IH Q4H PRN WHEEZING Amlodipine Besylate 5 mg 02/19/18 10:00 02/19/18 09:39 Norvasc - PO 5 mg DAILY GELACIO Administration Apixaban 5 mg 02/18/18 22:00 02/19/18 09:39 Eliquis - PO 5 mg BID GELACIO Administration Aspirin 81 mg 02/19/18 10:00 02/19/18 09:48 Ecotrin - PO 81 mg DAILY GELACIO Administration Atorvastatin Calcium 80 mg 02/18/18 22:00 02/18/18 23:16 Lipitor - PO 80 mg HS GELACIO Administration Calcium Carbonate/Cholecalciferol 1 tab 02/19/18 10:00 02/19/18 09:39 Os-Rony 500+D - PO 1 tab DAILY GELACIO Administration Docusate Sodium 100 mg 02/18/18 21:46 Colace - PO TID PRN CONSTIPATION Fluticasone Propionate 1 - 2 spray 02/18/18 21:46 Flonase - NS DAILY PRN NASAL CONGESTION Folic Acid 1 mg 02/19/18 10:00 02/19/18 09:39 Folic Acid - PO 1 mg DAILY GELACIO Administration Gabapentin 400 mg 02/18/18 22:00 02/19/18 09:39 Neurontin - PO 400 mg BID GELACIO Administration Sodium Chloride 1,000 mls @ 83 mls/hr 02/18/18 19:45 02/18/18 23:54 Normal Saline - IV 83 mls/hr ASDIR GELACIO Administration Lamivudine 300 mg 02/19/18 10:00 02/19/18 09:40 Epivir - PO 300 mg DAILY GELACIO Administration Loratadine 10 mg 02/18/18 21:46 Claritin - PO Q2D PRN sneezing Metoprolol Tartrate 50 mg 02/18/18 22:00 02/19/18 09:39 Lopressor - PO 50 mg BID GELACIO Administration Mometasone Furoate 1 puff 02/19/18 10:00 02/19/18 11:16 Asmanex 110mcg - IH 1 puff DAILY GELACIO Administration Multivitamins/Minerals/Vitamin C 1 tab 02/19/18 10:00 02/19/18 09:39 Tab-A-Vit - PO 1 tab DAILY GELACIO Administration Tamsulosin HCl 0.8 mg 02/19/18 22:00 Flomax - PO HS GELACIO Tiotropium [place] 2 puff 02/19/18 10:00 02/19/18 11:16 Spiriva Respimat IH 2 puff DAILY GELACIO Administration ASSESSMENT/PLAN: 67 yo Male with PMH HIV (on Haart), A-fib (on Eliquis), HTN, NIDDM, 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 CT findings explained to patient -Dr Ascencio saw patient this am -D/C aggrenox; starting ASA 81 -Aspiration precautions, elevate head of bed -speech and swallow eval ordered -Carotid Doppler showing 60-79% stenoses at the carotid bifurcation -Echo pending -Continue home Lipitor 80 mg PO HS -PT eval YIFAN - > 0.3 increase from expected baseline -BUN/Cr 35/5.2 -Dr Lobo saw patient this AM; ordered urine studies -renal/bladder US showed L hydro; AB/pelvis CT scan ordered for further evaluation -NS @ 83 cc/hr -monitor BMP HIV -Stable on Haart therapy -Follows at [facility] -Recent viral load < 20 in November -CD4 502 at that time -Abacavir/Dolutegravir/Lamivudine 600/50/300 Daily A-fib -Currently in sinus rythm -Rate controlled -Eliquis 5 mg PO BID -Lopressor 50 mg PO BID HTN -Amlodipine 5 mg PO Daily -Lopressor as above NIDDM -BGMs ACHS -Insulin sliding scale for glycemic control COPD -Mometasone -Ventolin Inhaler and Nebs PRN -Spiriva nonformulary, will convert -Currently stable with no signs of exacerbation Systolic CHF -ECHO from 2015 noted with EF 21%, Mildly reduced systolic function -Stable, no signs of acute fluid overload at this time -Repeat Echo pending BPH -Flomax 0.4 mg PO Daily DVT Prophylaxis -Continue home Eliquis FEN -Fluids: as per nephrology, NS @ 83 cc/hr -Electrolytes: No electrolyte abnormalities, BMP in AM -Nutrition: NPO until bed side swallow eval, then advance to Diabetic/Na controlled diet Problem List - Problems (1) YIFAN (acute kidney injury) Code(s): N17.9 - ACUTE KIDNEY FAILURE, UNSPECIFIED (2) Dizziness Code(s): R42 - DIZZINESS AND GIDDINESS (3) Non-hemorrhagic cerebrovascular accident Code(s): I63.9 - CEREBRAL INFARCTION, UNSPECIFIED (4) Diabetes Code(s): E11.9 - TYPE 2 DIABETES MELLITUS WITHOUT COMPLICATIONS (5) HIV (human immunodeficiency virus infection) Code(s): Z21 - ASYMPTOMATIC HUMAN IMMUNODEFICIENCY VIRUS INFECTION STATUS Visit type - Emergency Visit Emergency Visit: Yes ED Registration Date: 02/18/18 Care time: The patient presented to the Emergency Department on the above date and was hospitalized for further evaluation of their emergent condition. - New Patient This patient is new to me today: Yes Date on this admission: 02/19/18 - Critical Care Critical Care patient: No
--- NOTE | 2018-02-19 13:00 | CONSULT ---
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 His baseline is usually about 3-4 and was noted to be above that and referred to the ED for evaluation and further management. On admission , patient endorsed blurry vision which has been occuring for over a year. He follows regularly with an Opthalmologist, who he has seen as recently as one month ago. He denied any acute vision changes within the last few weeks. CT head completed and consistent with L occipital infarct. Explained this to him in detail at bedside this AM. Was asking about any way to fix it, answered all questions. Carotid doppler 60-79% stenosis b/l. Pt reports recent memory impairment, missing doctor's appts recently. 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 History of Recent Travel: No History - Admission Reason For Visit: NON HEMORRHAGIC,CVA - Diagnostics X-ray: Report Reviewed CT Scan: Report Reviewed MRI: Report Reviewed - General Mental Status: Alert and Oriented, Awake and Alert, Able to Follow Commands Attention: Intact Ability to Follow Directions: Excellent Head/Neck Control: WFL - Hearing Hearing: Functional Hearing: Normal Hearing Aide: No With Patient: No Speech Evaluation - Communication Primary Language: GUINEAN Communication: Yes: Within Normal Limits Oral Expression Ability: Yes: No Impairment - Speech Production Able to Make Needs Known: Yes: WNL Intelligibility: Yes: WNL - Speech Characteristics Voice Loudness: Normal Voice Pitch: Yes: Normal Voice Phonatory-based Quality: Yes: Normal Speech Pattern: Normal Speech Clarity: < 100% Nasal Resonance: Normal Articulation: Yes: Precise - Language/Auditory Comprehension Follows: Yes: 1 Stage Simple Commands Observation: Able to respond to yes/no queries: Yes, Yes/No Confusion: No, Comprehends Conversational Speech: Yes - Language/Verbal Expression Able to Respond to Simple Queries: Yes: WNL Able to Communicate Wants and Needs: Yes: WNL Functional Communication Status: Yes: WNL Attention: Yes: Intact - Memory/Perception CHCF Memory: Yes: WNL Short Term Memory: Yes: WNL (seems grossly ok) - Swallow Evaluation/Bedside Assessment Current Nutritional Intake: NPO Oral Secretions: Yes: WFL Dentition: Yes: Adequate Facial Symmetry at Rest: Symmetrical Facial Symmetry on Retraction: Symmetrical Sensation: Normal Against Resistance Opening: Normal Against Resistance Closing: Normal Pucker Lips: Normal Smile: Normal Lingual Movement: Normal, Symmetric Lingual Speed of Movement: Normal Lingual Movement Strgth Against Opposition: Normal Lingual Movement Characteristics: Normal Velopharyngeal Movement: Normal Laryngeal Movement: Labored,delay initiation Rate of Intake: WFL Bolus Size: WFL Labial Seal: WFL Chewing: WFL (slow, careful, with "hard, dry food" eg tsering cracker.) Oral Prep Time: WFL A-P Transit: WFL Pocketing: None Timing of Swallow: Delayed Coughing/Throat Clear: No Change in Voice: No Recommendations - Disposition Discharge to: To be Determined - Dysphagia Impressions/Plan Swallowing Skills: [facility] Dysphagia Impressions: Mild Impairment (mastication) *Silent aspiration: cannot be R/O at bedside Dysphagia Treatment Plan: Small Bites, Chin Tuck/Down, Trial Feedings, Safe Rate , 1/2 tsp. at a time, Elevate HOB during feed Recommendations: Other (Monitor for cough, congestion, fever) - Recommendations Diet Consistency: Regular (soft, easy to chew) Liquids: Thin Liquids
--- NOTE | 2018-02-19 13:18 | PN ---
Teaching Attending Note Name of Resident: Flower Fletcher ATTENDING PHYSICIAN STATEMENT I saw and evaluated the patient. I reviewed the resident's note and discussed the case with the resident. I agree with the resident's findings and plan as documented. SUBJECTIVE:continues to have blurred vision but not worse than initial presentation. now stating hes had it for maybe a year and has been seeing an opthalmologist for it. states he has no weakness or difficulty speaking and is not really clear why he is in the hospital. denies CP, SOB, fever, chills, N/V/C /D flank pain, dysuria, hematuria OBJECTIVE: Last Vital Signs Temp Pulse Resp BP Pulse Ox 98.1 F 90 18 104/75 98 02/19/18 11:00 02/19/18 11:00 02/19/18 11:02/19/18 11:02/19/18 06:31 General NAD CV S1 S2 RRR no murmur/rub/gallop Lungs CTA B/L no wheezing/rales/rhonchi Abdomen soft NT/ND obese, no flank pain. neg cva tenderness Neuro CN grossly intact, strength and sensation grossly intact in all extremities ASSESSMENT AND PLAN: 67yo M with PMH CKD, HIV on HARRT, afib on eliquis, DM, systolic CHF, COPD, Prostate ca, sent to the ER due to worsening renal function and was c/o blurred vision 1. Subacute CVA- seen on CT. could explain blurred vision but less likely given chronicity of symptoms. check echo, carotid doppler, speech and swallow eval and PT. evaluated by neuro. agree on not giving aggrenox with eliquis due to increased risk of bleeding. on asa/statin 2. Blurred vision- could be worsening function with comorbid conditions. has been following with opthalmologist regularly and unclear what testing and what has been ruled out this far. since it has not changed in quality or worsening. can f/u with optho outpatient 3. Acute on CKD-baseline 3.5-3.9. shows mild hydro. check CT to evaluate for cause of blockage. ?stone vs mass (cancer hx). f/u urine studies. gently IVF with CHF hx. nephro on board. 4. HIV on HARRT- cont therapy 5. Afib on eliquis- rate controlled. cont 6. COPD- no signs of acute exacerbation. cont inhalers 7. Prostate ca 8. DVT ppx- Eliquis
--- NOTE | 2018-02-19 13:50 | ECHO ---
Name: QUANG COLE Exam:Adult Echocardiogram Study Date: 02/19/2018 09:07 AM Age: 67 yrs Reason For Study: non hemm stroke Height: 69 in Weight: 230 lb BSA: 2.2 m2 MMode/2D Measurements & Calculations IVSd: 1.2 cm Ao root diam: 3.3 cm LVIDd: 4.6 cm LA dimension: 4.0 cm LVIDs: 3.3 cm ACS: 1.8 cm LVPWd: 1.3 cm IVSs: 1.4 cm LVPWs: 1.6 cm EDV(Teich): 98.1 ml ESV(Teich): 44.6 ml Doppler Measurements & Calculations MV E max chai: 99.0 cm/sec Ao V2 max: 122.7 cm/sec MV A max chai: 103.8 cm/sec Ao max P.0 mmHg MV E/A: 0.95 Ao V2 mean: 93.1 cm/sec Ao mean P.7 mmHg Ao V2 VTI: 27.6 cm MR max chai: 435.3 cm/sec TR max chai: 233.0 cm/sec MR max P.6 mmHg TR max P.9 mmHg PI end-d chai: 128.0 cm/sec Med Peak E' Chai: 4.9 cm/sec Med E/e': 20.1 Lat Peak E' Chai: 4.7 cm/sec Lat E/e': 21.0 Procedure A complete two-dimensional transthoracic echocardiogram was performed (2D, M-mode, Doppler and color flow Doppler). Left Ventricle The left ventricle is normal in size. Ejection Fraction = 40-45%. Left ventricular systolic function is moderately reduced. There is mild global hypokinesis of the left ventricle. There is apical akinesis. Right Ventricle The right ventricle is normal in size and function. Atria Normal left and right atrial size and function. Mitral Valve There is no mitral regurgitation noted. Tricuspid Valve There is trace tricuspid regurgitation. There was insufficient TR detected to calculate RV systolic p ressure. Aortic Valve The aortic valve is trileaflet. No hemodynamically significant valvular aortic stenosis. No aortic regurgitation is present. Pulmonic Valve There is no pulmonic valvular regurgitation. Great Vessels The aortic root is normal size. Pericardium/Pleura There is no pericardial effusion. Interpretation Summary The left ventricle is normal in size. Left ventricular systolic function is moderately reduced. There is mild global hypokinesis of the left ventricle. There is apical akinesis. The right ventricle is normal in size and function. There is trace tricuspid regurgitation. MD Juan Singleton 02/19/2018 01:50 PM
[2018-02-19] MEDS ORDERED: FLUTICASONE PROP 0.05% 16 GM NASAL SPRAY NS PRN (16:38)
[2018-02-19] MEDS: SODIUM CHLORIDE 1,000 ML IV SCH (20:00)
[2018-02-19] MEDS: ATORVASTATIN CA 80 MG TABLET (FP) PO SCH (21:49)
[2018-02-19] MEDS: TAMSULOSIN HCL 0.4 MG CAP PO SCH (21:49)
[2018-02-20 06:23] LABS: HEMATOCRIT 40.5 % (35.4-49); HEMOGLOBIN 12.9 GM/dL (11.7-16.9); MCH 27.2 pg (25.7-33.7); MCHC 31.9 g/dl (32.0-35.9); MEAN CELL VOLUME 85.2 fl (80-96); MEAN PLT VOLUME 9.1 fl (7.5-11.1); PLATELET COUNT 211 K/MM3 (134-434); RBC 4.75 M/mm3 (4.00-5.60); WHITE BLOOD COUNT 10.9 K/mm3 (4.0-10.0)
[2018-02-20 06:50] LABS: ALBUMIN 1.5 g/dl (3.4-5.0); ALK PHOS 132 U/L (45-117); ANION GAP 6 MMOL/L (8-16); BILIRUBIN,TOTAL 0.3 mg/dL (0.2-1); BLOOD UREA NITROGEN 40 mg/dL (7-18); CALCIUM 7.7 mg/dL (8.5-10.1); CHLORIDE 109 mmol/L (98-107); CO2 25 mmol/L (21-32); CREATININE 5.2 mg/dL (0.55-1.3); GLUCOSE,RANDOM 125 mg/dL (74-106); MAGNESIUM 2.4 mg/dL (1.8-2.4); SGOT/AST 18 U/L (15-37); SGPT/ALT 17 U/L (13-61); SODIUM 139 mmol/L (136-145); TOT PROT 4.6 g/dl (6.4-8.2)
--- NOTE | 2018-02-20 08:54 | PN ---
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 His baseline is usually about 3-4 and was noted to be above that and referred to the ED for evaluation and further management. On admission , patient endorsed blurry vision which has been occuring for over a year. He follows regularly with an Opthalmologist, who he has seen as recently as one month ago. He denied any acute vision changes within the last few weeks. CT head completed and consistent with L occipital infarct. Explained this to him in detail Carotid doppler 60-79% stenosis b/l also discussed. Echo reviewed, LV and systolic function normal. No new neurologic events. On eliquis and ASA 81 at this time. Allergies No Known Allergies Allergy (Verified 02/18/18 19:52) Active Medications Abacavir Sulfate (Ziagen -) 600 mg PO DAILY [facility] Last Admin: 02/19/18 09:40 Dose: 600 mg Albuterol Sulfate (Ventolin 0.083% Nebulizer Soln -) 1 amp NEB Q6H PRN PRN Reason: ASTHMA Albuterol Sulfate (Ventolin Hfa Inhaler -) 1 puff IH Q4H PRN PRN Reason: WHEEZING Albuterol Sulfate (Ventolin Hfa Inhaler -) 2 puff IH Q4H PRN PRN Reason: WHEEZING Amlodipine Besylate (Norvasc -) 5 mg PO DAILY [facility] Last Admin: 02/19/18 09:39 Dose: 5 mg Apixaban (Eliquis -) 5 mg PO BID [facility] Last Admin: 02/19/18 21:49 Dose: 5 mg Aspirin (Ecotrin -) 81 mg PO DAILY [facility] Last Admin: 02/19/18 09:48 Dose: 81 mg Atorvastatin Calcium (Lipitor -) 80 mg PO HS [facility] Last Admin: 02/19/18 21:49 Dose: 80 mg Calcium Carbonate/Cholecalciferol (Os-Rony 500+D -) 1 tab PO DAILY [facility] Last Admin: 02/19/18 09:39 Dose: 1 tab Docusate Sodium (Colace -) 100 mg PO TID PRN PRN Reason: CONSTIPATION Fluticasone Propionate (Flonase -) 2 spray NS DAILY PRN PRN Reason: NASAL ALLERGIES Folic Acid (Folic Acid -) 1 mg PO DAILY [facility] Last Admin: 02/19/18 09:39 Dose: 1 mg Gabapentin (Neurontin -) 400 mg PO BID [facility] Last Admin: 02/19/18 21:49 Dose: 400 mg Sodium Chloride (Normal Saline -) 1,000 mls @ 83 mls/hr IV ASDIR [facility] Last Admin: 02/19/18 20:00 Dose: 83 mls/hr Lamivudine (Epivir -) 300 mg PO DAILY [facility] Last Admin: 02/19/18 09:40 Dose: 300 mg Loratadine (Claritin -) 10 mg PO Q2D PRN PRN Reason: sneezing Metoprolol Tartrate (Lopressor -) 50 mg PO BID [facility] Last Admin: 02/19/18 21:49 Dose: 50 mg Mometasone Furoate (Asmanex 110mcg -) 1 puff IH DAILY [facility] Last Admin: 02/19/18 11:16 Dose: 1 puff Multivitamins/Minerals/Vitamin C (Tab-A-Vit -) 1 tab PO DAILY [facility] Last Admin: 02/19/18 09:39 Dose: 1 tab Tamsulosin HCl (Flomax -) 0.8 mg PO HS [facility] Last Admin: 02/19/18 21:49 Dose: 0.8 mg Tiotropium [place] (Spiriva Respimat) 2 puff IH DAILY [facility] Last Admin: 02/19/18 11:16 Dose: 2 puff PHYSICAL EXAMINATION Vital Signs Period Temp Pulse Resp BP Sys/Gaspar Pulse Ox Last 24 Hr 97.4 F-98.5 F 62-90 18-20 104-159/71-91 98 GENERAL: A&O, no acute distress HEAD: Normocephalic, atraumatic. EYES: PERRL, no scleral icterus EARS, NOSE, THROAT: oropharynx clear without exudates. Moist mucous membranes. LUNGS: CTA b/l HEART: Regular rate and rhythm, normal S1 and S2 without murmur ABDOMEN: Soft, nontender to palpation, normoactive bowel sounds MUSCULOSKELETAL: No bony deformities or tenderness. EXTREMITIES: 2+ pulses, warm, well-perfused. No peripheral edema. NEUROLOGICAL: Cranial nerves II-XII intact, dimnished visual field on R, 5/5 strength, decreased PP in distal lower ext PSYCHIATRIC: Cooperative. Good eye contact. Appropriate mood and affect. SKIN: Warm, dry, no rashes or lesions noted CBCD WBC 10.9 K/mm3 (4.0-10.0) H 02/20/18 05:30 RBC 4.75 M/mm3 (4.00-5.60) 02/20/18 05:30 Hgb 12.9 GM/dL (11.7-16.9) 02/20/18 05:30 Hct 40.5 % (35.4-49) 02/20/18 05:30 MCV 85.2 fl (80-96) 02/20/18 05:30 MCHC 31.9 g/dl (32.0-35.9) L 02/20/18 05:30 RDW 16.0 % (11.9-15.9) H 02/20/18 05:30 Plt Count 211 K/MM3 (134-434) 02/20/18 05:30 MPV 9.1 fl (7.5-11.1) 02/20/18 05:30 CMP Sodium 139 mmol/L (136-145) 02/20/18 05:30 Potassium 5.0 mmol/L (3.5-5.1) 02/20/18 05:30 Chloride 109 mmol/L (98-107) H 02/20/18 05:30 Carbon Dioxide 25 mmol/L (21-32) 02/20/18 05:30 Anion Gap 6 MMOL/L (8-16) L 02/20/18 05:30 BUN 40 mg/dL (7-18) H 02/20/18 05:30 Creatinine 5.2 mg/dL (0.55-1.3) H 02/20/18 05:30 Creat Clearance w eGFR 11.05 (>60) 02/20/18 05:30 Random Glucose 125 mg/dL (74-106) H 02/20/18 05:30 Calcium 7.7 mg/dL (8.5-10.1) L 02/20/18 05:30 Total Bilirubin 0.3 mg/dL (0.2-1) 02/20/18 05:30 AST 18 U/L (15-37) 02/20/18 05:30 ALT 17 U/L (13-61) 02/20/18 05:30 Alkaline Phosphatase 132 U/L (45-117) H 02/20/18 05:30 Total Protein 4.6 g/dl (6.4-8.2) L 02/20/18 05:30 Albumin 1.5 g/dl (3.4-5.0) L 02/20/18 05:30 CARDIAC ENZYMES Troponin I < 0.02 ng/ml (0.00-0.05) 02/18/18 17:28 ASSESSMENT/PLAN: 67 yo Male with PMH HIV (on Haart), A-fib (on Eliquis), HTN, 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 His baseline is usually about 3-4 and was noted to be above that and referred to the ED for evaluation and further management. On admission , patient endorsed blurry vision which has been occuring for over a year. He follows regularly with an Opthalmologist, who he has seen as recently as one month ago. He denied any acute vision changes within the last few weeks. CT head completed and consistent with L occipital infarct. Explained this to him in detail at bedside this AM. Was asking about any way to fix it, answered all questions. Patient already on Eliquis, started on Aggrenox in ER, will reduce to ASA 81mg to reduce risk for bleed. CVA more subacute, therefore will not need to hold medication at this time. LDL highly elevated 183, max statin ordered. Consider vascular consult for b/l carotid stenosis. Tele monitoring, cardiology follow up regarding AFib. Echo reviewed. Monitor bp, maintian less than 160/90 for now. Monitor glucose maintain, euglycemic range. DVT ppx
[2018-02-20] MEDS ORDERED: PT OWN MED DRAWER 7, Y5N ONE (09:51)
[2018-02-20] MEDS: FOLIC ACID 1 MG TABLET (FP) PO SCH (10:06)
[2018-02-20] MEDS: MULTIVITAMINS (DAILY MVI) TABLET (FP) PO SCH (10:06)
[2018-02-20] MEDS: METOPROLOL TARTRATE 50 MG TABLET (FP) PO SCH ×2 (10:06→21:51)
[2018-02-20] MEDS: amLODIPine BESYLATE 5 MG TABLET (FP) PO SCH (10:06)
[2018-02-20] MEDS: ASPIRIN COATED 81 MG TABLET.EC PO SCH (10:06)
[2018-02-20] MEDS: APIXABAN 5 MG TABLET PO SCH ×2 (10:06→21:51)
[2018-02-20] MEDS: CALCIUM 500MG/VIT-D 200 UNITS COMBO TABLET (FP) PO SCH (10:06)
[2018-02-20] MEDS: TIOTROPIUM BROMIDE 2.5 MCG (SPIRIVA) RESPIMAT INHALER IH SCH (10:07)
[2018-02-20] MEDS: MOMETASONE FUROATE 110 MCG/IH INHALER IH SCH (10:07)
[2018-02-20] MEDS: DOLUTEGRAVIR SODIUM 50 MG TABLET (NON-FORMULARY) PO SCH (10:07)
[2018-02-20] MEDS: ABACAVIR SULFATE 300 MG TABLET PO SCH (10:08)
[2018-02-20] MEDS: lamiVUDine 150 MG TABLET PO SCH (10:08)
[2018-02-20] MEDS: GABAPENTIN 400 MG CAPSULE (FP) PO SCH ×2 (10:15→21:51)
--- NOTE | 2018-02-20 11:15 | PN ---
Progress Note, STAMP COLLECTOR - Note Progress Note: Selected Entries 02/19/18 02/19/18 02/19/18 06:31 11:00 14:00 Supper Temperature 98.1 F 98.1 F 97.5 F L 02/19/18 02/19/18 02/19/18 17:00 19:59 21:00 Supper 100% Temperature 97.4 F L 98.5 F 02/20/18 02/20/18 03:03 07:10 Supper Temperature 98.3 F 98.2 F Laboratory Tests 02/20/18 05:30 WBC 10.9 H Pt on soft diet/thin liquid. Tolerating diet well without s/s of dysphagia. Reminded pt and staff to use dentures for meals.
--- NOTE | 2018-02-20 14:11 | PN ---
Progress Note (short form) - Note Progress Note: Renal follow up for YIFAN on CKD Pt seen and examined at the bedside no acute complaints no sob, cp, abd pain, N/V/D Vital Signs Temperature 98.5 F 02/20/18 11:00 Pulse Rate 73 02/20/18 11:00 Respiratory Rate 18 02/20/18 11:00 Blood Pressure 131/63 02/20/18 11:00 O2 Sat by Pulse Oximetry (%) 98 02/20/18 09:00 Intake & Output 02/17/18 02/18/18 02/19/18 02/20/18 23:59 23:59 23:59 23:59 Intake Total 1047 1390 Output Total 780 400 Balance 267 990 Weight 130.635 kg 73.17 kg 109.769 kg NAD RRR CTA + LE edema CBC, BMP 02/20/18 05:30 02/20/18 05:30 Current Medications Abacavir Sulfate (Ziagen -) 600 mg PO DAILY [facility] Last Admin: 02/20/18 10:08 Dose: 600 mg Albuterol Sulfate (Ventolin 0.083% Nebulizer Soln -) 1 amp NEB Q6H PRN PRN Reason: ASTHMA Albuterol Sulfate (Ventolin Hfa Inhaler -) 1 puff IH Q4H PRN PRN Reason: WHEEZING Albuterol Sulfate (Ventolin Hfa Inhaler -) 2 puff IH Q4H PRN PRN Reason: WHEEZING Amlodipine Besylate (Norvasc -) 5 mg PO DAILY [facility] Last Admin: 02/20/18 10:06 Dose: 5 mg Apixaban (Eliquis -) 5 mg PO BID [facility] Last Admin: 02/20/18 10:06 Dose: 5 mg Aspirin (Ecotrin -) 81 mg PO DAILY [facility] Last Admin: 02/20/18 10:06 Dose: 81 mg Atorvastatin Calcium (Lipitor -) 80 mg PO HS [facility] Last Admin: 02/19/18 21:49 Dose: 80 mg Calcium Carbonate/Cholecalciferol (Os-Rony 500+D -) 1 tab PO DAILY [facility] Last Admin: 02/20/18 10:06 Dose: 1 tab Docusate Sodium (Colace -) 100 mg PO TID PRN PRN Reason: CONSTIPATION Fluticasone Propionate (Flonase -) 2 spray NS DAILY PRN PRN Reason: NASAL ALLERGIES Last Admin: 02/20/18 10:06 Dose: 2 spray Folic Acid (Folic Acid -) 1 mg PO DAILY [facility] Last Admin: 02/20/18 10:06 Dose: 1 mg Gabapentin (Neurontin -) 400 mg PO BID [facility] Last Admin: 02/20/18 10:15 Dose: 400 mg Lamivudine (Epivir -) 300 mg PO DAILY [facility] Last Admin: 02/20/18 10:08 Dose: 300 mg Loratadine (Claritin -) 10 mg PO Q2D PRN PRN Reason: sneezing Metoprolol Tartrate (Lopressor -) 50 mg PO BID [facility] Last Admin: 02/20/18 10:06 Dose: 50 mg Mometasone Furoate (Asmanex 110mcg -) 1 puff IH DAILY [facility] Last Admin: 02/20/18 10:07 Dose: 1 puff Multivitamins/Minerals/Vitamin C (Tab-A-Vit -) 1 tab PO DAILY [facility] Last Admin: 02/20/18 10:06 Dose: 1 tab Tamsulosin HCl (Flomax -) 0.8 mg PO HS [facility] Last Admin: 02/19/18 21:49 Dose: 0.8 mg Tiotropium [place] (Spiriva Respimat) 2 puff IH DAILY [facility] Last Admin: 02/20/18 10:07 Dose: 2 puff 67 year old AA gentleman with hx of CKD stage 4 (baseline Cr 3.5-3.9), HIV, HTN , DM, COPD, CVA who was asked to come into the ER because of worsening renal function. #Acute on Chronic Renal insufficiency (Mild left sided hydronephrosis - new finding, FeUrea 047% indicating tubular damage, UPCR ~10) #Nephrotic range proetinuira (Serologic work up done showed negative hepatitis, DARIUSZ,ANCA, SPEP, likely due to diabetic nephropathy) #Subacute occipital CVA #HIV #Hypertension #DM CT shows left sided hydronephrosis with adenopathy near the ureter will need urologic consult and intervention Renal function unchanged despite IVF no urgent indication for DIETETIC TECH Trend renal function and electrolytes daily can d/c IV if pt tolerating oral diet Ehsan Lobo DO
--- NOTE | 2018-02-20 15:19 | PN ---
Physical Exam: SUBJECTIVE: Patient seen and examined at bedside- no acute events overnight. patient states he is feeling well, denies any vision changes and is no longer having any headaches or dizziness. OBJECTIVE: Vital Signs Period Temp Pulse Resp BP Sys/Gaspar Pulse Ox Last 24 Hr 97.4 F-98.5 F 62-73 18-20 131-159/63-91 98-98 GENERAL: The patient is awake, alert, and fully oriented, in no acute distress.. EYES: no scaleral icterus NECK: no JVD, no lymphadenopathy LUNGS:CTA B/L; no rales, rhonchi or wheezing. HEART: Regular rate and rhythm, S1, S2 without murmur, rub or gallop. ABDOMEN: Soft, nontender, nondistended, normoactive bowel sounds, no guarding, no rebound, no hepatosplenomegaly, no masses. EXTREMITIES: 2+ pulses, warm, well-perfused, + edema. SKIN: Warm, dry, normal turgor, no rashes or lesions noted Laboratory Results - last 24 hr 02/19/18 02/20/18 02/20/18 17:25 00:36 05:30 WBC 10.9 H RBC 4.75 Hgb 12.9 Hct 40.5 MCV 85.2 MCH 27.2 MCHC 31.9 L RDW 16.0 H Plt Count 211 MPV 9.1 Sodium Potassium Chloride Carbon Dioxide Anion Gap BUN Creatinine Creat Clearance w eGFR POC Glucometer 213 117 Random Glucose Calcium Phosphorus Magnesium Total Bilirubin AST ALT Alkaline Phosphatase Total Protein Albumin 02/20/18 02/20/18 02/20/18 05:30 05:30 11:30 WBC RBC Hgb Hct MCV MCH MCHC RDW Plt Count MPV Sodium 139 Potassium 5.0 Chloride 109 H Carbon Dioxide 25 Anion Gap 6 L BUN 40 H Creatinine 5.2 H Creat Clearance w eGFR 11.05 POC Glucometer 129 203 Random Glucose 125 H Calcium 7.7 L Phosphorus 5.0 H Magnesium 2.4 Total Bilirubin 0.3 AST 18 ALT 17 Alkaline Phosphatase 132 H Total Protein 4.6 L Albumin 1.5 L Active Medications Generic Name Dose Route Start Last Admin Trade Name Freq PRN Reason Stop Dose Admin Abacavir Sulfate 600 mg 02/19/18 10:00 02/20/18 10:08 Ziagen - PO 600 mg DAILY [facility] Administration Albuterol Sulfate 1 amp 02/18/18 21:46 Ventolin 0.083% Nebulizer Soln - NEB Q6H PRN ASTHMA Albuterol Sulfate 1 puff 02/18/18 21:46 Ventolin Hfa Inhaler - IH Q4H PRN WHEEZING Albuterol Sulfate 2 puff 02/19/18 06:55 Ventolin Hfa Inhaler - IH Q4H PRN WHEEZING Amlodipine Besylate 5 mg 02/19/18 10:00 02/20/18 10:06 Norvasc - PO 5 mg DAILY [facility] Administration Apixaban 5 mg 02/18/18 22:00 02/20/18 10:06 Eliquis - PO 5 mg BID [facility] Administration Aspirin 81 mg 02/19/18 10:00 02/20/18 10:06 Ecotrin - PO 81 mg DAILY [facility] Administration Atorvastatin Calcium 80 mg 02/18/18 22:00 02/19/18 21:49 Lipitor - PO 80 mg HS [facility] Administration Calcium Carbonate/Cholecalciferol 1 tab 02/19/18 10:00 02/20/18 10:06 Os-Rony 500+D - PO 1 tab DAILY [facility] Administration Docusate Sodium 100 mg 02/18/18 21:46 Colace - PO TID PRN CONSTIPATION Fluticasone Propionate 2 spray 02/19/18 16:38 02/20/18 10:06 Flonase - NS 2 spray DAILY PRN Administration NASAL ALLERGIES Folic Acid 1 mg 02/19/18 10:00 02/20/18 10:06 Folic Acid - PO 1 mg DAILY [facility] Administration Gabapentin 400 mg 02/18/18 22:00 02/20/18 10:15 Neurontin - PO 400 mg BID [facility] Administration Lamivudine 300 mg 02/19/18 10:00 02/20/18 10:08 Epivir - PO 300 mg DAILY [facility] Administration Loratadine 10 mg 02/18/18 21:46 Claritin - PO Q2D PRN sneezing Metoprolol Tartrate 50 mg 02/18/18 22:00 02/20/18 10:06 Lopressor - PO 50 mg BID [facility] Administration Mometasone Furoate 1 puff 02/19/18 10:00 02/20/18 10:07 Asmanex 110mcg - IH 1 puff DAILY [facility] Administration Multivitamins/Minerals/Vitamin C 1 tab 02/19/18 10:00 02/20/18 10:06 Tab-A-Vit - PO 1 tab DAILY [facility] Administration Tamsulosin HCl 0.8 mg 02/19/18 22:00 02/19/18 21:49 Flomax - PO 0.8 mg HS [facility] Administration Tiotropium [place] 2 puff 02/19/18 10:00 02/20/18 10:07 Spiriva Respimat IH 2 puff DAILY [facility] Administration ASSESSMENT/PLAN: 67 yo Male with PMH HIV (on Haart), A-fib (on Eliquis), 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 CT findings explained to patient -D/C aggrenox; starting ASA 81 -Aspiration precautions, elevate head of bed -soft diet -Carotid Doppler showing 60-79% stenoses at the carotid bifurcation -Continue home Lipitor 80 mg PO HS -PT eval YIFAN - > 0.3 increase from expected baseline -BUN/Cr 35/5.2 -Dr Lobo saw patient this AM; ordered urine studies -renal/bladder US showed L hydro; -monitor BMP -urology consult for Dr. Yolande perez -patient refusing owens HIV -Stable on Haart therapy -Follows at [facility] -Recent viral load < 20 in November -CD4 502 at that time -Abacavir/Dolutegravir/Lamivudine 600/50/300 Daily A-fib -Currently in sinus rythm -Rate controlled -Eliquis 5 mg PO BID -Lopressor 50 mg PO BID HTN -Amlodipine 5 mg PO Daily -Lopressor as above NIDDM -BGMs ACHS -Insulin sliding scale for glycemic control COPD -Mometasone -Ventolin Inhaler and Nebs PRN -Spiriva nonformulary, will convert -Currently stable with no signs of exacerbation Systolic CHF -ECHO from 2015 noted with EF 21%, Mildly reduced systolic function -Stable, no signs of acute fluid overload at this time -Repeat Echo shows LV systolic function moderately reduced with hypokinesis BPH -Flomax 0.4 mg PO Daily DVT Prophylaxis -Continue home Eliquis FEN -Fluids: as per nephrology, NS @ 83 cc/hr -Electrolytes: No electrolyte abnormalities, BMP in AM -Nutrition: NPO until bed side swallow eval, then advance to Diabetic/Na controlled diet Problem List - Problems (1) YIFAN (acute kidney injury) Code(s): N17.9 - ACUTE KIDNEY FAILURE, UNSPECIFIED (2) Dizziness Code(s): R42 - DIZZINESS AND GIDDINESS (3) Non-hemorrhagic cerebrovascular accident Code(s): I63.9 - CEREBRAL INFARCTION, UNSPECIFIED (4) Diabetes Code(s): E11.9 - TYPE 2 DIABETES MELLITUS WITHOUT COMPLICATIONS (5) HIV (human immunodeficiency virus infection) Code(s): Z21 - ASYMPTOMATIC HUMAN IMMUNODEFICIENCY VIRUS INFECTION STATUS Visit type - Emergency Visit Emergency Visit: Yes ED Registration Date: 02/18/18 Care time: The patient presented to the Emergency Department on the above date and was hospitalized for further evaluation of their emergent condition. - New Patient This patient is new to me today: No - Critical Care Critical Care patient: No
--- NOTE | 2018-02-20 15:40 | PN ---
Teaching Attending Note Name of Resident: Flower Fletcher ATTENDING PHYSICIAN STATEMENT I saw and evaluated the patient. I reviewed the resident's note and discussed the case with the resident. I agree with the resident's findings and plan as documented. SUBJECTIVE:asymptomatic. denies CP, SOB, fever, chills, N/V/C/D. blurred vision remains stable OBJECTIVE: Last Vital Signs Temp Pulse Resp BP Pulse Ox 98.1 F 68 18 142/78 98 02/20/18 14:00 02/20/18 14:00 02/20/18 11:00 02/20/18 14:00 02/20/18 09:00 General NAD CV S1 S2 RRR no murmur/rub/gallop Lungs CTA B/L no wheezing/rales/rhonchi Abdomen soft NT/ND obese, no flank pain. neg cva tenderness Extremities 1+ piting edema ASSESSMENT AND PLAN: 67yo M with PMH CKD, HIV on HARRT, afib on eliquis, DM, systolic CHF, COPD, Prostate ca, sent to the ER due to worsening renal function and was c/o blurred vision 1. Subacute CVA- stroke workup completed. will monitor on tele for afib for total of 72H. on asa/statin. neuro on board. 2. Blurred vision- could be worsening function with comorbid conditions. has been following with opthalmologist regularly and unclear what testing and what has been ruled out this far. since it has not changed in quality or worsening. can f/u with optho outpatient 3. Acute on CKD-baseline 3.5-3.9. CT shows L hydro with adjacent LN. no other causes of hydro. will consult urology. will d/c IVF as there was no change in renal function and starting to develop some edema. nephro on board. 4. HIV on HARRT- cont therapy 5. Afib on eliquis- rate controlled. cont 6. COPD- no signs of acute exacerbation. cont inhalers 7. Prostate ca 8. DVT ppx- Eliquis
[2018-02-20] MEDS: TAMSULOSIN HCL 0.4 MG CAP PO SCH (21:50)
[2018-02-20] MEDS: ATORVASTATIN CA 80 MG TABLET (FP) PO SCH (21:52)
[2018-02-21 06:40] LABS: BASO % 0.9 % (0-2.0); EOS % 3.3 % (0-4.5); HEMATOCRIT 37.6 % (35.4-49); HEMOGLOBIN 12.1 GM/dL (11.7-16.9); LYMPH % 31.2 % (8-40); MCH 27.5 pg (25.7-33.7); MCHC 32.1 g/dl (32.0-35.9); MEAN CELL VOLUME 85.7 fl (80-96); MEAN PLT VOLUME 9.2 fl (7.5-11.1); MONO % 7.2 % (3.8-10.2); NEUT % 57.4 % (42.8-82.8); PLATELET COUNT 203 K/MM3 (134-434); RBC 4.39 M/mm3 (4.00-5.60); RDW 15.8 % (11.9-15.9)
[2018-02-21 06:55] LABS: ALBUMIN 1.5 g/dl (3.4-5.0); ALK PHOS 124 U/L (45-117); ANION GAP 6 MMOL/L (8-16); BILIRUBIN,TOTAL 0.2 mg/dL (0.2-1); BLOOD UREA NITROGEN 40 mg/dL (7-18); CALCIUM 7.9 mg/dL (8.5-10.1); CHLORIDE 108 mmol/L (98-107); CO2 24 mmol/L (21-32); CREATININE 5.2 mg/dL (0.55-1.3); GLUCOSE,RANDOM 134 mg/dL (74-106); MAGNESIUM 2.4 mg/dL (1.8-2.4); PHOSPHOROUS 5.4 mg/dL (2.5-4.9); POTASSIUM 4.5 mmol/L (3.5-5.1); SGOT/AST 20 U/L (15-37); SGPT/ALT 16 U/L (13-61); SODIUM 139 mmol/L (136-145); TOT PROT 4.5 g/dl (6.4-8.2)
--- NOTE | 2018-02-21 09:11 | PN ---
Progress Note (short form) - Note Progress Note: asymptomatic. denies CP, SOB, fever, chills, N/V/C/D Current Medications Generic Name Dose Route Start Last Admin Trade Name Freq PRN Reason Stop Dose Admin Abacavir Sulfate 600 mg 02/19/18 10:00 02/20/18 10:08 Ziagen - PO 600 mg DAILY [facility] Administration Albuterol Sulfate 1 amp 02/18/18 21:46 Ventolin 0.083% Nebulizer Soln - NEB Q6H PRN ASTHMA Albuterol Sulfate 1 puff 02/18/18 21:46 Ventolin Hfa Inhaler - IH Q4H PRN WHEEZING Albuterol Sulfate 2 puff 02/19/18 06:55 Ventolin Hfa Inhaler - IH Q4H PRN WHEEZING Amlodipine Besylate 5 mg 02/19/18 10:00 02/20/18 10:06 Norvasc - PO 5 mg DAILY [facility] Administration Apixaban 5 mg 02/18/18 22:00 02/20/18 21:51 Eliquis - PO 5 mg BID [facility] Administration Aspirin 81 mg 02/19/18 10:00 02/20/18 10:06 Ecotrin - PO 81 mg DAILY [facility] Administration Atorvastatin Calcium 80 mg 02/18/18 22:00 02/20/18 21:52 Lipitor - PO 80 mg HS [facility] Administration Calcium Carbonate/Cholecalciferol 1 tab 02/19/18 10:00 02/20/18 10:06 Os-Rony 500+D - PO 1 tab DAILY [facility] Administration Docusate Sodium 100 mg 02/18/18 21:46 Colace - PO TID PRN CONSTIPATION Fluticasone Propionate 2 spray 02/19/18 16:38 02/20/18 10:06 Flonase - NS 2 spray DAILY PRN Administration NASAL ALLERGIES Folic Acid 1 mg 02/19/18 10:00 02/20/18 10:06 Folic Acid - PO 1 mg DAILY [facility] Administration Gabapentin 400 mg 02/18/18 22:00 02/20/18 21:51 Neurontin - PO 400 mg BID [facility] Administration Lamivudine 300 mg 02/19/18 10:00 02/20/18 10:08 Epivir - PO 300 mg DAILY [facility] Administration Loratadine 10 mg 02/18/18 21:46 Claritin - PO Q2D PRN sneezing Metoprolol Tartrate 50 mg 02/18/18 22:00 02/20/18 21:51 Lopressor - PO 50 mg BID [facility] Administration Mometasone Furoate 1 puff 02/19/18 10:00 02/20/18 10:07 Asmanex 110mcg - IH 1 puff DAILY [facility] Administration Multivitamins/Minerals/Vitamin C 1 tab 02/19/18 10:00 02/20/18 10:06 Tab-A-Vit - PO 1 tab DAILY [facility] Administration Tamsulosin HCl 0.8 mg 02/19/18 22:00 02/20/18 21:50 Flomax - PO 0.8 mg HS [facility] Administration Tiotropium [place] 2 puff 02/19/18 10:00 02/20/18 10:07 Spiriva Respimat IH 2 puff DAILY [facility] Administration Last Vital Signs Temp Pulse Resp BP Pulse Ox 98.4 F 67 20 125/69 98 02/21/18 06:00 02/21/18 06:00 02/21/18 06:00 02/21/18 06:00 02/20/18 09:00 General NAD CV S1 S2 RRR no murmur/rub/gallop Lungs CTA B/L no wheezing/rales/rhonchi Abdomen soft NT/ND obese, Extremities trace piting edema CBCD WBC 8.0 K/mm3 (4.0-10.0) 02/21/18 05:30 RBC 4.39 M/mm3 (4.00-5.60) 02/21/18 05:30 Hgb 12.1 GM/dL (11.7-16.9) 02/21/18 05:30 Hct 37.6 % (35.4-49) 02/21/18 05:30 MCV 85.7 fl (80-96) 02/21/18 05:30 MCHC 32.1 g/dl (32.0-35.9) 02/21/18 05:30 RDW 15.8 % (11.9-15.9) 02/21/18 05:30 Plt Count 203 K/MM3 (134-434) 02/21/18 05:30 MPV 9.2 fl (7.5-11.1) 02/21/18 05:30 CMP Sodium 139 mmol/L (136-145) 02/21/18 05:30 Potassium 4.5 mmol/L (3.5-5.1) 02/21/18 05:30 Chloride 108 mmol/L (98-107) H 02/21/18 05:30 Carbon Dioxide 24 mmol/L (21-32) 02/21/18 05:30 Anion Gap 6 MMOL/L (8-16) L 02/21/18 05:30 BUN 40 mg/dL (7-18) H 02/21/18 05:30 Creatinine 5.2 mg/dL (0.55-1.3) H 02/21/18 05:30 Creat Clearance w eGFR 11.05 (>60) 02/21/18 05:30 Calcium 7.9 mg/dL (8.5-10.1) L 02/21/18 05:30 Total Bilirubin 0.2 mg/dL (0.2-1) 02/21/18 05:30 AST 20 U/L (15-37) 02/21/18 05:30 ALT 16 U/L (13-61) 02/21/18 05:30 Alkaline Phosphatase 124 U/L (45-117) H 02/21/18 05:30 Total Protein 4.5 g/dl (6.4-8.2) L 02/21/18 05:30 Albumin 1.5 g/dl (3.4-5.0) L 02/21/18 05:30 ASSESSMENT AND PLAN: 67yo M with PMH CKD, HIV on HARRT, afib on eliquis, DM, systolic CHF, COPD, Prostate ca, sent to the ER due to worsening renal function and was c/o blurred vision 1. Subacute CVA- stroke workup completed. will monitor on tele for afib for total of 72H. on asa/statin. neuro on board. 2. Blurred vision- could be worsening function with comorbid conditions. has been following with opthalmologist regularly and unclear what testing and what has been ruled out this far. since it has not changed in quality or worsening. can f/u with optho outpatient 3. Acute on CKD-baseline 3.5-3.9. has remained stable. CT shows L hydro with adjacent LN. no other causes of hydro. will consult urology. nephro on board. 4. hyperphosphatemia- will d/w renal about starting phoslo 5. HIV on HARRT- cont therapy 6. Afib on eliquis- rate controlled. cont 7. COPD- no signs of acute exacerbation. cont inhalers 8. Prostate ca 9. DVT ppx- Eliquis 10. Will need MAGGIE on discharge. FREDA sent Visit type - Emergency Visit Emergency Visit: Yes ED Registration Date: 02/18/18 Care time: The patient presented to the Emergency Department on the above date and was hospitalized for further evaluation of their emergent condition. - New Patient This patient is new to me today: No - Critical Care Critical Care patient: No - Discharge Referral Referred to [facility] No
--- NOTE | 2018-02-21 09:27 | CON.GU ---
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 His baseline is usually about 3-4 and was noted to be above that and referred to the ED for evaluation and further management. Pt states that he has felt fine and has no complaints at this time. On review of systems, pt endorses blurry vision which has been occuring for over a year. He follows regularly with an Opthalmologist, who he has seen as recently as one month ago. He denies any acute vision changes within the last few weeks. 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 History of Recent Travel: No Home Medications - Allergies Allergies/Adverse Reactions: Allergies Allergy/AdvReac Type Severity Reaction Status Date / Time No Known Allergies Allergy Verified 02/18/18 19:52 - Home Medications Home Medications: Ambulatory Orders Tiotropium [place] [Spiriva] 1 inh PO DAILY 04/25/16 B Complex 1 tab PO HS 09/15/17 Vitamin E 1,000 mg PO DAILY 09/15/17 Folic Acid 1 mg PO DAILY #30 tablet 11/28/17 Fluticasone Prop 0.05% Nasal [Flonase -] 1 - 2 spray NS DAILY #1 spray.pump 08/08 Fluticasone Propionate [Flovent Diskus] 100 mcg IH BID #1 blst.w.dev 12/26/17 Guaifenesin/D-Methorphan Hb [Diabetic Tussin Dm -] 10 ml PO Q4H PRN #240 ml 08/08 Cefuroxime Axetil [Ceftin -] 500 mg PO Q12H #8 tablet 12/29/17 Nebulizer [Aeroeclipse II] 1 each MC DAILY #1 each 01/01/18 Abacavir/Dolutegravir/Lamivudi [Triumeq 600-50-300 mg Tablet] 1 each PO DAILY # 30 tablet 01/16/18 Albuterol 0.083% Nebulizer Lyla [Ventolin 0.083% Nebulizer Soln -] 1 neb NEB Q6H PRN #90 vial 01/16/18 Albuterol Sulfate Inhaler - [Ventolin HFA Inhaler -] 1 - 2 inh PO Q4H PRN #1 inhaler MDD 6 01/16/18 Amlodipine Besylate 5 mg PO DAILY #30 tablet 01/16/18 Apixaban [Eliquis -] 5 mg PO BID #60 tablet 01/16/18 Aspirin [Aspirin EC] 81 mg PO DAILY #30 tablet. 01/16/18 Atorvastatin Ca [Lipitor] 80 mg PO HS #30 tablet 01/16/18 Calcium Carbonate/Vitamin D3 [Calcium 600 + Vit D Tablet] 1 each PO DAILY #30 tablet 01/16/18 Docusate Sodium [Colace -] 100 mg PO TID PRN #90 capsule 01/16/18 Gabapentin 400 mg PO BID #60 capsule 01/16/18 Loratadine [Claritin -] 10 mg PO Q2D PRN #30 tablet 01/16/18 Metoprolol Tartrate [Lopressor -] 50 mg PO BID #60 tablet 01/16/18 Mometasone Furoate [Asmanex 110Mcg -] 1 inh IH DAILY #1 inhaler 01/16/18 Multivitamin [Daily Multiple Vitamin] 1 each PO DAILY #30 tablet 01/16/18 Repaglinide [Prandin -] 2 mg PO TID #90 tablet 01/16/18 Sitagliptin Phosphate [Januvia] 25 mg PO DAILY #30 tab 01/16/18 Tamsulosin HCl [Flomax] 0.4 mg PO HS #30 cap 01/16/18 Family Disease History - Family Disease History Family Disease History: Diabetes: Brother (3 brothers, 1 with dm), Respiratory: Brother, Other: Grandparent (unk), Father (dec'd cause and age unk), Mother (dec 'd age 60's, cause unk), Brother, Sister (1 a&w) Review of Systems - Review of Systems Genitourinary: reports: No Symptoms Physical Exam- Vital Signs: Vital Signs Temperature 98.4 F 02/21/18 06:00 Pulse Rate 67 02/21/18 06:00 Respiratory Rate 20 02/21/18 06:00 Blood Pressure 125/69 02/21/18 06:00 O2 Sat by Pulse Oximetry (%) 98 02/20/18 09:00 Gastrointestinal: Yes: WNL, Normal Bowel Sounds, Soft, Abdomen, Obese Pelvis: Yes: WNL Testicles: Yes: WNL Scrotum: Yes: WNL Penis: Yes: WNL Prostate Exam: Yes: WNL Edema: Yes Labs: CBC, BMP 02/21/18 05:30 02/21/18 05:30 Imaging - Results Cat Scan: Report Reviewed Problem List - Problems (1) Hydronephrosis Code(s): N13.30 - UNSPECIFIED HYDRONEPHROSIS (2) Acute kidney injury superimposed on CKD Code(s): S37.009A - UNSPECIFIED INJURY OF UNSPECIFIED KIDNEY, INITIAL ENCOUNTER ; N18.9 - CHRONIC KIDNEY DISEASE, UNSPECIFIED (3) Prostate CA Assessment/Plan: PSA Code(s): C61 - MALIGNANT NEOPLASM OF PROSTATE (4) Incomplete bladder emptying Assessment/Plan: pt refused recommended owens, cont flomax Code(s): R33.9 - RETENTION OF URINE, UNSPECIFIED
[2018-02-21] MEDS ORDERED: PT OWN MED DRAWER 7, Y5N ONE (11:36)
[2018-02-21] MEDS: MOMETASONE FUROATE 110 MCG/IH INHALER IH SCH (11:53)
[2018-02-21] MEDS: TIOTROPIUM BROMIDE 2.5 MCG (SPIRIVA) RESPIMAT INHALER IH SCH (11:54)
[2018-02-21] MEDS: CALCIUM 500MG/VIT-D 200 UNITS COMBO TABLET (FP) PO SCH (11:55)
[2018-02-21] MEDS: GABAPENTIN 400 MG CAPSULE (FP) PO SCH ×2 (11:55→21:30)
[2018-02-21] MEDS: APIXABAN 5 MG TABLET PO SCH ×2 (11:55→21:30)
[2018-02-21] MEDS: METOPROLOL TARTRATE 50 MG TABLET (FP) PO SCH ×2 (11:55→21:30)
[2018-02-21] MEDS: MULTIVITAMINS (DAILY MVI) TABLET (FP) PO SCH (11:55)
[2018-02-21] MEDS: FOLIC ACID 1 MG TABLET (FP) PO SCH (11:55)
[2018-02-21] MEDS: ASPIRIN COATED 81 MG TABLET.EC PO SCH (11:56)
[2018-02-21] MEDS: ABACAVIR SULFATE 300 MG TABLET PO SCH (11:56)
[2018-02-21] MEDS: amLODIPine BESYLATE 5 MG TABLET (FP) PO SCH (11:56)
[2018-02-21] MEDS: lamiVUDine 150 MG TABLET PO SCH (11:56)
[2018-02-21] MEDS: DOLUTEGRAVIR SODIUM 50 MG TABLET (NON-FORMULARY) PO SCH (11:57)
--- NOTE | 2018-02-21 20:08 | PN ---
Progress Note (short form) - Note Progress Note: covering dr st YIFAN/urinary retention left hydro large PVR seen by , recommends Jasmine catheter insertion but patient declines for fear of pain he was again spoken with to address his pain concern he agrees to have the catheter inserted with lidocaine gel to control pain Previous Medical Hx CKD stage 4 (baseline Cr 3.5-3.9), HIV, HTN, DM, COPD, CVA Current Medications Abacavir Sulfate (Ziagen -) 600 mg PO DAILY [facility] Last Admin: 02/21/18 11:56 Dose: 600 mg Albuterol Sulfate (Ventolin 0.083% Nebulizer Soln -) 1 amp NEB Q6H PRN PRN Reason: ASTHMA Albuterol Sulfate (Ventolin Hfa Inhaler -) 1 puff IH Q4H PRN PRN Reason: WHEEZING Albuterol Sulfate (Ventolin Hfa Inhaler -) 2 puff IH Q4H PRN PRN Reason: WHEEZING Amlodipine Besylate (Norvasc -) 5 mg PO DAILY [facility] Last Admin: 02/21/18 11:56 Dose: 5 mg Apixaban (Eliquis -) 5 mg PO BID [facility] Last Admin: 02/21/18 11:55 Dose: 5 mg Aspirin (Ecotrin -) 81 mg PO DAILY [facility] Last Admin: 02/21/18 11:56 Dose: 81 mg Atorvastatin Calcium (Lipitor -) 80 mg PO HS [facility] Last Admin: 02/20/18 21:52 Dose: 80 mg Calcium Carbonate/Cholecalciferol (Os-Rony 500+D -) 1 tab PO DAILY [facility] Last Admin: 02/21/18 11:55 Dose: 1 tab Docusate Sodium (Colace -) 100 mg PO TID PRN PRN Reason: CONSTIPATION Fluticasone Propionate (Flonase -) 2 spray NS DAILY PRN PRN Reason: NASAL ALLERGIES Last Admin: 02/20/18 10:06 Dose: 2 spray Folic Acid (Folic Acid -) 1 mg PO DAILY [facility] Last Admin: 02/21/18 11:55 Dose: 1 mg Gabapentin (Neurontin -) 400 mg PO BID [facility] Last Admin: 02/21/18 11:55 Dose: 400 mg Lamivudine (Epivir -) 300 mg PO DAILY [facility] Last Admin: 02/21/18 11:56 Dose: 300 mg Loratadine (Claritin -) 10 mg PO Q2D PRN PRN Reason: sneezing Metoprolol Tartrate (Lopressor -) 50 mg PO BID [facility] Last Admin: 02/21/18 11:55 Dose: 50 mg Mometasone Furoate (Asmanex 110mcg -) 1 puff IH DAILY [facility] Last Admin: 02/21/18 11:53 Dose: 1 puff Multivitamins/Minerals/Vitamin C (Tab-A-Vit -) 1 tab PO DAILY [facility] Last Admin: 02/21/18 11:55 Dose: 1 tab Tamsulosin HCl (Flomax -) 0.8 mg PO HS [facility] Last Admin: 02/20/18 21:50 Dose: 0.8 mg Tiotropium [place] (Spiriva Respimat) 2 puff IH DAILY [facility] Last Admin: 02/21/18 11:54 Dose: 2 puff Last Vital Signs Temp Pulse Resp BP Pulse Ox 98.1 F 69 20 158/58 L 98 02/21/18 18:00 02/21/18 18:00 02/21/18 18:00 02/21/18 18:00 02/20/18 09:00 CBC, BMP 02/21/18 05:30 02/21/18 05:30 #Acute on Chronic Renal insufficiency (Mild left sided hydronephrosis - new finding, FeUrea 047% indicating tubular damage, UPCR ~10) #Nephrotic range proetinuira (Serologic work up done showed negative hepatitis, DARIUSZ,ANCA, SPEP, likely due to diabetic nephropathy) #Subacute occipital CVA #HIV #Hypertension #DM CT shows left sided hydronephrosis with adenopathy near the ureter will need urologic consult and intervention Renal function unchanged despite IVF no urgent indication for DATA MODELING SPECIALIST Trend renal function and electrolytes daily can d/c IV if pt tolerating oral diet
[2018-02-21] MEDS: ATORVASTATIN CA 80 MG TABLET (FP) PO SCH (21:30)
[2018-02-21] MEDS: TAMSULOSIN HCL 0.4 MG CAP PO SCH (21:30)
[2018-02-21] MEDS ORDERED: LIDOCAINE HCL 2% JELLY 10 ML CARTRIDGE TP ONE (21:45)
[2018-02-22 07:32] LABS: ANION GAP 9 MMOL/L (8-16); BLOOD UREA NITROGEN 40 mg/dL (7-18); CALCIUM 7.8 mg/dL (8.5-10.1); CHLORIDE 108 mmol/L (98-107); CO2 22 mmol/L (21-32); CREATININE 5.3 mg/dL (0.55-1.3); GLUCOSE,RANDOM 212 mg/dL (74-106); PHOSPHOROUS 4.6 mg/dL (2.5-4.9); POTASSIUM 4.7 mmol/L (3.5-5.1); SODIUM 139 mmol/L (136-145)
[2018-02-22] MEDS: MULTIVITAMINS (DAILY MVI) TABLET (FP) PO SCH (09:44)
[2018-02-22] MEDS: GABAPENTIN 400 MG CAPSULE (FP) PO SCH ×2 (09:44→22:29)
[2018-02-22] MEDS: APIXABAN 5 MG TABLET PO SCH ×2 (09:44→22:28)
[2018-02-22] MEDS: CALCIUM 500MG/VIT-D 200 UNITS COMBO TABLET (FP) PO SCH (09:44)
[2018-02-22] MEDS: FOLIC ACID 1 MG TABLET (FP) PO SCH (09:44)
[2018-02-22] MEDS: ASPIRIN COATED 81 MG TABLET.EC PO SCH (09:44)
[2018-02-22] MEDS: amLODIPine BESYLATE 5 MG TABLET (FP) PO SCH (09:44)
[2018-02-22] MEDS: METOPROLOL TARTRATE 50 MG TABLET (FP) PO SCH ×2 (09:44→22:29)
[2018-02-22] MEDS: lamiVUDine 150 MG TABLET PO SCH (09:45)
[2018-02-22] MEDS: ABACAVIR SULFATE 300 MG TABLET PO SCH (09:45)
[2018-02-22] MEDS: DOLUTEGRAVIR SODIUM 50 MG TABLET (NON-FORMULARY) PO SCH (09:46)
[2018-02-22] MEDS: MOMETASONE FUROATE 110 MCG/IH INHALER IH SCH (09:51)
[2018-02-22] MEDS: TIOTROPIUM BROMIDE 2.5 MCG (SPIRIVA) RESPIMAT INHALER IH SCH (09:51)
--- NOTE | 2018-02-22 11:08 | PN ---
Physical Exam: SUBJECTIVE: Patient seen and examined at bedside- no acute events overnight. patient states that he is feeling well and has no complaints. he is still refusing owens catheter, he denies any CP/SOB/N/V fevers or chills OBJECTIVE: Vital Signs Period Temp Pulse Resp BP Sys/Gaspar Pulse Ox Last 24 Hr 97.7 F-98.8 F 64-74 18-20 133-158/58-95 97-98 GENERAL: The patient is awake, alert, and fully oriented, in no acute distress. EYES: EOMI; PEERLA; no scleral icterus NECK: no JVD, no lypmhadenopathy LUNGS: CTA B/L; no rales, rhonchi or wheezing. HEART: Regular rate and rhythm, S1, S2 without murmur, rub or gallop. ABDOMEN: Soft, nontender, nondistended, normoactive bowel sounds, no guarding, no rebound, no hepatosplenomegaly, no masses. EXTREMITIES: 2+ pulses, warm, well-perfused, 1+ edema B/L:. NEUROLOGICAL: Cranial nerves II through XII grossly intact. Normal speech, gait not observed, slowed speech (his baseline) SKIN: Warm, dry, normal turgor, no rashes or lesions noted Laboratory Results - last 24 hr 02/21/18 02/22/18 02/22/18 23:01 05:30 05:41 Sodium 139 Potassium 4.7 Chloride 108 H Carbon Dioxide 22 Anion Gap 9 BUN 40 H Creatinine 5.3 H Creat Clearance w eGFR 10.81 POC Glucometer 233 199 Random Glucose 212 H Calcium 7.8 L Phosphorus 4.6 Active Medications Generic Name Dose Route Start Last Admin Trade Name Freq PRN Reason Stop Dose Admin Abacavir Sulfate 600 mg 02/19/18 10:00 02/22/18 09:45 Ziagen - PO 600 mg DAILY GELACIO Administration Albuterol Sulfate 1 amp 02/18/18 21:46 Ventolin 0.083% Nebulizer Soln - NEB Q6H PRN ASTHMA Albuterol Sulfate 1 puff 02/18/18 21:46 Ventolin Hfa Inhaler - IH Q4H PRN WHEEZING Albuterol Sulfate 2 puff 02/19/18 06:55 Ventolin Hfa Inhaler - IH Q4H PRN WHEEZING Amlodipine Besylate 5 mg 02/19/18 10:00 02/22/18 09:44 Norvasc - PO 5 mg DAILY GELACIO Administration Apixaban 5 mg 02/18/18 22:00 02/22/18 09:44 Eliquis - PO 5 mg BID GELACIO Administration Aspirin 81 mg 02/19/18 10:00 02/22/18 09:44 Ecotrin - PO 81 mg DAILY GELACIO Administration Atorvastatin Calcium 80 mg 02/18/18 22:00 02/21/18 21:30 Lipitor - PO 80 mg HS GELACIO Administration Calcium Carbonate/Cholecalciferol 1 tab 02/19/18 10:00 02/22/18 09:44 Os-Rony 500+D - PO 1 tab DAILY [facility]IO Administration Docusate Sodium 100 mg 02/18/18 21:46 Colace - PO TID PRN CONSTIPATION Fluticasone Propionate 2 spray 02/19/18 16:38 02/20/18 10:06 Flonase - NS 2 spray DAILY PRN Administration NASAL ALLERGIES Folic Acid 1 mg 02/19/18 10:00 02/22/18 09:44 Folic Acid - PO 1 mg DAILY G[facility]IO Administration Gabapentin 400 mg 02/18/18 22:00 02/22/18 09:44 Neurontin - PO 400 mg BID GELACIO Administration Lamivudine 300 mg 02/19/18 10:00 02/22/18 09:45 Epivir - PO 300 mg DAILY [facility] Administration Loratadine 10 mg 02/18/18 21:46 Claritin - PO Q2D PRN sneezing Metoprolol Tartrate 50 mg 02/18/18 22:00 02/22/18 09:44 Lopressor - PO 50 mg BID GELACIO Administration Mometasone Furoate 1 puff 02/19/18 10:00 02/22/18 09:51 Asmanex 110mcg - IH 1 puff DAILY [facility] Administration Multivitamins/Minerals/Vitamin C 1 tab 02/19/18 10:00 02/22/18 09:44 Tab-A-Vit - PO 1 tab DAILY [facility] Administration Tamsulosin HCl 0.8 mg 02/19/18 22:00 02/21/18 21:30 Flomax - PO 0.8 mg HS GELACIO Administration Tiotropium [place] 2 puff 02/19/18 10:00 02/22/18 09:51 Spiriva Respimat IH 2 puff DAILY [facility] Administration ASSESSMENT/PLAN: 67 yo Male with PMH HIV (on Haart), A-fib (on Eliquis), HTN, NIDDM, 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 ASA 81 -Aspiration precautions, elevate head of bed -soft diet -Carotid Doppler showing 60-79% stenoses at the carotid bifurcation -Continue home Lipitor 80 mg PO HS YIFAN - > 0.3 increase from expected baseline -BUN/Cr 35/5.2 -Dr Lobo saw patient this AM; ordered urine studies -renal/bladder US showed L hydro; -monitor BMP -Dr Wilson saw pt yesterday and will see him as an O/P and to continue taking flomax -patient refusing owens HIV -Stable on Haart therapy -Follows at [facility] -Recent viral load < 20 in November -CD4 502 at that time -Abacavir/Dolutegravir/Lamivudine 600/50/300 Daily A-fib -Currently in sinus rythm -Rate controlled -Eliquis 5 mg PO BID -Lopressor 50 mg PO BID HTN -Amlodipine 5 mg PO Daily -Lopressor as above NIDDM -BGMs ACHS -Insulin sliding scale for glycemic control COPD -Mometasone -Ventolin Inhaler and Nebs PRN -Spiriva nonformulary, will convert -Currently stable with no signs of exacerbation Systolic CHF -ECHO from 2016 noted with EF 21%, Mildly reduced systolic function -Stable, no signs of acute fluid overload at this time -Repeat Echo shows LV systolic function moderately reduced with hypokinesis BPH -Flomax 0.4 mg PO Daily DVT Prophylaxis -Continue home Eliquis FEN -Fluids: as per nephrology, NS @ 83 cc/hr -Electrolytes: No electrolyte abnormalities, BMP in AM -Nutrition: soft diet dispo: rehab Problem List - Problems (1) YIFAN (acute kidney injury) Code(s): N17.9 - ACUTE KIDNEY FAILURE, UNSPECIFIED (2) Dizziness Code(s): R42 - DIZZINESS AND GIDDINESS (3) Non-hemorrhagic cerebrovascular accident Code(s): I63.9 - CEREBRAL INFARCTION, UNSPECIFIED (4) Diabetes Code(s): E11.9 - TYPE 2 DIABETES MELLITUS WITHOUT COMPLICATIONS (5) HIV (human immunodeficiency virus infection) Code(s): Z21 - ASYMPTOMATIC HUMAN IMMUNODEFICIENCY VIRUS INFECTION STATUS Visit type - Emergency Visit Emergency Visit: Yes ED Registration Date: 02/18/18 Care time: The patient presented to the Emergency Department on the above date and was hospitalized for further evaluation of their emergent condition. - New Patient This patient is new to me today: No - Critical Care Critical Care patient: No
--- NOTE | 2018-02-22 13:03 | PN ---
Teaching Attending Note Name of Resident: Flower Fletcher ATTENDING PHYSICIAN STATEMENT I saw and evaluated the patient. I reviewed the resident's note and discussed the case with the resident. I agree with the resident's findings and plan as documented. SUBJECTIVE:asymptomatic. denies Cp, SOB, fever, chills, N/V/?CD OBJECTIVE: Last Vital Signs Temp Pulse Resp BP Pulse Ox 98.1 F 66 18 134/62 97 02/22/18 10:00 02/22/18 10:00 02/22/18 10:00 02/22/18 10:00 02/22/18 09:00 General NAD Lungs CTA B/L no wheezing/rales/rhonchi Extremiteis 1+ pitting edema ASSESSMENT AND PLAN: 67yo M with PMH CKD, HIV on HARRT, afib on eliquis, DM, systolic CHF, COPD, Prostate ca, sent to the ER due to worsening renal function and was c/o blurred vision 1. Subacute CVA- stroke workup completed. will monitor on tele for afib for total of 72H. on asa/statin. neuro on board. 2. Blurred vision- could be worsening function with comorbid conditions. has been following with opthalmologist regularly and unclear what testing and what has been ruled out this far. since it has not changed in quality or worsening. can f/u with optho outpatient 3. Acute on CKD-baseline 3.5-3.9. has remained stable. CT shows L hydro with adjacent LN. no other causes of hydro. urology f/u as outpatient. continues to refuse owens. nephro on board. 4. hyperphosphatemia- d/w nephro about starting renelva. Ca normal 5. HIV on HARRT- cont therapy 6. Afib on eliquis- rate controlled. cont 7. COPD- no signs of acute exacerbation. cont inhalers 8. Prostate ca 9. DVT ppx- Eliquis 10. Will need MAGGIE on discharge. FREDA sent.
--- NOTE | 2018-02-22 19:26 | PN ---
Progress Note (short form) - Note Progress Note: covering dr st YIFAN/urinary retention left hydro large PVR seen by , recommends Owens catheter insertion but patient declines for fear of pain he was again spoken with to address his pain concern he agrees to have the catheter inserted with lidocaine gel to control pain Previous Medical Hx CKD stage 4 (baseline Cr 3.5-3.9), HIV, HTN, DM, COPD, CVA Current Medications Abacavir Sulfate (Ziagen -) 600 mg PO DAILY [facility] Last Admin: 02/22/18 09:45 Dose: 600 mg Albuterol Sulfate (Ventolin 0.083% Nebulizer Soln -) 1 amp NEB Q6H PRN PRN Reason: ASTHMA Albuterol Sulfate (Ventolin Hfa Inhaler -) 1 puff IH Q4H PRN PRN Reason: WHEEZING Albuterol Sulfate (Ventolin Hfa Inhaler -) 2 puff IH Q4H PRN PRN Reason: WHEEZING Amlodipine Besylate (Norvasc -) 5 mg PO DAILY [facility] Last Admin: 02/22/18 09:44 Dose: 5 mg Apixaban (Eliquis -) 5 mg PO BID [facility] Last Admin: 02/22/18 09:44 Dose: 5 mg Aspirin (Ecotrin -) 81 mg PO DAILY [facility] Last Admin: 02/22/18 09:44 Dose: 81 mg Atorvastatin Calcium (Lipitor -) 80 mg PO HS [facility] Last Admin: 02/21/18 21:30 Dose: 80 mg Calcium Carbonate/Cholecalciferol (Os-Rony 500+D -) 1 tab PO DAILY [facility] Last Admin: 02/22/18 09:44 Dose: 1 tab Docusate Sodium (Colace -) 100 mg PO TID PRN PRN Reason: CONSTIPATION Fluticasone Propionate (Flonase -) 2 spray NS DAILY PRN PRN Reason: NASAL ALLERGIES Last Admin: 02/20/18 10:06 Dose: 2 spray Folic Acid (Folic Acid -) 1 mg PO DAILY [facility] Last Admin: 02/22/18 09:44 Dose: 1 mg Gabapentin (Neurontin -) 400 mg PO BID [facility] Last Admin: 02/22/18 09:44 Dose: 400 mg Lamivudine (Epivir -) 300 mg PO DAILY [facility] Last Admin: 02/22/18 09:45 Dose: 300 mg Loratadine (Claritin -) 10 mg PO Q2D PRN PRN Reason: sneezing Metoprolol Tartrate (Lopressor -) 50 mg PO BID [facility] Last Admin: 02/22/18 09:44 Dose: 50 mg Mometasone Furoate (Asmanex 110mcg -) 1 puff IH DAILY [facility] Last Admin: 02/22/18 09:51 Dose: 1 puff Multivitamins/Minerals/Vitamin C (Tab-A-Vit -) 1 tab PO DAILY [facility] Last Admin: 02/22/18 09:44 Dose: 1 tab Tamsulosin HCl (Flomax -) 0.8 mg PO HS [facility] Last Admin: 02/21/18 21:30 Dose: 0.8 mg Tiotropium [place] (Spiriva Respimat) 2 puff IH DAILY [facility] Last Admin: 02/22/18 09:51 Dose: 2 puff Last Vital Signs Temp Pulse Resp BP Pulse Ox 98.7 F 61 20 142/72 97 02/22/18 14:00 02/22/18 14:00 02/22/18 14:00 02/22/18 14:00 02/22/18 09:00 alert in nad lungs clear heart reg Abd soft nontender ext ++edema CBC, BMP 02/21/18 05:30 02/22/18 05:30 IMP -Acute on Chronic Renal insufficiency r/o obstructive uropathy (Mild left sided hydronephrosis) -Nephrotic range proetinuira (Serologic work up done showed negative hepatitis, DARIUSZ,ANCA, SPEP, likely due to diabetic nephropathy) -Subacute occipital CVA -HIV -Hypertension -DM Plan- will try to convince him to accept owens catheter
[2018-02-22 21:52] LABS: URINE APPEARANCE CLEAR; URINE BILIRUBIN NEGATIVE (<2.0 mg/dL); URINE COLOR LTYELLOW; URINE GLUCOSE (UA) 3+ (NEGATIVE); URINE KETONE NEGATIVE (NEGATIVE); URINE LEUK ESTERASE NEGATIVE (NEGATIVE); URINE NITRITE NEGATIVE (NEGATIVE); URINE PROTEIN 3+ (NEGATIVE); URINE UROBILINOGEN NEGATIVE mg/dL (0.2-1.0)
[2018-02-22] MEDS: TAMSULOSIN HCL 0.4 MG CAP PO SCH (22:29)
[2018-02-22] MEDS: ATORVASTATIN CA 80 MG TABLET (FP) PO SCH (22:29)
[2018-02-23 07:15] LABS: ANION GAP 8 MMOL/L (8-16); BLOOD UREA NITROGEN 41 mg/dL (7-18); CALCIUM 7.9 mg/dL (8.5-10.1); CHLORIDE 107 mmol/L (98-107); CO2 24 mmol/L (21-32); CREATININE 5.1 mg/dL (0.55-1.3); GLUCOSE,RANDOM 220 mg/dL (74-106); POTASSIUM 4.3 mmol/L (3.5-5.1); SODIUM 139 mmol/L (136-145)
--- NOTE | 2018-02-23 09:44 | PN ---
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 His baseline is usually about 3-4 and was noted to be above that and referred to the ED for evaluation and further management. On admission , patient endorsed blurry vision which has been occuring for over a year. He follows regularly with an Opthalmologist, who he has seen as recently as one month ago. He denied any acute vision changes within the last few weeks. CT head completed and consistent with L occipital infarct. Explained this to him in detail Carotid doppler 60-79% stenosis b/l also discussed. Echo reviewed, LV and systolic function normal. No new neurologic events. On eliquis and ASA 81 at this time. No new neurologic complaints. When asked what's bothering him, points to his groin. Hospitalist note discussion of Mitali. Allergies No Known Allergies Allergy (Verified 02/18/18 19:52) Active Medications Abacavir Sulfate (Ziagen -) 600 mg PO DAILY [facility] Last Admin: 02/22/18 09:45 Dose: 600 mg Albuterol Sulfate (Ventolin 0.083% Nebulizer Soln -) 1 amp NEB Q6H PRN PRN Reason: ASTHMA Albuterol Sulfate (Ventolin Hfa Inhaler -) 1 puff IH Q4H PRN PRN Reason: WHEEZING Albuterol Sulfate (Ventolin Hfa Inhaler -) 2 puff IH Q4H PRN PRN Reason: WHEEZING Amlodipine Besylate (Norvasc -) 5 mg PO DAILY [facility] Last Admin: 02/22/18 09:44 Dose: 5 mg Apixaban (Eliquis -) 5 mg PO BID [facility] Last Admin: 02/22/18 22:28 Dose: 5 mg Aspirin (Ecotrin -) 81 mg PO DAILY [facility] Last Admin: 02/22/18 09:44 Dose: 81 mg Atorvastatin Calcium (Lipitor -) 80 mg PO HS [facility] Last Admin: 02/22/18 22:29 Dose: 80 mg Calcium Carbonate/Cholecalciferol (Os-Rony 500+D -) 1 tab PO DAILY [facility] Last Admin: 12/02/18 09:44 Dose: 1 tab Docusate Sodium (Colace -) 100 mg PO TID PRN PRN Reason: CONSTIPATION Fluticasone Propionate (Flonase -) 2 spray NS DAILY PRN PRN Reason: NASAL ALLERGIES Last Admin: 02/20/18 10:06 Dose: 2 spray Folic Acid (Folic Acid -) 1 mg PO DAILY [facility] Last Admin: 02/22/18 09:44 Dose: 1 mg Gabapentin (Neurontin -) 400 mg PO BID [facility] Last Admin: 02/22/18 22:29 Dose: 400 mg Lamivudine (Epivir -) 300 mg PO DAILY [facility] Last Admin: 02/22/18 09:45 Dose: 300 mg Loratadine (Claritin -) 10 mg PO Q2D PRN PRN Reason: sneezing Metoprolol Tartrate (Lopressor -) 50 mg PO BID [facility] Last Admin: 02/22/18 22:29 Dose: 50 mg Mometasone Furoate (Asmanex 110mcg -) 1 puff IH DAILY [facility] Last Admin: 02/22/18 09:51 Dose: 1 puff Multivitamins/Minerals/Vitamin C (Tab-A-Vit -) 1 tab PO DAILY [facility] Last Admin: 02/22/18 09:44 Dose: 1 tab Tamsulosin HCl (Flomax -) 0.8 mg PO HS [facility] Last Admin: 02/22/18 22:29 Dose: 0.8 mg Tiotropium [place] (Spiriva Respimat) 2 puff IH DAILY [facility] Last Admin: 02/22/18 09:51 Dose: 2 puff PHYSICAL EXAMINATION Vital Signs Period Temp Pulse Resp BP Sys/Gaspar Pulse Ox Last 24 Hr 97 F-99.5 F 61-70 18-20 128-153/62-86 98 GENERAL: A&O, no acute distress HEAD: Normocephalic, atraumatic. EYES: PERRL, no scleral icterus EARS, NOSE, THROAT: oropharynx clear without exudates. Moist mucous membranes. LUNGS: CTA b/l HEART: Regular rate and rhythm, normal S1 and S2 without murmur ABDOMEN: Soft, nontender to palpation, normoactive bowel sounds MUSCULOSKELETAL: No bony deformities or tenderness. EXTREMITIES: 2+ pulses, warm, well-perfused. No peripheral edema. NEUROLOGICAL: Cranial nerves II-XII intact, dimnished visual field on R, 5/5 strength, decreased PP in distal lower ext PSYCHIATRIC: Cooperative. Good eye contact. Appropriate mood and affect. SKIN: Warm, dry, no rashes or lesions noted CBCD WBC 8.0 K/mm3 (4.0-10.0) 02/21/18 05:30 RBC 4.39 M/mm3 (4.00-5.60) 02/21/18 05:30 Hgb 12.1 GM/dL (11.7-16.9) 02/21/18 05:30 Hct 37.6 % (35.4-49) 02/21/18 05:30 MCV 85.7 fl (80-96) 02/21/18 05:30 MCHC 32.1 g/dl (32.0-35.9) 02/21/18 05:30 RDW 15.8 % (11.9-15.9) 02/21/18 05:30 Plt Count 203 K/MM3 (134-434) 02/21/18 05:30 MPV 9.2 fl (7.5-11.1) 02/21/18 05:30 CMP Sodium 139 mmol/L (136-145) 02/23/18 05:30 Potassium 4.3 mmol/L (3.5-5.1) 02/23/18 05:30 Chloride 107 mmol/L (98-107) 02/23/18 05:30 Carbon Dioxide 24 mmol/L (21-32) 02/23/18 05:30 Anion Gap 8 MMOL/L (8-16) 02/23/18 05:30 BUN 41 mg/dL (7-18) H 02/23/18 05:30 Creatinine 5.1 mg/dL (0.55-1.3) H 02/23/18 05:30 Creat Clearance w eGFR 11.30 (>60) 02/23/18 05:30 Random Glucose 220 mg/dL (74-106) H 02/23/18 05:30 Calcium 7.9 mg/dL (8.5-10.1) L 02/23/18 05:30 Total Bilirubin 0.2 mg/dL (0.2-1) 02/21/18 05:30 AST 20 U/L (15-37) 12/01/18 05:30 ALT 16 U/L (13-61) 02/21/18 05:30 Alkaline Phosphatase 124 U/L (45-117) H 02/21/18 05:30 Total Protein 4.5 g/dl (6.4-8.2) L 02/21/18 05:30 Albumin 1.5 g/dl (3.4-5.0) L 02/21/18 05:30 CARDIAC ENZYMES Troponin I < 0.02 ng/ml (0.00-0.05) 02/18/18 17:28 ASSESSMENT/PLAN: 67 yo Male with PMH HIV (on Haart), A-fib (on Eliquis), HTN, NIDDM, [employer], 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 His baseline is usually about 3-4 and was noted to be above that and referred to the ED for evaluation and further management. On admission , patient endorsed blurry vision which has been occuring for over a year. He follows regularly with an Opthalmologist, who he has seen as recently as one month ago. He denied any acute vision changes within the last few weeks. CT head completed and consistent with L occipital infarct. Explained this to him in detail at bedside this AM. Was asking about any way to fix it, answered all questions. Patient already on Eliquis, started on Aggrenox in ER, will reduce to ASA 81mg to reduce risk for bleed. CVA more subacute, therefore did not need to hold medication. LDL highly elevated 183, max statin ordered. Tele monitoring, cardiology follow up regarding AFib. Echo reviewed. Monitor bp, maintian less than 140/90 for now. Monitor glucose maintain, euglycemic range. DVT ppx. mgmt ongoing, defer to primary team. Neurologically stable at this time.
[2018-02-23] MEDS: METOPROLOL TARTRATE 50 MG TABLET (FP) PO SCH ×2 (09:50→23:31)
[2018-02-23] MEDS: MULTIVITAMINS (DAILY MVI) TABLET (FP) PO SCH (09:50)
[2018-02-23] MEDS: FOLIC ACID 1 MG TABLET (FP) PO SCH (09:50)
[2018-02-23] MEDS: GABAPENTIN 400 MG CAPSULE (FP) PO SCH ×2 (09:50→23:31)
[2018-02-23] MEDS: amLODIPine BESYLATE 5 MG TABLET (FP) PO SCH (09:50)
[2018-02-23] MEDS: APIXABAN 5 MG TABLET PO SCH ×2 (09:50→23:31)
[2018-02-23] MEDS: CALCIUM 500MG/VIT-D 200 UNITS COMBO TABLET (FP) PO SCH (09:50)
[2018-02-23] MEDS: DOLUTEGRAVIR SODIUM 50 MG TABLET (NON-FORMULARY) PO SCH (09:51)
[2018-02-23] MEDS: ASPIRIN COATED 81 MG TABLET.EC PO SCH (09:51)
[2018-02-23] MEDS: ABACAVIR SULFATE 300 MG TABLET PO SCH (09:51)
[2018-02-23] MEDS: lamiVUDine 150 MG TABLET PO SCH (09:52)
[2018-02-23] MEDS: MOMETASONE FUROATE 110 MCG/IH INHALER IH SCH (09:55)
[2018-02-23] MEDS: TIOTROPIUM BROMIDE 2.5 MCG (SPIRIVA) RESPIMAT INHALER IH SCH (09:55)
--- NOTE | 2018-02-23 11:22 | PN ---
Progress Note (short form) - Note Progress Note: Renal follow up for YIFAN on CKD Pt seen and examined at the bedside awake and alert no acute complaints no sob, cp, abd pain making urine denies any flank pain Vital Signs Temperature 98 F 02/23/18 14:20 Pulse Rate 64 02/23/18 14:20 Respiratory Rate 18 02/23/18 14:20 Blood Pressure 135/78 02/23/18 14:20 O2 Sat by Pulse Oximetry (%) 98 02/23/18 10:00 Intake & Output 02/20/18 02/21/18 02/22/18 02/23/18 23:59 23:59 23:59 23:59 Intake Total 2405 400 500 Output Total 852 169 7665 900 Balance 2004 -400 -1599 -400 Weight 109.769 kg 112.037 kg 113.035 kg 112.037 kg NAD Trace LE edema Jasmine in place with libra CBC, BMP 02/21/18 05:30 02/23/18 05:30 Current Medications Abacavir Sulfate (Ziagen -) 600 mg PO DAILY [facility] Last Admin: 02/23/18 09:51 Dose: 600 mg Albuterol Sulfate (Ventolin 0.083% Nebulizer Soln -) 1 amp NEB Q6H PRN PRN Reason: ASTHMA Albuterol Sulfate (Ventolin Hfa Inhaler -) 1 puff IH Q4H PRN PRN Reason: WHEEZING Albuterol Sulfate (Ventolin Hfa Inhaler -) 2 puff IH Q4H PRN PRN Reason: WHEEZING Amlodipine Besylate (Norvasc -) 5 mg PO DAILY [facility] Last Admin: 02/23/18 09:50 Dose: 5 mg Apixaban (Eliquis -) 5 mg PO BID [facility] Last Admin: 02/23/18 09:50 Dose: 5 mg Aspirin (Ecotrin -) 81 mg PO DAILY [facility] Last Admin: 02/23/18 09:51 Dose: 81 mg Atorvastatin Calcium (Lipitor -) 80 mg PO HS [facility] Last Admin: 02/22/18 22:29 Dose: 80 mg Calcium Carbonate/Cholecalciferol (Os-Rony 500+D -) 1 tab PO DAILY [facility] Last Admin: 02/23/18 09:50 Dose: 1 tab Docusate Sodium (Colace -) 100 mg PO TID PRN PRN Reason: CONSTIPATION Fluticasone Propionate (Flonase -) 2 spray NS DAILY PRN PRN Reason: NASAL ALLERGIES Last Admin: 02/20/18 10:06 Dose: 2 spray Folic Acid (Folic Acid -) 1 mg PO DAILY [facility] Last Admin: 02/23/18 09:50 Dose: 1 mg Gabapentin (Neurontin -) 400 mg PO BID [facility] Last Admin: 02/23/18 09:50 Dose: 400 mg Lamivudine (Epivir -) 300 mg PO DAILY [facility] Last Admin: 02/23/18 09:52 Dose: 300 mg Loratadine (Claritin -) 10 mg PO Q2D PRN PRN Reason: sneezing Metoprolol Tartrate (Lopressor -) 50 mg PO BID [facility] Last Admin: 02/23/18 09:50 Dose: 50 mg Mometasone Furoate (Asmanex 110mcg -) 1 puff IH DAILY [facility] Last Admin: 02/23/18 09:55 Dose: 1 puff Multivitamins/Minerals/Vitamin C (Tab-A-Vit -) 1 tab PO DAILY [facility] Last Admin: 02/23/18 09:50 Dose: 1 tab Tamsulosin HCl (Flomax -) 0.8 mg PO HS [facility] Last Admin: 02/22/18 22:29 Dose: 0.8 mg Tiotropium [place] (Spiriva Respimat) 2 puff IH DAILY [facility] Last Admin: 02/23/18 09:55 Dose: 2 puff 67 year old AA gentleman with hx of CKD stage 4 (baseline Cr 3.5-3.9), HIV, HTN , DM, COPD, CVA who was asked to come into the ER because of worsening renal function. #Acute on Chronic Renal insufficiency (Mild left sided hydronephrosis - new finding, FeUrea 047% indicating tubular damage, UPCR ~10) #Nephrotic range proetinuira (Serologic work up done showed negative hepatitis, DARIUSZ,ANCA, SPEP, likely due to diabetic nephropathy) #Subacute occipital CVA #HIV #Hypertension #DM Renal function unchanged since admission Bladder catheter placed yesterday evening abd pt is making urine but no change in Cr noted will order Renal scan with Lasix to determine if pt has a functional obstruction of left kidney in which case he may need a stent or nephrostomny tubes placed continue supportive care trend renal function and electrolytes Ehsan Lobo DO
--- NOTE | 2018-02-23 15:08 | PN ---
Physical Exam: SUBJECTIVE: Patient seen and examined at bedside- no acute events overnight. patient accepted the owens catehter last night- he denies any pain or burning on uriantion. he denies any CP/SOB/N/V fevers or chills. OBJECTIVE: Vital Signs Period Temp Pulse Resp BP Sys/Gaspar Pulse Ox Last 24 Hr 97 F-99.5 F 67-70 18-20 128-153/68-86 98-98 GENERAL: The patient is awake, alert, and fully oriented, in no acute distress. EYES: no scleral icterus . NECK: no JVd, no lymphadenopathy LUNGS: CTA B/L; no rales, rhonchi or wheezing HEART: Regular rate and rhythm, S1, S2 without murmur, rub or gallop. ABDOMEN: Soft, nontender, nondistended, normoactive bowel sounds, no guarding, no rebound, no hepatosplenomegaly, no masses. EXTREMITIES: 2+ pulses, warm, well-perfused, trace edema with CECIL stockings on. NEUROLOGICAL: Cranial nerves II through XII grossly intact. Normal speech, gait not observed. SKIN: Warm, dry, normal turgor, no rashes or lesions noted Laboratory Results - last 24 hr 02/22/18 02/23/18 02/23/18 20:00 05:30 11:57 Sodium 139 Potassium 4.3 Chloride 107 Carbon Dioxide 24 Anion Gap 8 BUN 41 H Creatinine 5.1 H Creat Clearance w eGFR 11.30 POC Glucometer 515 Random Glucose 220 H Calcium 7.9 L Urine Color Ltyellow Urine Appearance Clear Urine pH 6.0 Ur Specific [place] 1.011 Urine Protein 3+ H Urine Glucose (UA) 3+ H Urine Ketones Negative Urine Blood 1+ H Urine Nitrite Negative Urine Bilirubin Negative Urine Urobilinogen Negative Ur Leukocyte Esterase Negative Urine WBC (Auto) 18 Urine RBC (Auto) 20 02/23/18 12:00 Sodium Potassium Chloride Carbon Dioxide Anion Gap BUN Creatinine Creat Clearance w eGFR POC Glucometer 247 Random Glucose Calcium Urine Color Urine Appearance Urine pH Ur Specific [place] Urine Protein Urine Glucose (UA) Urine Ketones Urine Blood Urine Nitrite Urine Bilirubin Urine Urobilinogen Ur Leukocyte Esterase Urine WBC (Auto) Urine RBC (Auto) Active Medications Generic Name Dose Route Start Last Admin Trade Name Freq PRN Reason Stop Dose Admin Abacavir Sulfate 600 mg 02/19/18 10:00 02/23/18 09:51 Ziagen - PO 600 mg DAILY [facility] Administration Albuterol Sulfate 1 amp 02/18/18 21:46 Ventolin 0.083% Nebulizer Soln - NEB Q6H PRN ASTHMA Albuterol Sulfate 1 puff 02/18/18 21:46 Ventolin Hfa Inhaler - IH Q4H PRN WHEEZING Albuterol Sulfate 2 puff 02/19/18 06:55 Ventolin Hfa Inhaler - IH Q4H PRN WHEEZING Amlodipine Besylate 5 mg 02/19/18 10:00 02/23/18 09:50 Norvasc - PO 5 mg DAILY [facility] Administration Apixaban 5 mg 02/18/18 22:00 02/23/18 09:50 Eliquis - PO 5 mg BID [facility] Administration Aspirin 81 mg 02/19/18 10:00 02/23/18 09:51 Ecotrin - PO 81 mg DAILY [facility] Administration Atorvastatin Calcium 80 mg 02/18/18 22:00 02/22/18 22:29 Lipitor - PO 80 mg HS [facility] Administration Calcium Carbonate/Cholecalciferol 1 tab 02/19/18 10:00 02/23/18 09:50 Os-Rony 500+D - PO 1 tab DAILY [facility] Administration Docusate Sodium 100 mg 02/18/18 21:46 Colace - PO TID PRN CONSTIPATION Fluticasone Propionate 2 spray 02/19/18 16:38 02/20/18 10:06 Flonase - NS 2 spray DAILY PRN Administration NASAL ALLERGIES Folic Acid 1 mg 02/19/18 10:00 02/23/18 09:50 Folic Acid - PO 1 mg DAILY [facility] Administration Gabapentin 400 mg 02/18/18 22:00 02/23/18 09:50 Neurontin - PO 400 mg BID [facility] Administration Lamivudine 300 mg 02/19/18 10:00 02/23/18 09:52 Epivir - PO 300 mg DAILY [facility] Administration Loratadine 10 mg 02/18/18 21:46 Claritin - PO Q2D PRN sneezing Metoprolol Tartrate 50 mg 02/18/18 22:00 02/23/18 09:50 Lopressor - PO 50 mg BID [facility] Administration Mometasone Furoate 1 puff 02/19/18 10:00 02/23/18 09:55 Asmanex 110mcg - IH 1 puff DAILY [facility] Administration Multivitamins/Minerals/Vitamin C 1 tab 02/19/18 10:00 02/23/18 09:50 Tab-A-Vit - PO 1 tab DAILY [facility] Administration Tamsulosin HCl 0.8 mg 02/19/18 22:00 02/22/18 22:29 Flomax - PO 0.8 mg HS [facility] Administration Tiotropium [place] 2 puff 02/19/18 10:00 02/23/18 09:55 Spiriva Respimat IH 2 puff DAILY [facility] Administration ASSESSMENT/PLAN: 67 yo Male with PMH HIV (on Haart), A-fib (on Eliquis), HTN, NIDDM, [employer], 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 ASA 81 -Aspiration precautions, elevate head of bed -soft diet -Carotid Doppler showing 60-79% stenoses at the carotid bifurcation -Continue home Lipitor 80 mg PO HS YIFAN - > 0.3 increase from expected baseline -BUN/Cr 35/5.2 -renal/bladder US showed L hydro; -monitor BMP -Dr Wilson saw pt yesterday and will see him as an O/P and to continue taking flomax -pateint now has owens in -Dr. Lobo ordered a nuclear renal scan to be given with 80 IV lasix HIV -Stable on Haart therapy -Follows at [facility] -Recent viral load < 20 in November -CD4 502 at that time -Abacavir/Dolutegravir/Lamivudine 600/50/300 Daily A-fib -Currently in sinus rythm -Rate controlled -Eliquis 5 mg PO BID -Lopressor 50 mg PO BID HTN -Amlodipine 5 mg PO Daily -Lopressor as above NIDDM -BGMs ACHS -Insulin sliding scale for glycemic control COPD -Mometasone -Ventolin Inhaler and Nebs PRN -Spiriva nonformulary, will convert -Currently stable with no signs of exacerbation Systolic CHF -ECHO from 2015 noted with EF 21%, Mildly reduced systolic function -Stable, no signs of acute fluid overload at this time -Repeat Echo shows LV systolic function moderately reduced with hypokinesis BPH -Flomax 0.4 mg PO Daily DVT Prophylaxis -Continue home Eliquis FEN -Fluids: as per nephrology, NS @ 83 cc/hr -Electrolytes: No electrolyte abnormalities, BMP in AM -Nutrition: soft diet Problem List - Problems (1) YIFAN (acute kidney injury) Code(s): N17.9 - ACUTE KIDNEY FAILURE, UNSPECIFIED (2) Dizziness Code(s): R42 - DIZZINESS AND GIDDINESS (3) Non-hemorrhagic cerebrovascular accident Code(s): I63.9 - CEREBRAL INFARCTION, UNSPECIFIED (4) Diabetes Code(s): E11.9 - TYPE 2 DIABETES MELLITUS WITHOUT COMPLICATIONS (5) HIV (human immunodeficiency virus infection) Code(s): Z21 - ASYMPTOMATIC HUMAN IMMUNODEFICIENCY VIRUS INFECTION STATUS Visit type - Emergency Visit Emergency Visit: Yes ED Registration Date: 02/18/18 Care time: The patient presented to the Emergency Department on the above date and was hospitalized for further evaluation of their emergent condition. - New Patient This patient is new to me today: No - Critical Care Critical Care patient: No
--- NOTE | 2018-02-23 16:13 | PN ---
Teaching Attending Note Name of Resident: Flower Fletcher ATTENDING PHYSICIAN STATEMENT I saw and evaluated the patient. I reviewed the resident's note and discussed the case with the resident. I agree with the resident's findings and plan as documented. SUBJECTIVE:asymptomatic. denies CP, SOB, fever, chills, N/V/C/D OBJECTIVE: Last Vital Signs Temp Pulse Resp BP Pulse Ox 98 F 64 18 135/78 98 02/23/18 14:20 02/23/18 14:20 02/23/18 14:20 02/23/18 14:20 02/23/18 10:00 General NAD Lungs CTA B/L no wheezing/rales/rhonchi Extremiteis 1+ pitting edema ASSESSMENT AND PLAN: 67yo M with PMH CKD, HIV on HARRT, afib on eliquis, DM, systolic CHF, COPD, Prostate ca, sent to the ER due to worsening renal function and was c/o blurred vision 1. Subacute CVA- stroke workup completed. will monitor on tele for afib for total of 72H. on asa/statin. neuro on board. 2. Blurred vision- could be worsening function with comorbid conditions. has been following with opthalmologist regularly and unclear what testing and what has been ruled out this far. since it has not changed in quality or worsening. can f/u with optho outpatient 3. Acute on CKD-baseline 3.5-3.9. agreed to owens placement. large amount of urine drained. no improvement in renal function. plan for renal scan to assess if its functional obstruction. uro and nephro on board. 4. hyperphosphatemia- d/w nephro about starting renelva. Ca normal 5. HIV on HARRT- cont therapy 6. Afib on eliquis- rate controlled. cont 7. COPD- no signs of acute exacerbation. cont inhalers 8. Prostate ca 9. DVT ppx- Eliquis 10. can d/c cardiac monitoring. Will need MAGGIE when medically optimized
[2018-02-23] MEDS ORDERED: PT OWN MED DRAWER 7, Y5N ONE (19:04)
[2018-02-23] MEDS: TAMSULOSIN HCL 0.4 MG CAP PO SCH (23:31)
[2018-02-23] MEDS: ATORVASTATIN CA 80 MG TABLET (FP) PO SCH (23:31)
[2018-02-24] MEDS: INSULIN SLIDING SCALE (NOVOLOG) 1 VIAL SQ SCH ×4 (06:51→22:43)
[2018-02-24 07:44] LABS: HEMATOCRIT 39.8 % (35.4-49); HEMOGLOBIN 12.6 GM/dL (11.7-16.9); MCH 27.3 pg (25.7-33.7); MCHC 31.8 g/dl (32.0-35.9); MEAN PLT VOLUME 9.5 fl (7.5-11.1); PLATELET COUNT 225 K/MM3 (134-434); RBC 4.62 M/mm3 (4.00-5.60); RDW 15.6 % (11.9-15.9); WHITE BLOOD COUNT 10.4 K/mm3 (4.0-10.0)
[2018-02-24 08:16] LABS: ANION GAP 11 MMOL/L (8-16); BLOOD UREA NITROGEN 39 mg/dL (7-18); CALCIUM 8.1 mg/dL (8.5-10.1); CHLORIDE 107 mmol/L (98-107); CO2 21 mmol/L (21-32); GLUCOSE,RANDOM 199 mg/dL (74-106); MAGNESIUM 2.2 mg/dL (1.8-2.4); PHOSPHOROUS 4.4 mg/dL (2.5-4.9); POTASSIUM 4.4 mmol/L (3.5-5.1); SODIUM 139 mmol/L (136-145)
--- NOTE | 2018-02-24 09:44 | PN ---
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 His baseline is usually about 3-4 and was noted to be above that and referred to the ED for evaluation and further management. On admission , patient endorsed blurry vision which has been occuring for over a year. He follows regularly with an Opthalmologist, who he has seen as recently as one month ago. He denied any acute vision changes within the last few weeks. CT head completed and consistent with L occipital infarct. Explained this to him in detail Carotid doppler 60-79% stenosis b/l also discussed. Echo reviewed, LV and systolic function normal. No new neurologic events. On eliquis and ASA 81 at this time.Hospitalist note reviewed. Neurologically stable at this time. Allergies No Known Allergies Allergy (Verified 02/18/18 19:52) Active Medications Abacavir Sulfate (Ziagen -) 600 mg PO DAILY [facility] Last Admin: 02/23/18 09:51 Dose: 600 mg Albuterol Sulfate (Ventolin Hfa Inhaler -) 1 puff IH Q4H PRN PRN Reason: WHEEZING Albuterol Sulfate (Ventolin Hfa Inhaler -) 2 puff IH Q4H PRN PRN Reason: WHEEZING Amlodipine Besylate (Norvasc -) 5 mg PO DAILY [facility] Last Admin: 02/23/18 09:50 Dose: 5 mg Apixaban (Eliquis -) 5 mg PO BID [facility] Last Admin: 02/23/18 23:31 Dose: 5 mg Aspirin (Ecotrin -) 81 mg PO DAILY [facility] Last Admin: 02/23/18 09:51 Dose: 81 mg Atorvastatin Calcium (Lipitor -) 80 mg PO HS [facility] Last Admin: 02/23/18 23:31 Dose: 80 mg Calcium Carbonate/Cholecalciferol (Os-Rony 500+D -) 1 tab PO DAILY [facility] Last Admin: 02/23/18 09:50 Dose: 1 tab Docusate Sodium (Colace -) 100 mg PO TID PRN PRN Reason: CONSTIPATION Fluticasone Propionate (Flonase -) 2 spray NS DAILY PRN PRN Reason: NASAL ALLERGIES Last Admin: 02/20/18 10:06 Dose: 2 spray Folic Acid (Folic Acid -) 1 mg PO DAILY [facility] Last Admin: 02/23/18 09:50 Dose: 1 mg Gabapentin (Neurontin -) 400 mg PO BID [facility] Last Admin: 02/23/18 23:31 Dose: 400 mg Insulin Aspart (Novolog Vial Sliding Scale -) 1 vial SQ ACHS [facility]; Protocol Last Admin: 02/24/18 06:51 Dose: 2 units Lamivudine (Epivir -) 300 mg PO DAILY [facility] Last Admin: 02/23/18 09:52 Dose: 300 mg Loratadine (Claritin -) 10 mg PO Q2D PRN PRN Reason: sneezing Metoprolol Tartrate (Lopressor -) 50 mg PO BID [facility] Last Admin: 02/23/18 23:31 Dose: 50 mg Mometasone Furoate (Asmanex 110mcg -) 1 puff IH DAILY [facility] Last Admin: 02/23/18 09:55 Dose: 1 puff Multivitamins/Minerals/Vitamin C (Tab-A-Vit -) 1 tab PO DAILY [facility] Last Admin: 02/23/18 09:50 Dose: 1 tab Tamsulosin HCl (Flomax -) 0.8 mg PO HS [facility] Last Admin: 02/23/18 23:31 Dose: 0.8 mg Tiotropium [place] (Spiriva Respimat) 2 puff IH DAILY [facility] Last Admin: 02/23/18 09:55 Dose: 2 puff PHYSICAL EXAMINATION Vital Signs Period Temp Pulse Resp BP Sys/Gaspar Pulse Ox Last 24 Hr 97.4 F-98.4 F 64-77 18-20 121-178/65-96 98-98 GENERAL: A&O, no acute distress HEAD: Normocephalic, atraumatic. EYES: PERRL, no scleral icterus EARS, NOSE, THROAT: oropharynx clear without exudates. Moist mucous membranes. LUNGS: CTA b/l HEART: Regular rate and rhythm, normal S1 and S2 without murmur ABDOMEN: Soft, nontender to palpation, normoactive bowel sounds MUSCULOSKELETAL: No bony deformities or tenderness. EXTREMITIES: 2+ pulses, warm, well-perfused. No peripheral edema. NEUROLOGICAL: Cranial nerves II-XII intact, dimnished visual field on R, 5/5 strength, decreased PP in distal lower ext PSYCHIATRIC: Cooperative. Good eye contact. Appropriate mood and affect. SKIN: Warm, dry, no rashes or lesions noted CBCD WBC 10.4 K/mm3 (4.0-10.0) H 02/24/18 05:30 RBC 4.62 M/mm3 (4.00-5.60) 02/24/18 05:30 Hgb 12.6 GM/dL (11.7-16.9) 02/24/18 05:30 Hct 39.8 % (35.4-49) 02/24/18 05:30 MCV 86.0 fl (80-96) 02/24/18 05:30 MCHC 31.8 g/dl (32.0-35.9) L 02/24/18 05:30 RDW 15.6 % (11.9-15.9) 02/24/18 05:30 Plt Count 225 K/MM3 (134-434) 02/24/18 05:30 MPV 9.5 fl (7.5-11.1) 02/24/18 05:30 CMP Sodium 139 mmol/L (136-145) 02/24/18 05:30 Potassium 4.4 mmol/L (3.5-5.1) 02/24/18 05:30 Chloride 107 mmol/L (98-107) 02/24/18 05:30 Carbon Dioxide 21 mmol/L (21-32) 02/24/18 05:30 Anion Gap 11 MMOL/L (8-16) 02/24/18 05:30 BUN 39 mg/dL (7-18) H 02/24/18 05:30 Creatinine 5.0 mg/dL (0.55-1.3) H 02/24/18 05:30 Creat Clearance w eGFR 11.56 (>60) 02/24/18 05:30 Random Glucose 199 mg/dL (74-106) H 02/24/18 05:30 Calcium 8.1 mg/dL (8.5-10.1) L 02/24/18 05:30 Total Bilirubin 0.2 mg/dL (0.2-1) 02/21/18 05:30 AST 20 U/L (15-37) 02/21/18 05:30 ALT 16 U/L (13-61) 02/21/18 05:30 Alkaline Phosphatase 124 U/L (45-117) H 02/21/18 05:30 Total Protein 4.5 g/dl (6.4-8.2) L 02/21/18 05:30 Albumin 1.5 g/dl (3.4-5.0) L 02/21/18 05:30 CARDIAC ENZYMES Troponin I < 0.02 ng/ml (0.00-0.05) 02/18/18 17:28 ASSESSMENT/PLAN: 67 yo Male with PMH HIV (on Haart), A-fib (on Eliquis), HTN, NIDDM, 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 His baseline is usually about 3-4 and was noted to be above that and referred to the ED for evaluation and further management. On admission , patient endorsed blurry vision which has been occuring for over a year. He follows regularly with an Opthalmologist, who he has seen as recently as one month ago. He denied any acute vision changes within the last few weeks. CT head completed and consistent with L occipital infarct. Explained this to him in detail at bedside this AM. Was asking about any way to fix it, answered all questions. Patient already on Eliquis, started on Aggrenox in ER, will reduce to ASA 81mg to reduce risk for bleed. CVA more subacute, therefore did not need to hold medication. LDL highly elevated 183, max statin ordered. Tele monitoring, cardiology follow up regarding AFib. Echo reviewed. Monitor bp, maintian less than 140/90 for now, <130/80 as outpatient. Monitor glucose maintain, euglycemic range. DVT ppx. mgmt ongoing, defer to primary team. Neurologically stable at this time.
[2018-02-24] MEDS ORDERED: PT OWN MED DRAWER 7, Y5N ONE (09:58)
[2018-02-24] MEDS: ABACAVIR SULFATE 300 MG TABLET PO SCH (10:50)
[2018-02-24] MEDS: MULTIVITAMINS (DAILY MVI) TABLET (FP) PO SCH (10:50)
[2018-02-24] MEDS: GABAPENTIN 400 MG CAPSULE (FP) PO SCH ×2 (10:50→22:42)
[2018-02-24] MEDS: CALCIUM 500MG/VIT-D 200 UNITS COMBO TABLET (FP) PO SCH (10:50)
[2018-02-24] MEDS: METOPROLOL TARTRATE 50 MG TABLET (FP) PO SCH ×2 (10:50→22:42)
[2018-02-24] MEDS: ASPIRIN COATED 81 MG TABLET.EC PO SCH (10:51)
[2018-02-24] MEDS: APIXABAN 5 MG TABLET PO SCH ×2 (10:51→22:42)
[2018-02-24] MEDS: amLODIPine BESYLATE 5 MG TABLET (FP) PO SCH (10:51)
[2018-02-24] MEDS: FOLIC ACID 1 MG TABLET (FP) PO SCH (10:51)
[2018-02-24] MEDS: lamiVUDine 150 MG TABLET PO SCH (10:51)
[2018-02-24] MEDS: MOMETASONE FUROATE 110 MCG/IH INHALER IH SCH (10:51)
[2018-02-24] MEDS: TIOTROPIUM BROMIDE 2.5 MCG (SPIRIVA) RESPIMAT INHALER IH SCH (10:52)
[2018-02-24] MEDS: DOLUTEGRAVIR SODIUM 50 MG TABLET (NON-FORMULARY) PO SCH (10:53)
--- NOTE | 2018-02-24 12:15 | PN ---
Progress Note (short form) - Note Progress Note: Renal follow up for YIFAN on CKD Pt seen and examined at the bedside awake and alert has no acute complaints making urine via owens s/p NM renal scan Vital Signs Temperature 97.4 F L 02/24/18 09:00 Pulse Rate 77 02/24/18 09:00 Respiratory Rate 20 02/24/18 09:00 Blood Pressure 121/80 02/24/18 09:00 O2 Sat by Pulse Oximetry (%) 98 02/24/18 09:00 Intake & Output 02/21/18 02/22/18 02/23/18 02/24/18 23:59 23:59 23:59 23:59 Intake Total 400 1000 Output Total 800 2563 418 9590 Balance -400 -1600 100 -1350 Weight 112.037 kg 113.035 kg 112.037 kg 110.767 kg NAD awake and alert owens in place trace LE edema CBC, BMP 02/24/18 05:30 02/24/18 05:30 Laboratory Tests 02/24/18 05:30 Calcium 8.1 L Phosphorus 4.4 Magnesium 2.2 Current Medications Abacavir Sulfate (Ziagen -) 600 mg PO DAILY [facility] Last Admin: 02/24/18 10:50 Dose: 600 mg Albuterol Sulfate (Ventolin Hfa Inhaler -) 1 puff IH Q4H PRN PRN Reason: WHEEZING Albuterol Sulfate (Ventolin Hfa Inhaler -) 2 puff IH Q4H PRN PRN Reason: WHEEZING Amlodipine Besylate (Norvasc -) 5 mg PO DAILY [facility] Last Admin: 02/24/18 10:51 Dose: 5 mg Apixaban (Eliquis -) 5 mg PO BID [facility] Last Admin: 02/24/18 10:51 Dose: 5 mg Aspirin (Ecotrin -) 81 mg PO DAILY [facility] Last Admin: 02/24/18 10:51 Dose: 81 mg Atorvastatin Calcium (Lipitor -) 80 mg PO HS [facility] Last Admin: 02/23/18 23:31 Dose: 80 mg Calcium Carbonate/Cholecalciferol (Os-Rony 500+D -) 1 tab PO DAILY [facility] Last Admin: 02/24/18 10:50 Dose: 1 tab Docusate Sodium (Colace -) 100 mg PO TID PRN PRN Reason: CONSTIPATION Fluticasone Propionate (Flonase -) 2 spray NS DAILY PRN PRN Reason: NASAL ALLERGIES Last Admin: 02/20/18 10:06 Dose: 2 spray Folic Acid (Folic Acid -) 1 mg PO DAILY [facility] Last Admin: 02/24/18 10:51 Dose: 1 mg Gabapentin (Neurontin -) 400 mg PO BID [facility] Last Admin: 02/24/18 10:50 Dose: 400 mg Insulin Aspart (Novolog Vial Sliding Scale -) 1 vial SQ ACHS [facility]; Protocol Last Admin: 02/24/18 06:51 Dose: 2 units Lamivudine (Epivir -) 300 mg PO DAILY [facility] Last Admin: 02/24/18 10:51 Dose: 300 mg Loratadine (Claritin -) 10 mg PO Q2D PRN PRN Reason: sneezing Metoprolol Tartrate (Lopressor -) 50 mg PO BID [facility] Last Admin: 02/24/18 10:50 Dose: 50 mg Mometasone Furoate (Asmanex 110mcg -) 1 puff IH DAILY [facility] Last Admin: 02/24/18 10:51 Dose: 1 puff Multivitamins/Minerals/Vitamin C (Tab-A-Vit -) 1 tab PO DAILY [facility] Last Admin: 02/24/18 10:50 Dose: 1 tab Tamsulosin HCl (Flomax -) 0.8 mg PO HS [facility] Last Admin: 02/23/18 23:31 Dose: 0.8 mg Tiotropium [place] (Spiriva Respimat) 2 puff IH DAILY [facility] Last Admin: 02/24/18 10:52 Dose: 2 puff 67 year old AA gentleman with hx of CKD stage 4 (baseline Cr 3.5-3.9), HIV, HTN , DM, COPD, CVA who was asked to come into the ER because of worsening renal function. #Acute on Chronic Renal insufficiency (Mild left sided hydronephrosis - new finding, FeUrea 047% indicating tubular damage, UPCR ~10) #Nephrotic range proetinuira (Serologic work up done showed negative hepatitis, DARIUSZ,ANCA, SPEP, likely due to diabetic nephropathy) #Subacute occipital CVA #HIV #Hypertension #DM Renal function essentially unchanged s/p NM renal scan, results pending, will contact radiolgoy about an expadited reading continue to trend renal function and electrolytes Urolgoy follow up Ehsan Lobo DO
--- NOTE | 2018-02-24 14:37 | PN ---
Physical Exam: SUBJECTIVE: Patient seen and examined at bedside. no acute events overnight; patient states he is feeling well; he denies any pain on urination, burning no CP/SOB/N/V however he is uncomfortable with the owens. OBJECTIVE: Vital Signs Period Temp Pulse Resp BP Sys/Gaspar Pulse Ox Last 24 Hr 97.4 F-98.4 F 71-77 20-20 121-178/65-96 98-98 GENERAL: The patient is awake, alert, and fully oriented, in no acute distress.. EYES: no scleral icterus. . NECK: no JVD, no lymphadenopathy. LUNGS:CTA B/L; no rales, rhonchi or wheezing. HEART: Regular rate and rhythm, S1, S2 without murmur, rub or gallop. ABDOMEN: Soft, nontender, nondistended, normoactive bowel sounds, no guarding, no rebound, no hepatosplenomegaly, no masses. EXTREMITIES: 2+ pulses, warm, well-perfused, 1+ edema b/L. PSYCH: Normal mood, normal affect. SKIN: Warm, dry, normal turgor, no rashes or lesions noted Laboratory Results - last 24 hr 02/22/18 02/24/18 02/24/18 05:30 05:30 05:30 WBC 10.4 H RBC 4.62 Hgb 12.6 Hct 39.8 MCV 86.0 MCH 27.3 MCHC 31.8 L RDW 15.6 Plt Count 225 MPV 9.5 Sodium 139 Potassium 4.4 Chloride 107 Carbon Dioxide 21 Anion Gap 11 BUN 39 H Creatinine 5.0 H Creat Clearance w eGFR 11.56 POC Glucometer Random Glucose 199 H Calcium 8.1 L Phosphorus 4.4 Magnesium 2.2 Prostate Specific Ag 46.70 H D 02/24/18 02/24/18 06:50 11:11 WBC RBC Hgb Hct MCV MCH MCHC RDW Plt Count MPV Sodium Potassium Chloride Carbon Dioxide Anion Gap BUN Creatinine Creat Clearance w eGFR POC Glucometer 194 298 Random Glucose Calcium Phosphorus Magnesium Prostate Specific Ag Active Medications Generic Name Dose Route Start Last Admin Trade Name Freq PRN Reason Stop Dose Admin Abacavir Sulfate 600 mg 02/19/18 10:00 02/24/18 10:50 Ziagen - PO 600 mg DAILY [facility] Administration Albuterol Sulfate 1 puff 02/18/18 21:46 Ventolin Hfa Inhaler - IH Q4H PRN WHEEZING Albuterol Sulfate 2 puff 02/19/18 06:55 Ventolin Hfa Inhaler - IH Q4H PRN WHEEZING Amlodipine Besylate 5 mg 02/19/18 10:00 02/24/18 10:51 Norvasc - PO 5 mg DAILY [facility] Administration Apixaban 5 mg 02/18/18 22:00 02/24/18 10:51 Eliquis - PO 5 mg BID [facility] Administration Aspirin 81 mg 02/19/18 10:00 02/24/18 10:51 Ecotrin - PO 81 mg DAILY [facility] Administration Atorvastatin Calcium 80 mg 02/18/18 22:00 02/23/18 23:31 Lipitor - PO 80 mg HS [facility] Administration Calcium Carbonate/Cholecalciferol 1 tab 02/19/18 10:00 02/24/18 10:50 Os-Rony 500+D - PO 1 tab DAILY [facility] Administration Docusate Sodium 100 mg 02/18/18 21:46 Colace - PO TID PRN CONSTIPATION Fluticasone Propionate 2 spray 02/19/18 16:38 02/20/18 10:06 Flonase - NS 2 spray DAILY PRN Administration NASAL ALLERGIES Folic Acid 1 mg 02/19/18 10:00 02/24/18 10:51 Folic Acid - PO 1 mg DAILY [facility] Administration Gabapentin 400 mg 02/18/18 22:00 02/24/18 10:50 Neurontin - PO 400 mg BID [facility] Administration Insulin Aspart 1 vial 02/24/18 07:00 02/24/18 12:58 Novolog Vial Sliding Scale - SQ 6 units ACHS [facility] Administration Protocol Lamivudine 300 mg 02/19/18 10:00 02/24/18 10:51 Epivir - PO 300 mg DAILY [facility] Administration Loratadine 10 mg 02/18/18 21:46 Claritin - PO Q2D PRN sneezing Metoprolol Tartrate 50 mg 02/18/18 22:00 02/24/18 10:50 Lopressor - PO 50 mg BID [facility] Administration Mometasone Furoate 1 puff 02/19/18 10:00 02/24/18 10:51 Asmanex 110mcg - IH 1 puff DAILY [facility] Administration Multivitamins/Minerals/Vitamin C 1 tab 02/19/18 10:00 12/04/18 10:50 Tab-A-Vit - PO 1 tab DAILY [facility] Administration Tamsulosin HCl 0.8 mg 02/19/18 22:00 02/23/18 23:31 Flomax - PO 0.8 mg HS [facility] Administration Tiotropium [place] 2 puff 02/19/18 10:00 02/24/18 10:52 Spiriva Respimat IH 2 puff DAILY [facility] Administration ASSESSMENT/PLAN: 67 yo Male with PMH HIV (on Haart), A-fib (on Eliquis), 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 ASA 81 -Aspiration precautions, elevate head of bed -soft diet -Carotid Doppler showing 60-79% stenoses at the carotid bifurcation -vascular surgery consulted -Continue home Lipitor 80 mg PO HS YIFAN - > 0.3 increase from expected baseline -BUN/Cr 35/5.2 -renal/bladder US showed L hydro; -monitor BMP -Dr Wilson saw pt yesterday and will see him as an O/P and to continue taking flomax -pateint now has graciela in -Patient getting nuclear renal scan today- waiting to see if there is a functional v. structural obstruction HIV -Stable on Haart therapy -Follows at [facility] -Recent viral load < 20 in November -CD4 502 at that time -Abacavir/Dolutegravir/Lamivudine 600/50/300 Daily A-fib -Currently in sinus rythm -Rate controlled -Eliquis 5 mg PO BID -Lopressor 50 mg PO BID HTN -Amlodipine 5 mg PO Daily -Lopressor as above NIDDM -BGMs ACHS -Insulin sliding scale for glycemic control COPD -Mometasone -Ventolin Inhaler and Nebs PRN -Spiriva nonformulary, will convert -Currently stable with no signs of exacerbation Systolic CHF -ECHO from 2015 noted with EF 21%, Mildly reduced systolic function -Stable, no signs of acute fluid overload at this time -Repeat Echo shows LV systolic function moderately reduced with hypokinesis BPH -Flomax 0.4 mg PO Daily DVT Prophylaxis -Continue home Eliquis FEN -Fluids: as per nephrology, NS @ 83 cc/hr -Electrolytes: No electrolyte abnormalities, BMP in AM -Nutrition: soft diet Problem List - Problems (1) YIFAN (acute kidney injury) Code(s): N17.9 - ACUTE KIDNEY FAILURE, UNSPECIFIED (2) Dizziness Code(s): R42 - DIZZINESS AND GIDDINESS (3) Non-hemorrhagic cerebrovascular accident Code(s): I63.9 - CEREBRAL INFARCTION, UNSPECIFIED (4) Diabetes Code(s): E11.9 - TYPE 2 DIABETES MELLITUS WITHOUT COMPLICATIONS (5) HIV (human immunodeficiency virus infection) Code(s): Z21 - ASYMPTOMATIC HUMAN IMMUNODEFICIENCY VIRUS INFECTION STATUS Visit type - Emergency Visit Emergency Visit: Yes ED Registration Date: 02/18/18 Care time: The patient presented to the Emergency Department on the above date and was hospitalized for further evaluation of their emergent condition. - New Patient This patient is new to me today: No - Critical Care Critical Care patient: No
--- NOTE | 2018-02-24 15:43 | PN ---
Teaching Attending Note Name of Resident: Flower Fletcher ATTENDING PHYSICIAN STATEMENT I saw and evaluated the patient. I reviewed the resident's note and discussed the case with the resident. I agree with the resident's findings and plan as documented with exceptions below. SUBJECTIVE: Patient seen and examined. doing well, no new blurriness, abdominal pain, fevers , chills or urinary symptoms. OBJECTIVE: Vital Signs Period Temp Pulse Resp BP Sys/Gaspar Pulse Ox Last 24 Hr 97.4 F-98.4 F 63-77 20-22 121-178/65-96 98-98 Intake & Output 02/21/18 02/22/18 02/23/18 02/24/18 23:59 23:59 23:59 23:59 Intake Total 400 1000 Output Total 800 9015 232 6287 Balance -400 -1600 100 -1350 Weight 247 lb 249 lb 3.2 oz 247 lb 244 lb 3.2 oz General: sitting in bed in no acute distress Chest; CTAB, no rales or wheezing Abdomen:Soft, obese, NT Extremities: 1+ pedal edema Neuro: AAOx3, facial symmetry, EOMI, power 5/5, sensation intact and symmetric to light touch, no pronator drift Home Medications Medication Instructions Recorded Tiotropium [place] [Spiriva] 1 inh PO DAILY 04/25/16 B Complex 1 tab PO HS 09/15/17 Vitamin E 1,000 mg PO DAILY 09/15/17 Folic Acid 1 mg PO DAILY #30 tablet 11/28/17 Fluticasone Prop 0.05% Nasal 1 - 2 spray NS DAILY #1 spray.pump 12/26/17 [Flonase -] Fluticasone Propionate [Flovent 100 mcg IH BID #1 blst.w.dev 12/26/17 Diskus] Guaifenesin/D-Methorphan Hb 10 ml PO Q4H PRN #240 ml 12/26/17 [Diabetic Tussin Dm -] Nebulizer [Aeroeclipse II] 1 each MC DAILY #1 each 01/01/18 Abacavir/Dolutegravir/Lamivudi 1 each PO DAILY #30 tablet 01/16/18 [Triumeq 600-50-300 mg Tablet] Albuterol 0.083% Nebulizer Lyla 1 neb NEB Q6H PRN #90 vial 01/16/18 [Ventolin 0.083% Nebulizer Soln -] Albuterol Sulfate Inhaler - 1 - 2 inh PO Q4H PRN #1 inhaler 01/16/18 [Ventolin HFA Inhaler -] MDD 6 Amlodipine Besylate 5 mg PO DAILY #30 tablet 01/16/18 Apixaban [Eliquis -] 5 mg PO BID #60 tablet 01/16/18 Aspirin [Aspirin EC] 81 mg PO DAILY #30 tablet. 01/16/18 Atorvastatin Ca [Lipitor] 80 mg PO HS #30 tablet 01/16/18 Calcium Carbonate/Vitamin D3 1 each PO DAILY #30 tablet 01/16/18 [Calcium 600 + Vit D Tablet] Docusate Sodium [Colace -] 100 mg PO TID PRN #90 capsule 01/16/18 Gabapentin 400 mg PO BID #60 capsule 01/16/18 Loratadine [Claritin -] 10 mg PO Q2D PRN #30 tablet 01/16/18 Metoprolol Tartrate [Lopressor -] 50 mg PO BID #60 tablet 01/16/18 Mometasone Furoate [Asmanex 110Mcg 1 inh IH DAILY #1 inhaler 01/16/18 -] Multivitamin [Daily Multiple 1 each PO DAILY #30 tablet 01/16/18 Vitamin] Repaglinide [Prandin -] 2 mg PO TID #90 tablet 01/16/18 Sitagliptin Phosphate [Januvia] 25 mg PO DAILY #30 tab 01/16/18 Tamsulosin HCl [Flomax] 0.4 mg PO HS #30 cap 01/16/18 Lamivudine [Epivir -] 300 mg PO DAILY tablet 02/23/18 Active Medications Abacavir Sulfate (Ziagen -) 600 mg PO DAILY [facility] Last Admin: 02/24/18 10:50 Dose: 600 mg Albuterol Sulfate (Ventolin Hfa Inhaler -) 1 puff IH Q4H PRN PRN Reason: WHEEZING Albuterol Sulfate (Ventolin Hfa Inhaler -) 2 puff IH Q4H PRN PRN Reason: WHEEZING Amlodipine Besylate (Norvasc -) 5 mg PO DAILY [facility] Last Admin: 02/24/18 10:51 Dose: 5 mg Apixaban (Eliquis -) 5 mg PO BID [facility] Last Admin: 02/24/18 10:51 Dose: 5 mg Aspirin (Ecotrin -) 81 mg PO DAILY [facility] Last Admin: 02/24/18 10:51 Dose: 81 mg Atorvastatin Calcium (Lipitor -) 80 mg PO HS [facility] Last Admin: 02/23/18 23:31 Dose: 80 mg Calcium Carbonate/Cholecalciferol (Os-Rony 500+D -) 1 tab PO DAILY [facility] Last Admin: 02/24/18 10:50 Dose: 1 tab Docusate Sodium (Colace -) 100 mg PO TID PRN PRN Reason: CONSTIPATION Fluticasone Propionate (Flonase -) 2 spray NS DAILY PRN PRN Reason: NASAL ALLERGIES Last Admin: 02/20/18 10:06 Dose: 2 spray Folic Acid (Folic Acid -) 1 mg PO DAILY [facility] Last Admin: 02/24/18 10:51 Dose: 1 mg Gabapentin (Neurontin -) 400 mg PO BID [facility] Last Admin: 02/24/18 10:50 Dose: 400 mg Insulin Aspart (Novolog Vial Sliding Scale -) 1 vial SQ ACHS [facility]; Protocol Last Admin: 02/24/18 12:58 Dose: 6 units Lamivudine (Epivir -) 300 mg PO DAILY [facility] Last Admin: 02/24/18 10:51 Dose: 300 mg Loratadine (Claritin -) 10 mg PO Q2D PRN PRN Reason: sneezing Metoprolol Tartrate (Lopressor -) 50 mg PO BID [facility] Last Admin: 02/24/18 10:50 Dose: 50 mg Mometasone Furoate (Asmanex 110mcg -) 1 puff IH DAILY [facility] Last Admin: 02/24/18 10:51 Dose: 1 puff Multivitamins/Minerals/Vitamin C (Tab-A-Vit -) 1 tab PO DAILY [facility] Last Admin: 02/24/18 10:50 Dose: 1 tab Tamsulosin HCl (Flomax -) 0.8 mg PO HS [facility] Last Admin: 02/23/18 23:31 Dose: 0.8 mg Tiotropium [place] (Spiriva Respimat) 2 puff IH DAILY [facility] Last Admin: 02/24/18 10:52 Dose: 2 puff Laboratory Results - last 24 hr 02/22/18 02/24/18 02/24/18 05:30 05:30 05:30 WBC 10.4 H RBC 4.62 Hgb 12.6 Hct 39.8 MCV 86.0 MCH 27.3 MCHC 31.8 L RDW 15.6 Plt Count 225 MPV 9.5 Sodium 139 Potassium 4.4 Chloride 107 Carbon Dioxide 21 Anion Gap 11 BUN 39 H Creatinine 5.0 H Creat Clearance w eGFR 11.56 POC Glucometer Random Glucose 199 H Calcium 8.1 L Phosphorus 4.4 Magnesium 2.2 Prostate Specific Ag 46.70 H D 02/24/18 02/24/18 06:50 11:11 WBC RBC Hgb Hct MCV MCH MCHC RDW Plt Count MPV Sodium Potassium Chloride Carbon Dioxide Anion Gap BUN Creatinine Creat Clearance w eGFR POC Glucometer 194 298 Random Glucose Calcium Phosphorus Magnesium Prostate Specific Ag Microbiology 02/22/18 20:00 Urine - Urine Owens Urine Culture - Final NO GROWTH OBTAINED 02/19/18 03:00 Urine - Urine Clean Catch Urine Culture - Final Enterococcus Faecalis Acinetobacter Baumannii/Haemol 02/19/18 17:30 Nares - Mrsa Screen - Right MRSA Screen - Final NO MRSA ISOLATED 02/19/18 13:00 Nares - Mrsa Screen - Left MRSA Screen - Final NO MRSA ISOLATED ASSESSMENT AND PLAN: 67yo M with PMH CKD, HIV on HARRT, afib on eliquis, DM, systolic CHF, COPD, Prostate ca, sent to the ER due to worsening renal function and was c/o blurred vision for 1 year, found with subacute occipital CVA on imaging. -YIFAN on CKD stage IV -Mild right side hydronephrosis -Urinary retention s/p owens placement -Subacute occipital CVA -Blurry vision over 1 year, ?from worsening comorbidities, has outpatient ophthalmology folllei abarcap -Hyperphosphatemia from CKD -HIV on HAART -Afib on Eliquis -COPD -Prostate Ca Plan: Renal input noted. Cr overall unchanged after owens placement. For renal scan with lasix, follow up results. Avoid nephrotoxins medications. Neuro input noted. ASA/eliquis/statin. BP control. 2D echo/carotid duplex noted. 60-79% stenosis, vascular surgery input, outpatient galindo mcclellan. Continue renvela. Continue HAART. DVTPPX eliquis PT eval Dispo in 24-48 hours to SNF pending renal improvement and above work up. Plan discussed with patient in detail, all questions answered.
--- NOTE | 2018-02-24 16:18 | PN ---
Progress Note (short form) - Note Progress Note: Vascular Surgery Carotid doppler images reviewed. Pt has less than 70% stenosis in bl ICA's. CT head shows occipital infact from posterior circulation. No need for surgery at this time. The infarct did not originate from pt's Carotids. Medical management. Pt should get carotid ultrasounds every 6 months. Po Rodriguez DO
[2018-02-24] MEDS: ATORVASTATIN CA 80 MG TABLET (FP) PO SCH (22:42)
[2018-02-24] MEDS: TAMSULOSIN HCL 0.4 MG CAP PO SCH (22:42)
[2018-02-25] MEDS: INSULIN SLIDING SCALE (NOVOLOG) 1 VIAL SQ SCH ×4 (06:04→21:54)
[2018-02-25 07:31] LABS: ALBUMIN 1.4 g/dl (3.4-5.0); ALK PHOS 133 U/L (45-117); ANION GAP 8 MMOL/L (8-16); BILIRUBIN,TOTAL 0.2 mg/dL (0.2-1); BLOOD UREA NITROGEN 37 mg/dL (7-18); CALCIUM 7.9 mg/dL (8.5-10.1); CHLORIDE 107 mmol/L (98-107); CO2 24 mmol/L (21-32); GLUCOSE,RANDOM 126 mg/dL (74-106); MAGNESIUM 2.2 mg/dL (1.8-2.4); PHOSPHOROUS 4.7 mg/dL (2.5-4.9); POTASSIUM 4.4 mmol/L (3.5-5.1); SGOT/AST 18 U/L (15-37); SGPT/ALT 17 U/L (13-61); SODIUM 139 mmol/L (136-145); TOT PROT 4.5 g/dl (6.4-8.2)
--- NOTE | 2018-02-25 09:20 | PN ---
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 His baseline is usually about 3-4 and was noted to be above that and referred to the ED for evaluation and further management. On admission , patient endorsed blurry vision which has been occuring for over a year. He follows regularly with an Opthalmologist, who he has seen as recently as one month ago. He denied any acute vision changes within the last few weeks. CT head completed and consistent with L occipital infarct. Explained this to him in detail Carotid doppler 60-79% stenosis b/l also discussed. Echo reviewed, LV and systolic function normal. No new neurologic events. On eliquis and ASA 81 at this time. Neurologically stable at this time. Vascular note reviewed, no plan for intervention. front desk manager note reviewed, plan for possible rehab placement. Allergies No Known Allergies Allergy (Verified 02/18/18 19:52) Active Medications Abacavir Sulfate (Ziagen -) 600 mg PO DAILY [facility] Last Admin: 02/24/18 10:50 Dose: 600 mg Albuterol Sulfate (Ventolin Hfa Inhaler -) 1 puff IH Q4H PRN PRN Reason: WHEEZING Albuterol Sulfate (Ventolin Hfa Inhaler -) 2 puff IH Q4H PRN PRN Reason: WHEEZING Amlodipine Besylate (Norvasc -) 5 mg PO DAILY [facility] Last Admin: 02/24/18 10:51 Dose: 5 mg Apixaban (Eliquis -) 5 mg PO BID [facility] Last Admin: 02/24/18 22:42 Dose: 5 mg Aspirin (Ecotrin -) 81 mg PO DAILY [facility] Last Admin: 02/24/18 10:51 Dose: 81 mg Atorvastatin Calcium (Lipitor -) 80 mg PO HS [facility] Last Admin: 02/24/18 22:42 Dose: 80 mg Calcium Carbonate/Cholecalciferol (Os-Rony 500+D -) 1 tab PO DAILY [facility] Last Admin: 02/24/18 10:50 Dose: 1 tab Docusate Sodium (Colace -) 100 mg PO TID PRN PRN Reason: CONSTIPATION Fluticasone Propionate (Flonase -) 2 spray NS DAILY PRN PRN Reason: NASAL ALLERGIES Last Admin: 02/20/18 10:06 Dose: 2 spray Folic Acid (Folic Acid -) 1 mg PO DAILY [facility] Last Admin: 02/24/18 10:51 Dose: 1 mg Gabapentin (Neurontin -) 400 mg PO BID [facility] Last Admin: 02/24/18 22:42 Dose: 400 mg Insulin Aspart (Novolog Vial Sliding Scale -) 1 vial SQ ACHS [facility]; Protocol Last Admin: 02/25/18 06:04 Dose: Not Given Lamivudine (Epivir -) 300 mg PO DAILY [facility] Last Admin: 02/24/18 10:51 Dose: 300 mg Loratadine (Claritin -) 10 mg PO Q2D PRN PRN Reason: sneezing Metoprolol Tartrate (Lopressor -) 50 mg PO BID [facility] Last Admin: 02/24/18 22:42 Dose: 50 mg Mometasone Furoate (Asmanex 110mcg -) 1 puff IH DAILY [facility] Last Admin: 02/24/18 10:51 Dose: 1 puff Multivitamins/Minerals/Vitamin C (Tab-A-Vit -) 1 tab PO DAILY [facility] Last Admin: 02/24/18 10:50 Dose: 1 tab Tamsulosin HCl (Flomax -) 0.8 mg PO HS [facility] Last Admin: 02/24/18 22:42 Dose: 0.8 mg Tiotropium [place] (Spiriva Respimat) 2 puff IH DAILY [facility] Last Admin: 02/24/18 10:52 Dose: 2 puff PHYSICAL EXAMINATION Vital Signs Period Temp Pulse Resp BP Sys/Gaspar Pulse Ox Last 24 Hr 98 F-98.8 F 63-72 20-22 146-166/63-90 99-99 GENERAL: A&O, no acute distress HEAD: Normocephalic, atraumatic. EYES: PERRL, no scleral icterus EARS, NOSE, THROAT: oropharynx clear without exudates. Moist mucous membranes. LUNGS: CTA b/l HEART: Regular rate and rhythm, normal S1 and S2 without murmur ABDOMEN: Soft, nontender to palpation, normoactive bowel sounds MUSCULOSKELETAL: No bony deformities or tenderness. EXTREMITIES: 2+ pulses, warm, well-perfused. No peripheral edema. NEUROLOGICAL: Cranial nerves II-XII intact, dimnished visual field on R, 5/5 strength, decreased PP in distal lower ext PSYCHIATRIC: Cooperative. Good eye contact. Appropriate mood and affect. SKIN: Warm, dry, no rashes or lesions noted CBCD WBC 10.4 K/mm3 (4.0-10.0) H 02/24/18 05:30 RBC 4.62 M/mm3 (4.00-5.60) 02/24/18 05:30 Hgb 12.6 GM/dL (11.7-16.9) 02/24/18 05:30 Hct 39.8 % (35.4-49) 02/24/18 05:30 MCV 86.0 fl (80-96) 02/24/18 05:30 MCHC 31.8 g/dl (32.0-35.9) L 02/24/18 05:30 RDW 15.6 % (11.9-15.9) 02/24/18 05:30 Plt Count 225 K/MM3 (134-434) 02/24/18 05:30 MPV 9.5 fl (7.5-11.1) 02/24/18 05:30 CMP Sodium 139 mmol/L (136-145) 02/25/18 05:30 Potassium 4.4 mmol/L (3.5-5.1) 02/25/18 05:30 Chloride 107 mmol/L (98-107) 02/25/18 05:30 Carbon Dioxide 24 mmol/L (21-32) 02/25/18 05:30 Anion Gap 8 MMOL/L (8-16) 02/25/18 05:30 BUN 37 mg/dL (7-18) H 02/25/18 05:30 Creatinine 5.0 mg/dL (0.55-1.3) H 02/25/18 05:30 Creat Clearance w eGFR 11.56 (>60) 02/25/18 05:30 Random Glucose 126 mg/dL (74-106) H 02/25/18 05:30 Calcium 7.9 mg/dL (8.5-10.1) L 02/25/18 05:30 Total Bilirubin 0.2 mg/dL (0.2-1) 02/25/18 05:30 AST 18 U/L (15-37) 02/25/18 05:30 ALT 17 U/L (13-61) 02/25/18 05:30 Alkaline Phosphatase 133 U/L (45-117) H 02/25/18 05:30 Total Protein 4.5 g/dl (6.4-8.2) L 02/25/18 05:30 Albumin 1.4 g/dl (3.4-5.0) L 02/25/18 05:30 CARDIAC ENZYMES Troponin I < 0.02 ng/ml (0.00-0.05) 02/18/18 17:28 ASSESSMENT/PLAN: 67 yo Male with PMH HIV (on Haart), A-fib (on Eliquis), HTN, NIDDM, [employer]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 His baseline is usually about 3-4 and was noted to be above that and referred to the ED for evaluation and further management. On admission , patient endorsed blurry vision which has been occuring for over a year. He follows regularly with an Opthalmologist, who he has seen as recently as one month ago. He denied any acute vision changes within the last few weeks. CT head completed and consistent with L occipital infarct. Explained this to him in detail at bedside this AM. Was asking about any way to fix it, answered all questions. Patient already on Eliquis, started on Aggrenox in ER, will reduce to ASA 81mg to reduce risk for bleed. CVA more subacute, therefore did not need to hold medication. LDL highly elevated 183, max statin ordered. Tele monitoring, cardiology follow up regarding AFib. Echo reviewed. Monitor bp, maintian less than 140/90 for now, <130/80 as outpatient. Vascular note reviewed , no intervention. Monitor glucose maintain, euglycemic range. DVT ppx. mgmt ongoing, defer to primary team. Neurologically stable at this time. Dispo per lining caser/neonatal social worker.
[2018-02-25 09:31] LABS: HEMATOCRIT 37.5 % (35.4-49); MCH 27.3 pg (25.7-33.7); MCHC 31.9 g/dl (32.0-35.9); MEAN CELL VOLUME 85.6 fl (80-96); MEAN PLT VOLUME 9.6 fl (7.5-11.1); PLATELET COUNT 218 K/MM3 (134-434); RBC 4.38 M/mm3 (4.00-5.60); RDW 15.1 % (11.9-15.9); WHITE BLOOD COUNT 10.9 K/mm3 (4.0-10.0)
[2018-02-25] MEDS: GABAPENTIN 400 MG CAPSULE (FP) PO SCH ×2 (09:54→21:49)
[2018-02-25] MEDS: ABACAVIR SULFATE 300 MG TABLET PO SCH (09:54)
[2018-02-25] MEDS: APIXABAN 5 MG TABLET PO SCH ×2 (09:54→21:49)
[2018-02-25] MEDS: METOPROLOL TARTRATE 50 MG TABLET (FP) PO SCH ×2 (09:55→21:49)
[2018-02-25] MEDS: MULTIVITAMINS (DAILY MVI) TABLET (FP) PO SCH (09:55)
[2018-02-25] MEDS: amLODIPine BESYLATE 5 MG TABLET (FP) PO SCH (09:55)
[2018-02-25] MEDS: DOLUTEGRAVIR SODIUM 50 MG TABLET (NON-FORMULARY) PO SCH (09:55)
[2018-02-25] MEDS: TIOTROPIUM BROMIDE 2.5 MCG (SPIRIVA) RESPIMAT INHALER IH SCH (09:55)
[2018-02-25] MEDS: lamiVUDine 150 MG TABLET PO SCH (09:55)
[2018-02-25] MEDS: CALCIUM 500MG/VIT-D 200 UNITS COMBO TABLET (FP) PO SCH (09:55)
[2018-02-25] MEDS: MOMETASONE FUROATE 110 MCG/IH INHALER IH SCH (09:55)
[2018-02-25] MEDS: ASPIRIN COATED 81 MG TABLET.EC PO SCH (09:55)
[2018-02-25] MEDS: FOLIC ACID 1 MG TABLET (FP) PO SCH (09:55)
--- NOTE | 2018-02-25 10:53 | PN ---
Progress Note (short form) - Note Progress Note: Renal follow up for YIFAN on CKD Pt seen and examined at the bedside awake and alert no acute complaints does not want to go home with owens no abd pain Vital Signs Temperature 97.9 F 02/25/18 09:52 Pulse Rate 69 02/25/18 09:52 Respiratory Rate 22 H 02/25/18 09:52 Blood Pressure 139/78 02/25/18 09:52 O2 Sat by Pulse Oximetry (%) 99 02/25/18 08:30 Intake & Output 02/22/18 02/23/18 02/24/18 02/25/18 23:59 23:59 23:59 23:59 Intake Total 1000 10 Output Total 1123 001 2831 900 Balance -1600 100 -3490 -900 Weight 113.035 kg 112.037 kg 110.767 kg 110.223 kg NAD awake and alert trace LE edema owens in place with yellow urine CBC, BMP 02/25/18 05:30 02/25/18 05:30 Current Medications Abacavir Sulfate (Ziagen -) 600 mg PO DAILY [facility] Last Admin: 02/25/18 09:54 Dose: 600 mg Albuterol Sulfate (Ventolin Hfa Inhaler -) 1 puff IH Q4H PRN PRN Reason: WHEEZING Albuterol Sulfate (Ventolin Hfa Inhaler -) 2 puff IH Q4H PRN PRN Reason: WHEEZING Amlodipine Besylate (Norvasc -) 5 mg PO DAILY [facility] Last Admin: 02/25/18 09:55 Dose: 5 mg Apixaban (Eliquis -) 5 mg PO BID [facility] Last Admin: 02/25/18 09:54 Dose: 5 mg Aspirin (Ecotrin -) 81 mg PO DAILY [facility] Last Admin: 02/25/18 09:55 Dose: 81 mg Atorvastatin Calcium (Lipitor -) 80 mg PO HS [facility] Last Admin: 02/24/18 22:42 Dose: 80 mg Calcium Carbonate/Cholecalciferol (Os-Rony 500+D -) 1 tab PO DAILY [facility] Last Admin: 02/25/18 09:55 Dose: 1 tab Docusate Sodium (Colace -) 100 mg PO TID PRN PRN Reason: CONSTIPATION Fluticasone Propionate (Flonase -) 2 spray NS DAILY PRN PRN Reason: NASAL ALLERGIES Last Admin: 02/20/18 10:06 Dose: 2 spray Folic Acid (Folic Acid -) 1 mg PO DAILY [facility] Last Admin: 02/25/18 09:55 Dose: 1 mg Gabapentin (Neurontin -) 400 mg PO BID [facility] Last Admin: 02/25/18 09:54 Dose: 400 mg Insulin Aspart (Novolog Vial Sliding Scale -) 1 vial SQ ACHS [facility]; Protocol Last Admin: 02/25/18 06:04 Dose: Not Given Lamivudine (Epivir -) 300 mg PO DAILY [facility] Last Admin: 02/25/18 09:55 Dose: 300 mg Loratadine (Claritin -) 10 mg PO Q2D PRN PRN Reason: sneezing Metoprolol Tartrate (Lopressor -) 50 mg PO BID [facility] Last Admin: 02/25/18 09:55 Dose: 50 mg Mometasone Furoate (Asmanex 110mcg -) 1 puff IH DAILY [facility] Last Admin: 02/25/18 09:55 Dose: 1 puff Multivitamins/Minerals/Vitamin C (Tab-A-Vit -) 1 tab PO DAILY [facility] Last Admin: 02/25/18 09:55 Dose: 1 tab Tamsulosin HCl (Flomax -) 0.8 mg PO HS [facility] Last Admin: 02/24/18 22:42 Dose: 0.8 mg Tiotropium [place] (Spiriva Respimat) 2 puff IH DAILY [facility] Last Admin: 02/25/18 09:55 Dose: 2 puff 67 year old AA gentleman with hx of CKD stage 4 (baseline Cr 3.5-3.9), HIV, HTN , DM, COPD, CVA who was asked to come into the ER because of worsening renal function. 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
[2018-02-25] MEDS: FINASTERIDE 5 MG TABLET (FP) PO SCH (12:50)
[2018-02-25] MEDS: SODIUM CHLORIDE 1,000 ML IV SCH (13:00)
--- NOTE | 2018-02-25 15:27 | PN ---
Teaching Attending Note Name of Resident: Flower Fletcher ATTENDING PHYSICIAN STATEMENT I saw and evaluated the patient. I reviewed the resident's note and discussed the case with the resident. I agree with the resident's findings and plan as documented with exceptions below. SUBJECTIVE: Patient seen and examined. No complaints, eating well. OBJECTIVE: Vital Signs Period Temp Pulse Resp BP Sys/Gaspar Pulse Ox Last 24 Hr 97.9 F-99 F 63-75 20-22 139-166/63-90 99-99 Intake & Output 02/22/18 02/23/18 02/24/18 02/25/18 23:59 23:59 23:59 23:59 Intake Total 1000 10 100 Output Total 6145 435 3334 1500 Balance -1600 100 -3490 -1400 Weight 249 lb 3.2 oz 247 lb 244 lb 3.2 oz 243 lb General: sitting in chair having breakfast, no acute distress Chest: CTAB, no rales or wheezing Abdomen:soft, obese, NT Extremities: unchanged edema Active Medications Abacavir Sulfate (Ziagen -) 600 mg PO DAILY [facility] Last Admin: 02/25/18 09:54 Dose: 600 mg Albuterol Sulfate (Ventolin Hfa Inhaler -) 1 puff IH Q4H PRN PRN Reason: WHEEZING Albuterol Sulfate (Ventolin Hfa Inhaler -) 2 puff IH Q4H PRN PRN Reason: WHEEZING Amlodipine Besylate (Norvasc -) 5 mg PO DAILY [facility] Last Admin: 02/25/18 09:55 Dose: 5 mg Apixaban (Eliquis -) 5 mg PO BID [facility] Last Admin: 02/25/18 09:54 Dose: 5 mg Aspirin (Ecotrin -) 81 mg PO DAILY [facility] Last Admin: 02/25/18 09:55 Dose: 81 mg Atorvastatin Calcium (Lipitor -) 80 mg PO HS [facility] Last Admin: 02/24/18 22:42 Dose: 80 mg Calcium Carbonate/Cholecalciferol (Os-Rony 500+D -) 1 tab PO DAILY [facility] Last Admin: 02/25/18 09:55 Dose: 1 tab Docusate Sodium (Colace -) 100 mg PO TID PRN PRN Reason: CONSTIPATION Finasteride (Proscar -) 5 mg PO DAILY [facility] Last Admin: 02/25/18 12:50 Dose: Not Given Fluticasone Propionate (Flonase -) 2 spray NS DAILY PRN PRN Reason: NASAL ALLERGIES Last Admin: 02/20/18 10:06 Dose: 2 spray Folic Acid (Folic Acid -) 1 mg PO DAILY [facility] Last Admin: 02/25/18 09:55 Dose: 1 mg Gabapentin (Neurontin -) 400 mg PO BID [facility] Last Admin: 02/25/18 09:54 Dose: 400 mg Sodium Chloride (Normal Saline -) 1,000 mls @ 100 mls/hr IV ASDIR [facility] Last Admin: 02/25/18 13:00 Dose: 100 mls/hr Insulin Aspart (Novolog Vial Sliding Scale -) 1 vial SQ ACHS [facility]; Protocol Last Admin: 02/25/18 12:04 Dose: Not Given Lamivudine (Epivir -) 300 mg PO DAILY [facility] Last Admin: 02/25/18 09:55 Dose: 300 mg Loratadine (Claritin -) 10 mg PO Q2D PRN PRN Reason: sneezing Metoprolol Tartrate (Lopressor -) 50 mg PO BID [facility] Last Admin: 02/25/18 09:55 Dose: 50 mg Mometasone Furoate (Asmanex 110mcg -) 1 puff IH DAILY [facility] Last Admin: 02/25/18 09:55 Dose: 1 puff Multivitamins/Minerals/Vitamin C (Tab-A-Vit -) 1 tab PO DAILY [facility] Last Admin: 02/25/18 09:55 Dose: 1 tab Tamsulosin HCl (Flomax -) 0.8 mg PO HS [facility] Last Admin: 02/24/18 22:42 Dose: 0.8 mg Tiotropium [place] (Spiriva Respimat) 2 puff IH DAILY [facility] Last Admin: 02/25/18 09:55 Dose: 2 puff Laboratory Results - last 24 hr 02/19/18 02/24/18 02/24/18 05:30 16:40 22:02 WBC RBC Hgb Hct MCV MCH MCHC RDW Plt Count MPV Sodium Potassium Chloride Carbon Dioxide Anion Gap BUN Creatinine Creat Clearance w eGFR POC Glucometer 262 213 Random Glucose Calcium Phosphorus Magnesium Total Bilirubin AST ALT Alkaline Phosphatase Total Protein Albumin Vitamin B6 3.5 L 02/25/18 02/25/18 02/25/18 05:30 05:30 06:03 WBC 10.9 H RBC 4.38 Hgb 12.0 Hct 37.5 MCV 85.6 MCH 27.3 MCHC 31.9 L RDW 15.1 Plt Count 218 MPV 9.6 Sodium 139 Potassium 4.4 Chloride 107 Carbon Dioxide 24 Anion Gap 8 BUN 37 H Creatinine 5.0 H Creat Clearance w eGFR 11.56 POC Glucometer 132 Random Glucose 126 H Calcium 7.9 L Phosphorus 4.7 Magnesium 2.2 Total Bilirubin 0.2 AST 18 ALT 17 Alkaline Phosphatase 133 H Total Protein 4.5 L Albumin 1.4 L Vitamin B6 Microbiology 02/22/18 20:00 Urine - Urine Owens Urine Culture - Final NO GROWTH OBTAINED 02/19/18 03:00 Urine - Urine Clean Catch Urine Culture - Final Enterococcus Faecalis Acinetobacter Baumannii/Haemol 02/19/18 17:30 Nares - Mrsa Screen - Right MRSA Screen - Final NO MRSA ISOLATED 02/19/18 13:00 Nares - Mrsa Screen - Left MRSA Screen - Final NO MRSA ISOLATED ASSESSMENT AND PLAN: 67yo M with PMH CKD, HIV on HARRT, afib on eliquis, DM, systolic CHF, COPD, Prostate ca, sent to the ER due to worsening renal function and was c/o blurred vision for 1 year, found with subacute occipital CVA on imaging. 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 Cr overall unchanged after owens placement. For renal scan with lasix, no clear obstruction. Flomax increased, started on proscar. Patient declines owens. Discussed with Dr. Lobo, d/c owens, monitor void over next few hours and dispo if no concerns. Neuro input noted. ASA/eliquis/statin. BP control. 2D echo/carotid duplex noted. 60-79% stenosis, vascular surgery input, outpatient galindo mcclellan. Continue renvela. Continue HAART. DVTPPX eliquis PT eval noted Dispo d/c in 24 hours if no retention concerns and doing well. Plan discussed with patient in detail, all questions answered.
--- NOTE | 2018-02-25 17:07 | PN ---
Physical Exam: SUBJECTIVE: Patient seen and examined at bedside- no acute events overnight. pateint is feeling so supreapubic pain or complaints denies CP/SOB/N/V frevers or chills OBJECTIVE: Vital Signs Period Temp Pulse Resp BP Sys/Gaspar Pulse Ox Last 24 Hr 97.9 F-99 F 68-75 20-22 139-166/63-90 99-99 GENERAL: The patient is awake, alert, and fully oriented, in no acute distress. EYES: no scleral icterus. NECK: no JVD LUNGS:CTA B/L; no rales, rhonchi or wheezing HEART: Regular rate and rhythm, S1, S2 without murmur, rub or gallop. ABDOMEN: Soft, nontender, nondistended, normoactive bowel sounds, no guarding, no rebound, no hepatosplenomegaly, no masses. EXTREMITIES: 2+ pulses, warm, well-perfused, edema. SKIN: Warm, dry, normal turgor, no rashes or lesions noted Laboratory Results - last 24 hr 02/19/18 02/24/18 02/25/18 05:30 22:02 05:30 WBC 10.9 H RBC 4.38 Hgb 12.0 Hct 37.5 MCV 85.6 MCH 27.3 MCHC 31.9 L RDW 15.1 Plt Count 218 MPV 9.6 Sodium Potassium Chloride Carbon Dioxide Anion Gap BUN Creatinine Creat Clearance w eGFR POC Glucometer 213 Random Glucose Calcium Phosphorus Magnesium Total Bilirubin AST ALT Alkaline Phosphatase Total Protein Albumin Vitamin B6 3.5 L 02/25/18 02/25/18 02/25/18 05:30 06:03 16:29 WBC RBC Hgb Hct MCV MCH MCHC RDW Plt Count MPV Sodium 139 Potassium 4.4 Chloride 107 Carbon Dioxide 24 Anion Gap 8 BUN 37 H Creatinine 5.0 H Creat Clearance w eGFR 11.56 POC Glucometer 132 236 Random Glucose 126 H Calcium 7.9 L Phosphorus 4.7 Magnesium 2.2 Total Bilirubin 0.2 AST 18 ALT 17 Alkaline Phosphatase 133 H Total Protein 4.5 L Albumin 1.4 L Vitamin B6 Active Medications Generic Name Dose Route Start Last Admin Trade Name Freq PRN Reason Stop Dose Admin Abacavir Sulfate 600 mg 02/19/18 10:00 02/25/18 09:54 Ziagen - PO 600 mg DAILY [facility] Administration Albuterol Sulfate 1 puff 02/18/18 21:46 Ventolin Hfa Inhaler - IH Q4H PRN WHEEZING Albuterol Sulfate 2 puff 02/19/18 06:55 Ventolin Hfa Inhaler - IH Q4H PRN WHEEZING Amlodipine Besylate 5 mg 02/19/18 10:00 02/25/18 09:55 Norvasc - PO 5 mg DAILY [facility] Administration Apixaban 5 mg 02/18/18 22:00 02/25/18 09:54 Eliquis - PO 5 mg BID [facility] Administration Aspirin 81 mg 02/19/18 10:00 02/25/18 09:55 Ecotrin - PO 81 mg DAILY [facility] Administration Atorvastatin Calcium 80 mg 02/18/18 22:00 02/24/18 22:42 Lipitor - PO 80 mg HS [facility] Administration Calcium Carbonate/Cholecalciferol 1 tab 02/19/18 10:00 02/25/18 09:55 Os-Rony 500+D - PO 1 tab DAILY [facility] Administration Docusate Sodium 100 mg 02/18/18 21:46 Colace - PO TID PRN CONSTIPATION Finasteride 5 mg 02/25/18 11:00 02/25/18 12:50 Proscar - PO Not Given DAILY [facility] Fluticasone Propionate 2 spray 02/19/18 16:38 02/20/18 10:06 Flonase - NS 2 spray DAILY PRN Administration NASAL ALLERGIES Folic Acid 1 mg 02/19/18 10:00 02/25/18 09:55 Folic Acid - PO 1 mg DAILY [facility] Administration Gabapentin 400 mg 02/18/18 22:00 02/25/18 09:54 Neurontin - PO 400 mg BID [facility] Administration Sodium Chloride 1,000 mls @ 100 mls/hr 02/25/18 12:45 02/25/18 13:00 Normal Saline - IV 100 mls/hr ASDIR [facility] Administration Insulin Aspart 1 vial 02/24/18 07:00 02/25/18 12:04 Novolog Vial Sliding Scale - SQ Not Given ACHS [facility] Protocol Lamivudine 300 mg 02/19/18 10:00 02/25/18 09:55 Epivir - PO 300 mg DAILY [facility] Administration Loratadine 10 mg 02/18/18 21:46 Claritin - PO Q2D PRN sneezing Metoprolol Tartrate 50 mg 02/18/18 22:00 02/25/18 09:55 Lopressor - PO 50 mg BID [facility] Administration Mometasone Furoate 1 puff 02/19/18 10:00 02/25/18 09:55 Asmanex 110mcg - IH 1 puff DAILY [facility] Administration Multivitamins/Minerals/Vitamin C 1 tab 02/19/18 10:00 02/25/18 09:55 Tab-A-Vit - PO 1 tab DAILY [facility] Administration Tamsulosin HCl 0.8 mg 02/19/18 22:00 02/24/18 22:42 Flomax - PO 0.8 mg HS [facility] Administration Tiotropium [place] 2 puff 02/19/18 10:00 02/25/18 09:55 Spiriva Respimat IH 2 puff DAILY [facility] Administration ASSESSMENT/PLAN: 67 yo Male with PMH HIV (on Haart), A-fib (on Eliquis), 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 ASA 81 -Aspiration precautions, elevate head of bed -soft diet -Carotid Doppler showing 60-79% stenoses at the carotid bifurcation -vascular surgery consulted -Continue home Lipitor 80 mg PO HS YIFAN - > 0.3 increase from expected baseline -BUN/Cr 35/5.2 -renal/bladder US showed L hydro; -monitor BMP -Dr Wilson saw pt yesterday and will see him as an O/P and to continue taking flomax -owens removed -bladder scan q6H HIV -Stable on Haart therapy -Follows at [facility] -Recent viral load < 20 in November -CD4 502 at that time -Abacavir/Dolutegravir/Lamivudine 600/50/300 Daily A-fib -Currently in sinus rythm -Rate controlled -Eliquis 5 mg PO BID -Lopressor 50 mg PO BID HTN -Amlodipine 5 mg PO Daily -Lopressor as above NIDDM -BGMs ACHS -Insulin sliding scale for glycemic control COPD -Mometasone -Ventolin Inhaler and Nebs PRN -Spiriva nonformulary, will convert -Currently stable with no signs of exacerbation Systolic CHF -ECHO from 2015 noted with EF 21%, Mildly reduced systolic function -Stable, no signs of acute fluid overload at this time -Repeat Echo shows LV systolic function moderately reduced with hypokinesis BPH -Flomax 0.4 mg PO Daily DVT Prophylaxis -Continue home Eliquis FEN -Fluids: as per nephrology, NS @ 83 cc/hr -Electrolytes: No electrolyte abnormalities, BMP in AM -Nutrition: soft diet Problem List - Problems (1) YIFAN (acute kidney injury) Code(s): N17.9 - ACUTE KIDNEY FAILURE, UNSPECIFIED (2) Dizziness Code(s): R42 - DIZZINESS AND GIDDINESS (3) Non-hemorrhagic cerebrovascular accident Code(s): I63.9 - CEREBRAL INFARCTION, UNSPECIFIED (4) Diabetes Code(s): E11.9 - TYPE 2 DIABETES MELLITUS WITHOUT COMPLICATIONS (5) HIV (human immunodeficiency virus infection) Code(s): Z21 - ASYMPTOMATIC HUMAN IMMUNODEFICIENCY VIRUS INFECTION STATUS Visit type - Emergency Visit Emergency Visit: Yes ED Registration Date: 02/18/18 Care time: The patient presented to the Emergency Department on the above date and was hospitalized for further evaluation of their emergent condition. - New Patient This patient is new to me today: No - Critical Care Critical Care patient: No
[2018-02-25] MEDS: TAMSULOSIN HCL 0.4 MG CAP PO SCH (21:48)
[2018-02-25] MEDS: ATORVASTATIN CA 80 MG TABLET (FP) PO SCH (21:49)
[2018-02-26 01:42] VITALS: BMI 35.9
[2018-02-26] MEDS: INSULIN SLIDING SCALE (NOVOLOG) 1 VIAL SQ SCH ×2 (06:36→12:46)
[2018-02-26 07:40] LABS: ANION GAP 9 MMOL/L (8-16); BLOOD UREA NITROGEN 41 mg/dL (7-18); CHLORIDE 105 mmol/L (98-107); CO2 24 mmol/L (21-32); CREATININE 5.3 mg/dL (0.55-1.3); GLUCOSE,RANDOM 178 mg/dL (74-106); POTASSIUM 4.5 mmol/L (3.5-5.1); SODIUM 138 mmol/L (136-145)
--- NOTE | 2018-02-26 07:42 | PN ---
Teaching Attending Note Name of Resident: Flower Fletcher ATTENDING PHYSICIAN STATEMENT I saw and evaluated the patient. I reviewed the resident's note and discussed the case with the resident. I agree with the resident's findings and plan as documented with exceptions below. SUBJECTIVE: Patient seen and examined. No complaints, doing well, urinating. OBJECTIVE: Vital Signs Period Temp Pulse Resp BP Sys/Gaspar Pulse Ox Last 24 Hr 97.9 F-99 F 65-76 16-22 139-166/60-82 99-99 Intake & Output 02/23/18 02/24/18 02/25/18 02/26/18 23:59 23:59 23:59 23:59 Intake Total 1000 10 840 10 Output Total 900 3500 1850 Balance 100 -3490 -1010 10 Weight 247 lb 244 lb 3.2 oz 243 lb General: sitting in bed in no acute distress chest: limited by habitus, no rales or wheezing Abdomen:soft, obese, NT, no CVA tenderness Extremities: unchanged edema Home Medications Medication Instructions Recorded Tiotropium [place] [Spiriva] 1 inh PO DAILY 04/25/16 B Complex 1 tab PO HS 09/15/17 Vitamin E 1,000 mg PO DAILY 09/15/17 Folic Acid 1 mg PO DAILY #30 tablet 11/28/17 Fluticasone Prop 0.05% Nasal 1 - 2 spray NS DAILY #1 spray.pump 12/26/17 [Flonase -] Fluticasone Propionate [Flovent 100 mcg IH BID #1 blst.w.dev 12/26/17 Diskus] Guaifenesin/D-Methorphan Hb 10 ml PO Q4H PRN #240 ml 12/26/17 [Diabetic Tussin Dm -] Nebulizer [Aeroeclipse II] 1 each MC DAILY #1 each 01/01/18 Abacavir/Dolutegravir/Lamivudi 1 each PO DAILY #30 tablet 01/16/18 [Triumeq 600-50-300 mg Tablet] Albuterol 0.083% Nebulizer Lyla 1 neb NEB Q6H PRN #90 vial 01/16/18 [Ventolin 0.083% Nebulizer Soln -] Albuterol Sulfate Inhaler - 1 - 2 inh PO Q4H PRN #1 inhaler 01/16/18 [Ventolin HFA Inhaler -] MDD 6 Amlodipine Besylate 5 mg PO DAILY #30 tablet 01/16/18 Apixaban [Eliquis -] 5 mg PO BID #60 tablet 01/16/18 Aspirin [Aspirin EC] 81 mg PO DAILY #30 tablet. 01/16/18 Atorvastatin Ca [Lipitor] 80 mg PO HS #30 tablet 01/16/18 Calcium Carbonate/Vitamin D3 1 each PO DAILY #30 tablet 01/16/18 [Calcium 600 + Vit D Tablet] Docusate Sodium [Colace -] 100 mg PO TID PRN #90 capsule 01/16/18 Gabapentin 400 mg PO BID #60 capsule 01/16/18 Loratadine [Claritin -] 10 mg PO Q2D PRN #30 tablet 01/16/18 Metoprolol Tartrate [Lopressor -] 50 mg PO BID #60 tablet 01/16/18 Mometasone Furoate [Asmanex 110Mcg 1 inh IH DAILY #1 inhaler 01/16/18 -] Multivitamin [Daily Multiple 1 each PO DAILY #30 tablet 01/16/18 Vitamin] Repaglinide [Prandin -] 2 mg PO TID #90 tablet 01/16/18 Sitagliptin Phosphate [Januvia] 25 mg PO DAILY #30 tab 01/16/18 Tamsulosin HCl [Flomax] 0.4 mg PO HS #30 cap 01/16/18 Lamivudine [Epivir -] 300 mg PO DAILY tablet 02/23/18 Finasteride [Proscar -] 5 mg PO DAILY 30 Days #30 tablet 02/26/18 Active Medications Abacavir Sulfate (Ziagen -) 600 mg PO DAILY [facility] Last Admin: 02/25/18 09:54 Dose: 600 mg Albuterol Sulfate (Ventolin Hfa Inhaler -) 1 puff IH Q4H PRN PRN Reason: WHEEZING Albuterol Sulfate (Ventolin Hfa Inhaler -) 2 puff IH Q4H PRN PRN Reason: WHEEZING Amlodipine Besylate (Norvasc -) 5 mg PO DAILY [facility] Last Admin: 02/25/18 09:55 Dose: 5 mg Apixaban (Eliquis -) 5 mg PO BID [facility] Last Admin: 02/25/18 21:49 Dose: 5 mg Aspirin (Ecotrin -) 81 mg PO DAILY [facility] Last Admin: 02/25/18 09:55 Dose: 81 mg Atorvastatin Calcium (Lipitor -) 80 mg PO HS [facility] Last Admin: 02/25/18 21:49 Dose: 80 mg Calcium Carbonate/Cholecalciferol (Os-Rony 500+D -) 1 tab PO DAILY [facility] Last Admin: 02/25/18 09:55 Dose: 1 tab Docusate Sodium (Colace -) 100 mg PO TID PRN PRN Reason: CONSTIPATION Finasteride (Proscar -) 5 mg PO DAILY [facility] Last Admin: 02/25/18 12:50 Dose: Not Given Fluticasone Propionate (Flonase -) 2 spray NS DAILY PRN PRN Reason: NASAL ALLERGIES Last Admin: 02/20/18 10:06 Dose: 2 spray Folic Acid (Folic Acid -) 1 mg PO DAILY [facility] Last Admin: 02/25/18 09:55 Dose: 1 mg Gabapentin (Neurontin -) 400 mg PO BID [facility] Last Admin: 02/25/18 21:49 Dose: 400 mg Sodium Chloride (Normal Saline -) 1,000 mls @ 100 mls/hr IV ASDIR [facility] Last Admin: 02/25/18 13:00 Dose: 100 mls/hr Insulin Aspart (Novolog Vial Sliding Scale -) 1 vial SQ ACHS [facility]; Protocol Last Admin: 02/26/18 06:36 Dose: 2 units Lamivudine (Epivir -) 300 mg PO DAILY [facility] Last Admin: 02/25/18 09:55 Dose: 300 mg Loratadine (Claritin -) 10 mg PO Q2D PRN PRN Reason: sneezing Metoprolol Tartrate (Lopressor -) 50 mg PO BID [facility] Last Admin: 02/25/18 21:49 Dose: 50 mg Mometasone Furoate (Asmanex 110mcg -) 1 puff IH DAILY [facility] Last Admin: 02/25/18 09:55 Dose: 1 puff Multivitamins/Minerals/Vitamin C (Tab-A-Vit -) 1 tab PO DAILY [facility] Last Admin: 02/25/18 09:55 Dose: 1 tab Tamsulosin HCl (Flomax -) 0.8 mg PO HS [facility] Last Admin: 02/25/18 21:48 Dose: 0.8 mg Tiotropium [place] (Spiriva Respimat) 2 puff IH DAILY [facility] Last Admin: 02/25/18 09:55 Dose: 2 puff Laboratory Results - last 24 hr 02/19/18 02/25/18 02/25/18 05:30 05:30 16:29 WBC 10.9 H RBC 4.38 Hgb 12.0 Hct 37.5 MCV 85.6 MCH 27.3 MCHC 31.9 L RDW 15.1 Plt Count 218 MPV 9.6 Sodium Potassium Chloride Carbon Dioxide Anion Gap BUN Creatinine Creat Clearance w eGFR POC Glucometer 236 Random Glucose Calcium Vitamin B6 3.5 L 02/25/18 02/26/18 02/26/18 21:52 05:30 06:30 WBC RBC Hgb Hct MCV MCH MCHC RDW Plt Count MPV Sodium 138 Potassium 4.5 Chloride 105 Carbon Dioxide 24 Anion Gap 9 BUN 41 H Creatinine 5.3 H Creat Clearance w eGFR 10.81 POC Glucometer 327 198 Random Glucose 178 H Calcium 8.0 L Vitamin B6 Microbiology 02/22/18 20:00 Urine - Urine Owens Urine Culture - Final NO GROWTH OBTAINED 02/19/18 03:00 Urine - Urine Clean Catch Urine Culture - Final Enterococcus Faecalis Acinetobacter Baumannii/Haemol 02/19/18 17:30 Nares - Mrsa Screen - Right MRSA Screen - Final NO MRSA ISOLATED 02/19/18 13:00 Nares - Mrsa Screen - Left MRSA Screen - Final NO MRSA ISOLATED ASSESSMENT AND PLAN: 67yo M with PMH CKD, HIV on HARRT, afib on eliquis, DM, systolic CHF, COPD, Prostate ca, sent to the ER due to worsening renal function and was c/o blurred vision for 1 year, found with subacute occipital CVA on imaging. 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 Owens removed yesterday, on bladder scan, no evidence of retention. renal function overall unchanged. Flomax increased, finasteride added. For renal scan with lasix, no clear obstruction. Outpatient urology follow up. Outpatient neurology and Dr. Lobo follow up. Neuro input noted. ASA/eliquis/statin. BP control. 2D echo/carotid duplex noted. 60-79% stenosis, vascular surgery input, outpatient follow up. Continue renvela. Continue HAART. DVTPPX loretta PT kurt noted Dispo d/c home with services today with outpatient follow up as mentioned. Plan discussed with patient in detail, all questions answered.
[2018-02-26] MEDS ORDERED: PT OWN MED DRAWER 7, Y5N ONE (10:19)
[2018-02-26] MEDS: MOMETASONE FUROATE 110 MCG/IH INHALER IH SCH (10:43)
[2018-02-26] MEDS: DOLUTEGRAVIR SODIUM 50 MG TABLET (NON-FORMULARY) PO SCH (10:44)
[2018-02-26] MEDS: ABACAVIR SULFATE 300 MG TABLET PO SCH (10:44)
[2018-02-26] MEDS: lamiVUDine 150 MG TABLET PO SCH (10:44)
[2018-02-26] MEDS: METOPROLOL TARTRATE 50 MG TABLET (FP) PO SCH (10:45)
[2018-02-26] MEDS: APIXABAN 5 MG TABLET PO SCH (10:45)
[2018-02-26] MEDS: GABAPENTIN 400 MG CAPSULE (FP) PO SCH (10:45)
[2018-02-26] MEDS: FINASTERIDE 5 MG TABLET (FP) PO SCH (10:45)
[2018-02-26] MEDS: MULTIVITAMINS (DAILY MVI) TABLET (FP) PO SCH (10:45)
[2018-02-26] MEDS: FOLIC ACID 1 MG TABLET (FP) PO SCH (10:45)
[2018-02-26] MEDS: TIOTROPIUM BROMIDE 2.5 MCG (SPIRIVA) RESPIMAT INHALER IH SCH (10:45)
[2018-02-26] MEDS: CALCIUM 500MG/VIT-D 200 UNITS COMBO TABLET (FP) PO SCH (10:45)
[2018-02-26] MEDS: ASPIRIN COATED 81 MG TABLET.EC PO SCH (10:45)
[2018-02-26] MEDS: amLODIPine BESYLATE 5 MG TABLET (FP) PO SCH (10:45)
--- NOTE | 2018-02-26 11:53 | DS ---
Physical Exam: SUBJECTIVE: Patient seen and examined at bedside. no acute events overnight. patient voided and is not in any discomfort he denies any CP/SOB/N/V fevers or chills. OBJECTIVE: Vital Signs Period Temp Pulse Resp BP Sys/Gaspar Pulse Ox Last 24 Hr 98.3 F-99 F 65-82 16-22 136-166/60-92 99 PHYSICAL EXAM GENERAL: The patient is awake, alert, and fully oriented, in no acute distress. EYES: no scleral icterus. NECK: no JVD LUNGS: CTA B/L no rales rhonchi or wheezing. HEART: Regular rate and rhythm, S1, S2 without murmur, rub or gallop. ABDOMEN: Soft, nontender, nondistended, normoactive bowel sounds, no guarding, no rebound, no hepatosplenomegaly, no masses. EXTREMITIES: 2+ pulses, warm, well-perfused, 2+ edema. SKIN: Warm, dry, normal turgor, no rashes or lesions noted. LABS Laboratory Results - last 24 hr 02/25/18 02/25/18 02/26/18 16:29 21:52 05:30 Sodium 138 Potassium 4.5 Chloride 105 Carbon Dioxide 24 Anion Gap 9 BUN 41 H Creatinine 5.3 H Creat Clearance w eGFR 10.81 POC Glucometer 236 327 Random Glucose 178 H Calcium 8.0 L 02/26/18 06:30 Sodium Potassium Chloride Carbon Dioxide Anion Gap BUN Creatinine Creat Clearance w eGFR POC Glucometer 198 Random Glucose Calcium HOSPITAL COURSE: Date of Admission:02/18/18 patient with PMH of HIV, afib, CKD< HTN, HLD presented to the ED with complaints of visual and gait disturbance in addition to elevated r from his basleine which is around 4. he states that he had been having pain visual distubances and gait instability for the past few days. was found to ahve a subacute temporal/occiptal infarct on CT and refused MRI was started on aggrenox for one day then was switched to ASA by neurologsit. was having an increase on his Cr from baseline was found to have L hydronephrosis on CT- patient initially refused owens then agreed. his Cr did not improve by much- so he had a nuclear renal scan which did not show a structurlas obstruction however patient refused to go home with owens. so he was discharged on flomax and finasteride and was told to follo up with urologist in one week Date of Discharge: 02/26/18 Minutes to complete discharge: 39 Discharge Summary Reason For Visit: NON HEMORRHAGIC,CVA Current Active Problems YIFAN (acute kidney injury) (Acute) Hydronephrosis (Acute) Incomplete bladder emptying (Acute) Non-hemorrhagic cerebrovascular accident (Acute) Condition: Stable - Instructions Diet, Activity, Other Instructions: You came to the emergency room with complaints of vision changes and gait instability and your kidney function level was also found to be more elevated than usual. We did a renal scan which did show an obstruction of some sort which requires you to follow up with the urologist for further evaluation, You were also incidentally found with stroke and seen by neurologist. Please resume all of your home medications in addition: -please take flomax 0.8mg daily and finasteride 5mg daily both are medications for your prostate Please follow up with the urologist, Dr. Lanier within one week Please follow up with Dr. Dockery, within one week Please follow up with Dr. Lobo, the thermal cutting tracer machine operator, within one week Follow up with neurologist Dr. Ascencio in 1-2 weeks. Follow up with Dr. Rodriguez, the vascualr surgeon, you will need to repeat the ultrasound of your carotid arteries in 6 months Discuss with your doctor for outpatient cardiology follow up in 2-3 weeks. Following Blood work in 3-5 days: BMP (basic metabolic panel) to monitor your kidneys with Dr. Lobo. Please call Dr. Lobo's office on discharge to schedule follow up. advise daily weights and notify doctor if weight gain > 3 lbs in 2 days. *If you begin to experience any vision changes, chest pain, trouble breathing, pain on urination, blood in urine, changes in speech please return to the emergency room immediately. Referrals: Flower Toussaint NP [Primary Care Provider] - 1 Week Ty Lanier MD [Staff Physician] - 1 Week Martínez Ascencio MD [Staff Physician] - Po Rodriguez MD [Non Staff, Medical] - Ehsan Lobo MD [Staff Physician] - 1 Week Disposition: VNS/HOME HEALTH CARE - Home Medications Comprehensive Discharge Medication List: Ambulatory Orders Tiotropium [place] [Spiriva] 1 inh PO DAILY 04/25/16 B Complex 1 tab PO HS 09/15/17 Vitamin E 1,000 mg PO DAILY 09/15/17 Folic Acid 1 mg PO DAILY #30 tablet 11/28/17 Fluticasone Prop 0.05% Nasal [Flonase -] 1 - 2 spray NS DAILY #1 spray.pump 08/08 Fluticasone Propionate [Flovent Diskus] 100 mcg IH BID #1 blst.w.dev 12/26/17 Guaifenesin/D-Methorphan Hb [Diabetic Tussin Dm -] 10 ml PO Q4H PRN #240 ml 08/08 Nebulizer [Aeroeclipse II] 1 each MC DAILY #1 each 01/01/18 Abacavir/Dolutegravir/Lamivudi [Triumeq 600-50-300 mg Tablet] 1 each PO DAILY # 30 tablet 01/16/18 Albuterol 0.083% Nebulizer Lyla [Ventolin 0.083% Nebulizer Soln -] 1 neb NEB Q6H PRN #90 vial 01/16/18 Albuterol Sulfate Inhaler - [Ventolin HFA Inhaler -] 1 - 2 inh PO Q4H PRN #1 inhaler MDD 6 01/16/18 Amlodipine Besylate 5 mg PO DAILY #30 tablet 01/16/18 Apixaban [Eliquis -] 5 mg PO BID #60 tablet 01/16/18 Aspirin [Aspirin EC] 81 mg PO DAILY #30 tablet. 01/16/18 Atorvastatin Ca [Lipitor] 80 mg PO HS #30 tablet 01/16/18 Calcium Carbonate/Vitamin D3 [Calcium 600 + Vit D Tablet] 1 each PO DAILY #30 tablet 01/16/18 Docusate Sodium [Colace -] 100 mg PO TID PRN #90 capsule 01/16/18 Gabapentin 400 mg PO BID #60 capsule 01/16/18 Loratadine [Claritin -] 10 mg PO Q2D PRN #30 tablet 01/16/18 Metoprolol Tartrate [Lopressor -] 50 mg PO BID #60 tablet 01/16/18 Mometasone Furoate [Asmanex 110Mcg -] 1 inh IH DAILY #1 inhaler 01/16/18 Multivitamin [Daily Multiple Vitamin] 1 each PO DAILY #30 tablet 01/16/18 Repaglinide [Prandin -] 2 mg PO TID #90 tablet 01/16/18 Sitagliptin Phosphate [Januvia] 25 mg PO DAILY #30 tab 01/16/18 Lamivudine [Epivir -] 300 mg PO DAILY tablet 02/23/18 Finasteride [Proscar -] 5 mg PO DAILY 30 Days #30 tablet 02/26/18 Tamsulosin HCl [Flomax] 0.8 mg PO DAILY #30 cap.er.24h 02/26/18 Problem List - Problems (1) YIFAN (acute kidney injury) Code(s): N17.9 - ACUTE KIDNEY FAILURE, UNSPECIFIED (2) Dizziness Code(s): R42 - DIZZINESS AND GIDDINESS (3) Non-hemorrhagic cerebrovascular accident Code(s): I63.9 - CEREBRAL INFARCTION, UNSPECIFIED (4) Diabetes Code(s): E11.9 - TYPE 2 DIABETES MELLITUS WITHOUT COMPLICATIONS (5) HIV (human immunodeficiency virus infection) Code(s): Z21 - ASYMPTOMATIC HUMAN IMMUNODEFICIENCY VIRUS INFECTION STATUS This patient is new to me today: No Emergency Visit: Yes ED Registration Date: 02/18/18 Care time: The patient presented to the Emergency Department on the above date and was hospitalized for further evaluation of their emergent condition. Critical Care patient: No - Discharge Referral Referred to [facility] No
[2018-02-26] MEDS: SODIUM CHLORIDE 1,000 ML IV SCH (12:46)
[2018-02-26 14:41] VITALS: BP 143/64; PULSE 65; TEMP 97.9
--- NOTE | 2018-02-26 14:47 | PN ---
Progress Note (short form) - Note Progress Note: Renal follow up for YIFAN on CKD Vital Signs Temperature 97.9 F 02/26/18 14:00 Pulse Rate 65 02/26/18 14:00 Respiratory Rate 20 02/26/18 14:00 Blood Pressure 143/64 02/26/18 14:00 O2 Sat by Pulse Oximetry (%) 99 02/25/18 20:00 Intake & Output 02/23/18 02/24/18 02/25/18 02/26/18 23:59 23:59 23:59 23:59 Intake Total 1000 10 840 10 Output Total 900 3500 1850 1000 Balance 100 -3490 -1010 -990 Weight 112.037 kg 110.767 kg 110.223 kg NAD awake and alert No bladder distension CBC, BMP 02/25/18 05:30 02/26/18 05:30 Current Medications Abacavir Sulfate (Ziagen -) 600 mg PO DAILY [facility] Last Admin: 02/26/18 10:44 Dose: 600 mg Albuterol Sulfate (Ventolin Hfa Inhaler -) 1 puff IH Q4H PRN PRN Reason: WHEEZING Albuterol Sulfate (Ventolin Hfa Inhaler -) 2 puff IH Q4H PRN PRN Reason: WHEEZING Amlodipine Besylate (Norvasc -) 5 mg PO DAILY [facility] Last Admin: 02/26/18 10:45 Dose: 5 mg Apixaban (Eliquis -) 5 mg PO BID [facility] Last Admin: 02/26/18 10:45 Dose: 5 mg Aspirin (Ecotrin -) 81 mg PO DAILY [facility] Last Admin: 02/26/18 10:45 Dose: 81 mg Atorvastatin Calcium (Lipitor -) 80 mg PO HS [facility] Last Admin: 02/25/18 21:49 Dose: 80 mg Calcium Carbonate/Cholecalciferol (Os-Rony 500+D -) 1 tab PO DAILY [facility] Last Admin: 02/26/18 10:45 Dose: 1 tab Docusate Sodium (Colace -) 100 mg PO TID PRN PRN Reason: CONSTIPATION Finasteride (Proscar -) 5 mg PO DAILY [facility] Last Admin: 02/26/18 10:45 Dose: 5 mg Fluticasone Propionate (Flonase -) 2 spray NS DAILY PRN PRN Reason: NASAL ALLERGIES Last Admin: 02/20/18 10:06 Dose: 2 spray Folic Acid (Folic Acid -) 1 mg PO DAILY [facility] Last Admin: 02/26/18 10:45 Dose: 1 mg Gabapentin (Neurontin -) 400 mg PO BID [facility] Last Admin: 02/26/18 10:45 Dose: 400 mg Sodium Chloride (Normal Saline -) 1,000 mls @ 100 mls/hr IV ASDIR [facility] Last Admin: 02/26/18 12:46 Dose: Not Given Insulin Aspart (Novolog Vial Sliding Scale -) 1 vial SQ ACHS [facility]; Protocol Last Admin: 02/26/18 12:46 Dose: Not Given Lamivudine (Epivir -) 300 mg PO DAILY [facility] Last Admin: 02/26/18 10:44 Dose: 300 mg Loratadine (Claritin -) 10 mg PO Q2D PRN PRN Reason: sneezing Metoprolol Tartrate (Lopressor -) 50 mg PO BID [facility] Last Admin: 02/26/18 10:45 Dose: 50 mg Mometasone Furoate (Asmanex 110mcg -) 1 puff IH DAILY [facility] Last Admin: 02/26/18 10:43 Dose: 1 puff Multivitamins/Minerals/Vitamin C (Tab-A-Vit -) 1 tab PO DAILY [facility] Last Admin: 02/26/18 10:45 Dose: 1 tab Tamsulosin HCl (Flomax -) 0.8 mg PO HS [facility] Last Admin: 02/25/18 21:48 Dose: 0.8 mg Tiotropium [place] (Spiriva Respimat) 2 puff IH DAILY [facility] Last Admin: 02/26/18 10:45 Dose: 2 puff 67 year old AA gentleman with hx of CKD stage 4 (baseline Cr 3.5-3.9), HIV, HTN , DM, COPD, CVA who was asked to come into the ER because of worsening renal function. #Acute on Chronic Renal insufficiency (Mild left sided hydronephrosis - new finding, FeUrea 047% indicating tubular damage, UPCR ~10) #Nephrotic range proetinuira (Serologic work up done showed negative hepatitis, DARIUSZ,ANCA, SPEP, likely due to diabetic nephropathy) #Subacute occipital CVA #HIV #Hypertension #DM Renal function unchanged, however pt w/o any acute indication for CANAL DRIVER and is non -oliguric at the present time stable for discharge on Flomax and proscar Bladder scan showed minimal PVR will have pt follow up in our office next week for monitoring of renal function Pt educated on avoidance of NSAIDs and importance of monitoring frequency, and quality of urination no VIVIENNE or ARB given low eGFR Ehsan Lobo DO
== END 2018-02-26 15:21 | disposition home health service (06) | DRG 682 ==
LOC: JER 14:57 → JERBED 19:54 → J4W 02-19 05:24
PROVIDERS: ADMIT Internal Medicine; ATTEND Hospitalist
DX: N17.9 Acute kidney failure, unspecified (principal); I63.9 Cerebral infarction, unspecified; I50.22 Chronic systolic (congestive) heart failure; I13.0 Hypertensive heart and chronic kidney disease with heart failure and stage 1 through stage 4 chronic kidney disease, or unspecified chronic kidney disease; N13.30 Unspecified hydronephrosis; N18.4 Chronic kidney disease, stage 4 (severe); Z21 Asymptomatic human immunodeficiency virus [HIV] infection status; E83.39 Other disorders of phosphorus metabolism; J44.9 Chronic obstructive pulmonary disease, unspecified; I48.91 Unspecified atrial fibrillation; E11.22 Type 2 diabetes mellitus with diabetic chronic kidney disease; R33.9 Retention of urine, unspecified; N40.0 Benign prostatic hyperplasia without lower urinary tract symptoms; I25.10 Atherosclerotic heart disease of native coronary artery without angina pectoris; Z98.61 Coronary angioplasty status; E78.5 Hyperlipidemia, unspecified; E66.9 Obesity, unspecified; Z68.35 Body mass index [BMI] 35.0-35.9, adult
CPT/HCPCS: 36415; 70450-TC; 71046-TC-FY; 74176-TC; 76775-TC; 76856-TC; 78708-TC; 80048; 80053; 80061; 81003; 81015; 82570; 82607; 82962; 83721; 83735; 84100; 84134; 84153; 84156; 84207; 84443; 84484; 84540; 85025; 85027; 85651; 87081; 87086; 87186; 93005; 93010; 93306-TC; 93880-TC; 97116-GP; 97162-GP; 99282-25; 99283-25; A9562; J7030

== ENCOUNTER 2018-05-06 12:00 | Emergency (ER) | payer MEDICARE, OTHER ==
[2018-05-06 12:13] VITALS: BMI 37.1
[2018-05-06] MEDS ORDERED: ALBUTEROL SO4 2.5/IPRATROPIUM 0.5 INH SOL 3 ML VIAL.NEB. NEB ONE (14:22)
--- NOTE | 2018-05-06 14:24 | PDOC ---
History of Present Illness - General Chief Complaint: Weakness Stated Complaint: WEAKNESS Time Seen by Provider: 05/06/18 12:51 History Source: Patient Exam Limitations: No Limitations - History of Present Illness Initial Comments: 67 yo M w a hx of CVA, HIV (on Haart), A-fib (on Eliquis), HTN, NIDDM, Asthma, COPD, Bronchitis, CKD, Systolic CHF, BPH, Prostate cancer s/p resection, CAD s/ p cardiac stent presents to the ER sent from his assisted living facility because he has been experiencing a worsening cough over the past 5 days which was originally dry but has progressed to become very productive. The patient also endorses a significant amount of chest pain when he coughs but none at rest. The cough is associated with significant SOB and difficulty breathing. He denies any recent fevers, chills or infections. He also endorses recent dysuria but denies frequency or urgency. He denies having any back pain, neck pain, headache, blurry vision, diarrhea, constipation, new numbness, tingling, difficulty speaking, nausea or vomiting. PCP: Janeth Chau N.P at [facility] PSH: Cardiac Stent, Prostate resection. Social Hx: Former smoker, denies alcohol or other drugs. Allergies: NKA, NKDA Past History - Past Medical History Allergies/Adverse Reactions: Allergies Allergy/AdvReac Type Severity Reaction Status Date / Time No Known Allergies Allergy Verified 02/18/18 19:52 Home Medications: Ambulatory Orders Tiotropium [place] [Spiriva] 1 inh PO DAILY 04/25/16 B Complex 1 tab PO HS 09/15/17 Folic Acid 1 mg PO DAILY #30 tablet 11/28/17 Fluticasone Propionate [Flovent Diskus] 100 mcg IH BID #1 blst.w.dev 12/26/17 Nebulizer [Aeroeclipse II] 1 each MC DAILY #1 each 01/01/18 Albuterol 0.083% Nebulizer Lyla [Ventolin 0.083% Nebulizer Soln -] 1 neb NEB Q6H PRN #90 vial 01/16/18 Albuterol Sulfate Inhaler - [Ventolin HFA Inhaler -] 1 - 2 inh PO Q4H PRN #1 inhaler MDD 6 01/16/18 Amlodipine Besylate 5 mg PO DAILY #30 tablet 10/26/18 Calcium Carbonate/Vitamin D3 [Calcium 600 + Vit D Tablet] 1 each PO DAILY #30 tablet 01/16/18 Docusate Sodium [Colace -] 100 mg PO TID PRN #90 capsule 01/16/18 Loratadine [Claritin -] 10 mg PO Q2D PRN #30 tablet 01/16/18 Metoprolol Tartrate [Lopressor -] 50 mg PO BID #60 tablet 01/16/18 Mometasone Furoate [Asmanex 110Mcg -] 1 inh IH DAILY #1 inhaler 01/16/18 Lamivudine [Epivir -] 300 mg PO DAILY tablet 02/23/18 Finasteride [Proscar -] 5 mg PO DAILY 30 Days #30 tablet 02/26/18 Abacavir Sulfate [Ziagen -] 300 mg PO DAILY #60 tablet 04/21/18 Apixaban [Eliquis -] 5 mg PO BID #60 tablet 04/21/18 Aspirin [Aspirin EC] 81 mg PO DAILY #30 tablet. 04/21/18 Atorvastatin Ca [Lipitor] 80 mg PO HS #30 tablet 04/21/18 Dolutegravir Sodium [Tivicay] 50 mg PO DAILY #30 tablet 04/21/18 Gabapentin 400 mg PO BID #60 capsule 04/21/18 Lamivudine [Epivir -] 150 mg PO DAILY #30 tablet 04/21/18 Repaglinide [Prandin -] 1 mg PO TID #90 tablet 04/21/18 Sitagliptin Phosphate [Januvia] 25 mg PO DAILY #30 tab 04/21/18 Tamsulosin HCl [Flomax] 0.8 mg PO DAILY #30 cap.er.24h 04/21/18 Anemia: Yes Asthma: Yes Cancer: No Cardiac Disorders: Yes (A FIB, CAD) CVA: Yes COPD: No CHF: Yes Dementia: No Diabetes: Yes Disorders: Yes (PROSTATE CA) HTN: Yes Hypercholesterolemia: Yes Seizures: No Thyroid Disease: No - Surgical History Cardiac Surgery: Yes (stent placement) - Immunization History Immunization Up to Date: Yes - Suicide/Smoking/Psychosocial Hx Smoking History: Former smoker Have you smoked in the past 12 months: No Number of Cigarettes Smoked Daily: 2 If you are a former smoker, when did you quit?: "years ago" Cigars Per Day: 0 Information on smoking cessation initiated: No 'Breaking Loose' booklet given: 08/29/15 Hx Alcohol Use: No Drug/Substance Use Hx: No Substance Use Type: None Hx Substance Use Treatment: No Review of Systems - Review of Systems Able to Perform ROS?: Yes Comments:: CONSTITUTIONAL: Present: fatigue Absent: fever, no chills, no fatigue EYES: Absent: visual changes ENT: Absent: ear pain, no sore throat CARDIOVASCULAR: Present: Chest pain Absent: no palpitations RESPIRATORY: Present: Cough, SOB, wheezing Absent: dyspnea with exertion, orthopnea, stridor, hemoptysis GI: Absent: abdominal pain, no nausea, no vomiting, no constipation, no diarrhea GENITOURINARY: Present: Dysuria Absent: no frequency, no hematuria MUSKULOSKELETAL: Absent: back pain, no arthralgia, no myalgia SKIN: Present: rash NEURO: Absent: headache *Physical Exam - Vital Signs Last Vital Signs Temp Pulse Resp BP Pulse Ox 97.8 F 72 20 112/70 97 05/06/18 12:20 05/06/18 12:11 05/06/18 12:11 05/06/18 12:11 05/06/18 12:11 - Physical Exam General Appearance: Yes: Nourished, Appropriately Dressed, Apparent Distress HEENT: positive: EOMI, ALMITA, Normal ENT Inspection, Normal Voice, Pharyngeal Erythema. negative: Nasal Congestion, Rhinorrhea, Sinus Tenderness Neck: positive: Trachea midline, Supple. negative: Rigid, Decreased range of motion, Lymphadenopathy (R), Lymphadenopathy (L) Respiratory/Chest: positive: Respiratory Distress, Rapid RR, Decreased Breath Sounds, Crackles (Lower left), Rales (Left sided), Rhonchi (Left sided), Wheezing (Diffuse expiratory, worse on the left. ). negative: Lungs Clear, Normal Breath Sounds Cardiovascular: positive: Regular Rhythm, Regular Rate, S1, S2, Edema (1+ ), Irregularly Irregular Vascular Pulses: Dorsalis-Pedis (R): 1+, Doralis-Pedis (L): 1+ Gastrointestinal/Abdominal: positive: Normal Bowel Sounds, Soft. negative: Pulsatile Mass, Distended, Guarding, Rebound Rectal Exam: positive: deferred Lymphatic: negative: Adenopathy Musculoskeletal: positive: Decreased Range of Motion. negative: CVA Tenderness , Muscle Spasm, Vertebral Tenderness Extremity: positive: Normal Capillary Refill, Normal Inspection, Pelvis Stable, Pedal Edema, Swelling. negative: Normal Range of Motion, Delayed Capillary Refill Integumentary: positive: Normal Color, Dry, Warm, Rash (Random puple appearing lesions on right arm and chest. ) Neurologic: positive: Fully Oriented, Alert, Normal Mood/Affect, Normal Response , Motor Strength 5/5, Facial Droop (right sided). negative: Numbness, Confused , Disoriented Moderate Sedation - Procedure Monitoring Vital Signs: Procedure Monitoring Vital Signs Temperature 97.8 F 05/06/18 12:20 Pulse Rate 72 05/06/18 12:11 Respiratory Rate 20 05/06/18 12:11 Blood Pressure 112/70 05/06/18 12:11 O2 Sat by Pulse Oximetry (%) 97 05/06/18 12:11 ED Treatment Course - LABORATORY CBC & Chemistry Diagram: 05/06/18 14:34 05/06/18 14:34 - ADDITIONAL ORDERS Additional order review: Laboratory Results 05/06/18 12:05 POC Glucometer 166 05/06/18 12:05 POC Glucometer 166 Medical Decision Making - Medical Decision Making 67 yo M w a hx of CVA, HIV (on Haart), A-fib (on Eliquis), HTN, NIDDM, Asthma, COPD, Bronchitis, CKD, Systolic CHF, BPH, Prostate cancer s/p resection, CAD s/ p cardiac stent presents to the ER sent from his assisted living facility because he has been experiencing a worsening cough over the past 5 days which was originally dry but has progressed to become very productive. The patient also endorses a significant amount of chest pain associated with significant SOB and difficulty breathing. He denies any recent fevers, chills or infections. He also endorses recent dysuria but denies frequency or urgency. VS: tachypneic DDx IBNLT: HIV associated infection, PCP, COPD exacerbation, PNA, bronchitis, URI, pneumothorax, asthma exacerbation, ACS/ID, CVA/TIA Plan: Labs, Urine, EKG, CXR, Duonebs, re-assess. Head CT: No signs of acute pathology. Labs notable for troponin > 40 There is also new onset EKG changes with inverted T waves in leads v5 and v6 compared with an EKG from January 2018 - 3 months prior Consulted Cardiology - Dr. Michaels who agrees with transfering patient to [facility] for possible cardiac intervention. - Starting patient on heparin drip, giving aspirin and plavix. Patient also has an elevated BUN/Cr with 75/7.7 - Consulted Renal - Dr. Lobo who knows the patient. He states the patient does not need urgent dialysis and can safely be transfered to [facility] for cardiology treatment. - Will Initiate transfer over to [facility]. Dr. michaels says he will be able to goto Dr. Tellez's Service. - Patient has a bed at the [facility] Telemetry floor under Dr. Tellez's service. - Received call from transfer center that the ambulance will arrive to pick him up at 11 PM. 05/06/18 22:36 Patient left the ED by 11 with ALS to head to [facility]. *DC/Admit/Observation/Transfer Diagnosis at time of Disposition: Non-STEMI (non-ST elevated myocardial infarction) - Discharge Dispostion Disposition: TRANSFER ACUTE CARE/OTHER HOSP Condition at time of disposition: Guarded - Referrals Referrals: Janeth Lorenzana, BALANCE ENGINEER [Primary Care Provider] - - Patient Instructions - Post Discharge Activity
[2018-05-06 14:59] LABS: EOS % 0.5 % (0-4.5); HEMATOCRIT 37.5 % (35.4-49); HEMOGLOBIN 12.3 GM/dL (11.7-16.9); LYMPH % 12.8 % (8-40); MCH 28.3 pg (25.7-33.7); MCHC 32.8 g/dl (32.0-35.9); MEAN CELL VOLUME 86.1 fl (80-96); MEAN PLT VOLUME 7.9 fl (7.5-11.1); MONO % 8.9 % (3.8-10.2); NEUT % 76.8 % (42.8-82.8); PLATELET COUNT 348 K/MM3 (134-434); RBC 4.35 M/mm3 (4.00-5.60); RDW 15.4 % (11.9-15.9); WHITE BLOOD COUNT 11.8 K/mm3 (4.0-10.0)
[2018-05-06 15:15] LABS: ARTERIAL BLD GAS O2 SATURATION 88.8 % (90-98.9); ARTERIAL BLOOD GAS BASE EXCESS -5.6 meq/l (-2-2); ARTERIAL BLOOD GAS PCO2 37.2 mmHg (35-45); ARTERIAL BLOOD GAS pH 7.33 (7.35-7.45); CARBOXYHEMOGLOBIN 0.8 gm% (0.5-2.0)
[2018-05-06 15:16] LABS: ALLENS TEST POSITIVE
[2018-05-06 15:49] LABS: ALBUMIN 1.5 g/dl (3.4-5.0); ALK PHOS 163 U/L (45-117); ANION GAP 9 MMOL/L (8-16); BILIRUBIN,TOTAL 0.3 mg/dL (0.2-1); BLOOD UREA NITROGEN 75 mg/dL (7-18); CALCIUM 8.7 mg/dL (8.5-10.1); CHLORIDE 108 mmol/L (98-107); CO2 23 mmol/L (21-32); GLUCOSE,RANDOM 120 mg/dL (74-106); N-TERMINAL BNP 45283.7 pg/ml (5-125); POTASSIUM 4.5 mmol/L (3.5-5.1); SGOT/AST 134 U/L (15-37); SGPT/ALT 46 U/L (13-61); SODIUM 140 mmol/L (136-145); TOT PROT 6.5 g/dl (6.4-8.2)
--- NOTE | 2018-05-06 16:04 | EKG ---
Test Reason : Blood Pressure : / mmHG Vent. Rate : 076 BPM Atrial Rate : 076 BPM P-R Int : 156 ms QRS Dur : 098 ms QT Int : 430 ms P-R-T Axes : 059 071 129 degrees QTc Int : 483 ms SINUS RHYTHM WITH PREMATURE ATRIAL COMPLEXES ANTEROSEPTAL INFARCT (CITED ON OR BEFORE 17-NOV-2003) ABNORMAL ECG WHEN COMPARED WITH ECG OF 18-FEB-2018 20:04, PREMATURE ATRIAL COMPLEXES ARE NOW PRESENT BORDERLINE CRITERIA FOR INFERIOR INFARCT ARE NO LONGER PRESENT NONSPECIFIC T WAVE ABNORMALITY NOW EVIDENT IN INFERIOR LEADS T WAVE INVERSION NOW EVIDENT IN LATERAL LEADS Confirmed by YOUSIF ANDERSON, JASMYNE ([id number]) on 05/06/2018 4:04:01 PM Referred By: Confirmed By:JASMYNE DODD MD
[2018-05-06 16:07] LABS: CREATININE 7.7 mg/dL (0.55-1.3)
[2018-05-06] MEDS ORDERED: ASPIRIN 81 MG CHEWABLE TABLETS PO ONE (16:08)
--- NOTE | 2018-05-06 16:17 | PDOC ---
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 He also report SOB for about 2-3 weeks. The patient denies chest pain, headache and dizziness. The patient denies fever , chills, nausea, vomit, diarrhea and constipation. The patient denies dysuria, frequency, urgency and hematuria. Allergies: NKDA PCP - Dr. Janeth Lorenzana - Physicial Exam PE: 05/06/18 16:18 GENERAL: The patient is in no acute distress. HEAD: Normal with no signs of trauma. EYES: PERRLA, EOMI, sclera anicteric, conjunctiva clear. ENT: Ears normal, nares patent, oropharynx clear without exudates. Moist mucous membranes. NECK: Normal range of motion, supple without lymphadenopathy, JVD, or masses. LUNGS: (+) Speaking 3 word sentences, Bilateral Rales. Breath sounds equal, No wheezes, and no crackles. HEART:Regular rate and rhythm, normal S1 and S2 without murmur, rub or gallop. ABDOMEN: Soft, nontender, normoactive bowel sounds. No guarding, no rebound. No masses palpable. EXTREMITIES: Normal range of motion, no edema. No clubbing or cyanosis. No erythema, or tenderness. NEUROLOGICAL: Cranial nerves II through XII grossly intact. Normal speech. No focal neurological deficits. MUSCULOSKELETAL: Back non-tender to palpation, no CVA tenderness SKIN: Warm, Dry, normal turgor, no rashes or lesions noted. - Medical Decision Making 05/06/18 16:27 Dr. Ehsan Lobo was paged at the office at this time. Awaiting call back. 05/06/18 16:54 [facility] cardiology was paged at this time ([phone]) and the case was discussed with Dr. Michaels <Isha Mdaden - Last Filed: 05/06/18 16:54> - Resident Resident Name: Boyd Daigle - ED Attending Attestation I have performed the following: I have examined & evaluated the patient, The case was reviewed & discussed with the resident, I agree w/resident's findings & plan, Exceptions are as noted - Critical Care Time Total Critical Care Time: 90 Critical Care Statement: The care of this patient involved high complexity decision making to prevent further life threatening deterioration of the patient 's condition and/or to evaluate & treat vital organ system(s) failure or risk of failure. - Medical Decision Making 67 yo F presenting to the ER with a complaint of weakness Present for 2-3 weeks Also shortness of breath No chest pain No palpitations Denies lower extremity edema On examination: Speaking in 3 word sentences A&O x 3 Answers questions appropriately RRR Decreased breath sounds at the bases No abd tenderness 2+ pitting edema to the knees 05/07/18 21:42 Laboratory Tests 05/06/18 05/06/18 14:34 14:34 WBC 11.8 H Hgb 12.3 Hct 37.5 Plt Count 348 D Sodium 140 Potassium 4.5 Chloride 108 H Carbon Dioxide 23 BUN 75 H Creatinine 7.7 H* Random Glucose 120 H Troponin I > 40.00 H* B-Natriuretic Peptide 72849.7 H EKG - NSR rate of 76 bpm, axis nml, no st elevation or depression, t wave inversions laterally CXR - Cardiomegally Call placed to renal - can give gentle hydration Call placed to cards - will transfer ASA given Plavix/Heparin ordered per Dr Michaels Clinical impression: NSTEMI, initial presentation <Mayelin Hamm - Last Filed: 05/07/18 21:46> *DC/Admit/Observation/Transfer <Isha Madden - Last Filed: 05/06/18 16:54> - Discharge Dispostion Decision to Admit order: No - Transfer to Acute Care Facility Receiving Facility: [facility] <Mayelin Hamm - Last Filed: 05/07/18 21:46> Diagnosis at time of Disposition: Non-STEMI (non-ST elevated myocardial infarction) - Discharge Dispostion Disposition: TRANSFER ACUTE CARE/OTHER HOSP Condition at time of disposition: Guarded - Referrals Referrals: Janeth Lorenzana, INTERNATIONAL ACCOUNT REPRESENTATIVE [Primary Care Provider] - - Patient Instructions - Post Discharge Activity Attestations - Attestations 05/06/18 16:19 Documentation prepared by Isha Madden, acting as medical detailist for Mayelin Hamm MD <Isha Madden - Last Filed: 05/06/18 16:54>
[2018-05-06] MEDS ORDERED: CLOPIDOGREL BISULFATE 300 MG TABLET PO ONE (17:03)
[2018-05-06] MEDS ORDERED: HEPARIN NA (PORCINE) 5,000 UNITS/ML 1ML VIAL IVPUSH PRN ×2 (17:04)
[2018-05-06] MEDS ORDERED: HEPARIN - 25,000 UNIT in SODIUM CHLORIDE 495 ML IV SCH (17:15)
[2018-05-06] MEDS ORDERED: HEPARIN INFUSION - 25,000 UNITS/500 ML INFUS.BAG IVPB ONE (17:45)
[2018-05-06] MEDS ORDERED: CLOPIDOGREL BISULFATE 300 MG TABLET ONE (17:45)
[2018-05-06 22:54] VITALS: TEMP 98.1
[2018-05-06 22:57] VITALS: BP 117/67; PULSE 82
== END 2018-05-06 23:19 | disposition short-term general hospital (02) ==
LOC: JER 12:00
PROC: 3E0F7GC Introduction of Other Therapeutic Substance into Respiratory Tract, Via Natural or Artificial Opening (ICD-10-PCS; principal; 2018-05-06)
DX: I21.4 Non-ST elevation (NSTEMI) myocardial infarction (principal); I48.91 Unspecified atrial fibrillation; I10 Essential (primary) hypertension; J44.9 Chronic obstructive pulmonary disease, unspecified; N40.0 Benign prostatic hyperplasia without lower urinary tract symptoms; Z85.46 Personal history of malignant neoplasm of prostate
CPT/HCPCS: 36415; 36600; 70450-TC; 71045-TC-FY; 80053; 82375; 82550; 82553; 82803; 82962; 83050; 83880; 84484; 85025; 93005; 93010; 99285-25; J1644